=== PATIENT | female | born 1950 | race Caucasian/White ===

== ENCOUNTER 2023-10-26 12:30 | Observation (INO) | payer MEDICARE, OTHER, SELFPAY ==
[2023-10-26 12:41] VITALS: BP 187/77; PULSE 85; RESP 19; TEMP 36.9; O2SAT 100; BMI 29.2
--- NOTE | 2023-10-26 12:42 | XRR_ITS ---
PROCEDURE INFORMATION: Exam: XR Abdomen Exam date and time: 10/26/2023 1:42 PM Age: 73 years old Clinical indication: Prior surgery; Surgery date: 6+ months; Patient HX: Abdominal pain/distention; Chronic constipation; Worsening x 1 week; HX of pancreatic transplant, lumbar fusion, bladder stimulator, diabetic monitor TECHNIQUE: Imaging protocol: Radiologic exam of the abdomen. Views: Frontal supine view of the abdomen. 1 View. COMPARISON: No relevant prior studies available. FINDINGS: Gaseous distention of the colon in a nonobstructive pattern. Moderate colonic stool burden/constipation. XR/XR abdomen 1V* [id number] IMPRESSION: As above.
[2023-10-26 13:33] LABS: Basophils % 0.6 %; Eosinophils # 0.1 10^3/uL (0.0-0.8); Eosinophils % 1.1 %; Lymphocytes # 1.5 10^3/uL (0.8-4.8); Lymphocytes % 21.3 %; Mean Corpuscular HGB Conc 33.2 g/dL (30-55); Mean Corpuscular Hemoglobin 31.9 pg (27-33); Mean Platelet Volume 9.6 fL (7.4-10.4); Monocytes # 0.5 10^3/uL (0.2-0.9); Monocytes % 7.2 %; Neutrophils # 4.85 10^3/uL (1.8-7.7); Neutrophils % 69.5 %; Nucleated Red Blood Cells % 0 %; Platelet Count 170 10^3/cmm (157-399); Red Blood Count 3.23 10^6/uL (3.85-5.65); Red Cell Distribution Width 12.2 % (12.1-15.1); White Blood Count 6.98 10^3/uL (3.29-11.43)
[2023-10-26 13:45] LABS: Alanine Aminotransferase 16 U/L (0-33); Alkaline Phosphatase 128 U/L (35-105); Anion Gap 15.3 (5-19); Aspartate Amino Transferase 19 U/L (0-32); Blood Urea Nitrogen 17 mg/dL (8-23); Calcium 8.5 mg/dL (8.5-10.5); Carbon Dioxide 26 mmol/L (22-29); Chloride 93 mmol/L (98-107); Globulin 2.7 g/dL (1.3-4.6); Glucose 159 mg/dL (65-115); Lipase 16 U/L (13-60); Magnesium 2.1 mg/dL (1.7-2.3); Osmolality Calculated 275 mOsm/kg (285-295); Potassium 4.3 mmol/L (3.5-5.1); Sodium 130 mmol/L (136-145); Total Bilirubin 0.2 mg/dL (0.15-1.2); Total Protein 6.7 g/dL (6.6-8.7)
--- NOTE | 2023-10-26 14:49 | CTR_ITS ---
PROCEDURE INFORMATION: Exam: CT Abdomen And Pelvis With Contrast Exam date and time: 10/26/2023 4:32 PM Age: 73 years old Clinical indication: Constipation; Prior surgery; Surgery date: 6+ months; Surgery type: Back , bladder; Additional info: Abdominal pain with n/v TECHNIQUE: Imaging protocol: Computed tomography of the abdomen and pelvis with contrast. Radiation optimization: All CT scans at this facility use at least one of these dose optimization techniques: automated exposure control; mA and/or kV adjustment per patient size (includes targeted exams where dose is matched to clinical indication); or iterative reconstruction. Contrast material: OMNI 350; Contrast volume: 80 ml; Contrast route: INTRAVENOUS (IV); COMPARISON: CR (ABDOMEN, ) 10/26/2023 1:42 PM RADIATION DOSE METRICS: Total DLP (mGy-cm): 927.18 FINDINGS: Liver: No acute findings Gallbladder and bile ducts: No stones. Intra and extrahepatic biliary dilatation with common duct measuring approximately 10 mm. Pancreas: No ductal dilation. Spleen: No splenomegaly. Adrenal glands: No mass. Kidneys and ureters: No stones or hydronephrosis. Stomach and bowel: No obstruction. Moderate colonic stool burden/constipation. Appendix: No evidence of appendicitis. Intraperitoneal space: No free air. No significant fluid collection. Vasculature: No abdominal aortic aneurysm. Lymph nodes: No enlarged lymph nodes. Urinary bladder: Incompletely distended. Reproductive: Trace pelvic free fluid likely physiologic. Bones/joints: Degenerative and postsurgical changes without acute findings. Soft tissues: Bilateral breast implants. CT/CT abdomen pelvis w con* [id number] IMPRESSION: Intra and extrahepatic biliary ductal dilatation of unclear etiology. MRCP recommended for further characterization. Diffuse colonic stool/constipation.
[2023-10-26] MEDS: methylnaltrexone 12 /0.6 mL INJ 12 MG SUBCUT (15:15)
[2023-10-26 15:43] LABS: Add Urine Microscopic? NO; Charge for UA Resulting for Rev
[2023-10-26 15:44] LABS: Bilirubin Urine Neg (Negative); Blood Urine Neg (Negative); Glucose Urine UA Norm (Normal); Ketones Urine Negative (Negative); Leukocyte Esterase Urine Negative (Negative); Nitrate Urine Negative (Negative); Protein Urine Neg (Negative); Specific Gravity, Urine 1.005 (1.005-1.030); Urine Appearance Clear (CLEAR); Urine Color Yellow (Yellow); Urobilinogen Urine Norm (Negative); pH Urine 7 (5-7)
[2023-10-26 16:00] VITALS: BP 175/77; PULSE 74; O2SAT 94
[2023-10-26] MEDS: iohexol 350 mg/mL 500 mL Btl (per mL) IV (16:45)
[2023-10-26] MEDS: sodium chloride 0.9% 1,000 ML 999 ML IV (16:57)
--- NOTE | 2023-10-26 17:36 | PC.PHAR ---
PT USES [facility] [employer]ED ENTIRE EXTERNAL LIST FROM THEM AND SAT WITH PATIENT TO VERIFY EVERY MEDICATION. SHE DID NOT REMEMBER HER ALLERGIES SO I CALLED BACK AND GOT THE LIST, PHARMACIST SAYS UNKNOWN ON THE REACTIONS ON ALL. 10/26/23
[2023-10-26] MEDS: Fleet Enema 133 mL Enema PR (18:10)
--- NOTE | 2023-10-26 18:14 | PM.HP ---
Providers/Chief Complaint Primary Care Provider: Brandi Thakur DO Chief Complaint: abd pain, n/v, constipated History of Present Illness Meryl Ling is a 73 year old female with history of chronic opioid use secondary to her back pain and shoulder surgery, takes multiple bowel regimen, presented with 3-day history of nausea and vomiting. Patient stating that every time she has breakfast she has 3 episode of nausea and vomiting. This has been going on for last 3 days, she has not noticed any fever. She has tried multiple laxatives and stool softeners but nothing is working her favor. She was seen at [facility] as well where she was given methylnaltrexone with mild improvement. In the ER she has been diagnosed with significant stool burden causing obstipation she has been given enema and mag citrate. Patient does not want NG tube I will start her on GoLytely in the morning, patient is agreeable Review of Systems Eyes: Denies: change in vision ENMT: Denies: throat pain Card: Denies: chest pain Resp: Denies: dyspnea GI: Reports: abdominal pain and early satiety : Denies: flank pain Musc: Reports: back pain Skin/Breast: Denies: rash Medications/Allergies Home Medications Medication Instructions Recorded Confirmed Last Taken Type amlodipine 5 mg tablet 5 mg PO DAILY 10/26/23 10/26/23 10/26/23 History armodafinil 250 mg tablet 250 mg PO DAILY 10/26/23 10/26/23 10/26/23 History azelastine 137 mcg (0.1 %) nasal 2 spray intranasal BID PRN 10/26/23 10/26/23 Unknown History spray aerosol ALLERGIES baclofen 10 mg tablet 20 mg PO BID 10/26/23 10/26/23 10/26/23 History bisacodyl 10 mg rectal suppository 10 mg NH DAILY PRN Constipation 10/26/23 10/26/23 Unknown History brimonidine 0.2 % eye drops 1 drp ophthalmic (eye) BID 10/26/23 10/26/23 10/26/23 History dorzolamide 2 % eye drops 1 drp ophthalmic (eye) BID 10/26/23 10/26/23 10/26/23 History duloxetine 30 mg capsule,delayed 30 mg PO BID 10/26/23 10/26/23 10/26/23 History release estradiol 2 mg tablet 2 mg PO DAILY 10/26/23 10/26/23 10/26/23 History fentanyl 12 mcg/hr transdermal 1 patch topical Q72H 10/26/23 10/26/23 Unknown History patch fluticasone propionate 50 1 spray intranasal BID PRN 10/26/23 10/26/23 Unknown History mcg/actuation nasal allergies spray,suspension furosemide 40 mg tablet 20 mg PO DAILY 10/26/23 10/26/23 10/26/23 History insulin aspart U-100 100 unit/mL See Rx Instructions .Route .COMPLEX 10/26/23 10/26/23 Unknown History subcutaneous solution (Novolog U-100 Insulin aspart) ipratropium bromide 42 mcg (0.06 2 spray intranasal TID PRN 10/26/23 10/26/23 Unknown History %) nasal spray allergies lactulose 10 gram/15 mL oral 30 ml PO TID 10/26/23 10/26/23 10/26/23 History solution (Constulose) latanoprost 0.005 % eye drops 1 drp ophthalmic (eye) DAILY 10/26/23 10/26/23 10/26/23 History levothyroxine 200 mcg tablet 200 mcg PO DAILY 10/26/23 10/26/23 10/26/23 History levothyroxine 25 mcg tablet 25 mcg PO DAILY 10/26/23 10/26/23 10/26/23 History linaclotide 290 mcg capsule 290 mcg PO DAILY 10/26/23 10/26/23 10/26/23 History (Linzess) liothyronine 5 mcg tablet 5 mcg PO DAILY 10/26/23 10/26/23 10/26/23 History lubiprostone 24 mcg capsule 24 mcg PO BID 10/26/23 10/26/23 10/26/23 History morphine 15 mg tablet,extended 15 mg PO Q8H 10/26/23 10/26/23 10/26/23 History release okzlktcl-poowqmuhz-htxwkasw 3.5 1 drp ophthalmic (eye) QID 10/26/23 10/26/23 10/26/23 History mg/mL-10,000 unit/mL-0.1% eye drops netarsudil 0.02 % eye drops 1 drp ophthalmic (eye) BEDTIME 10/26/23 10/26/23 10/25/23 History (Rhopressa) nystatin 100,000 unit/gram topical 1 applic topical BID 10/26/23 10/26/23 10/26/23 History powder (Nystop) ofloxacin 0.3 % eye drops 1 drp ophthalmic (eye) QID 10/26/23 10/26/23 10/26/23 History ondansetron 8 mg disintegrating 8 mg PO Q8H PRN Nausea 10/26/23 10/26/23 Unknown History tablet pramipexole 0.25 mg tablet 0.25 mg PO QPM 10/26/23 10/26/23 10/25/23 History pregabalin 25 mg capsule 25 mg PO TID 10/26/23 10/26/23 10/26/23 History progesterone micronized 100 mg 100 mg PO BEDTIME 10/26/23 10/26/23 10/25/23 History capsule trazodone 150 mg tablet 150 mg PO BEDTIME 10/26/23 10/26/23 10/25/23 History Allergies Allergy/AdvReac Type Severity Reaction Status Date / Time angiotensin II acetate, human Allergy Unknown Verified 10/26/23 17:36 aspirin Allergy Unknown Verified 10/26/23 17:36 codeine Allergy Unknown Verified 10/26/23 17:36 NSAIDS (Non-Steroidal Allergy Unknown Verified 10/26/23 17:36 Anti-Inflamma tetracycline Allergy Unknown Verified 10/26/23 17:36 PFSH Acute PFSH: Medical History (Updated 10/26/23 @ 18:43 by Mohit Downing MD) Hypothyroidism Constipation Surgical History (Updated 10/26/23 @ 18:42 by Mohit Downing MD) H/O shoulder surgery Previous back surgery Vitals/I&O/Wt Last Vital Signs Temp 98.5 F 10/26/23 12:41 Pulse 85 10/26/23 12:41 Resp 19 H 10/26/23 12:41 BP 187/77 10/26/23 12:41 Pulse Ox 100 10/26/23 12:41 O2 Del Method Nasal Cannula 10/26/23 12:41 O2 Flow Rate 3 10/26/23 12:41 Weight last 48 hrs Weight 77.111 kg Physical Exam Narrative: Patient is slightly dehydrated Awake and alert Use of it Abdomen soft and nondistended Bowel sounds sluggish Nonfocal neuroexam No active nausea vomiting Currently on room air Pleasant and cooperative Nonfocal neuroexam Data 10/26/23 13:24 10/26/23 13:24 A&P Assessment and plan (1) Constipation: (2) Obstipation: (3) Hyponatremia: Plan Severe constipation Will keep her on IV fluids for hyponatremia Will try GoLytely today Will keep her on clear liquid diet Full code No history of congestive heart failure Continue levothyroxine Avoid opioids during the visit Will try methylnaltrexone another dose in the morning Enema and mag citrate given no History of GI cancer previous colonoscopies were unremarkable Attestations Medical Necessity Statement*: Possible discharge in next 48 hours Diagnoses Constipation K59.00 Obstipation K59.00 Hyponatremia E87.1
[2023-10-26] MEDS: magnesium citrate Btl 296 mL PO (18:15)
[2023-10-26 18:30] VITALS: BP 190/86; PULSE 81; O2SAT 98
--- NOTE | 2023-10-26 18:38 | W.ED.ABDPA2 ---
HPI - Abdominal Pain General: Chief Complaint: Abdominal Pain Stated Complaint: abd pain, n/v, constipated Time Seen by Provider: 10/26/23 13:12 History of Present Illness: 73-year-old female presents to the emergency department with complaints of generalized abdominal pain. She states that she is not had a bowel movement in the previous 7 days. She states she is on chronic pain medication for chronic back pain and has recently had a shoulder surgery. She states that her abdominal pain is a 6 out of 10 and is constant and cramping. She states that she has had a history of constipation and has required relistor subcutaneous injection with resolution of her previous constipation. She states that she feels like this is different as she has attempted to try magnesium citrate as well as several fleets enemas and multiple by mouth intestinal stimulants without resolution. She has had several episodes of nausea and vomiting throughout yesterday and today and is concerned as she states this feels much different than her previous episodes of constipation. She states she has had her gallbladder removed and has been a diabetic for many years and is very up-to-date on her medications and medical treatments. Associated Symptoms: Reports constipation, nausea and vomiting Review of Systems General: Reports: 10 or more systems reviewed and unremarkable except in HPI and below GI: Reports: abdominal pain, nausea, vomiting and constipation Musc: Reports: back pain PFSH ED PFSH: Medical History (Updated 10/26/23 @ 18:46 by Kamron Lemos MD) Hypothyroidism Constipation Surgical History (Updated 10/26/23 @ 18:42 by Mohit Downing MD) H/O shoulder surgery Previous back surgery Physical Exam Narrative: EXAM NARRATIVE: Constitutional: the patient appears well nourished and of normal development. Vital signs as documented. No acute distress at present. Alert and oriented-to person, place, time and situation. Head, eyes, ears, nose, mouth, throat: Normocephalic, atraumatic. Pupils-equal, round, reactive to light. No scleral icterus. Normal-appearing external ears. Normal appearing nasal turbinates, no drainage. No obvious oral lesions, posterior oropharynx without erythema or exudates. Neck: Supple, trachea is midline, no lymphadenopathy, no jugular venous distension, thyromegaly, or carotid bruits. Carotid upstrokes are brisk bilaterally. Lungs: clear to auscultation to all lung marcos. Symmetrical rise and fall of chest, no obvious signs of increased work of breathing at present. Cardiac: Regular rate and rhythm, positive S1, S2. No murmurs, rubs or gallops that I can appreciate Abdomen: Soft, generalized tender to palpation, hypoactivebowel sounds to all quadrants. No palpable masses, no organomegaly and abdominal bruits. Extremities: 2+ pulses in the upper extremities that are equal bilaterally, 2+ pulses in the lower extremities that are equal bilaterally. Non-edematous. Moves all extremities well, sensation to all extremities are noted. Skin: Warm, dry, intact. Course Vital Signs: Vital signs: Vital Signs Temperature 98.5 F 10/26/23 12:41 Pulse Rate 85 10/26/23 12:41 Respiratory Rate 19 H 10/26/23 12:41 Blood Pressure 187/77 10/26/23 12:41 Pulse Oximetry 100 10/26/23 12:41 Oxygen Delivery Me thod Nasal Cannula 10/26/23 12:41 Oxygen Flow Rate 3 10/26/23 12:41 MDM - Abdominal Pain Medical Decision Making Physical exam completed and documented I will obtain laboratory evaluation and plain film abdominal x-ray. I will also provide the patient methylnaltrexone subcutaneously to attempt resolution of her abdominal pain and constipation. Reevaluation the patient did not demonstrate improvement after methylnaltrexone was administered. Patient still complains abdominal pain I will contact the hospitalist physician to request admission given concern for obstipation and possible bowel obstruction. Patient is at increased risk for adverse outcome given her longstanding history of diabetes, delayed gastric emptying, neurogenic bladder and chronic pain medication use for her chronic back pain. I did contact the hospitalist and he requested that I consult the general surgeon I did speak with Dr. Ruiz and advised him of the patient's case and he accepted the patient for consultation. I have also provided the patient by mouth magnesium citrate as well as a fleets enema and will request an NG tube to low intermittent wall suction if the patient has additional episodes of nausea vomiting after administration of the magnesium citrate. Lab Data I reviewed the patient's lab results. 10/26/23 13:24 10/26/23 13:24 Labs/Radiology: Radiology Impressions Abdomen X-Ray 10/26/23 12:42 IMPRESSION: As above. Abdomen/Pelvis CT 10/26/23 14:49 IMPRESSION: Intra and extrahepatic biliary ductal dilatation of unclear etiology. MRCP recommended for further characterization. Diffuse colonic stool/constipation. Laboratory Results WBC 6.98 10^3/uL (3.29-11.43) 10/26/23 13:24 RBC 3.23 10^6/uL (3.85-5.65) L 10/26/23 13:24 Hgb 10.30 g/dL (11.27-16.99) L 10/26/23 13:24 Hct 31.0 % (36-47) L 10/26/23 13:24 MCV 96.0 fl (85-98) 10/26/23 13:24 MCH 31.9 pg (27-33) 10/26/23 13:24 MCHC 33.2 g/dL (30-55) 10/26/23 13:24 RDW 12.2 % (12.1-15.1) 10/26/23 13:24 Plt Count 170 10^3/cmm (157-399) 10/26/23 13:24 MPV 9.6 fL (7.4-10.4) 10/26/23 13:24 Neut % (Auto) 69.5 % 10/26/23 13:24 Lymph % (Auto) 21.3 % 10/26/23 13:24 [place] % (Auto) 7.2 % 10/26/23 13:24 Eos % (Auto) 1.1 % 10/26/23 13:24 Baso % (Auto) 0.6 % 10/26/23 13:24 Neut # (Auto) 4.85 10^3/uL (1.8-7.7) 10/26/23 13:24 Lymph # (Auto) 1.5 10^3/uL (0.8-4.8) 10/26/23 13:24 [place] # (Auto) 0.5 10^3/uL (0.2-0.9) 10/26/23 13:24 Eos # (Auto) 0.1 10^3/uL (0.0-0.8) 10/26/23 13:24 Baso # (Auto) 0.0 10^3/uL (0.0-0.1) 10/26/23 13:24 Nucleated RBC % (auto) 0 % 10/26/23 13:24 Nucleated RBCs # 0.0 /100WBC 10/26/23 13:24 Sodium 130 mmol/L (136-145) L 10/26/23 13:24 Potassium 4.3 mmol/L (3.5-5.1) 10/26/23 13:24 Chloride 93 mmol/L (98-107) L 10/26/23 13:24 Carbon Dioxide 26 mmol/L (22-29) 10/26/23 13:24 Anion Gap 15.3 (5-19) 10/26/23 13:24 BUN 17 mg/dL (8-23) 10/26/23 13:24 Creatinine 0.9 mg/dL (0.5-0.9) 10/26/23 13:24 GFR Calculation Not Reportable 10/26/23 13:24 Glucose 159 mg/dL (65-115) H 10/26/23 13:24 Calculated Osmolality 275 mOsm/kg (285-295) L 10/26/23 13:24 Calcium 8.5 mg/dL (8.5-10.5) 10/26/23 13:24 Magnesium 2.1 mg/dL (1.7-2.3) 10/26/23 13:24 Total Bilirubin 0.2 mg/dL (0.15-1.2) 10/26/23 13:24 AST 19 U/L (0-32) 10/26/23 13:24 ALT 16 U/L (0-33) 10/26/23 13:24 Alkaline Phosphatase 128 U/L (35-105) H 10/26/23 13:24 Total Protein 6.7 g/dL (6.6-8.7) 10/26/23 13:24 Albumin 4.0 g/dL (3.5-5.2) 10/26/23 13:24 Globulin 2.7 g/dL (1.3-4.6) 10/26/23 13:24 Lipase 16 U/L (13-60) 10/26/23 13:24 Urine Color Yellow (Yellow) 10/26/23 15:00 Urine Appearance Clear (CLEAR) 10/26/23 15:00 Urine pH 7 (5-7) 10/26/23 15:00 Ur Specific [place] 1.005 (1.005-1.030) 10/26/23 15:00 Urine Protein Neg (Negative) 10/26/23 15:00 Urine Glucose (UA) Norm (Normal) 10/26/23 15:00 Urine Ketones Negative (Negative) 10/26/23 15:00 Urine Blood Neg (Negative) 10/26/23 15:00 Urine Nitrate Negative (Negative) 10/26/23 15:00 Urine Bilirubin Neg (Negative) 10/26/23 15:00 Urine Urobilinogen Norm mg/dL (Negative) 10/26/23 15:00 Ur Leukocyte Esterase Negative (Negative) 10/26/23 15:00 All radiology interpretation(s) finalized by discharge Discharge Plan Discharge Patient Disposition: Admitted As Inpatient Admit Provider: Mohit Downing Clinical Impression: Bowel obstruction, Abdominal pain, Obstipation, Moderate nausea and vomiting Condition: Stable Coding Level of Care Code ED Insulation Nozzleman for Joseph Alvarez
[2023-10-26] MEDS: metoclopramide 5 mg/mL SDV 2 mL IVP (19:41)
[2023-10-26 20:02] VITALS: BP 151/55; PULSE 73; RESP 19; TEMP 37.1; O2SAT 98
--- NOTE | 2023-10-26 20:15 | PC.NURSE ---
Dr. Hand notified that the majority of the patient's home medications have not been continued. Patient is asking for her Lyrica, Trazodone, Morphine, and Baclofen that she takes at home. Dr. Hand notified that patient is here for constipation and Dr. Dowinng's note says to avoid opioids during the visit . Ordered to continue Baclofen, Trazodone, and Lyrica, but hold Morphine.
--- NOTE | 2023-10-26 20:24 | PC.NURSE ---
Addendum entered by Antonina Youssef RN 10/26/23 20:33: Miralax x1 ordered. Original Note: Patient received a fleet enema, mag citrate, and Relistor in the ER and per report had a small BM in ED. She has Golytely ordered to give on the floor now, however we do not have pharmacy in house right now and housekeeping coordinator said she is not able to get this for us. Dr. Hand notified.
[2023-10-26 20:28] LABS: Glucose Point of Care 131 mg/dL (70-110)
[2023-10-26] MEDS: baclofen 10 mg Tablet 20 MG PO (20:47)
[2023-10-26] MEDS: pregabalin 25 mg Capsule PO (20:48)
[2023-10-26] MEDS: polyethylene glycol 3350 Pkt 17 gm PO (20:48)
[2023-10-26] MEDS: trazodone 150 mg Tablet PO (20:48)
[2023-10-26] MEDS: enoxaparin 40 mg/0.4 mL Syringe SUBCUT (20:48)
[2023-10-26] MEDS: sodium chloride 0.9% 1,000 ML 75 ML IV (20:48)
[2023-10-26] MEDS: metoprolol tartrate 25 mg Tablet PO (20:48)
--- NOTE | 2023-10-26 21:19 | PC.NURSE ---
Patient educated that Morphine is on hold. Patient began crying and stated they don't understand how bad I'm hurting. Dr. Hand notified and Morphine 15 mg q8h PRN ordered. Fentanyl patch to left upper back from home. Dr. Hand gave order okay to leave this on.
[2023-10-26] MEDS: morphine IR 15 mg Tablet PO (21:37)
--- NOTE | 2023-10-26 21:37 | PC.NURSE ---
Patient is pacing around the room saying I need something for my legs, I'm going crazy. I can't take this. She says at home she uses a massager and biofreeze and voltaren. Patient states the last time this happened in the hospital that they gave her something in her IV to relax her. Dr. Hand notified.
--- NOTE | 2023-10-26 22:14 | PC.NURSE ---
Patient educated to give PO medications time to work. Patient still pacing around room c/o cramps to her legs. Patient states you don't understand, I have got to have relief. If I don't get relief, I'm going to leave. Dr. Hand notified. Ordered to give PO home medications time to work.
--- NOTE | 2023-10-26 22:49 | PC.NURSE ---
Addendum entered by Antonina Youssef RN 10/26/23 23:04: Home Mirapex ordered. Original Note: Patient is pacing the hallways and won't let me co supervisor grounds and landscape her IV fluids or antibiotics because she can't stay still. She said how long are you people going make me wait before you do something. Dr. Hand notified.
[2023-10-26] MEDS: pramipexole 0.25 mg Tablet PO (23:37)
[2023-10-26] MEDS: piperacillin-tazobactam 3.375 GM in sodium chloride 0.9% (plus) 50 ML IV (23:38)
[2023-10-27] VITALS: BP 129/85; PULSE 77; RESP 18; TEMP 37.1; O2SAT 97
[2023-10-27 04:36] LABS: Basophils # 0.1 10^3/uL (0.0-0.1); Basophils % 0.8 %; Eosinophils # 0.1 10^3/uL (0.0-0.8); Eosinophils % 1.3 %; Hematocrit 31.9 % (36-47); Lymphocytes # 2.7 10^3/uL (0.8-4.8); Lymphocytes % 30.6 %; Mean Corpuscular HGB Conc 32.3 g/dL (30-55); Mean Corpuscular Hemoglobin 31.1 pg (27-33); Mean Corpuscular Volume 96.4 fl (85-98); Mean Platelet Volume 10.5 fL (7.4-10.4); Monocytes # 0.9 10^3/uL (0.2-0.9); Monocytes % 9.6 %; Neutrophils # 5.11 10^3/uL (1.8-7.7); Neutrophils % 57.4 %; Nucleated Red Blood Cells % 0 %; Platelet Count 203 10^3/cmm (157-399); Red Blood Count 3.31 10^6/uL (3.85-5.65); Red Cell Distribution Width 12.3 % (12.1-15.1); White Blood Count 8.92 10^3/uL (3.29-11.43)
[2023-10-27 04:58] VITALS: BP 116/85; PULSE 58; RESP 17; TEMP 37.1; O2SAT 98
[2023-10-27 05:04] LABS: C Reactive Protein 3.8 mg/L (0.0-4.9); Magnesium 2.3 mg/dL (1.7-2.3)
[2023-10-27] MEDS: baclofen 10 mg Tablet 20 MG PO (05:35)
[2023-10-27] MEDS: pregabalin 25 mg Capsule PO (05:35)
[2023-10-27 05:36] VITALS: RESP 18
[2023-10-27] MEDS: morphine IR 15 mg Tablet PO (05:36)
[2023-10-27 06:28] LABS: Glucose Point of Care 101 mg/dL (70-110)
[2023-10-27] MEDS: lanolin oint 7 gm 1 APPLIC TOPICAL ×2 (07:01→08:29)
[2023-10-27] MEDS: piperacillin-tazobactam 3.375 GM in sodium chloride 0.9% (plus) 50 ML IV (07:02)
[2023-10-27 07:33] VITALS: BP 121/53; PULSE 57; RESP 16; TEMP 36.7; O2SAT 98
[2023-10-27] MEDS: pantoprazole 40 mg SDV IVP (08:29)
[2023-10-27] MEDS: levothyroxine 200 mcg Tablet PO (08:30)
[2023-10-27] MEDS: methylnaltrexone 12 /0.6 mL INJ 12 MG SUBCUT (09:09)
[2023-10-27] MEDS: peg /e-lyte soln 4,000 mL Btl 1500 ML PO ×2 (09:45→10:38)
--- NOTE | 2023-10-27 10:37 | P.PN_ITS ---
Subjective 2 Subjective: Patient will get GoLytely today Patient stating that she had a lot of mucus small bowel movement yesterday after getting enema No active nausea vomiting after her breakfast She is passing flatus Fever, no leukocytosis we will discontinue Zosyn Patient is stating that if she gets a bowel movement she would like to go home and she has an appointment before her ophthalmology tomorrow at [place] which she does not want to miss Vitals/I&O/Wt Last Vital Signs Temp 98.1 F 10/27/23 07:33 Pulse 57 L 10/27/23 07:33 Resp 16 10/27/23 07:33 BP 121/53 10/27/23 07:33 Pulse Ox 98 10/27/23 07:33 O2 Del Method Nasal Cannula 10/27/23 07:33 O2 Flow Rate 3 10/26/23 12:41 10/26/23 10/27/23 10/27/23 22:59 06:59 14:59 Intake Total 1152.5 / 1152.5 50 / 1202.5 600 / 600 Balance 1152.5 / 1152.5 50 / 1202.5 600 / 600 Weight last 48 hrs Weight 80.059 kg Weight 77.791 kg Weight 77.111 kg Physical Exam 2 Narrative: Abdomen soft Hyperactive bowel sound Well-hydrated GCS 15 Pleasant calm Currently on room air Anxious appearing No abdominal pain or discomfort no active nausea or vomiting S1, S2 Data 10/27/23 03:47 10/26/23 13:24 A&P Assessment and plan (1) Moderate nausea and vomiting: (2) Hyponatremia: (3) Obstipation: (4) Constipation: Plan Patient is willing to try GoLytely, no signs of colitis, discontinue Zosyn Small BM yesterday after enema We can also try 1 dose of Relistor and mag citrate Note abdominal pain Positive bowel sound Passing flatus Possible discharge later today versus tomorrow Continue her home dose of levothyroxine Discontinued amlodipine which can cause more constipation Using metoprolol for hypertension Full code Clear consistent carb diet Insulin sliding scale No abnormal transaminases, bilirubin normal, patient may get MRCP referral at the time of discharge Attestations 2 Medical Necessity Statement*: Continue medical management Diagnoses Moderate nausea and vomiting R11.2 Hyponatremia E87.1 Obstipation K59.00 Constipation K59.00
[2023-10-27 12:00] VITALS: BP 111/55; PULSE 56; RESP 18; TEMP 36.5; O2SAT 100
--- NOTE | 2023-10-27 13:06 | PC.NURSE ---
Pt has insulin pump and dexcom used to self-dose based on carbs. MD boyd'd not administering ISS.
--- NOTE | 2023-10-27 13:12 | P.DS_ITS ---
Discharge Providers Date of Admission: 10/26/23 19:14 Date of Discharge: October 27, 2023 Attending Provider at Admission: Mohit Downing MD Attending Provider at Discharge: Mohit Downing MD Primary Care Provider: Brandi Thakur DO Diagnoses at Discharge Discharge Diagnosis (1) Moderate nausea and vomiting: Status: Acute (2) Hyponatremia: Status: Acute (3) Obstipation: Status: Acute (4) Constipation: Status: Acute Reason for Visit Reason for Visit: abd pain, n/v, constipated Hospital Course Hospital Course 70-year-old female who is opiate dependent for her back pain, presented with chief complaint of current nausea vomiting for last 3 days, she was given mag citrate and enema with little response, she responded excellent with GoLytely she has had large 4 bowel movements after getting GoLytely. Patient is stating that she is feeling much better she has an appointment to attend at [facility] tomorrow. She will be discharged home with Relistor, amlodipine was discontinued which can cause constipation, added metoprolol for hypertension. Physical Exam Narrative: Awake and alert GC 59 present Nonfocal neuroexam Doing well on room air Discharge Data Studies Completed and Pending Completed Studies During Hospitalization Category Date Time Status CT abdomen pelvis w con* [id number] Stat Cat Scan 10/26/23 14:49 Completed XR abdomen 1V* [id number] Stat Exams 10/26/23 12:42 Completed Pending at discharge Category Date Time Status Basic Metabolic Panel AM LABS Lab 10/28/23 04:00 Ordered Radiology Impressions Abdomen X-Ray 10/26/23 12:42 IMPRESSION: As above. Abdomen/Pelvis CT 10/26/23 14:49 IMPRESSION: Intra and extrahepatic biliary ductal dilatation of unclear etiology. MRCP recommended for further characterization. Diffuse colonic stool/constipation. Laboratory Results WBC 8.92 10^3/uL (3.29-11.43) 10/27/23 03:47 RBC 3.31 10^6/uL (3.85-5.65) L 10/27/23 03:47 Hgb 10.30 g/dL (11.27-16.99) L 10/27/23 03:47 Hct 31.9 % (36-47) L 10/27/23 03:47 MCV 96.4 fl (85-98) 10/27/23 03:47 MCH 31.1 pg (27-33) 10/27/23 03:47 MCHC 32.3 g/dL (30-55) 10/27/23 03:47 RDW 12.3 % (12.1-15.1) 10/27/23 03:47 Plt Count 203 10^3/cmm (157-399) 10/27/23 03:47 MPV 10.5 fL (7.4-10.4) H 10/27/23 03:47 Neut % (Auto) 57.4 % 10/27/23 03:47 Lymph % (Auto) 30.6 % 10/27/23 03:47 [place] % (Auto) 9.6 % 10/27/23 03:47 Eos % (Auto) 1.3 % 10/27/23 03:47 Baso % (Auto) 0.8 % 10/27/23 03:47 Neut # (Auto) 5.11 10^3/uL (1.8-7.7) 10/27/23 03:47 Lymph # (Auto) 2.7 10^3/uL (0.8-4.8) 10/27/23 03:47 [place] # (Auto) 0.9 10^3/uL (0.2-0.9) 10/27/23 03:47 Eos # (Auto) 0.1 10^3/uL (0.0-0.8) 10/27/23 03:47 Baso # (Auto) 0.1 10^3/uL (0.0-0.1) 10/27/23 03:47 Nucleated RBC % (auto) 0 % 10/27/23 03:47 Nucleated RBCs # 0.0 /100WBC 10/27/23 03:47 Sodium 130 mmol/L (136-145) L 10/26/23 13:24 Potassium 4.3 mmol/L (3.5-5.1) 10/26/23 13:24 Chloride 93 mmol/L (98-107) L 10/26/23 13:24 Carbon Dioxide 26 mmol/L (22-29) 10/26/23 13:24 Anion Gap 15.3 (5-19) 10/26/23 13:24 BUN 17 mg/dL (8-23) 10/26/23 13:24 Creatinine 0.9 mg/dL (0.5-0.9) 10/26/23 13:24 GFR Calculation Not Reportable 10/26/23 13:24 Glucose 159 mg/dL (65-115) H 10/26/23 13:24 POC Glucose 101 mg/dL (70-110) 10/27/23 06:24 Calculated Osmolality 275 mOsm/kg (285-295) L 10/26/23 13:24 Calcium 8.5 mg/dL (8.5-10.5) 10/26/23 13:24 Magnesium 2.3 mg/dL (1.7-2.3) 10/27/23 03:47 Total Bilirubin 0.2 mg/dL (0.15-1.2) 10/26/23 13:24 AST 19 U/L (0-32) 10/26/23 13:24 ALT 16 U/L (0-33) 10/26/23 13:24 Alkaline Phosphatase 128 U/L (35-105) H 10/26/23 13:24 C-Reactive Protein 3.8 mg/L (0.0-4.9) 10/27/23 03:47 Total Protein 6.7 g/dL (6.6-8.7) 10/26/23 13:24 Albumin 4.0 g/dL (3.5-5.2) 10/26/23 13:24 Globulin 2.7 g/dL (1.3-4.6) 10/26/23 13:24 Lipase 16 U/L (13-60) 10/26/23 13:24 Urine Color Yellow (Yellow) 10/26/23 15:00 Urine Appearance Clear (CLEAR) 10/26/23 15:00 Urine pH 7 (5-7) 10/26/23 15:00 Ur Specific [place] 1.005 (1.005-1.030) 10/26/23 15:00 Urine Protein Neg (Negative) 10/26/23 15:00 Urine Glucose (UA) Norm (Normal) 10/26/23 15:00 Urine Ketones Negative (Negative) 10/26/23 15:00 Urine Blood Neg (Negative) 10/26/23 15:00 Urine Nitrate Negative (Negative) 10/26/23 15:00 Urine Bilirubin Neg (Negative) 10/26/23 15:00 Urine Urobilinogen Norm mg/dL (Negative) 10/26/23 15:00 Ur Leukocyte Esterase Negative (Negative) 10/26/23 15:00 Vitals Last Vital Signs Temp 97.7 F 10/27/23 12:00 Pulse 56 L 10/27/23 12:00 Resp 18 10/27/23 12:00 BP 111/55 10/27/23 12:00 Pulse Ox 100 10/27/23 12:00 O2 Del Method Nasal Cannula 10/27/23 12:00 O2 Flow Rate 3 10/26/23 12:41 Discharge Plan Discharge Patient Disposition: Home Condition: Stable Prescriptions: New metoprolol tartrate 25 mg tablet 25 mg PO BID Qty: 60 0RF Relistor 8 mg/0.4 mL syringe 0.4 ml SUBCUT EVERY OTHER DAY PRN (Reason: constipation) Qty: 2.8 0RF Continued latanoprost 0.005 % drops 1 drp ophthalmic (eye) DAILY ofloxacin 0.3 % drops 1 drp ophthalmic (eye) QID liothyronine 5 mcg tablet 5 mcg PO DAILY ondansetron 8 mg tablet,disintegrating 8 mg PO Q8H PRN (Reason: Nausea) levothyroxine 25 mcg tablet 25 mcg PO DAILY baclofen 10 mg tablet 20 mg PO BID Novolog U-100 Insulin aspart 100 unit/mL solution See Rx Instructions .ROUTE .COMPLEX Rx Instructions: 1 sliding scale dose subcutaneously insulin pump bisacodyl 10 mg suppository 10 mg [place] DAILY PRN (Reason: Constipation) trazodone 150 mg tablet 150 mg PO BEDTIME neomycin-polymyxin B-dexameth 3.5mg/mL-10,000 unit/mL-0.1 % drops,suspension 1 drp ophthalmic (eye) QID brimonidine 0.2 % drops 1 drp ophthalmic (eye) BID pramipexole 0.25 mg tablet 0.25 mg PO QPM estradiol 2 mg tablet 2 mg PO DAILY morphine 15 mg tablet extended release 15 mg PO Q8H levothyroxine 200 mcg tablet 200 mcg PO DAILY Nystop 100,000 unit/gram powder 1 applic TOPICAL BID azelastine 137 mcg (0.1 %) aerosol,spray 2 spray INTRANASAL BID PRN (Reason: ALLERGIES) ipratropium bromide 42 mcg (0.06 %) spray,non-aerosol 2 spray INTRANASAL TID PRN (Reason: allergies) fluticasone propionate 50 mcg/actuation spray,suspension 1 spray INTRANASAL BID PRN (Reason: allergies) progesterone micronized 100 mg capsule 100 mg PO BEDTIME dorzolamide 2 % drops 1 drp ophthalmic (eye) BID duloxetine 30 mg capsule,delayed release(DR/EC) 30 mg PO BID Constulose 10 gram/15 mL solution 30 ml PO TID fentanyl 12 mcg/hr patch 72 hour 1 patch topical Q72H pregabalin 25 mg capsule 25 mg PO TID lubiprostone 24 mcg capsule 24 mcg PO BID armodafinil 250 mg tablet 250 mg PO DAILY Linzess 290 mcg capsule 290 mcg PO DAILY Rhopressa 0.02 % drops 1 drp ophthalmic (eye) BEDTIME furosemide 40 mg tablet 20 mg PO DAILY Discontinued amlodipine 5 mg tablet 5 mg PO DAILY Discharge Orders: Discharge Order (Routine); Ordered 10/27/23 Ordered By: Mohit Downing Referrals: Brandi Thakur DO [Primary Care Provider] - 4-7 days (We have notified your physician's clinic of the need for a follow-up appointment to be scheduled. If you have not heard from them within the next 2 business days, please call them directly. ) Patient Instructions: Abdominal Pain - Adult, Metoprolol (By mouth), Methylnaltrexone (By injection), Acute Nausea and Vomiting (DC), Obstipation (DC), Opioid Safety Discharge Attestations Time Spent in Discharge Care*: greater than 30 min Quality Metrics Clinical Quality Measures [ No reported AMI, CVA or VTE this stay] Coding Level of Care Code Acute Code for Chg Fwd Diagnoses Moderate nausea and vomiting R11.2 Hyponatremia E87.1 Obstipation K59.00 Constipation K59.00
[2023-10-27 14:29] VITALS: BP 111/55; PULSE 56; RESP 18; TEMP 36.5; O2SAT 100
== END 2023-10-27 14:31 | disposition home or self-care (01) ==
LOC: ER 17:43 → MEDSURG 18:46
PROVIDERS: Emergency Medicine; Admitting Provider Internal Medicine; Emergency Provider Internal Medicine; PCP Family Medicine; Visit Provider Internal Medicine
DX: K59.00 Constipation, unspecified (principal); R11.2 Nausea with vomiting, unspecified; E87.1 Hypo-osmolality and hyponatremia; E03.9 Hypothyroidism, unspecified; E86.0 Dehydration
CPT/HCPCS: 36415; 36416; 74018; 74177; 80053; 81003; 82962; 83690; 83735; 85025; 86140; 96365; 96366; 96372; 99285; C9113; G0378; J1650; J2212; J2543; J2765; J7030; Q9967

== ENCOUNTER 2023-11-11 15:20 | Inpatient (IN) | payer MEDICARE, OTHER, SELFPAY ==
[2023-11-11 15:24] VITALS: BP 189/80; PULSE 69; RESP 12; TEMP 36.8; O2SAT 100; BMI 31.6
[2023-11-11 15:30] VITALS: PULSE 62; RESP 17; O2SAT 97
--- NOTE | 2023-11-11 15:33 | ECG_ITS ---
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 [id number]
--- NOTE | 2023-11-11 15:34 | XRR_ITS ---
PROCEDURE INFORMATION: Exam: XR Chest Exam date and time: 11/11/2023 3:37 PM Age: 73 years old Clinical indication: Other: Fluid retention; Prior surgery; Surgery date: 1-6 months; Surgery type: Lt shoulder; Additional info: SOB TECHNIQUE: Imaging protocol: Radiologic exam of the chest. Views: 1 view. COMPARISON: CT abdomen pelvis w con* [id number] 10/26/2023 4:32 PM FINDINGS: Lungs: New bilateral pulmonary edema and/or pneumonitis. Otherwise, unremarkable Pleural spaces: Small-moderate left pleural effusion. No right pleural effusion or pneumothorax. Heart/Mediastinum: Unremarkable. No cardiomegaly. Bones/joints: Unchanged moderate scoliosis with spondylosis. Unchanged surgical hardware attached to the cervical spine. Left shoulder arthroplasty. XR/XR chest 1V portable [id number] IMPRESSION: 1. New diffuse bilateral pulmonary edema and/or pneumonitis.. 2. Additional details as above.
--- NOTE | 2023-11-11 15:37 | USR_ITS ---
PROCEDURE INFORMATION: Exam: US Duplex Lower Extremity Veins, Bilateral Exam date and time: 11/11/2023 4:00 PM Age: 73 years old Clinical indication: Swelling (edema) of limb; Lower extremity, bilateral TECHNIQUE: Imaging protocol: Real-time duplex ultrasound of the bilateral extremities with 2-D nassar scale, color Doppler flow and spectral waveform analysis including responses to compression and other maneuvers (when performed) with image documentation. Complete exam focused on the lower extremity veins. COMPARISON: CT abdomen pelvis w con* [id number] 10/26/2023 4:32 PM FINDINGS: Right deep veins: Unremarkable. The common femoral, femoral, proximal profunda femoral, popliteal, posterior tibial and peroneal veins are patent without thrombus. Normal Doppler waveforms. Normal compressibility and/or augmentation response. Left deep veins: Unremarkable. The common femoral, femoral, proximal profunda femoral, popliteal, posterior tibial and peroneal veins are patent without thrombus. Normal Doppler waveforms. Normal compressibility and/or augmentation response. Superficial veins: Bilateral saphenofemoral junctions are patent without thrombus. Soft tissues: Unremarkable. US/CV venous duplex [facility] [id number] IMPRESSION: No sonographic evidence of deep vein thrombosis.
--- NOTE | 2023-11-11 15:39 | ED_ITS ---
HPI - General Adult 2 General: Chief complaint: General Medical Stated complaint: sob, retaining fluid, weakness Time Seen by Provider: 11/11/23 15:34 Source: patient Mode of arrival: ambulatory Limitations: no limitations History of Present Illness: 73-year-old female who has a history of type 1 diabetes along with chronic kidney disease she states that she has had a 8 pound weight gain over the last 6 days with swelling in her legs and increasing shortness of breath states she wears 2 L of oxygen at baseline she had to turn up to 4-5 at home. She denies any chest pain denies any cough denies any fever. Associated symptoms: Reports dyspnea; Deny chest pain, headache(s), nausea, rash or vomiting Review of Systems 2 Const: Denies: fever(s) or chills ENMT: Denies: throat pain or dental pain Card: Denies: chest pain Resp: Reports: dyspnea GI: Denies: abdominal pain, nausea, vomiting or diarrhea Musc: Reports: extremity swelling; Denies: neck pain or back pain Skin/Breast: Denies: rash Neuro: Denies: headache(s) PFSH ED 2 PFSH: Medical History Moderate nausea and vomiting Obstipation Abdominal pain Bowel obstruction Hyponatremia Constipation Obstipation Hypothyroidism Constipation Surgical History H/O shoulder surgery Previous back surgery Physical Exam 2 Const: COMMON NORMALS: patient oriented x3 HENMT: COMMON NORMALS: normocephalic and atraumatic HEAD & SCALP: n ormocephalic and atraumatic Neck/C-Spine: COMMON NORMALS: full ROM and supple Chest: COMMONS NORMALS: normal inspection of the chest Resp: COMMON NORMALS: No retractions, No use of accessory muscles and clear to auscultation bilaterally AUSCULTATION: clear to auscultation bilaterally Cardio: COMMON NORMALS: regular rate, regular rhythm and No murmurs present (Cardio) RATE: regular rate RHYTHM: regular rhythm GI: COMMON NORMALS: Normal to inspection, nondistended, normoactive bowel sounds present, Soft to palpation, non-tender and no masses PALPATION: Yes Soft to palpation Extremity: COMMON NORMALS: full ROM NARRATIVE EXTREMITY EXAM: 2+ edema Neuro: COMMON NORMALS: patient oriented x3, moves all extremities and no focal motor deficits Psych: COMMON NORMALS: mental status grossly normal, Normal thought process present and cooperative THOUGHT PROCESS: Normal thought process present Skin: COMMON NORMALS: no rashes or lesions noted and no wounds GENERAL SKIN EXAM: no rashes or lesions noted Course 2 Vital Signs: Vital signs: Vital Signs Temperature 98.2 F 11/11/23 15:24 Pulse Rate 62 11/11/23 15:30 Respiratory Rate 17 11/11/23 15:30 Blood Pressure 189/80 11/11/23 15:24 Pulse Oximetry 97 11/11/23 15:30 Oxygen Delivery Me thod Room Air 11/11/23 15:30 MDM - General Adult Medical Decision Making Patient presents here with lower extremity edema she also has pulmonary edema seen on the x-ray consistent with likely CHF exacerbation did give IV Lasix here spoke to the hospitalist will admit. Medical Records I reviewed the patient's medical records. Lab Data I reviewed the patient's lab results. 11/11/23 15:50 11/11/23 15:50 Radiology Impressions Chest X-Ray 11/11/23 15:34 IMPRESSION: 1. New diffuse bilateral pulmonary edema and/or pneumonitis.. 2. Additional details as above. Laboratory Results WBC 6.95 10^3/uL (3.29-11.43) 11/11/23 15:50 RBC 3.07 10^6/uL (3.85-5.65) L 11/11/23 15:50 Hgb 9.70 g/dL (11.27-16.99) L 11/11/23 15:50 Hct 30.0 % (36-47) L 11/11/23 15:50 MCV 97.7 fl (85-98) 11/11/23 15:50 MCH 31.6 pg (27-33) 11/11/23 15:50 MCHC 32.3 g/dL (30-55) 11/11/23 15:50 RDW 12.5 % (12.1-15.1) 11/11/23 15:50 Plt Count 213 10^3/cmm (157-399) 11/11/23 15:50 MPV 9.2 fL (7.4-10.4) 11/11/23 15:50 Neut % (Auto) 69.0 % 11/11/23 15:50 Lymph % (Auto) 19.1 % 11/11/23 15:50 [place] % (Auto) 8.9 % 11/11/23 15:50 Eos % (Auto) 1.7 % 11/11/23 15:50 Baso % (Auto) 0.7 % 11/11/23 15:50 Neut # (Auto) 4.79 10^3/uL (1.8-7.7) 11/11/23 15:50 Lymph # (Auto) 1.3 10^3/uL (0.8-4.8) 11/11/23 15:50 [place] # (Auto) 0.6 10^3/uL (0.2-0.9) 11/11/23 15:50 Eos # (Auto) 0.1 10^3/uL (0.0-0.8) 11/11/23 15:50 Baso # (Auto) 0.1 10^3/uL (0.0-0.1) 11/11/23 15:50 Nucleated RBC % (auto) 0 % 11/11/23 15:50 Nucleated RBCs # 0.0 /100WBC 11/11/23 15:50 PT 13.90 SECONDS (12.1-14.9) 11/11/23 15:50 INR 1.04 (0.8-1.2) 11/11/23 15:50 Sodium 127 mmol/L (136-145) L 11/11/23 15:50 Potassium 4.7 mmol/L (3.5-5.1) 11/11/23 15:50 Chloride 90 mmol/L (98-107) L 11/11/23 15:50 Carbon Dioxide 28 mmol/L (22-29) 11/11/23 15:50 Anion Gap 13.7 (5-19) 11/11/23 15:50 BUN 25 mg/dL (8-23) H 11/11/23 15:50 Creatinine 1.1 mg/dL (0.5-0.9) H 11/11/23 15:50 GFR Calculation Not Reportable 11/11/23 15:50 Glucose 127 mg/dL (65-115) H 11/11/23 15:50 Calculated Osmolality 270 mOsm/kg (285-295) L 11/11/23 15:50 Calcium 8.0 mg/dL (8.5-10.5) L 11/11/23 15:50 Total Bilirubin 0.3 mg/dL (0.15-1.2) 11/11/23 15:50 AST 54 U/L (0-32) H 11/11/23 15:50 ALT 56 U/L (0-33) H 11/11/23 15:50 Alkaline Phosphatase 218 U/L (35-105) H 11/11/23 15:50 NT-Pro-B Natriuret Pep 2680 pg/mL (0-125) H 11/11/23 15:50 Total Protein 6.9 g/dL (6.6-8.7) 11/11/23 15:50 Albumin 3.9 g/dL (3.5-5.2) 11/11/23 15:50 Globulin 3.0 g/dL (1.3-4.6) 11/11/23 15:50 All radiology interpretation(s) finalized by discharge Discharge Plan Discharge Patient Disposition: Admitted As Inpatient Admit Provider: Danita Pineda Clinical Impression: Pulmonary edema Condition: Stable Coding Level of Care Code ED Auxiliary Engineer for Joseph Alvarez
[2023-11-11 15:55] LABS: Basophils # 0.1 10^3/uL (0.0-0.1); Basophils % 0.7 %; Eosinophils # 0.1 10^3/uL (0.0-0.8); Eosinophils % 1.7 %; Lymphocytes # 1.3 10^3/uL (0.8-4.8); Lymphocytes % 19.1 %; Mean Corpuscular HGB Conc 32.3 g/dL (30-55); Mean Corpuscular Hemoglobin 31.6 pg (27-33); Mean Corpuscular Volume 97.7 fl (85-98); Mean Platelet Volume 9.2 fL (7.4-10.4); Monocytes # 0.6 10^3/uL (0.2-0.9); Monocytes % 8.9 %; Neutrophils # 4.79 10^3/uL (1.8-7.7); Nucleated Red Blood Cells % 0 %; Platelet Count 213 10^3/cmm (157-399); Red Blood Count 3.07 10^6/uL (3.85-5.65); Red Cell Distribution Width 12.5 % (12.1-15.1); White Blood Count 6.95 10^3/uL (3.29-11.43)
[2023-11-11 16:07] LABS: INR 1.04 (0.8-1.2)
[2023-11-11 16:22] LABS: Alanine Aminotransferase 56 U/L (0-33); Albumin Level 3.9 g/dL (3.5-5.2); Alkaline Phosphatase 218 U/L (35-105); Anion Gap 13.7 (5-19); Aspartate Amino Transferase 54 U/L (0-32); Blood Urea Nitrogen 25 mg/dL (8-23); Carbon Dioxide 28 mmol/L (22-29); Chloride 90 mmol/L (98-107); Glucose 127 mg/dL (65-115); NT Pro B Type Natriuretic Pept 2680 pg/mL (0-125); Osmolality Calculated 270 mOsm/kg (285-295); Potassium 4.7 mmol/L (3.5-5.1); Sodium 127 mmol/L (136-145); Total Bilirubin 0.3 mg/dL (0.15-1.2); Total Protein 6.9 g/dL (6.6-8.7)
[2023-11-11] MEDS: FUROsemide 10 mg/mL SDV 10mL 60 MG IVP (16:25)
--- NOTE | 2023-11-11 16:40 | P.HP_ITS ---
Providers/Chief Complaint 2 Admitting Physician: Danita Pineda MD Chief Complaint: sob, retaining fluid, weakness History of Present Illness Meryl Ling is a 73 year old female with history of opiate induced constipation, was recently discharged from the hospital after getting GoLytely, patient presenting back with chief complaint orthopnea PND weight gain of 7 pounds in last 1 week, she does not carry any history of coronary disease or CHF. She has history of sleep apnea uses 2 L at baseline, lately has been requiring 5 L. No active chest pain Patient is stating that she is on aggressive bowel regimen with a lot of fluid intake Review of Systems 2 Const: Denies: fever(s) Eyes: Denies: change in vision ENMT: Denies: throat pain Card: Denies: chest pain Resp: Reports: dyspnea GI: Denies: abdominal pain : Denies: flank pain Musc: Denies: neck pain Skin/Breast: Denies: rash Neuro: Denies: headache(s) Medications/Allergies Home Medications Medication Instructions Recorded Confirmed Last Taken Type armodafinil 250 mg tablet 250 mg PO DAILY 10/26/23 11/11/23 11/11/23 History azelastine 137 mcg (0.1 %) nasal 2 spray intranasal BID PRN 10/26/23 11/11/23 Unknown History spray aerosol ALLERGIES baclofen 10 mg tablet 20 mg PO BID 10/26/23 11/11/23 11/11/23 History bisacodyl 10 mg rectal suppository 10 mg [place] DAILY PRN Constipation 10/26/23 11/11/23 Unknown History brimonidine 0.2 % eye drops 1 drp ophthalmic (eye) BID 10/26/23 11/11/23 11/11/23 History dorzolamide 2 % eye drops 1 drp ophthalmic (eye) BID 10/26/23 11/11/23 11/11/23 History duloxetine 30 mg capsule,delayed 30 mg PO BID 10/26/23 11/11/23 11/11/23 History release estradiol 2 mg tablet 2 mg PO DAILY 10/26/23 11/11/23 11/11/23 History fentanyl 12 mcg/hr transdermal 1 patch topical Q72H 10/26/23 11/11/23 Unknown History patch fluticasone propionate 50 1 spray intranasal BID PRN 10/26/23 11/11/23 Unknown History mcg/actuation nasal allergies spray,suspension furosemide 40 mg tablet 20 mg PO DAILY 10/26/23 11/11/23 11/11/23 History insulin aspart U-100 100 unit/mL See Rx Instructions .Route .COMPLEX 10/26/23 11/11/23 11/11/23 History subcutaneous solution (Novolog U-100 Insulin aspart) ipratropium bromide 42 mcg (0.06 2 spray intranasal TID PRN 10/26/23 11/11/23 Unknown History %) nasal spray allergies lactulose 10 gram/15 mL oral 30 ml PO TID 10/26/23 11/11/23 11/11/23 History solution (Constulose) latanoprost 0.005 % eye drops 1 drp ophthalmic (eye) DAILY 10/26/23 11/11/23 11/11/23 History levothyroxine 200 mcg tablet 200 mcg PO DAILY 10/26/23 11/11/23 11/11/23 History levothyroxine 25 mcg tablet 25 mcg PO DAILY 10/26/23 11/11/23 11/11/23 History linaclotide 290 mcg capsule 290 mcg PO DAILY 10/26/23 11/11/23 11/11/23 History (Linzess) liothyronine 5 mcg tablet 5 mcg PO DAILY 10/26/23 11/11/23 11/11/23 History morphine 15 mg tablet,extended 15 mg PO Q8H 10/26/23 11/11/23 11/11/23 History release netarsudil 0.02 % eye drops 1 drp ophthalmic (eye) BEDTIME 10/26/23 11/11/23 11/10/23 History (Rhopressa) nystatin 100,000 unit/gram topical 1 applic topical BID 10/26/23 11/11/23 11/11/23 History powder (Nystop) ofloxacin 0.3 % eye drops 1 drp ophthalmic (eye) QID 10/26/23 11/11/23 11/11/23 History pramipexole 0.25 mg tablet 0.25 mg PO QPM 10/26/23 11/11/23 11/10/23 History pregabalin 25 mg capsule 25 mg PO BID 10/26/23 11/11/23 11/11/23 History progesterone micronized 100 mg 300 mg PO BEDTIME 10/26/23 11/11/23 11/10/23 History capsule trazodone 150 mg tablet 150 mg PO BEDTIME 10/26/23 11/11/23 11/10/23 History methylnaltrexone 8 mg/0.4 mL 0.4 ml SUBCUT EVERY OTHER DAY PRN 10/27/23 11/11/23 Unknown Rx subcutaneous syringe (Relistor) constipation #2.8 mL methylnaltrexone 150 mg tablet 450 mg (3 x 150 mg) PO QAM #21 tabs 10/30/23 11/11/23 Unknown Rx (Relistor) albuterol sulfate 90 mcg/actuation 2 puff inhalation QID PRN 11/11/23 11/11/23 Unknown History aerosol inhaler Shortness Of Breath metoclopramide HCl 5 mg tablet 5 mg PO QID 11/11/23 11/11/23 11/11/23 History metoprolol succinate 50 mg 50 mg PO DAILY 11/11/23 11/11/23 11/11/23 History tablet,extended release 24 hr naloxegol 12.5 mg tablet (Movantik) 12.5 mg PO DAILY 11/11/23 11/11/23 11/11/23 History ondansetron HCl 4 mg tablet 4 mg PO BID PRN Nausea And Vomiting 11/11/23 11/11/23 Unknown History Allergies Allergy/AdvReac Type Severity Reaction Status Date / Time angiotensin II acetate, human Allergy Unknown Verified 11/11/23 15:22 NSAIDS (Non-Steroidal Allergy Unknown Verified 11/11/23 15:22 Anti-Inflamma tetracycline Allergy Unknown Verified 11/11/23 15:22 PFSH Acute 2 PFSH: Medical History Moderate nausea and vomiting Obstipation Abdominal pain Bowel obstruction Hyponatremia Constipation Obstipation Hypothyroidism Constipation Surgical History H/O shoulder surgery Previous back surgery Vitals/I&O/Wt Last Vital Signs Temp 98.2 F 11/11/23 15:24 Pulse 62 11/11/23 15:30 Resp 17 11/11/23 15:30 BP 189/80 11/11/23 15:24 Pulse Ox 97 11/11/23 15:30 O2 Del Method Room Air 11/11/23 15:30 Weight last 48 hrs Weight 83.779 kg Physical Exam 2 Narrative: Pleasant cooperative GCS 15 Awake and alert Signs of fluid overload Crackles positive Currently on 3 L Lower extremity 2+ edema GCS 15 nonfocal neuroexam Data 11/11/23 15:50 11/11/23 15:50 A&P Assessment and plan (1) Therapeutic opioid-induced constipation (OIC): (2) Pulmonary edema: (3) New onset of congestive heart failure: (4) Sleep apnea: Plan New onset CHF Start Lasix Check echo Check troponin Rule out non-STEMI Most likely this is induced related to hypertension increase fluid intake and sleep apnea Continue aggressive bowel regimen Full code Cardiac diet Check D-dimer No previous history of coronary disease Acute on chronic hypoxia currently on 5 L, wean down oxygen down to her baseline requirement of 2 to 3 L Hypertension: Adjust antihypertensive regimen Patient is bradycardic hold metoprolol Attestations 2 Medical Necessity Statement*: Anticipating discharge within 48 hours for management of new onset CHF Diagnoses Therapeutic opioid-induced constipation (OIC) K59.03; T40.2X5A Pulmonary edema J81.1 New onset of congestive heart failure I50.9 Sleep apnea G47.30
--- NOTE | 2023-11-11 16:43 | USCV_ITS ---
Meryl Ling Age: 73 Gender: F : 1950 Exam Date: 11/11/2023 21:00 Ordering Phys: Mohit Downing MD Technologist: Exam Location: [facility] [place] Indication: order says new CHF IDDM x 62 years, chronic renal dz not on dialysis. BP: 142 / 68 HR: 62 Rhythm: Sinus Technical Quality: Adequate MEASUREMENTS (Male / Female) Normal Values 2D ECHO LV Diastolic Diameter PLAX 3.4 cm 4.2 - 5.9 / 3.9 - 5.3 cm LV Systolic Diameter PLAX 2.3 cm IVS Diastolic Thickness 1.0 cm 0.6 - 1.0 / 0.6 - 0.9 cm IVS Systolic Thickness 1.2 cm LVPW Diastolic Thickness 0.9 cm 0.6 - 1.0 / 0.6 - 0.9 cm LVPW Systolic Thickness 1.4 cm LVOT Diameter 1.8 cm LV Ejection Fraction 2D Teich 61.2 % LV Ejection Fraction MOD 2C 64.6 % LV Ejection Fraction 2C AL 64.4 % LA Diameter 3.6 cm LA Width 5.8 cm LA Height 5.6 cm RA Width 4.2 cm RA Height 4.9 cm Aorta at Sinotubular Diameter 2.7 cm IVC Diameter 2.1 cm M-MODE Aortic Annulus Diameter 2.6 cm LA Ao Ratio MM 1.5 MV E Point Septal Separation 0.4 cm DOPPLER AV Peak Velocity 115.0 cm/s LVOT Peak Velocity 104.0 cm/s AV Area Cont Eq vti 1.7 cm squared AV Area Cont Eq pk 2.3 cm squared MV Peak Velocity 208.0 cm/s MV Area PHT 2.8 cm squared Mitral E to A Ratio 1.4 MV E' Velocity 90.0 cm/s Mitral E to MV E' Ratio 16.4 Mitral E to LV E' Lateral Ratio 14.3 Mitral E to LV E' Septal Ratio 19.3 TR Peak Velocity 230.0 cm/s TR Peak Gradient 21.2 mmHg TV Peak E Velocity 46.0 cm/s Right Atrial Pressure 5.0 mmHg Pulmonary Artery Systolic Pressu 26.2 mmHg PV Peak Velocity 88.0 cm/s RV Acceleration Time 0.1 s RV Ejection Time 0.4 s RV AcT/ET 0.3 FINDINGS Left Ventricle Left ventricle is normal in size. LV systolic function is normal with EF of 60 to 65%. No regional wall motion abnormalities are seen. Right Ventricle Normal in size and function Right Atrium Normal in size Left Atrium Dilated Mitral Valve Mild to moderate mitral annular calcification. Mild mitral regurgitation. Aortic Valve Structurally normal aortic valve. No significant stenosis seen. Tricuspid Valve Trace tricuspid regurgitation. Insufficient TR jet to evaluate RVSP. Pulmonic Valve Not well visualized. Mild pulmonic regurgitation. Pericardium Pleural effusion seen. Aorta Normal in size IVC Dilated CONCLUSIONS LV systolic function is normal with EF of 60 to 65%. Left atrial dilation Mild mitral regurgitation Trace tricuspid regurgitation Mild pulmonic regurgitation Pleural effusion seen. IVC is dilated No comparison studies are available Hugo Pinto MD (Electronically Signed) Final Date: 12 November 2023 11:23 S
[2023-11-11 16:58] VITALS: BP 142/68; PULSE 68; RESP 19; O2SAT 96
[2023-11-11 17:20] LABS: Troponin(5th) Baseline 13 ng/L (0-10)
--- NOTE | 2023-11-11 17:40 | PC.NURSE ---
Patient arrived to CSU via bed at 0520.
--- NOTE | 2023-11-11 18:43 | ECG_ITS ---
[facility] Test Date: 2023-11-11 Pat Name: Meryl Ling Department: Room: 104 Gender: Female Platform Man: : 1950 Requested By: Mohit Downing Order Number: [id number] Abhijeet MD: Hugo Pinto M.D. Measurements Intervals [place] Rate: 62 P: 52 TN: 159 QRS: 64 QRSD: 86 T: 54 QT: 398 QTc: 404 Interpretive Statements SINUS RHYTHM POSSIBLE LEFT ATRIAL ENLARGEMENT [-0.1mV P-WAVE IN V1/V2] MODERATE T-WAVE ABNORMALITY, CONSIDER ANTERIOR ISCHEMIA [-0.1+ mV T-WAVE IN V3/V4] Compared to ECG 11/11/2023 16:36:39 T-wave abnormality now present Possible ischemia now present Electronically Signed On 11-12-2023 16:33:08 POWER LINEMAN by Hugo Pinto M.D. [id number]
[2023-11-11 19:22] LABS: Vitamin B12 1182 pg/mL (232-1245)
[2023-11-11] MEDS: enoxaparin 40 mg/0.4 mL Syringe SUBCUT (19:33)
--- NOTE | 2023-11-11 19:55 | PC.NURSE ---
Spoke with regarding patients home medication. Patient asking for night time medications that have not been resumed including pregabalin, baclofen, and morphine PRN. Patient also asking for tonights dose of pramipexole and duloxitine which are not scheduled to start till tomorrow. resumed home medications and gave one time doses for tonight of pramipexole and duloxtime.
[2023-11-11 20:17] VITALS: BP 122/55; PULSE 63; RESP 18; TEMP 37; O2SAT 99
[2023-11-11] MEDS: pramipexole 0.25 mg Tablet PO (20:45)
[2023-11-11] MEDS: duloxetine 30 mg Capsule PO (20:45)
[2023-11-11] MEDS: trazodone 150 mg Tablet PO (20:45)
[2023-11-11] MEDS: baclofen 10 mg Tablet 20 MG PO (21:36)
[2023-11-11] MEDS: morphine ER (12 HR) 15 mg Tablet PO (21:37)
[2023-11-11] MEDS: pregabalin 25 mg Capsule PO (21:37)
[2023-11-11 22:00] VITALS: PULSE 73
--- NOTE | 2023-11-11 22:32 | PC.NURSE ---
Messaged and made aware that lab was unable to get the patients 6hr troponin. The patient has been a difficult stick today and does not want to be poked anymore tonight. The nurse was unable to obtain enough of a blood return on the IV to send for labs either. The patient did agree to allow them to reattempt for morning labs so lab will send troponin with am labs.
[2023-11-12] VITALS (10 sets, daily range): BP systolic 126–155; BP diastolic 52–74; PULSE 57–75; RESP 12–23; TEMP 36.5–37.5; O2SAT 96–100
[2023-11-12] MEDS: FUROsemide 10 mg/mL SDV 10mL 60 MG IVP (05:00)
[2023-11-12 05:21] LABS: Basophils % 0.7 %; Eosinophils # 0.2 10^3/uL (0.0-0.8); Eosinophils % 2.5 %; Hematocrit 28.6 % (36-47); Lymphocytes # 1.7 10^3/uL (0.8-4.8); Lymphocytes % 28.7 %; Mean Corpuscular HGB Conc 32.2 g/dL (30-55); Mean Corpuscular Volume 96.3 fl (85-98); Monocytes # 0.7 10^3/uL (0.2-0.9); Monocytes % 12.5 %; Neutrophils # 3.26 10^3/uL (1.8-7.7); Neutrophils % 55.1 %; Nucleated Red Blood Cells % 0 %; Platelet Count 217 10^3/cmm (157-399); Red Blood Count 2.97 10^6/uL (3.85-5.65); Red Cell Distribution Width 12.4 % (12.1-15.1); White Blood Count 5.92 10^3/uL (3.29-11.43)
[2023-11-12 05:40] LABS: Troponin 5 6HR 14.78 ng/L (0-10)
[2023-11-12 05:46] LABS: Troponin 5 6HR Delta 1.78 ng/L (0-12)
[2023-11-12 05:54] LABS: Anion Gap 13.3 (5-19); Blood Urea Nitrogen 27 mg/dL (8-23); Calcium 8.2 mg/dL (8.5-10.5); Carbon Dioxide 31 mmol/L (22-29); Chloride 94 mmol/L (98-107); Glucose 104 mg/dL (65-115); Magnesium 2.2 mg/dL (1.7-2.3); Osmolality Calculated 283 mOsm/kg (285-295); Potassium 4.3 mmol/L (3.5-5.1); Sodium 134 mmol/L (136-145)
[2023-11-12] MEDS: liothyronine 5 mcg Tablet PO (06:05)
[2023-11-12] MEDS: levothyroxine 200 mcg Tablet PO (06:06)
[2023-11-12] MEDS: levothyroxine 25 mcg Tablet PO (06:06)
[2023-11-12] MEDS: duloxetine 30 mg Capsule PO ×2 (09:06→19:28)
[2023-11-12] MEDS: hyDRALAzine 25 mg Tablet PO ×2 (09:06→17:48)
[2023-11-12] MEDS: brimonidine 0.2% Op Soln 5 mL Btl 1 DROP EYE-BOTH ×2 (09:06→19:32)
[2023-11-12] MEDS: baclofen 10 mg Tablet 20 MG PO ×2 (09:06→19:28)
[2023-11-12] MEDS: pregabalin 25 mg Capsule PO ×2 (09:06→19:29)
--- NOTE | 2023-11-12 09:43 | P.PN_ITS ---
Subjective 2 Subjective: Adequate urine output Patient showing signs of contraction alkalosis bicarb 31 Creatinine 1.2 Hold Lasix for today Echo report is pending no sign of DVT Vitals/I&O/Wt Last Vital Signs Temp 98.2 F 11/12/23 07:30 Pulse 58 L 11/12/23 07:30 Resp 13 11/12/23 07:30 BP 155/58 11/12/23 07:30 Pulse Ox 98 11/12/23 07:30 O2 Del Method Nasal Cannula 11/12/23 07:30 O2 Flow Rate 3 11/12/23 07:30 11/11/23 11/12/23 11/12/23 22:59 06:59 14:59 Intake Total 120 / 120 300 / 420 Output Total 1900 / 1900 400 / 2300 200 / 200 Balance -1780 / -1780 -100 / -1880 -200 / -200 Weight last 48 hrs Weight 88.587 kg Weight 88.451 kg Weight 83.779 kg Physical Exam 2 Narrative: Clinical signs of fluid load present but improving Currently on 2 L GCS 15 Pleasant cooperative Heart rate around 60s Blood pressure stable Sitting in a recliner Reading a book No active chest pain Data 11/12/23 04:23 11/12/23 04:23 A&P Assessment and plan (1) New onset of congestive heart failure: (2) Therapeutic opioid-induced constipation (OIC): (3) Pulmonary edema: (4) Sleep apnea: (5) RUFINA (acute kidney injury): (6) Pulmonary edema: Plan Pulmonary edema edema causing acute on chronic hypoxia New onset CHF: EF is unknown Contraction alkalosis noted with adequate urine output RUFINA related to cardiorenal she has received IV Lasix 60 mg I will hold second dose Monitor her electrolytes Echo report is still pending No signs of non-STEMI Patient has sleep apnea uses CPAP at night Currently requiring 3 L Likely will be able to go home by tomorrow if EF is preserved Attestations 2 Medical Necessity Statement*: Continue medical management Diagnoses New onset of congestive heart failure I50.9 Therapeutic opioid-induced constipation (OIC) K59.03; T40.2X5A Pulmonary edema J81.1 Sleep apnea G47.30 RUFINA (acute kidney injury) N17.9
[2023-11-12] MEDS: enoxaparin 40 mg/0.4 mL Syringe SUBCUT (17:48)
--- NOTE | 2023-11-12 18:13 | PC.NURSE ---
Patient requested that her 1800 medications be given at bedtime. Advised oncoming nurse.
[2023-11-12] MEDS: trazodone 150 mg Tablet PO (19:29)
[2023-11-12] MEDS: pramipexole 0.25 mg Tablet PO (19:29)
[2023-11-12] MEDS: morphine ER (12 HR) 15 mg Tablet PO (19:29)
[2023-11-13] VITALS: BP 175/61; PULSE 69; RESP 19; TEMP 37; O2SAT 95
[2023-11-13 04:00] VITALS: BP 173/68; PULSE 69; RESP 23; TEMP 37.2; O2SAT 94
[2023-11-13 04:52] LABS: Basophils # 0.1 10^3/uL (0.0-0.1); Basophils % 0.9 %; Eosinophils # 0.1 10^3/uL (0.0-0.8); Eosinophils % 1.5 %; Hematocrit 28.8 % (36-47); Lymphocytes # 1.4 10^3/uL (0.8-4.8); Lymphocytes % 20.3 %; Mean Corpuscular HGB Conc 32.3 g/dL (30-55); Mean Corpuscular Hemoglobin 30.9 pg (27-33); Mean Corpuscular Volume 95.7 fl (85-98); Mean Platelet Volume 9.9 fL (7.4-10.4); Monocytes # 0.7 10^3/uL (0.2-0.9); Monocytes % 10.7 %; Neutrophils # 4.41 10^3/uL (1.8-7.7); Neutrophils % 66.1 %; Nucleated Red Blood Cells % 0 %; Platelet Count 212 10^3/cmm (157-399); Red Blood Count 3.01 10^6/uL (3.85-5.65); Red Cell Distribution Width 12.3 % (12.1-15.1); White Blood Count 6.66 10^3/uL (3.29-11.43)
[2023-11-13 05:15] LABS: Anion Gap 14.6 (5-19); Blood Urea Nitrogen 25 mg/dL (8-23); Calcium 8.2 mg/dL (8.5-10.5); Carbon Dioxide 30 mmol/L (22-29); Chloride 98 mmol/L (98-107); Glucose 106 mg/dL (65-115); Osmolality Calculated 291 mOsm/kg (285-295); Potassium 4.6 mmol/L (3.5-5.1); Sodium 138 mmol/L (136-145)
[2023-11-13] MEDS: liothyronine 5 mcg Tablet PO (06:40)
[2023-11-13] MEDS: hyDRALAzine 25 mg Tablet PO (06:40)
[2023-11-13] MEDS: baclofen 10 mg Tablet 20 MG PO (06:40)
[2023-11-13] MEDS: levothyroxine 200 mcg Tablet PO (06:41)
[2023-11-13] MEDS: pregabalin 25 mg Capsule PO (06:41)
[2023-11-13] MEDS: duloxetine 30 mg Capsule PO (06:41)
[2023-11-13] MEDS: levothyroxine 25 mcg Tablet PO (06:41)
[2023-11-13] MEDS: brimonidine 0.2% Op Soln 5 mL Btl 1 DROP EYE-BOTH (06:42)
--- NOTE | 2023-11-13 06:47 | PC.NURSE ---
Patient requesting to have am meds early this morning. Patient stated, I usually take my morning medications at 0500. .
[2023-11-13 07:16] VITALS: BP 187/66; PULSE 84; RESP 18; TEMP 37.1; O2SAT 95
[2023-11-13 08:48] VITALS: PULSE 84; RESP 18; O2SAT 95
[2023-11-13] MEDS: morphine ER (12 HR) 15 mg Tablet PO (08:56)
--- NOTE | 2023-11-13 10:42 | P.DS_ITS ---
Discharge Providers Date of Admission: 11/11/23 16:27 Date of Discharge: November 13, 2023 Attending Provider at Admission: Danita Pineda MD Attending Provider at Discharge: Mohit Downing MD Diagnoses at Discharge Discharge Diagnosis (1) New onset of congestive heart failure: Status: Acute (2) Therapeutic opioid-induced constipation (OIC): Status: Acute (3) Pulmonary edema: Status: Acute (4) Sleep apnea: Status: Acute (5) RUFINA (acute kidney injury): Status: Acute Reason for Visit Reason for Visit: sob, retaining fluid, weakness Hospital Course Hospital Course 70-year female who was admitted for management evaluation of orthopnea PND pulm edema, she was diagnosed with new onset heart failure, she carries history of h ypertension and sleep apnea uses 2 L at baseline, echo showed preserved ejection fraction, she diuresed well with IV Lasix, her symptoms improved significantly, her orthopnea PND has improved leg swelling improved venous Doppler did not show any DVT, no signs of non-STEMI troponin trending down. No active chest pain. I do believe her symptoms are related to sleep apnea and hypertension. Please note she has taken a lot of fluids recently because of her significant constipation she used GoLytely, laxative, multiple [id number] regimens. Physical Exam Narrative: Awake and alert signs of fluid load improving Currently on 2 L GCS 15 Pleasant cooperative Lower extremity swelling improving Discharge Data Studies Completed and Pending Completed Studies During Hospitalization Category Date Time Status XR chest 1V portable [id number] Stat Exams 11/11/23 15:34 Completed CV. echo complete* [id number] Stat Ultrasound 11/11/23 16:43 Completed US venous duplex lower extremity bilat [CV venous Ultrasound 11/11/23 15:37 [place] [id number]] Stat Radiology Impressions Chest X-Ray 11/11/23 15:34 IMPRESSION: 1. New diffuse bilateral pulmonary edema and/or pneumonitis.. 2. Additional details as above. Venous Duplex 11/11/23 15:37 IMPRESSION: No sonographic evidence of deep vein thrombosis. Laboratory Results WBC 6.66 10^3/uL (3.29-11.43) 11/13/23 04:16 RBC 3.01 10^6/uL (3.85-5.65) L 11/13/23 04:16 Hgb 9.30 g/dL (11.27-16.99) L 11/13/23 04:16 Hct 28.8 % (36-47) L 11/13/23 04:16 MCV 95.7 fl (85-98) 11/13/23 04:16 MCH 30.9 pg (27-33) 11/13/23 04:16 MCHC 32.3 g/dL (30-55) 11/13/23 04:16 RDW 12.3 % (12.1-15.1) 11/13/23 04:16 Plt Count 212 10^3/cmm (157-399) 11/13/23 04:16 MPV 9.9 fL (7.4-10.4) 11/13/23 04:16 Neut % (Auto) 66.1 % 11/13/23 04:16 Lymph % (Auto) 20.3 % 11/13/23 04:16 [place] % (Auto) 10.7 % 11/13/23 04:16 Eos % (Auto) 1.5 % 11/13/23 04:16 Baso % (Auto) 0.9 % 11/13/23 04:16 Neut # (Auto) 4.41 10^3/uL (1.8-7.7) 11/13/23 04:16 Lymph # (Auto) 1.4 10^3/uL (0.8-4.8) 11/13/23 04:16 [place] # (Auto) 0.7 10^3/uL (0.2-0.9) 11/13/23 04:16 Eos # (Auto) 0.1 10^3/uL (0.0-0.8) 11/13/23 04:16 Baso # (Auto) 0.1 10^3/uL (0.0-0.1) 11/13/23 04:16 Nucleated RBC % (auto) 0 % 11/13/23 04:16 Nucleated RBCs # 0.0 /100WBC 11/13/23 04:16 PT 13.90 SECONDS (12.1-14.9) 11/11/23 15:50 INR 1.04 (0.8-1.2) 11/11/23 15:50 D-Dimer 0.60 ug/mLFEU (0-0.59) H 11/11/23 15:50 Sodium 138 mmol/L (136-145) 11/13/23 04:16 Potassium 4.6 mmol/L (3.5-5.1) 11/13/23 04:16 Chloride 98 mmol/L (98-107) 11/13/23 04:16 Carbon Dioxide 30 mmol/L (22-29) H 11/13/23 04:16 Anion Gap 14.6 (5-19) 11/13/23 04:16 BUN 25 mg/dL (8-23) H 11/13/23 04:16 Creatinine 0.9 mg/dL (0.5-0.9) 11/13/23 04:16 GFR Calculation Not Reportable 11/13/23 04:16 Glucose 106 mg/dL (65-115) 11/13/23 04:16 Calculated Osmolality 291 mOsm/kg (285-295) 11/13/23 04:16 Calcium 8.2 mg/dL (8.5-10.5) L 11/13/23 04:16 Magnesium 2.2 mg/dL (1.7-2.3) 11/12/23 04:23 Total Bilirubin 0.3 mg/dL (0.15-1.2) 11/11/23 15:50 AST 54 U/L (0-32) H 11/11/23 15:50 ALT 56 U/L (0-33) H 11/11/23 15:50 Alkaline Phosphatase 218 U/L (35-105) H 11/11/23 15:50 Troponin T Baseline 13 ng/L (0-10) H 11/11/23 15:50 Troponin T 120 Minute 14.50 ng/L (0-10) H 11/11/23 17:58 Delta Troponin T 1.50 ABS# (0-10) 11/11/23 17:58 Troponin T Hi Sens 6Hr 14.78 ng/L (0-10) H 11/12/23 04:23 Troponin T Hi Sens 6Hr Delta 1.78 ng/L (0-12) 11/12/23 04:23 NT-Pro-B Natriuret Pep 2680 pg/mL (0-125) H 11/11/23 15:50 Total Protein 6.9 g/dL (6.6-8.7) 11/11/23 15:50 Albumin 3.9 g/dL (3.5-5.2) 11/11/23 15:50 Globulin 3.0 g/dL (1.3-4.6) 11/11/23 15:50 Vitamin B12 1182 pg/mL (232-1245) 11/11/23 17:58 Vitals Last Vital Signs Temp 98.7 F 11/13/23 07:16 Pulse 84 11/13/23 08:48 Resp 18 11/13/23 08:48 BP 187/66 11/13/23 07:16 Pulse Ox 95 11/13/23 08:48 O2 Del Method Nasal Cannula 11/13/23 08:48 O2 Flow Rate 2 11/13/23 08:48 Discharge Plan Discharge Patient Disposition: Home Condition: Stable Prescriptions: New sennosides-docusate sodium [Stool Softener-Laxative] 8.6-50 mg Tablet 2 tab PO BID Qty: 20 0RF hydralazine 25 mg Tablet 25 mg PO BID Qty: 120 2RF potassium chloride 10 mEq tablet extended release 10 meq PO DAILY PRN (Reason: Only take when you take Lasix) Qty: 30 0RF Rx Instructions: Only when you take Lasix Continued latanoprost 0.005 % drops 1 drp ophthalmic (eye) DAILY ofloxacin 0.3 % drops 1 drp ophthalmic (eye) QID liothyronine 5 mcg tablet 5 mcg PO DAILY levothyroxine 25 mcg tablet 25 mcg PO DAILY baclofen 10 mg tablet 20 mg PO BID insulin aspart U-100 [Novolog U-100 Insulin aspart] 100 unit/mL solution See Rx Instructions .ROUTE .COMPLEX Rx Instructions: 1 sliding scale dose subcutaneously insulin pump bisacodyl 10 mg suppository 10 mg [place] DAILY PRN (Reason: Constipation) trazodone 150 mg tablet 150 mg PO BEDTIME brimonidine 0.2 % drops 1 drp ophthalmic (eye) BID pramipexole 0.25 mg tablet 0.25 mg PO QPM morphine 15 mg tablet extended release 15 mg PO Q8H levothyroxine 200 mcg tablet 200 mcg PO DAILY nystatin [Nystop] 100,000 unit/gram powder 1 applic TOPICAL BID azelastine 137 mcg (0.1 %) aerosol,spray 2 spray INTRANASAL BID PRN (Reason: ALLERGIES) ipratropium bromide 42 mcg (0.06 %) spray,non-aerosol 2 spray INTRANASAL TID PRN (Reason: allergies) fluticasone propionate 50 mcg/actuation spray,suspension 1 spray INTRANASAL BID PRN (Reason: allergies) progesterone micronized 100 mg capsule 300 mg PO BEDTIME dorzolamide 2 % drops 1 drp ophthalmic (eye) BID duloxetine 30 mg capsule,delayed release(DR/EC) 30 mg PO BID lactulose [Constulose] 10 gram/15 mL solution 30 ml PO TID fentanyl 12 mcg/hr patch 72 hour 1 patch topical Q72H pregabalin 25 mg capsule 25 mg PO BID armodafinil 250 mg tablet 250 mg PO DAILY Linzess 290 mcg capsule 290 mcg PO DAILY Rhopressa 0.02 % drops 1 drp ophthalmic (eye) BEDTIME Relistor 8 mg/0.4 mL syringe 0.4 ml SUBCUT EVERY OTHER DAY PRN (Reason: constipation) Qty: 2.8 0RF Relistor 150 mg tablet 450 mg PO QAM Qty: 21 0RF metoprolol succinate 50 mg tablet extended release 24 hr 50 mg PO DAILY ondansetron HCl 4 mg tablet 4 mg PO BID PRN (Reason: Nausea And Vomiting) metoclopramide HCl 5 mg tablet 5 mg PO QID albuterol sulfate 90 mcg/actuation HFA aerosol inhaler 2 puff INHALATION QID PRN (Reason: Shortness Of Breath) Movantik 12.5 mg tablet 12.5 mg PO DAILY Changed furosemide 40 mg tablet 20 mg PO DAILY PRN (Reason: Weight gain more than 3 pounds) Qty: 90 0RF Rx Instructions: Take potassium only with Lasix Held estradiol 2 mg tablet 2 mg PO DAILY Hold Instructions: Resume on 12/04/23. Discharge Orders: Discharge Order (Routine); Ordered 11/13/23 Ordered By: Mohit Downing Discharge Diet: Cardiac Discharge Activity: Increase activity as tolerated Patient Instructions: Pulmonary Edema (DC), Sleep Apnea (GEN), Acute Kidney Injury (DC), CHF Stoplight, Opioid Safety Discharge Attestations Time Spent in Discharge Care*: greater than 30 min Quality Metrics Clinical Quality Measures [ No reported AMI, CVA or VTE this stay] Coding Level of Care Code Acute Code for Chg Fwd Diagnoses New onset of congestive heart failure I50.9 Therapeutic opioid-induced constipation (OIC) K59.03; T40.2X5A Pulmonary edema J81.1 Sleep apnea G47.30 RUFINA (acute kidney injury) N17.9
--- NOTE | 2023-11-13 10:54 | P.DS_ITS ---
Discharge Providers Date of Admission: 11/11/23 16:27 Date of Discharge: November 13, 2023 Attending Provider at Admission: Danita Pineda MD Attending Provider at Discharge: Mohit Downing MD Diagnoses at Discharge Discharge Diagnosis (1) New onset of congestive heart failure: Status: Acute (2) Therapeutic opioid-induced constipation (OIC): Status: Acute (3) Pulmonary edema: Status: Acute (4) Sleep apnea: Status: Acute (5) RUFINA (acute kidney injury): Status: Acute Reason for Visit Reason for Visit: sob, retaining fluid, weakness Hospital Course Hospital Course 70-year female who was admitted for management evaluation of orthopnea PND pulm edema, she was diagnosed with new onset heart failure, she carries history of h ypertension and sleep apnea uses 2 L at baseline, echo showed preserved ejection fraction, she diuresed well with IV Lasix, her symptoms improved significantly, her orthopnea PND has improved leg swelling improved venous Doppler did not show any DVT, no signs of non-STEMI troponin trending down. No active chest pain. I do believe her symptoms are related to sleep apnea and hypertension. Please note she has taken a lot of fluids recently because of her significant constipation she used GoLytely, laxative, multiple [id number] regimens. I have asked her to stop using estradiol for about 3 weeks he also uses testosterone topical to help her with her libido. Physical Exam Narrative: Pleasant cooperative GCS 15 Signs of fluid load improving Currently on 2 L Discharge Data Studies Completed and Pending Completed Studies During Hospitalization Category Date Time Status XR chest 1V portable [id number] Stat Exams 11/11/23 15:34 Completed CV. echo complete* [id number] Stat Ultrasound 11/11/23 16:43 Completed US venous duplex lower extremity bilat [CV venous Ultrasound 11/11/23 15:37 [place] [id number]] Stat Radiology Impressions Chest X-Ray 11/11/23 15:34 IMPRESSION: 1. New diffuse bilateral pulmonary edema and/or pneumonitis.. 2. Additional details as above. Venous Duplex 11/11/23 15:37 IMPRESSION: No sonographic evidence of deep vein thrombosis. Laboratory Results WBC 6.66 10^3/uL (3.29-11.43) 11/13/23 04:16 RBC 3.01 10^6/uL (3.85-5.65) L 11/13/23 04:16 Hgb 9.30 g/dL (11.27-16.99) L 11/13/23 04:16 Hct 28.8 % (36-47) L 11/13/23 04:16 MCV 95.7 fl (85-98) 11/13/23 04:16 MCH 30.9 pg (27-33) 11/13/23 04:16 MCHC 32.3 g/dL (30-55) 11/13/23 04:16 RDW 12.3 % (12.1-15.1) 11/13/23 04:16 Plt Count 212 10^3/cmm (157-399) 11/13/23 04:16 MPV 9.9 fL (7.4-10.4) 11/13/23 04:16 Neut % (Auto) 66.1 % 11/13/23 04:16 Lymph % (Auto) 20.3 % 11/13/23 04:16 [place] % (Auto) 10.7 % 11/13/23 04:16 Eos % (Auto) 1.5 % 11/13/23 04:16 Baso % (Auto) 0.9 % 11/13/23 04:16 Neut # (Auto) 4.41 10^3/uL (1.8-7.7) 11/13/23 04:16 Lymph # (Auto) 1.4 10^3/uL (0.8-4.8) 11/13/23 04:16 [place] # (Auto) 0.7 10^3/uL (0.2-0.9) 11/13/23 04:16 Eos # (Auto) 0.1 10^3/uL (0.0-0.8) 11/13/23 04:16 Baso # (Auto) 0.1 10^3/uL (0.0-0.1) 11/13/23 04:16 Nucleated RBC % (auto) 0 % 11/13/23 04:16 Nucleated RBCs # 0.0 /100WBC 11/13/23 04:16 PT 13.90 SECONDS (12.1-14.9) 11/11/23 15:50 INR 1.04 (0.8-1.2) 11/11/23 15:50 D-Dimer 0.60 ug/mLFEU (0-0.59) H 11/11/23 15:50 Sodium 138 mmol/L (136-145) 11/13/23 04:16 Potassium 4.6 mmol/L (3.5-5.1) 11/13/23 04:16 Chloride 98 mmol/L (98-107) 11/13/23 04:16 Carbon Dioxide 30 mmol/L (22-29) H 11/13/23 04:16 Anion Gap 14.6 (5-19) 11/13/23 04:16 BUN 25 mg/dL (8-23) H 11/13/23 04:16 Creatinine 0.9 mg/dL (0.5-0.9) 11/13/23 04:16 GFR Calculation Not Reportable 11/13/23 04:16 Glucose 106 mg/dL (65-115) 11/13/23 04:16 Calculated Osmolality 291 mOsm/kg (285-295) 11/13/23 04:16 Calcium 8.2 mg/dL (8.5-10.5) L 11/13/23 04:16 Magnesium 2.2 mg/dL (1.7-2.3) 11/12/23 04:23 Total Bilirubin 0.3 mg/dL (0.15-1.2) 11/11/23 15:50 AST 54 U/L (0-32) H 11/11/23 15:50 ALT 56 U/L (0-33) H 11/11/23 15:50 Alkaline Phosphatase 218 U/L (35-105) H 11/11/23 15:50 Troponin T Baseline 13 ng/L (0-10) H 11/11/23 15:50 Troponin T 120 Minute 14.50 ng/L (0-10) H 11/11/23 17:58 Delta Troponin T 1.50 ABS# (0-10) 11/11/23 17:58 Troponin T Hi Sens 6Hr 14.78 ng/L (0-10) H 11/12/23 04:23 Troponin T Hi Sens 6Hr Delta 1.78 ng/L (0-12) 11/12/23 04:23 NT-Pro-B Natriuret Pep 2680 pg/mL (0-125) H 11/11/23 15:50 Total Protein 6.9 g/dL (6.6-8.7) 11/11/23 15:50 Albumin 3.9 g/dL (3.5-5.2) 11/11/23 15:50 Globulin 3.0 g/dL (1.3-4.6) 11/11/23 15:50 Vitamin B12 1182 pg/mL (232-1245) 11/11/23 17:58 Vitals Last Vital Signs Temp 98.7 F 11/13/23 07:16 Pulse 84 11/13/23 08:48 Resp 18 11/13/23 08:48 BP 187/66 11/13/23 07:16 Pulse Ox 95 11/13/23 08:48 O2 Del Method Nasal Cannula 11/13/23 08:48 O2 Flow Rate 2 11/13/23 08:48 Discharge Plan Discharge Patient Disposition: Home Condition: Stable Prescriptions: New sennosides-docusate sodium [Stool Softener-Laxative] 8.6-50 mg Tablet 2 tab PO BID Qty: 20 0RF hydralazine 25 mg Tablet 25 mg PO BID Qty: 120 2RF potassium chloride 10 mEq tablet extended release 10 meq PO DAILY PRN (Reason: Only take when you take Lasix) Qty: 30 0RF Rx Instructions: Only when you take Lasix lisinopril 10 mg tablet 10 mg PO DAILY Qty: 30 2RF Continued latanoprost 0.005 % drops 1 drp ophthalmic (eye) DAILY ofloxacin 0.3 % drops 1 drp ophthalmic (eye) QID liothyronine 5 mcg tablet 5 mcg PO DAILY levothyroxine 25 mcg tablet 25 mcg PO DAILY baclofen 10 mg tablet 20 mg PO BID insulin aspart U-100 [Novolog U-100 Insulin aspart] 100 unit/mL solution See Rx Instructions .ROUTE .COMPLEX Rx Instructions: 1 sliding scale dose subcutaneously insulin pump bisacodyl 10 mg suppository 10 mg [place] DAILY PRN (Reason: Constipation) trazodone 150 mg tablet 150 mg PO BEDTIME brimonidine 0.2 % drops 1 drp ophthalmic (eye) BID pramipexole 0.25 mg tablet 0.25 mg PO QPM morphine 15 mg tablet extended release 15 mg PO Q8H levothyroxine 200 mcg tablet 200 mcg PO DAILY nystatin [Nystop] 100,000 unit/gram powder 1 applic TOPICAL BID azelastine 137 mcg (0.1 %) aerosol,spray 2 spray INTRANASAL BID PRN (Reason: ALLERGIES) ipratropium bromide 42 mcg (0.06 %) spray,non-aerosol 2 spray INTRANASAL TID PRN (Reason: allergies) fluticasone propionate 50 mcg/actuation spray,suspension 1 spray INTRANASAL BID PRN (Reason: allergies) progesterone micronized 100 mg capsule 300 mg PO BEDTIME dorzolamide 2 % drops 1 drp ophthalmic (eye) BID duloxetine 30 mg capsule,delayed release(DR/EC) 30 mg PO BID lactulose [Constulose] 10 gram/15 mL solution 30 ml PO TID fentanyl 12 mcg/hr patch 72 hour 1 patch topical Q72H pregabalin 25 mg capsule 25 mg PO BID armodafinil 250 mg tablet 250 mg PO DAILY Linzess 290 mcg capsule 290 mcg PO DAILY Rhopressa 0.02 % drops 1 drp ophthalmic (eye) BEDTIME Relistor 8 mg/0.4 mL syringe 0.4 ml SUBCUT EVERY OTHER DAY PRN (Reason: constipation) Qty: 2.8 0RF Relistor 150 mg tablet 450 mg PO QAM Qty: 21 0RF ondansetron HCl 4 mg tablet 4 mg PO BID PRN (Reason: Nausea And Vomiting) metoclopramide HCl 5 mg tablet 5 mg PO QID albuterol sulfate 90 mcg/actuation HFA aerosol inhaler 2 puff INHALATION QID PRN (Reason: Shortness Of Breath) Movantik 12.5 mg tablet 12.5 mg PO DAILY Changed furosemide 40 mg tablet 20 mg PO DAILY PRN (Reason: Weight gain more than 3 pounds) Qty: 90 0RF Rx Instructions: Take potassium only with Lasix Held estradiol 2 mg tablet 2 mg PO DAILY Hold Instructions: Resume on 12/04/23. Discontinued metoprolol succinate 50 mg tablet extended release 24 hr 50 mg PO DAILY Discharge Orders: Discharge Order (Routine); Ordered 11/13/23 Ordered By: Mohit Downing Discharge Diet: Cardiac Discharge Activity: Increase activity as tolerated Patient Instructions: Potassium Chloride (By mouth), Laxative, Stool Softeners (By mouth) (Doculax, Colace, Colace Clear, DSS), Hydralazine (By mouth), Pulmonary Edema (DC), Sleep Apnea (GEN), Acute Kidney Injury (DC), CHF Stoplight, Opioid Safety Activity Restrictions/Additional Instructions: We have added lisinopril 10 mg along hydralazine 25 mg twice a day Target blood pressure should be below 130/80 mmHg If your pressure stays above 140 mmHg you can increase your lisinopril dose up to 20 or 30 mg daily with hydralazine 25 mg twice a day I discontinued amlodipine because of constipation and lower extremity swelling I have discontinued your metoprolol because of bradycardia You still have room to go up on lisinopril dose maximum dose that you can take in a days 40 mg daily It can change creatinine up to 10% which is acceptable range even if you have chronic kidney disease Avoid taking hormonal therapy for about 3 weeks and see if your heart failure symptoms would improve For shortness of breath and weight gain you can increase your Lasix dose from 20 mg up to 4060 or 80 mg depending on your weight and symptoms whenever you take Lasix please also take potassium with it Discharge Attestations Time Spent in Discharge Care*: greater than 30 min Quality Metrics Clinical Quality Measures [ No reported AMI, CVA or VTE this stay] Coding Level of Care Code Acute Code for Chg Fwd Diagnoses New onset of congestive heart failure I50.9 Therapeutic opioid-induced constipation (OIC) K59.03; T40.2X5A Pulmonary edema J81.1 Sleep apnea G47.30 RUFINA (acute kidney injury) N17.9
--- NOTE | 2023-11-13 11:04 | PC.SOCIAL ---
Pg 2 IMM Explained to pt Pg 2 IMM. No questions voiced. Provided pt a copy. Initialed, dated, & timed a copy & placed in chart.
[2023-11-13 12:00] VITALS: BP 166/66; PULSE 92; RESP 20; TEMP 36.9; O2SAT 98
[2023-11-13] MEDS: lisinopril 10 mg Tablet PO (12:20)
[2023-11-13 13:19] VITALS: BP 166/66; PULSE 92; RESP 20; TEMP 36.9; O2SAT 98
== END 2023-11-13 13:00 | disposition home or self-care (01) | DRG 291 ==
LOC: ER 15:43 → CSU 16:32
PROVIDERS: Admitting Provider Internal Medicine; Emergency Provider Emergency Medicine; Visit Provider Internal Medicine
DX: I13.0 Hypertensive heart and chronic kidney disease with heart failure and stage 1 through stage 4 chronic kidney disease, or unspecified chronic kidney disease (principal); I50.33 Acute on chronic diastolic (congestive) heart failure; N17.9 Acute kidney failure, unspecified; E10.22 Type 1 diabetes mellitus with diabetic chronic kidney disease; N18.9 Chronic kidney disease, unspecified; E03.9 Hypothyroidism, unspecified; G47.30 Sleep apnea, unspecified; Z99.81 Dependence on supplemental oxygen; R00.1 Bradycardia, unspecified; R09.02 Hypoxemia; K59.03 Drug induced constipation; T40.2X5A Adverse effect of other opioids, initial encounter; Z79.4 Long term (current) use of insulin
CPT/HCPCS: 36415; 71045; 80048; 80053; 82607; 83735; 83880; 84484; 85025; 85378; 85610; 93005; 93306; 93970; 96372; 96376; 99285; J1650; J1940

== ENCOUNTER 2024-04-04 15:58 | Inpatient (IN) | payer MEDICARE, SELFPAY ==
[2024-04-04] VITALS (7 sets, daily range): BP systolic 134–178; BP diastolic 73–93; PULSE 70–90; RESP 16–17; TEMP 37.1; O2SAT 94–100; BMI 31.2
--- NOTE | 2024-04-04 16:01 | XRR_ITS ---
PROCEDURE INFORMATION: Exam: XR Abdomen Exam date and time: 04/04/2024 4:39 PM Age: 74 years old Clinical indication: Prior surgery; Surgery date: 3-7 days post-operative; Patient HX: Constipation; Pain pump stimulator implant x 1 week ago TECHNIQUE: Imaging protocol: Radiologic exam of the abdomen. Views: Frontal supine view of the abdomen. 1 View. Other technique: SUPINE AP ABDOMEN COMPARISON: 1. CT abdomen pelvis w con* [id number] 10/26/2023 4:32 PM 2. CR XR abdomen 1V* [id number] 10/26/2023 1:42 PM FINDINGS: Heart/Mediastinum: Visualized heart is at upper limit of normal to mildly enlarged. Gastrointestinal tract: No definite pneumatosis. Gas and moderate stool is scattered within non and mild-moderately dilated colon. Intraperitoneal space: No definite pneumoperitoneum. Vasculature: Abdominal aorta is mild-moderately calcified. Bones/joints: There is mild right mid thoracic and left mid lumbar scoliosis. Degenerative disc disease of mid-lower thoracic and several levels of lumbar spine is present. There is moderate osteoarthritis of bilateral hips. Mild-moderate traction osteophyte at left femoral greater trochanter and mild traction osteophyte at right femoral greater trochanter are evident. Soft tissues: A few, < 1.1 cm, lucent-centered and dystrophic calcifications lateral to bilateral femoral greater trochanters are evident. Other findings: A few, < 1.6 cm, coarse calcifications at right pelvis correspond to calcifications within right ovary on CT. Bilateral breast implants are partially visualized. Neural stimulator pulse generator projecting over right mid abdomen, with associated leads projecting over mid-lower thoracic spine and cables, has been placed. Neural stimulator pulse generator projecting over right gluteal region with associated leads at right inferior pelvis and cable, prosthetic discs at L4/5 and L5/S1, and bilateral lumbosacral spinal fixation rods with pedicle screws spanning L4-S1 are unchanged. XR/XR KUB [id number] IMPRESSION: 1. Gas and moderate stool within non and mild-moderately dilated colon. 2. Atherosclerosis.
--- NOTE | 2024-04-04 16:24 | ED_ITS ---
HPI - Abdominal Pain 2 General: Chief Complaint: Abdominal Pain Stated Complaint: constapation Time Seen by Provider: 04/04/24 16:02 Source: patient Mode of arrival: ambulatory Limitations: no limitations History of Present Illness: 74-year-old female who states she had hi story of constipation in the past. States he had recently had a nerve stimulator placed a week ago she had taken hydrocodone with the last dose being on Saturday she states she has been having constipation and has not had a bowel movement in a week. She states that she has tried lactulose and GoLytely and MiraLAX with no relief. She has some slight abdominal pain denies any vomiting Associated Symptoms: Reports constipation; Denies chills, diarrhea, dysuria, fever(s), nausea and vomiting Review of Systems 2 Const: Denies: fever(s), chills, body aches or change in appetite ENMT: Denies: throat pain or dental pain Card: Denies: chest pain Resp: Denies: dyspnea GI: Reports: abdominal pain and constipation; Denies: nausea, vomiting or diarrhea : Denies: dysuria Musc: Denies: neck pain or back pain Skin/Breast: Denies: rash Neuro: Denies: headache(s) PFSH ED 2 PFSH: Medical History Chronic low back pain RLS (restless legs syndrome) Pulmonary edema RUFINA (acute kidney injury) Sleep apnea New onset of congestive heart failure Pulmonary edema Therapeutic opioid-induced constipation (OIC) Moderate nausea and vomiting Obstipation Abdominal pain Bowel obstruction Hyponatremia Constipation Obstipation Hypothyroidism Constipation Surgical History H/O shoulder surgery Previous back surgery Social History Smoking and tobacco/nicotine status: never used tobacco/nicotine Alcohol intake: never Household members: spouse Marital status: Highest education level completed: Bachelor's Degree Current occupational status: retired Physical Exam 2 Const: COMMON NORMALS: no acute distress, patient oriented x3 and healthy appearing HENMT: COMMON NORMALS: normocephalic and atraumatic HEAD & SCALP: n ormocephalic and atraumatic Neck/C-Spine: COMMON NORMALS: full ROM and supple Chest: COMMONS NORMALS: normal inspection of the chest Resp: COMMON NORMALS: normal respiratory effort Cardio: COMMON NORMALS: regular rate, regular rhythm and No murmurs present (Cardio) RATE: regular rate RHYTHM: regular rhythm GI: COMMON NORMALS: Normal to inspection, nondistended, normoactive bowel sounds present, Soft to palpation, non-tender and no masses PALPATION: Yes Soft to palpation Extremity: COMMON NORMALS: normal to inspection and full ROM Neuro: COMMON NORMALS: patient oriented x3, moves all extremities and no focal motor deficits Psych: COMMON NORMALS: mental status grossly normal, Normal thought process present and cooperative THOUGHT PROCESS: Normal thought process present Skin: COMMON NORMALS: no rashes or lesions noted and no wounds GENERAL SKIN EXAM: no rashes or lesions noted Course 2 Vital Signs: Vital signs: Vital Signs Temperature 98.7 F 04/04/24 16:17 Pulse Rate 70 04/04/24 20:08 Respiratory Rate 16 04/04/24 20:08 Blood Pressure 134/93 04/04/24 20:08 Pulse Oximetry 94 04/04/24 20:08 Oxygen Delivery Me thod Nasal Cannula 04/04/24 17:53 Oxygen Flow Rate 3 04/04/24 17:53 MDM - Abdominal Pain Medical Decision Making Patient presents with constipation she also found to be hyponatremic at 125 I did speak to the hospitalist will admit for hyponatremia we will hydrate her we will place her in for April. CT scan showed no signs of obstruction. Medical Records I reviewed the patient's medical records. Lab Data I reviewed the patient's lab results. 04/04/24 17:57 04/04/24 17:57 Labs/Radiology: Radiology Impressions KUB X-Ray 04/04/24 16:01 IMPRESSION: 1. Gas and moderate stool within non and mild-moderately dilated colon. 2. Atherosclerosis. Abdomen/Pelvis CT 04/04/24 18:41 IMPRESSION: 1. S/P cholecystectomy. 2. Atrophic bilateral kidneys. 3. S/P partial hysterectomy and left oophorectomy. Unchanged, < 1.3 cm, coarse calcifications within presumed right ovary. 4. Constipation. 5. Atherosclerosis. 6. Mild, low density, pelvic free fluid. Laboratory Results WBC 11.73 10^3/uL (3.29-11.43) H 04/04/24 17:57 RBC 3.06 10^6/uL (3.85-5.65) L 04/04/24 17:57 Hgb 9.80 g/dL (11.27-16.99) L 04/04/24 17:57 Hct 29.1 % (36-47) L 04/04/24 17:57 MCV 95.1 fl (85-98) 04/04/24 17:57 MCH 32.0 pg (27-33) 04/04/24 17:57 MCHC 33.7 g/dL (30-55) 04/04/24 17:57 RDW 11.7 % (12.1-15.1) L 04/04/24 17:57 Plt Count 194 10^3/cmm (157-399) 04/04/24 17:57 MPV 9.1 fL (7.4-10.4) 04/04/24 17:57 Neut % (Auto) 75.1 % 04/04/24 17:57 Lymph % (Auto) 15.1 % 04/04/24 17:57 [place] % (Auto) 7.9 % 04/04/24 17:57 Eos % (Auto) 1.1 % 04/04/24 17:57 Baso % (Auto) 0.5 % 04/04/24 17:57 Neut # (Auto) 8.81 10^3/uL (1.8-7.7) H 04/04/24 17:57 Lymph # (Auto) 1.8 10^3/uL (0.8-4.8) 04/04/24 17:57 [place] # (Auto) 0.9 10^3/uL (0.2-0.9) 04/04/24 17:57 Eos # (Auto) 0.1 10^3/uL (0.0-0.8) 04/04/24 17:57 Baso # (Auto) 0.1 10^3/uL (0.0-0.1) 04/04/24 17:57 Nucleated RBC % (auto) 0 % 04/04/24 17:57 Nucleated RBCs # 0.0 /100WBC 04/04/24 17:57 Sodium 125 mmol/L (136-145) L 04/04/24 17:57 Potassium 4.6 mmol/L (3.5-5.1) 04/04/24 17:57 Chloride 90 mmol/L (98-107) L 04/04/24 17:57 Carbon Dioxide 27 mmol/L (22-29) 04/04/24 17:57 Anion Gap 12.6 (5-19) 04/04/24 17:57 BUN 13 mg/dL (8-23) 04/04/24 17:57 Creatinine 0.8 mg/dL (0.5-0.9) 04/04/24 17:57 GFR Calculation Not Reportable 04/04/24 17:57 Glucose 91 mg/dL (65-115) 04/04/24 17:57 POC Glucose 95 mg/dL (70-110) 04/04/24 18:44 Calculated Osmolality 260 mOsm/kg (285-295) L 04/04/24 17:57 Calcium 8.5 mg/dL (8.5-10.5) 04/04/24 17:57 Total Bilirubin 0.3 mg/dL (0.15-1.2) 04/04/24 17:57 AST 15 U/L (0-32) 04/04/24 17:57 ALT 11 U/L (0-33) 04/04/24 17:57 Alkaline Phosphatase 111 U/L (35-105) H 04/04/24 17:57 Total Protein 6.8 g/dL (6.6-8.7) 04/04/24 17:57 Albumin 4.1 g/dL (3.5-5.2) 04/04/24 17:57 Globulin 2.7 g/dL (1.3-4.6) 04/04/24 17:57 Lipase 28 U/L (13-60) 04/04/24 17:57 All radiology interpretation(s) finalized by discharge Discharge Plan Discharge Patient Disposition: Placed in Observation Clinical Impression: Constipation, Hyponatremia Condition: Stable Prescriptions: No Action methylprednisolone [Medrol ([place])] 4 mg tablets,dose pack 4 mg PO DAILY Qty: 21 0RF liothyronine 5 mcg tablet 5 mcg PO DAILY Qty: 90 0RF trazodone 300 mg tablet 300 mg PO BEDTIME Qty: 90 0RF nystatin 100,000 unit/gram cream 1 applic topical BID Qty: 30 1RF Stool Softener-Laxative 8.6-50 mg tablet 2 tab PO .qhs Qty: 180 0RF latanoprost 0.005 % drops 1 drp ophthalmic (eye) DAILY ofloxacin 0.3 % drops 1 drp ophthalmic (eye) QID baclofen 10 mg tablet 20 mg PO BID insulin aspart U-100 [Novolog U-100 Insulin aspart] 100 unit/mL solution See Rx Instructions .ROUTE .COMPLEX Rx Instructions: 1 sliding scale dose subcutaneously insulin pump bisacodyl 10 mg suppository 10 mg MS DAILY PRN (Reason: Constipation) brimonidine 0.2 % drops 1 drp ophthalmic (eye) BID pramipexole 0.25 mg tablet 0.25 mg PO QPM estradiol 2 mg tablet 2 mg PO DAILY Hold Instructions: Resume on 12/04/23. morphine 15 mg tablet extended release 15 mg PO Q8H levothyroxine 200 mcg tablet 200 mcg PO DAILY Patient Comments: 225mcg sat,Sat,Saturday then 200mcg all other days azelastine 137 mcg (0.1 %) aerosol,spray 2 spray INTRANASAL BID PRN (Reason: ALLERGIES) ipratropium bromide 42 mcg (0.06 %) spray,non-aerosol 2 spray INTRANASAL TID PRN (Reason: allergies) fluticasone propionate 50 mcg/actuation spray,suspension 1 spray INTRANASAL BID PRN (Reason: allergies) progesterone micronized 100 mg capsule 300 mg PO BEDTIME dorzolamide 2 % drops 1 drp ophthalmic (eye) BID duloxetine 30 mg capsule,delayed release(DR/EC) 30 mg PO BID lactulose [Constulose] 10 gram/15 mL solution 30 ml PO TID pregabalin 25 mg capsule 25 mg PO BID armodafinil 250 mg tablet 250 mg PO DAILY Linzess 290 mcg capsule 290 mcg PO DAILY Rhopressa 0.02 % drops 1 drp ophthalmic (eye) BEDTIME ondansetron HCl 4 mg tablet 4 mg PO BID PRN (Reason: Nausea And Vomiting) metoclopramide HCl 5 mg tablet 5 mg PO QID albuterol sulfate 90 mcg/actuation HFA aerosol inhaler 2 puff INHALATION QID PRN (Reason: Shortness Of Breath) Movantik 12.5 mg tablet 12.5 mg PO DAILY hydralazine 25 mg Tablet 25 mg PO BID Qty: 120 2RF furosemide 40 mg tablet 20 mg PO DAILY PRN (Reason: Weight gain more than 3 pounds) Qty: 90 0RF Rx Instructions: Take potassium only with Lasix lisinopril 10 mg tablet 10 mg PO DAILY Qty: 30 2RF Coding Level of Care Code ED [employer]ote[employer] for Joseph Alvarez
--- NOTE | 2024-04-04 16:39 | PC.NURSE ---
pt states glucose on monitor shows 80, pt is normally 150s. glucose via fingerstick 66. Dr. Cruz notified. pt given x2 orange juice. states she shut insulin pump off for 1 hour.
[2024-04-04 16:40] LABS: Glucose Point of Care 66 mg/dL (70-110)
--- NOTE | 2024-04-04 16:43 | PC.NURSE ---
pt states she wears 3L NC baseline
--- NOTE | 2024-04-04 17:00 | PC.NURSE ---
Glucose via Fingerstick 85 @1700
[2024-04-04 17:02] LABS: Glucose Point of Care 85 mg/dL (70-110)
[2024-04-04] MEDS: methylnaltrexone 12 /0.6 mL INJ 12 MG SUBCUT (17:13)
[2024-04-04] MEDS: acetaminophen 500 mg Tablet 1000 MG PO (17:18)
[2024-04-04 18:11] LABS: Basophils # 0.1 10^3/uL (0.0-0.1); Basophils % 0.5 %; Eosinophils # 0.1 10^3/uL (0.0-0.8); Eosinophils % 1.1 %; Hematocrit 29.1 % (36-47); Lymphocytes # 1.8 10^3/uL (0.8-4.8); Lymphocytes % 15.1 %; Mean Corpuscular HGB Conc 33.7 g/dL (30-55); Mean Corpuscular Volume 95.1 fl (85-98); Mean Platelet Volume 9.1 fL (7.4-10.4); Monocytes # 0.9 10^3/uL (0.2-0.9); Monocytes % 7.9 %; Neutrophils # 8.81 10^3/uL (1.8-7.7); Neutrophils % 75.1 %; Nucleated Red Blood Cells % 0 %; Platelet Count 194 10^3/cmm (157-399); Red Blood Count 3.06 10^6/uL (3.85-5.65); Red Cell Distribution Width 11.7 % (12.1-15.1); White Blood Count 11.73 10^3/uL (3.29-11.43)
[2024-04-04 18:25] LABS: Alanine Aminotransferase 11 U/L (0-33); Albumin Level 4.1 g/dL (3.5-5.2); Alkaline Phosphatase 111 U/L (35-105); Anion Gap 12.6 (5-19); Aspartate Amino Transferase 15 U/L (0-32); Blood Urea Nitrogen 13 mg/dL (8-23); Calcium 8.5 mg/dL (8.5-10.5); Carbon Dioxide 27 mmol/L (22-29); Chloride 90 mmol/L (98-107); Globulin 2.7 g/dL (1.3-4.6); Glucose 91 mg/dL (65-115); Lipase 28 U/L (13-60); Osmolality Calculated 260 mOsm/kg (285-295); Potassium 4.6 mmol/L (3.5-5.1); Sodium 125 mmol/L (136-145); Total Bilirubin 0.3 mg/dL (0.15-1.2); Total Protein 6.8 g/dL (6.6-8.7)
--- NOTE | 2024-04-04 18:41 | CTR_ITS ---
PROCEDURE INFORMATION: Exam: CT Abdomen And Pelvis Without Contrast Exam date and time: 04/04/2024 7:06 PM Age: 74 years old Clinical indication: Prior surgery; Surgery date: 3-7 days post-operative; Surgery type: Spinal stimulator last week. Lumbar fusion. Bladder stimulator. Patient HX: C/O constipation x 1 week post spinal stimulator placement. TECHNIQUE: Imaging protocol: Computed tomography of the abdomen and pelvis without contrast. Total images: 224 submitted. Radiation optimization: All CT scans at this facility use at least one of these dose optimization techniques: automated exposure control; mA and/or kV adjustment per patient size (includes targeted exams where dose is matched to clinical indication); or iterative reconstruction. COMPARISON: 1. CT abdomen pelvis w con* [id number] 10/26/2023 4:32 PM 2. CR (ABDOMEN, ) 04/04/2024 4:39 PM 3. CR XR abdomen 1V* [id number] 10/26/2023 1:42 PM RADIATION DOSE METRICS: Total DLP (mGy-cm): 771.65 FINDINGS: Lungs: Posterobasal or mediobasal right lower lobe contains an unchanged, < 4 mm, calcified granuloma. Mild linear opacities at periphery and dependent portions of bilateral lower lobes probably represent subsegmental atelectasis. Pleural spaces: No pleural effusions. Heart: Visualized heart is at upper limit of normal in size. Mitral valvuloplasty is partially visualized. Liver: Grossly normal. Gallbladder and biliary ducts: Gallbladder is surgically absent. No intra or extrahepatic duct dilatation. Pancreas: Grossly normal. No pancreatic duct dilation. Spleen: Grossly normal. No splenomegaly. Adrenal glands: Grossly normal. No mass. Kidneys and ureters: Bilateral kidneys are mildly atrophic. Stomach and bowel: Small bowel is grossly unremarkable. Moderate stool is scattered within non, mildly, and moderately dilated colon and nondilated rectum, suggesting constipation. Appendix: No evidence of appendicitis. Intraperitoneal space: No pneumoperitoneum. Mild, low density (Hounsfield units 13), free fluid layers dependently at right posterior pelvis. No loculated fluid collection. Retroperitoneal space: No free fluid. Vasculature: Abdominal aorta, celiac, splenic, superior mesenteric, bilateral peripheral renal, and bilateral iliac and femoral arteries are moderately calcified. Origins and proximal aspects of bilateral main renal arteries are severely calcified. Proximal inferior mesenteric and bilateral inferior epigastric arteries are mild-moderately calcified. Common hepatic artery is mildly calcified. IVC is normal. Lymph nodes: No radiographically enlarged lymph nodes. Urinary bladder: Grossly normal. Reproductive: Uterus is at least partially surgically absent. Several, < 1.3 cm, coarse calcifications within presumed right ovary are unchanged. Left ovary appears to be surgically absent. Bones/joints: Mild left lower lumbar scoliosis is unchanged. As before, there has been left laminotomy and resection of spinous process of L5. Gas within T10/11, T11/12, T12/L1, L2/3, L3/4, and L4/5 discs suggests vacuum discs. Nucleus pulposus of L3/4 disc is calcified. Degenerative disc disease of lower thoracic spine and degenerative disc and facet disease of several levels of lumbar spine are present. < 1 cm, lobulated, well-defined lucency with sclerotic margins at left anterior femoral neck likely reflects incidental herniation pit. Mild, ill-defined sclerosis at right posterior femoral head suggests avascular necrosis. A few, < 5 mm, oval, well-defined, sclerotic lesions at tectum and posterior wall of right acetabulum statistically probably represent benign bone islands. There are moderate osteoarthritis of bilateral hips and mild degenerative changes at pubic symphysis. Moderate traction osteophyte at left femoral greater trochanter and mild-moderate traction osteophytes at bilateral ischial tuberosities and right femoral greater trochanter are evident. Soft tissues: Bilateral breast implants are partially visualized. Serpiginous, high attenuation areas within bilateral breast implants are partially visualized, possibly reflecting radial folds. Mild-moderate skin thickening and mild subcutaneous fat stranding at left anterior lower abdominal and pelvic wall suggest soft tissue inflammation. < 7 mm, nodular opacity within subcutaneous fat at left anterior lower abdominal wall suggests subcutaneous injection. Mild, reticulated opacities within fat at bilateral lateral hips are unchanged, suggesting scarring. A few, < 6 mm, lucent-centered calcifications at bilateral gluteal regions suggest injection granulomas. Several, < 1.1 cm, linear, lucent-centered, and dystrophic calcifications are scattered within fat lateral to bilateral hips. Neural stimulator pulse generator within subcutaneous fat at right flank, with associated cables extending into T11/12 dorsal epidural space and leads within mid-lower thoracic dorsal epidural space, has been placed. Neural stimulator pulse generator within subcutaneous fat at right gluteal region, with associated cable and leads extending through right S4 neural foramina to right posterior pelvis, prosthetic discs at L4/5 and L5/S1, bilateral lumbosacral spinal fixation rods with pedicle screws spanning L4-S1, and radiopaque sutures deep to right lateral transversus abdominis muscle and superficial to right lateral internal and external oblique muscles are unchanged. CT/CT abdomen pelvis wo con [id number] IMPRESSION: 1. S/P cholecystectomy. 2. Atrophic bilateral kidneys. 3. S/P partial hysterectomy and left oophorectomy. Unchanged, < 1.3 cm, coarse calcifications within presumed right ovary. 4. Constipation. 5. Atherosclerosis. 6. Mild, low density, pelvic free fluid.
[2024-04-04 18:55] LABS: Glucose Point of Care 95 mg/dL (70-110)
[2024-04-04] MEDS: sodium chloride 0.9% 1,000 ML 999 ML IV (20:03)
--- NOTE | 2024-04-04 20:17 | P.HP_ITS ---
Providers/Chief Complaint 2 Chief Complaint: constapation History of Present Illness Meryl Ling is a 74 year old female With past medical history of opioid- induced constipation, bowel obstruction, hyponatremia, obstipation, hypothyroidism, nausea vomiting, congestive heart failure, RUFINA, restless leg syndrome in the past presented to the hospital today with complaint of constipation. He states she has not had a bowel movement in the last 1 week. She has tried lactulose GoLytely and MiraLAX with no relief. She says she recently had a nerve stimulator placed a week ago. She took hydrocodone with the last dose being on Saturday. On arrival blood pressure 134/93, saturating 84% on 3 L nasal cannula, respirate 16, pulse 70. Sodium noted to be 125, WBC 11.3. KUB showed gas and moderate stool with moderately dilated colon. Abdominal pelvis CT showed status post cholecystectomy, atrial fibrillation kidneys, status post partial hysterectomy and left oophorectomy, constipation, atherosclerosis, mild low-density pelvic free fluid. Patient was given 12 mg of methylnaltrexone bromide, 1 g of Tylenol and a sodium phosphate enema. She was unable to have a bowel movement. Medications/Allergies Home Medications Medication Instructions Recorded Confirmed Last Taken Type armodafinil 250 mg tablet 250 mg PO DAILY 10/26/23 04/04/24 04/04/24 History baclofen 10 mg tablet 20 mg PO BID 10/26/23 04/04/24 04/04/24 History brimonidine 0.2 % eye drops 1 drp ophthalmic (eye) BID 10/26/23 04/04/24 04/04/24 History duloxetine 30 mg capsule,delayed 30 mg PO BID 10/26/23 04/04/24 04/04/24 History release estradiol 2 mg tablet 2 mg PO DAILY 10/26/23 04/04/24 04/04/24 History fluticasone propionate 50 1 spray intranasal BID PRN 10/26/23 04/04/24 03/31/24 History mcg/actuation nasal allergies spray,suspension insulin aspart U-100 100 unit/mL See Rx Instructions .Route .COMPLEX 10/26/23 04/04/24 04/04/24 History subcutaneous solution (Novolog U-100 Insulin aspart) ipratropium bromide 42 mcg (0.06 2 spray intranasal TID PRN 10/26/23 04/04/2424 History %) nasal spray allergies latanoprost 0.005 % eye drops 1 drp ophthalmic (eye) DAILY 10/26/23 04/04/24 04/04/24 History levothyroxine 200 mcg tablet 200 mcg PO DAILY 10/26/23 04/04/24 04/04/24 History linaclotide 290 mcg capsule 290 mcg PO DAILY 10/26/23 04/04/24 04/04/24 History (Linzess) netarsudil 0.02 % eye drops 1 drp ophthalmic (eye) BEDTIME 10/26/23 04/04/24 04/04/24 History (Rhopressa) pramipexole 0.25 mg tablet 0.25 mg PO QPM 10/26/23 04/04/24 04/03/24 History pregabalin 25 mg capsule 50 mg PO BID 10/26/23 04/04/24 04/04/24 History progesterone micronized 100 mg 300 mg PO BEDTIME 10/26/23 04/04/24 04/03/24 History capsule albuterol sulfate 90 mcg/actuation 2 puff inhalation QID PRN 11/11/23 04/04/24 04/03/24 History aerosol inhaler Shortness Of Breath furosemide 40 mg tablet 20 mg (1/2 x 40 mg) PO DAILY PRN 11/13/23 04/04/24 04/04/24 Rx Weight gain more than 3 pounds #90 tabs hydralazine 25 mg tablet 25 mg PO BID #120 tabs 11/13/23 04/04/24 04/04/24 Rx liothyronine 5 mcg tablet 5 mcg PO DAILY #90 tabs 01/23/24 04/04/24 04/04/24 Rx sennosides 8.6 mg-docusate sodium 2 tab PO .qhs #180 tabs 01/23/24 04/04/24 Unknown Rx 50 mg tablet (Stool Softener-Laxative) trazodone 300 mg tablet 300 mg PO BEDTIME #90 tabs 01/23/24 04/04/24 04/03/24 Rx alprazolam 0.5 mg tablet 0.5 mg PO DAILY 04/04/24 04/04/24 04/02/24 History cyclosporine 0.05 % eye drops in a 1 drp ophthalmic (eye) BID 04/04/24 04/04/24 Unknown History dropperette hydrocodone 10 mg-acetaminophen 1 tab PO TID PRN Pain 04/04/24 04/04/24 Unknown History 325 mg tablet naloxone 4 mg/actuation nasal spray 1 spray intranasal UNK 04/04/24 04/04/24 Unknown History ondansetron HCl 4 mg tablet 4 mg PO PRN 04/04/24 04/04/24 04/03/24 History sacubitril 24 mg-valsartan 26 mg 1 tab PO BID 04/04/24 04/04/24 Unknown History tablet (Entresto) Allergies Allergy/AdvReac Type Severity Reaction Status Date / Time acetazolamide Allergy ALGY-Rash Verified 04/04/24 16:23 [From Diamox Sequels] angiotensin II acetate, human Allergy Unknown Verified 04/04/24 16:22 diphenhydramine Allergy ALGY-Rash Verified 04/04/24 16:22 [From Benadryl] ketorolac Allergy Unknown Verified 04/04/24 16:26 losartan Allergy ADR-Cough Verified 04/04/24 16:26 methocarbamol Allergy Unknown Verified 04/04/24 16:26 metoclopramide Allergy ADR-Shakine Verified 04/04/24 16:26 ss nitrofurantoin Allergy ADR-Diarrhe Verified 04/04/24 16:26 a NSAIDS (Non-Steroidal Allergy Unknown Verified 04/04/24 16:22 Anti-Inflamma tetracycline Allergy Unknown Verified 04/04/24 16:22 PFSH Acute 2 PFSH: Medical History Chronic low back pain RLS (restless legs syndrome) Pulmonary edema RUFINA (acute kidney injury) Sleep apnea New onset of congestive heart failure Pulmonary edema Therapeutic opioid-induced constipation (OIC) Moderate nausea and vomiting Obstipation Abdominal pain Bowel obstruction Hyponatremia Constipation Obstipation Hypothyroidism Constipation Surgical History H/O shoulder surgery Previous back surgery Social History Smoking and tobacco/nicotine status: never used tobacco/nicotine Alcohol intake: never Household members: spouse Marital status: Highest education level completed: Bachelor's Degree Current occupational status: retired Vitals/I&O/Wt Last Vital Signs Temp 98.7 F 04/04/24 16:17 Pulse 70 04/04/24 20:08 Resp 16 04/04/24 20:08 BP 134/93 04/04/24 20:08 Pulse Ox 94 04/04/24 20:08 O2 Del Method Nasal Cannula 04/04/24 17:53 O2 Flow Rate 3 04/04/24 17:53 Weight last 48 hrs Weight 79.379 kg Physical Exam 2 Narrative: General: Alert oriented x3, patient seen laying in bed, no acute distress. HEENT: Normocephalic, atraumatic, EOMI, breathing 3 L nasal cannula. Cardio: Regular rate rhythm, normal S1-S2 Respiratory: Good bilateral air entry, no wheezes no rhonchi appreciated GI: Abdomen soft, nontender, mild distention, bowel sounds positive. Extremities: Trace edema bilateral lower extremities. Data 04/04/24 17:57 04/04/24 17:57 A&P Assessment and plan (1) Heart failure with preserved ejection fraction: Qualifiers: Heart failure chronicity: acute on chronic Qualified Code(s): I50.33 - Acute on chronic diastolic (congestive) heart failure (2) Type 1 diabetes mellitus with hypoglycemia: Qualifiers: Diabetes mellitus complication detail: without coma Qualified Code(s): E10.649 - Type 1 diabetes mellitus with hypoglycemia without coma (3) Hypothyroidism: Qualifiers: Hypothyroidism type: postablative Qualified Code(s): E89.0 - Postprocedural hypothyroidism (4) Hyponatremia: (5) Chronic constipation: (6) Constipation: (7) Chronic low back pain: Qualifiers: Back pain laterality: midline Sciatica laterality: bilateral sciatica Sciatica presence: with sciatica Qualified Code(s): M54.41 - Lumbago with sciatica, right side; M54.42 - Lumbago with sciatica, left side; G89.29 - Other chronic pain (8) Fibromyalgia: (9) Diabetic neuropathy: (10) Insomnia: (11) RLS (restless legs syndrome): Plan #Acute on chronic hyponatremia, sodium 125 today. #Acute on chronic constipation #History of obstipation #Failed GoLytely, MiraLAX, enema at home #Congestive heart failure with preserved EF, compensated at this time #Diabetes mellitus, insulin-dependent #History of opioid use #Hypothyroidism #CKD stage III ? Patient's status post 1 L bolus in ER. I will repeat BMP at this time to assess sodium level. Further management according to repeat levels. She has a known history of hyponatremia. Will check urine sodium today. ? Patient received methylnaltrexone 12 mg in ER x 1. Also received an enema however has not been able to have a bowel movement. ? I will place on GoLytely and monitor. ? Continue lactulose 20 3 times daily ? Confirm home medications. ? Continue Lasix, armodafinil, baclofen, brimonidine, dorzolamide eyedrops, duloxetine, hydralazine, ? CT abdomen pelvis reviewed. No evidence of obstruction. ? Patient requiring 3 L nasal cannula at this time. This is consistent with her baseline. ? Placed on clear liquid diet. ? Placed on sliding scale low dose intensity. Patient has an insulin pump, she may continue to use - I have been informed we do not have golytely available till AM. Will hold off on it for now. Administer go lytely in AM. Full code DVT prophylaxis: Heparin SQ twice daily Attestations 2 Medical Necessity Statement*: Greater than 2 midnight stay for management of hyponatremia, acute on chronic constipation. Diagnoses Acute on chronic heart failure with preserved ejection fraction I50.33 Heart failure chronicity: acute on chronic Type 1 diabetes mellitus with hypoglycemia and without coma E10.649 Diabetes mellitus complication detail: without coma Postablative hypothyroidism E89.0 Hypothyroidism type: postablative Hyponatremia E87.1 Chronic constipation K59.09 Constipation K59.00 Chronic midline low back pain with bilateral sciatica M54.41; M54.42; G89.29 Back pain laterality: midline Sciatica laterality: bilateral sciatica Sciatica presence: with sciatica Fibromyalgia M79.7 Diabetic neuropathy E11.40 Insomnia G47.00 RLS (restless legs syndrome) G25.81
[2024-04-04 22:42] LABS: Estmated Average Glucose 114; Hemoglobin A1C 5.6 % (4.0-6.0)
[2024-04-04 22:44] LABS: Ferritin 153 ng/mL (15-150); Iron 37 ug/dL (37-145); Percent Saturation 19.6 % (20-50); Total Iron Binding Capacity 188 mcg/dl; Unsaturated Iron Binding 151 ug/dL (112-347)
[2024-04-04] MEDS: heparin 5,000 unit/mL INJ 1 mL 5000 UNIT SUBCUT (22:45)
[2024-04-04] MEDS: lactulose oral liq 20 gm/30 mL UDC PO (22:45)
[2024-04-04 23:00] LABS: Thyroid Stimulating Hormone 1.36 uIU/mL (0.27-4.20)
[2024-04-05] MEDS: polyethylene glycol 3350 Pkt 17 gm PO (00:04)
[2024-04-05] MEDS: acetaminophen 325 mg Tablet 650 MG PO (00:04)
[2024-04-05 00:07] VITALS: BP 173/67; PULSE 77; RESP 16; TEMP 37; O2SAT 98
[2024-04-05] MEDS: ALPRAZolam 0.5 mg Tablet PO (00:44)
[2024-04-05] MEDS: trazodone 150 mg Tablet 300 MG PO (00:44)
[2024-04-05] MEDS: pregabalin 50 mg Capsule PO ×2 (01:55→09:14)
[2024-04-05 03:05] LABS: Basophils # 0.1 10^3/uL (0.0-0.1); Basophils % 0.8 %; Eosinophils # 0.2 10^3/uL (0.0-0.8); Eosinophils % 2.5 %; Hematocrit 26.7 % (36-47); Lymphocytes # 1.5 10^3/uL (0.8-4.8); Lymphocytes % 19.8 %; Mean Corpuscular HGB Conc 34.5 g/dL (30-55); Mean Corpuscular Hemoglobin 32.7 pg (27-33); Mean Platelet Volume 9.8 fL (7.4-10.4); Monocytes # 0.9 10^3/uL (0.2-0.9); Monocytes % 12.2 %; Neutrophils # 4.95 10^3/uL (1.8-7.7); Neutrophils % 64.3 %; Nucleated Red Blood Cells % 0 %; Platelet Count 140 10^3/cmm (157-399); Red Blood Count 2.81 10^6/uL (3.85-5.65); Red Cell Distribution Width 11.6 % (12.1-15.1); White Blood Count 7.69 10^3/uL (3.29-11.43)
[2024-04-05 03:15] LABS: Alanine Aminotransferase 8 U/L (0-33); Albumin Level 3.5 g/dL (3.5-5.2); Alkaline Phosphatase 97 U/L (35-105); Blood Urea Nitrogen 12 mg/dL (8-23); Calcium 7.2 mg/dL (8.5-10.5); Carbon Dioxide 23 mmol/L (22-29); Chloride 96 mmol/L (98-107); Creatinine Clr Calc Pharmacy 65.2646; Globulin 1.9 g/dL (1.3-4.6); Glucose 95 mg/dL (65-115); Magnesium 1.8 mg/dL (1.7-2.3); Osmolality Calculated 266 mOsm/kg (285-295); Phosphorus 3.1 mg/dL (2.5-4.5); Sodium 128 mmol/L (136-145); Total Bilirubin 0.5 mg/dL (0.15-1.2); Total Protein 5.4 g/dL (6.6-8.7)
[2024-04-05 03:19] LABS: Anion Gap 13.7 (5-19); Aspartate Amino Transferase 16 U/L (0-32); Potassium 4.7 mmol/L (3.5-5.1)
[2024-04-05 04:26] VITALS: BP 164/69; PULSE 78; RESP 17; TEMP 36.6; O2SAT 91
[2024-04-05] MEDS: lactulose oral liq 20 gm/30 mL UDC PO (05:26)
[2024-04-05] MEDS: ondansetron 4 MG Tablet PO (07:00)
[2024-04-05 07:51] VITALS: BP 125/56; PULSE 73; RESP 16; TEMP 36.7; O2SAT 95
[2024-04-05] MEDS: pantoprazole DR 40 mg Tablet PO (09:14)
[2024-04-05] MEDS: hyDRALAzine 25 mg Tablet PO (09:14)
[2024-04-05] MEDS: sacubitril/valsartan 24-26 mg Tablet 1 EACH PO (09:14)
[2024-04-05] MEDS: baclofen 10 mg Tablet 20 MG PO (09:14)
[2024-04-05] MEDS: levothyroxine 200 mcg Tablet PO (09:14)
[2024-04-05] MEDS: duloxetine 30 mg Capsule PO (09:14)
--- NOTE | 2024-04-05 13:03 | P.DS_ITS ---
Discharge Providers Date of Admission: 04/04/24 20:47 Date of Discharge: April 05, 2024 Attending Provider at Admission: Danita Pineda MD Attending Provider at Discharge: Donn Harris Diagnoses at Discharge Discharge Diagnosis (1) Heart failure with preserved ejection fraction: Status: Acute Qualifiers: Heart failure chronicity: acute on chronic Qualified Code(s): I50.33 - Acute on chronic diastolic (congestive) heart failure (2) Type 1 diabetes mellitus with hypoglycemia: Status: Acute Qualifiers: Diabetes mellitus complication detail: without coma Qualified Code(s): E10.649 - Type 1 diabetes mellitus with hypoglycemia without coma (3) Hypothyroidism: Status: Acute Qualifiers: Hypothyroidism type: postablative Qualified Code(s): E89.0 - Postprocedural hypothyroidism (4) Hyponatremia: Status: Acute (5) Chronic constipation: Status: Chronic (6) Constipation: Status: Acute (7) Chronic low back pain: Status: Acute Qualifiers: Back pain laterality: midline Sciatica presence: with sciatica Sciatica laterality: bilateral sciatica Qualified Code(s): M54.41 - Lumbago with sciatica, right side; M54.42 - Lumbago with sciatica, left side; G89.29 - Other chronic pain (8) Fibromyalgia: Status: Acute (9) Diabetic neuropathy: Status: Acute (10) Insomnia: Status: Acute (11) RLS (restless legs syndrome): Status: Acute Reason for Visit Reason for Visit: constapation Brief History: Meryl Ling is a 74 year old female With past medical history of opioid- induced constipation, bowel obstruction, hyponatremia, obstipation, hypothyroidism, nausea vomiting, congestive heart failure, RUFINA, restless leg syndrome in the past presented to the hospital today with complaint of constipation. He states she has not had a bowel movement in the last 1 week. She has tried lactulose GoLytely and MiraLAX with no relief. She says she recently had a nerve stimulator placed a week ago. She took hydrocodone with the last dose being on Saturday. On arrival blood pressure 134/93, saturating 84% on 3 L nasal cannula, respirate 16, pulse 70. Sodium noted to be 125, WBC 11.3. KUB showed gas and moderate stool with moderately dilated colon. Abdominal pelvis CT showed status post cholecystectomy, atrial fibrillation kidneys, status post partial hysterectomy and left oophorectomy, constipation, atherosclerosis, mild low-density pelvic free fluid. Patient was given 12 mg of methylnaltrexone bromide, 1 g of Tylenol and a sodium phosphate enema. She was unable to have a bowel movement. Hospital Course Hospital Course She had several bowel movements after escalation of bowel regimen, feels much better and request to be discharged home this morning. Sodium discussed with her and her , noted with some improvement although still hyponatremic at 128. Discussed loosening the dietary restriction of sodium given she becomes recurrently hyponatremic. She will take one half of a sodium chloride tablet at home then continue with more relaxed oral intake. She understands that she is in a challenging position. Having risk of fluid overload, hypertension, as opposed to lower sodium but currently her volume status is good, she is not hypotensive, but does have hyponatremia. She knows to seek frequent reassessment with PCP, nephrology, for reassessment of electrolytes but also volume status, blood pressures and other comorbidities. Physical Exam Narrative: Sitting up in chair, neatly dressed in home clothes, pleasant, conversant. Accompanied by her . Awaiting discharge. Const: COMMON NORMALS: patient oriented x3 and alert GENERAL APPEARANCE: cooperative ORIENTATION/CONSCIOUSNESS: Yes awake HENMT: COMMON NORMALS: oropharynx normal Neck/C-Spine: COMMON NORMALS: no JVD Resp: COMMON NORMALS: normal respiratory effort and clear to auscultation bilaterally AUSCULTATION: clear to auscultation bilaterally Cardio: COMMON NORMALS: no JVD, regular rhythm, S1 normal heart sound present, S2 normal heart sound present and No murmurs present (Cardio) RHYTHM: regular rhythm HEART SOUNDS: S1 normal heart sound present and S2 normal heart sound present GI: COMMON NORMALS: Normal to inspection, nondistended, normoactive bowel sounds present, Soft to palpation and non-tender PALPATION: Yes Soft to palpation Extremity: COMMON NORMALS: no joint enlargement and no pedal edema Neuro: COMMON NORMALS: patient oriented x3 and moves all extremities SENSORIUM/ORIENTATION: Yes alert Skin: COMMON NORMALS: no rashes or lesions noted GENERAL SKIN EXAM: no rashes or lesions noted Discharge Data Studies Completed and Pending Completed Studies During Hospitalization Category Date Time Status CT abdomen pelvis wo con [id number] Stat Cat Scan 04/04/24 18:41 Completed XR KUB [id number] Stat Exams 04/04/24 16:01 Completed Radiology Impressions KUB X-Ray 04/04/24 16:01 IMPRESSION: 1. Gas and moderate stool within non and mild-moderately dilated colon. 2. Atherosclerosis. Abdomen/Pelvis CT 04/04/24 18:41 IMPRESSION: 1. S/P cholecystectomy. 2. Atrophic bilateral kidneys. 3. S/P partial hysterectomy and left oophorectomy. Unchanged, < 1.3 cm, coarse calcifications within presumed right ovary. 4. Constipation. 5. Atherosclerosis. 6. Mild, low density, pelvic free fluid. Laboratory Results WBC 7.69 10^3/uL (3.29-11.43) 04/05/24 02:40 RBC 2.81 10^6/uL (3.85-5.65) L 04/05/24 02:40 Hgb 9.20 g/dL (11.27-16.99) L 04/05/24 02:40 Hct 26.7 % (36-47) L 04/05/24 02:40 MCV 95.0 fl (85-98) 04/05/24 02:40 MCH 32.7 pg (27-33) 04/05/24 02:40 MCHC 34.5 g/dL (30-55) 04/05/24 02:40 RDW 11.6 % (12.1-15.1) L 04/05/24 02:40 Plt Count 140 10^3/cmm (157-399) L 04/05/24 02:40 MPV 9.8 fL (7.4-10.4) 04/05/24 02:40 Neut % (Auto) 64.3 % 04/05/24 02:40 Lymph % (Auto) 19.8 % 04/05/24 02:40 Rabun % (Auto) 12.2 % 04/05/24 02:40 Eos % (Auto) 2.5 % 04/05/24 02:40 Baso % (Auto) 0.8 % 04/05/24 02:40 Neut # (Auto) 4.95 10^3/uL (1.8-7.7) 04/05/24 02:40 Lymph # (Auto) 1.5 10^3/uL (0.8-4.8) 04/05/24 02:40 Rabun # (Auto) 0.9 10^3/uL (0.2-0.9) 04/05/24 02:40 Eos # (Auto) 0.2 10^3/uL (0.0-0.8) 04/05/24 02:40 Baso # (Auto) 0.1 10^3/uL (0.0-0.1) 04/05/24 02:40 Nucleated RBC % (auto) 0 % 04/05/24 02:40 Nucleated RBCs # 0.0 /100WBC 04/05/24 02:40 Sodium 128 mmol/L (136-145) L 04/05/24 02:40 Potassium 4.7 mmol/L (3.5-5.1) 04/05/24 02:40 Chloride 96 mmol/L (98-107) L 04/05/24 02:40 Carbon Dioxide 23 mmol/L (22-29) 04/05/24 02:40 Anion Gap 13.7 (5-19) 04/05/24 02:40 BUN 12 mg/dL (8-23) 04/05/24 02:40 Creatinine 0.8 mg/dL (0.5-0.9) 04/05/24 02:40 GFR Calculation Not Reportable 04/05/24 02:40 Glucose 95 mg/dL (65-115) 04/05/24 02:40 POC Glucose 95 mg/dL (70-110) 04/04/24 18:44 Estimat Average Glucose 114 04/04/24 22:19 Hemoglobin A1c 5.6 % (4.0-6.0) 04/04/24 22:19 Calculated Osmolality 266 mOsm/kg (285-295) L 04/05/24 02:40 Calcium 7.2 mg/dL (8.5-10.5) L 04/05/24 02:40 Phosphorus 3.1 mg/dL (2.5-4.5) 04/05/24 02:40 Magnesium 1.8 mg/dL (1.7-2.3) 04/05/24 02:40 Iron 37 ug/dL (37-145) 04/04/24 22:19 TIBC 188 mcg/dl 04/04/24 22:19 % Saturation 19.6 % (20-50) L 04/04/24 22:19 Unsat Iron Binding 151 ug/dL (112-347) 04/04/24 22:19 Ferritin 153 ng/mL (15-150) H 04/04/24 22:19 Total Bilirubin 0.5 mg/dL (0.15-1.2) 04/05/24 02:40 AST 16 U/L (0-32) 04/05/24 02:40 ALT 8 U/L (0-33) 04/05/24 02:40 Alkaline Phosphatase 97 U/L (35-105) 04/05/24 02:40 Total Protein 5.4 g/dL (6.6-8.7) L D 04/05/24 02:40 Albumin 3.5 g/dL (3.5-5.2) 04/05/24 02:40 Globulin 1.9 g/dL (1.3-4.6) 04/05/24 02:40 Lipase 28 U/L (13-60) 04/04/24 17:57 TSH 1.36 uIU/mL (0.27-4.20) 04/04/24 22:19 Vitals Last Vital Signs Temp 98.0 F 04/05/24 07:51 Pulse 73 04/05/24 07:51 Resp 16 04/05/24 07:51 BP 125/56 04/05/24 07:51 Pulse Ox 95 04/05/24 07:51 O2 Del Method Room Air 04/05/24 07:51 O2 Flow Rate 2 04/05/24 04:26 Discharge Plan Discharge Patient Disposition: Home Condition: Stable Prescriptions: Continued liothyronine 5 mcg tablet 5 mcg PO DAILY Qty: 90 0RF trazodone 300 mg tablet 300 mg PO BEDTIME Qty: 90 0RF Stool Softener-Laxative 8.6-50 mg tablet 2 tab PO .qhs Qty: 180 0RF alprazolam 0.5 mg tablet 0.5 mg PO DAILY hydrocodone-acetaminophen 10-325 mg tablet 1 tab PO TID PRN (Reason: Pain) cyclosporine 0.05 % dropperette 1 drp ophthalmic (eye) BID Entresto 24-26 mg tablet 1 tab PO BID naloxone 4 mg/actuation spray,non-aerosol 1 spray INTRANASAL UNK ondansetron HCl 4 mg tablet 4 mg PO PRN latanoprost 0.005 % drops 1 drp ophthalmic (eye) DAILY baclofen 10 mg tablet 20 mg PO BID insulin aspart U-100 [Novolog U-100 Insulin aspart] 100 unit/mL solution See Rx Instructions .ROUTE .COMPLEX Rx Instructions: 1 sliding scale dose subcutaneously insulin pump brimonidine 0.2 % drops 1 drp ophthalmic (eye) BID pramipexole 0.25 mg tablet 0.25 mg PO QPM estradiol 2 mg tablet 2 mg PO DAILY Hold Instructions: Resume on 12/04/23. levothyroxine 200 mcg tablet 200 mcg PO DAILY Patient Comments: 225mcg mon,Wed,Saturday then 200mcg all other days ipratropium bromide 42 mcg (0.06 %) spray,non-aerosol 2 spray INTRANASAL TID PRN (Reason: allergies) fluticasone propionate 50 mcg/actuation spray,suspension 1 spray INTRANASAL BID PRN (Reason: allergies) progesterone micronized 100 mg capsule 300 mg PO BEDTIME duloxetine 30 mg capsule,delayed release(DR/EC) 30 mg PO BID pregabalin 25 mg capsule 50 mg PO BID armodafinil 250 mg tablet 250 mg PO DAILY Linzess 290 mcg capsule 290 mcg PO DAILY Rhopressa 0.02 % drops 1 drp ophthalmic (eye) BEDTIME albuterol sulfate 90 mcg/actuation HFA aerosol inhaler 2 puff INHALATION QID PRN (Reason: Shortness Of Breath) hydralazine 25 mg Tablet 25 mg PO BID Qty: 120 2RF furosemide 40 mg tablet 20 mg PO DAILY PRN (Reason: Weight gain more than 3 pounds) Qty: 90 0RF Rx Instructions: Take potassium only with Lasix Discharge Orders: Discharge Order (Routine); Ordered 04/05/24 Ordered By: Donn Harris Referrals: Denise Acosta [Other] - 4-7 days (Please call for an follow-up appointment within 4 to 7 days. Arie bishop ) Discharge Diet: As Directed Patient Instructions: Constipation - Adult, Hyponatremia (DC), CHF Stoplight, Opioid Safety Activity Restrictions/Additional Instructions: Follow-up with your primary provider for reassessment of low sodium. Do not restrict sodium intake in your diet. However, do restrict intake of water, limit to less than 1-1/2 quarts per day. Follow-up with your primary provider for reassessment of congestive heart failure. And revisit with your primary provider regarding constipation. Discharge Attestations Time Spent in Discharge Care*: greater than 30 min Quality Metrics Clinical Quality Measures [ No reported AMI, CVA or VTE this stay] Coding Level of Care Code 84344 Total time (in minutes) for Discharge: 50 Diagnoses Acute on chronic heart failure with preserved ejection fraction I50.33 Heart failure chronicity: acute on chronic Type 1 diabetes mellitus with hypoglycemia and without coma E10.649 Diabetes mellitus complication detail: without coma Postablative hypothyroidism E89.0 Hypothyroidism type: postablative Hyponatremia E87.1 Chronic constipation K59.09 Constipation K59.00 Chronic midline low back pain with bilateral sciatica M54.41; M54.42; G89.29 Back pain laterality: midline Sciatica presence: with sciatica Sciatica laterality: bilateral sciatica Fibromyalgia M79.7 Diabetic neuropathy E11.40 Insomnia G47.00 RLS (restless legs syndrome) G25.81
[2024-04-05 13:05] VITALS: BP 125/56; PULSE 73; RESP 16; TEMP 36.7; O2SAT 95
== END 2024-04-05 11:30 | disposition home or self-care (01) | DRG 641 ==
LOC: ER 20:19 → MEDSURG 21:31
PROVIDERS: Admitting Provider Internal Medicine; Emergency Provider Emergency Medicine; Visit Provider Internal Medicine
DX: E87.1 Hypo-osmolality and hyponatremia (principal); I50.32 Chronic diastolic (congestive) heart failure; K59.09 Other constipation; G25.81 Restless legs syndrome; E89.0 Postprocedural hypothyroidism; E10.649 Type 1 diabetes mellitus with hypoglycemia without coma; Z79.4 Long term (current) use of insulin; M54.42 Lumbago with sciatica, left side; M54.41 Lumbago with sciatica, right side; G89.29 Other chronic pain; M79.7 Fibromyalgia; G47.00 Insomnia, unspecified; E10.40 Type 1 diabetes mellitus with diabetic neuropathy, unspecified; E10.22 Type 1 diabetes mellitus with diabetic chronic kidney disease; Z96.82 Presence of neurostimulator
CPT/HCPCS: 36415; 36416; 74018; 74176; 80053; 82728; 82962; 83036; 83540; 83550; 83690; 83735; 84100; 84443; 85025; 94664; 96360; 96372; 99285; J1644; J2212; J2405; J7030; Q0162

== ENCOUNTER 2024-04-20 14:14 | Emergency (ER) | payer MEDICARE, OTHER, SELFPAY ==
[2024-04-20 14:28] VITALS: BP 138/59; PULSE 86; TEMP 37.2; O2SAT 100; BMI 29.7
--- NOTE | 2024-04-20 14:45 | ED_ITS ---
HPI - Recheck/Abnormal Lab/Rx 2 General: Chief Complaint: Recheck/Abnormal Lab/Rx Stated Complaint: Dr. Davis sent of Sodium level lows Time Seen by Provider: 04/20/24 14:32 Source: patient Mode of arrival: ambulatory Limitations: no limitations History of Present Illness: 74-year-old female who has a history of chronic kidney disease states that she has been having increasing fatigue and malaise over the last couple weeks she was admitted here 2 weeks ago with hyponatremia she states that her kidney specialist and told her sodium still low and she needed to come to the ER she denies any vomiting states she has had nonproductive cough. Denies any fevers Review of Systems 2 Const: Reports: fatigue and malaise; Denies: fever(s), chills, body aches or change in appetite ENMT: Denies: throat pain or dental pain Card: Denies: chest pain Resp: Denies: dyspnea GI: Denies: abdominal pain, nausea, vomiting or diarrhea Musc: Denies: neck pain or back pain Skin/Breast: Denies: rash Neuro: Denies: headache(s) PFSH ED 2 PFSH: Medical History Chronic low back pain RLS (restless legs syndrome) Pulmonary edema RUFINA (acute kidney injury) Sleep apnea New onset of congestive heart failure Pulmonary edema Therapeutic opioid-induced constipation (OIC) Moderate nausea and vomiting Obstipation Abdominal pain Bowel obstruction Hyponatremia Constipation Obstipation Hypothyroidism Constipation Surgical History H/O shoulder surgery Previous back surgery Social History Smoking and tobacco/nicotine status: never used tobacco/nicotine Alcohol intake: never Household members: spouse Marital status: Highest education level completed: Bachelor's Degree Current occupational status: retired Physical Exam 2 Const: COMMON NORMALS: no acute distress, patient oriented x3 and healthy appearing HENMT: COMMON NORMALS: normocephalic and atraumatic HEAD & SCALP: n ormocephalic and atraumatic Neck/C-Spine: COMMON NORMALS: full ROM and supple Chest: COMMONS NORMALS: normal inspection of the chest Resp: COMMON NORMALS: normal respiratory effort, No retractions, No use of accessory muscles and clear to auscultation bilaterally AUSCULTATION: clear to auscultation bilaterally Cardio: COMMON NORMALS: regular rate, regular rhythm and No murmurs present (Cardio) RATE: regular rate RHYTHM: regular rhythm Extremity: COMMON NORMALS: normal to inspection and full ROM Neuro: COMMON NORMALS: patient oriented x3, moves all extremities and no focal motor deficits Psych: COMMON NORMALS: mental status grossly normal, Normal thought process present and cooperative THOUGHT PROCESS: Normal thought process present Skin: COMMON NORMALS: no rashes or lesions noted and no wounds GENERAL SKIN EXAM: no rashes or lesions noted Course 2 Vital Signs: Vital signs: Vital Signs Temperature 99.0 F 04/20/24 14:28 Pulse Rate 81 04/20/24 17:05 Blood Pressure 135/63 04/20/24 17:05 Pulse Oximetry 100 04/20/24 17:05 Oxygen Delivery Me thod Nasal Cannula 04/20/24 14:28 Oxygen Flow Rate 2 04/20/24 14:28 MDM - Recheck/Abnormal Lab/Rx Medical Decision Making Patient presents here with concern of hyponatremia she had some weakness and chills she was found have a UTI could be causing her symptoms her sodium here is in proved we will give her antibiotics for UTI give her some fluids we will prescribe her Keflex for home she is follow-up with PCP return if worsening she understands agrees to plan Medical Records I reviewed the patient's medical records. Lab Data I reviewed the patient's lab results. 04/20/24 14:47 04/20/24 14:47 Radiology Impressions Chest X-Ray 04/20/24 14:56 IMPRESSION: Increasing consolidation posterior to the LEFT heart consistent with LEFT lower lobe versus lingular pneumonia. Chest CT 04/20/24 15:45 IMPRESSION: 1. No acute thoracic pathology. 2. Scattered (> 5) sub 6 mm centrilobular nodules present throughout both lungs, of questionable clinical significance. For patients at low risk (minimal or absent history of smoking and of other known risk factors), no routine follow-up is indicated. For patients at high risk (history of smoking or of other known risk factors), consider optional CT Chest at 12 months. (Reference: Capri) 3. Incidental findings as above. REFERENCES: Capri Love, et al. Guidelines for Management of Incidental Pulmonary Nodules Detected on CT Images: From the Fleischner Society 2017. Radiology. 2017;284(1):228-243. Laboratory Results WBC 12.62 10^3/uL (3.29-11.43) H 04/20/24 14:47 RBC 3.39 10^6/uL (3.85-5.65) L 04/20/24 14:47 Hgb 10.90 g/dL (11.27-16.99) L 04/20/24 14:47 Hct 32.8 % (36-47) L 04/20/24 14:47 MCV 96.8 fl (85-98) 04/20/24 14:47 MCH 32.2 pg (27-33) 04/20/24 14:47 MCHC 33.2 g/dL (30-55) 04/20/24 14:47 RDW 11.9 % (12.1-15.1) L 04/20/24 14:47 Plt Count 272 10^3/cmm (157-399) 04/20/24 14:47 MPV 8.9 fL (7.4-10.4) 04/20/24 14:47 Neut % (Auto) 75.7 % 04/20/24 14:47 Lymph % (Auto) 15.1 % 04/20/24 14:47 [place] % (Auto) 7.4 % 04/20/24 14:47 Eos % (Auto) 0.7 % 04/20/24 14:47 Baso % (Auto) 0.6 % 04/20/24 14:47 Neut # (Auto) 9.55 10^3/uL (1.8-7.7) H 04/20/24 14:47 Lymph # (Auto) 1.9 10^3/uL (0.8-4.8) 04/20/24 14:47 [place] # (Auto) 0.9 10^3/uL (0.2-0.9) 04/20/24 14:47 Eos # (Auto) 0.1 10^3/uL (0.0-0.8) 04/20/24 14:47 Baso # (Auto) 0.1 10^3/uL (0.0-0.1) 04/20/24 14:47 Nucleated RBC % (auto) 0 % 04/20/24 14:47 Nucleated RBCs # 0.0 /100WBC 04/20/24 14:47 Sodium 129 mmol/L (136-145) L 04/20/24 14:47 Potassium 4.8 mmol/L (3.5-5.1) 04/20/24 14:47 Chloride 96 mmol/L (98-107) L 04/20/24 14:47 Carbon Dioxide 22 mmol/L (22-29) 04/20/24 14:47 Anion Gap 15.8 (5-19) 04/20/24 14:47 BUN 18 mg/dL (8-23) 04/20/24 14:47 Creatinine 0.8 mg/dL (0.5-0.9) 04/20/24 14:47 GFR Calculation Not Reportable 04/20/24 14:47 Glucose 106 mg/dL (65-115) 04/20/24 14:47 Calculated Osmolality 270 mOsm/kg (285-295) L 04/20/24 14:47 Calcium 8.6 mg/dL (8.5-10.5) 04/20/24 14:47 Magnesium 1.9 mg/dL (1.7-2.3) 04/20/24 14:47 Total Bilirubin 0.2 mg/dL (0.15-1.2) 04/20/24 14:47 AST 16 U/L (0-32) 04/20/24 14:47 ALT 12 U/L (0-33) 04/20/24 14:47 Alkaline Phosphatase 107 U/L (35-105) H 04/20/24 14:47 NT-Pro-B Natriuret Pep 905 pg/mL (0-125) H 04/20/24 14:47 Total Protein 6.7 g/dL (6.6-8.7) 04/20/24 14:47 Albumin 4.0 g/dL (3.5-5.2) 04/20/24 14:47 Globulin 2.7 g/dL (1.3-4.6) 04/20/24 14:47 Urine Color Yellow (Yellow) 04/20/24 18:04 Urine Appearance Slightly cloudy (CLEAR) 04/20/24 18:04 Urine pH 5 (5-7) 04/20/24 18:04 Ur Specific [place] 1.010 (1.005-1.030) 04/20/24 18:04 Urine Protein Neg (Negative) 04/20/24 18:04 Urine Glucose (UA) Norm (Normal) 04/20/24 18:04 Urine Ketones Negative (Negative) 04/20/24 18:04 Urine Blood Neg (Negative) 04/20/24 18:04 Urine Nitrate Positive (Negative) A 04/20/24 18:04 Urine Bilirubin Neg (Negative) 04/20/24 18:04 Urine Urobilinogen Norm mg/dL (Negative) 04/20/24 18:04 Ur Leukocyte Esterase 1+ (Negative) H 04/20/24 18:04 Urine RBC None /hpf (0-2) 04/20/24 18:04 Urine WBC 5-10 /hpf (0-5) H 04/20/24 18:04 Ur Squamous Epith Cells 0-4 /hpf (0-5) H 04/20/24 18:04 Amorphous Sediment Not Reportable 04/20/24 18:04 Urine Bacteria 3+ /hpf (NONE) H 04/20/24 18:04 SARS-CoV-2 Ag (Rapid) negative (Negative) 04/20/24 18:04 All radiology interpretation(s) finalized by discharge Discharge Plan Discharge Patient Disposition: Home Clinical Impression: Acute cystitis, Hyponatremia Condition: Stable Prescriptions: New cephalexin 500 mg capsule 500 mg PO TID 7 Days Qty: 21 0RF No Action liothyronine 5 mcg tablet 5 mcg PO DAILY Qty: 90 0RF trazodone 300 mg tablet 300 mg PO BEDTIME Qty: 90 0RF Stool Softener-Laxative 8.6-50 mg tablet 2 tab PO .qhs Qty: 180 0RF alprazolam 0.5 mg tablet 0.5 mg PO DAILY hydrocodone-acetaminophen 10-325 mg tablet 1 tab PO TID PRN (Reason: Pain) cyclosporine 0.05 % dropperette 1 drp ophthalmic (eye) BID Entresto 24-26 mg tablet 1 tab PO BID naloxone 4 mg/actuation spray,non-aerosol 1 spray INTRANASAL UNK ondansetron HCl 4 mg tablet 4 mg PO PRN latanoprost 0.005 % drops 1 drp ophthalmic (eye) DAILY baclofen 10 mg tablet 20 mg PO BID insulin aspart U-100 [Novolog U-100 Insulin aspart] 100 unit/mL solution See Rx Instructions .ROUTE .COMPLEX Rx Instructions: 1 sliding scale dose subcutaneously insulin pump brimonidine 0.2 % drops 1 drp ophthalmic (eye) BID pramipexole 0.25 mg tablet 0.25 mg PO QPM estradiol 2 mg tablet 2 mg PO DAILY Hold Instructions: Resume on 12/04/23. levothyroxine 200 mcg tablet 200 mcg PO DAILY Patient Comments: 225mcg sat,Sat,Saturday then 200mcg all other days ipratropium bromide 42 mcg (0.06 %) spray,non-aerosol 2 spray INTRANASAL TID PRN (Reason: allergies) fluticasone propionate 50 mcg/actuation spray,suspension 1 spray INTRANASAL BID PRN (Reason: allergies) progesterone micronized 100 mg capsule 300 mg PO BEDTIME duloxetine 30 mg capsule,delayed release(DR/EC) 30 mg PO BID pregabalin 25 mg capsule 50 mg PO BID armodafinil 250 mg tablet 250 mg PO DAILY Linzess 290 mcg capsule 290 mcg PO DAILY Rhopressa 0.02 % drops 1 drp ophthalmic (eye) BEDTIME albuterol sulfate 90 mcg/actuation HFA aerosol inhaler 2 puff INHALATION QID PRN (Reason: Shortness Of Breath) hydralazine 25 mg Tablet 25 mg PO BID Qty: 120 2RF furosemide 40 mg tablet 20 mg PO DAILY PRN (Reason: Weight gain more than 3 pounds) Qty: 90 0RF Rx Instructions: Take potassium only with Lasix Discharge Orders: Discharge ED (Routine); Ordered 04/20/24 Ordered By: Larry Cruz Discharge Diet: Advance as tolerated Discharge Activity: Resume usual activity Patient Instructions: Urinary Tract Infection in Men (ED) Coding Level of Care Code ED Md Pediatric Allergist for Joseph Alvarez
[2024-04-20 14:56] LABS: Basophils # 0.1 10^3/uL (0.0-0.1); Basophils % 0.6 %; Eosinophils # 0.1 10^3/uL (0.0-0.8); Eosinophils % 0.7 %; Hematocrit 32.8 % (36-47); Lymphocytes # 1.9 10^3/uL (0.8-4.8); Lymphocytes % 15.1 %; Mean Corpuscular HGB Conc 33.2 g/dL (30-55); Mean Corpuscular Hemoglobin 32.2 pg (27-33); Mean Corpuscular Volume 96.8 fl (85-98); Mean Platelet Volume 8.9 fL (7.4-10.4); Monocytes # 0.9 10^3/uL (0.2-0.9); Monocytes % 7.4 %; Neutrophils # 9.55 10^3/uL (1.8-7.7); Neutrophils % 75.7 %; Nucleated Red Blood Cells % 0 %; Platelet Count 272 10^3/cmm (157-399); Red Blood Count 3.39 10^6/uL (3.85-5.65); Red Cell Distribution Width 11.9 % (12.1-15.1); White Blood Count 12.62 10^3/uL (3.29-11.43)
--- NOTE | 2024-04-20 14:56 | XR_ITS ---
WS: [id number] PORTABLE CHEST HISTORY: cough COMPARISON: 11/11/2023 Increased dense consolidation in the LEFT lower lung posterior to the LEFT heart. RIGHT lung is clear . No pleural effusion or pneumothorax. Cardiac size: Mildly enlarged cardiac silhouette. Mediastinum/Aorta: Mild atherosclerosis aorta. Osteopenia. Prior LEFT femoral head replacement. Dorsal column stimulator electrodes over the midthor acic spine. XR/XR chest 1V portable [id number] IMPRESSION: Increasing consolidation posterior to the LEFT heart consistent with LEFT lower lobe versus lingular pneumonia.
[2024-04-20 15:28] LABS: Alanine Aminotransferase 12 U/L (0-33); Alkaline Phosphatase 107 U/L (35-105); Aspartate Amino Transferase 16 U/L (0-32); Blood Urea Nitrogen 18 mg/dL (8-23); Calcium 8.6 mg/dL (8.5-10.5); Carbon Dioxide 22 mmol/L (22-29); Chloride 96 mmol/L (98-107); Creatinine Clr Calc Pharmacy 62.5363; Globulin 2.7 g/dL (1.3-4.6); Glucose 106 mg/dL (65-115); Magnesium 1.9 mg/dL (1.7-2.3); Osmolality Calculated 270 mOsm/kg (285-295); Sodium 129 mmol/L (136-145); Total Bilirubin 0.2 mg/dL (0.15-1.2); Total Protein 6.7 g/dL (6.6-8.7)
[2024-04-20 15:33] LABS: Anion Gap 15.8 (5-19); Potassium 4.8 mmol/L (3.5-5.1)
[2024-04-20 15:35] VITALS: BP 137/59; PULSE 86; O2SAT 100
--- NOTE | 2024-04-20 15:45 | CTR_ITS ---
PROCEDURE INFORMATION: Exam: CT Chest Without Contrast; Diagnostic Exam date and time: 04/20/2024 3:50 PM Age: 74 years old Clinical indication: Dyspnea and other: AMS, weakness; Additional info: SOB TECHNIQUE: Imaging protocol: Diagnostic computed tomography of the chest without contrast. Radiation optimization: All CT scans at this facility use at least one of these dose optimization techniques: automated exposure control; mA and/or kV adjustment per patient size (includes targeted exams where dose is matched to clinical indication); or iterative reconstruction. COMPARISON: CR XR chest 1V portable [id number] 04/20/2024 3:28 PM RADIATION DOSE METRICS: Total DLP (mGy-cm): 590 FINDINGS: Limitations: Streak artifact from a left shoulder arthroplasty cervical spine fixation partially obscure detail in the lower neck and upper thorax. Tubes, catheters and devices: Partially seen dorsal neural stimulator with wires in the thoracic central canal. Thyroid: Thyroid is not seen due to streak artifact. Trachea: The airways are patent. Lungs: Chronic scarring/atelectasis at the lingula. There are multiple punctate pulmonary parenchymal calcifications, consistent with remote granulomatous organism exposure. Bilateral basal scarring and linear atelectasis. Scattered (> 5) sub 6 mm centrilobular nodules present throughout both lungs, of questionable clinical significance. No consolidations. Pleural spaces: No pleural effusions or pneumothorax. Heart: There is calcification of the aortic valve annulus. There is calcification of the mitral valve annulus. The heart demonstrates mild diffuse enlargement. No pericardial thickening or effusion. Coronary arteries: There is severe atherosclerotic calcification of the coronary arteries. Mediastinal space: The mediastinal contour is normal. Lymph nodes: There is no evidence of lymphadenopathy. Vasculature: The aorta demonstrates moderate atherosclerotic calcification. No aortic aneurysms. Increased density to the aortic wall when compared with the blood pool, as can be seen with anemia. There is a bovine aortic arch, with a common origin of the left common carotid and brachiocephalic arteries. The pulmonary arteries are normal in course and caliber. Stomach: The visualized intra-abdominal structures demonstrate no acute findings. Bones/joints: Partially visualized lower cervical spine fixation hardware without discrete complications. Reverse left shoulder arthroplasty without discrete complications. Moderate multilevel degenerative changes of the spine, as manifested by multilevel anterior osteophytes and multilevel decrease in intervertebral disc space. There is no evidence of acutely displaced skeletal fractures. There is no evidence of joint dislocation. No aggressive osseous lesions. Soft tissues: Partially seen bilateral breast implants. No acute body wall soft tissue findings. Other findings: Right hilar calcified granulomas, benign. CT/CT chest wo con [id number] IMPRESSION: 1. No acute thoracic pathology. 2. Scattered (> 5) sub 6 mm centrilobular nodules present throughout both lungs, of questionable clinical significance. For patients at low risk (minimal or absent history of smoking and of other known risk factors), no routine follow-up is indicated. For patients at high risk (history of smoking or of other known risk factors), consider optional CT Chest at 12 months. (Reference: Capri) 3. Incidental findings as above. REFERENCES: Capri H, et al. Guidelines for Management of Incidental Pulmonary Nodules Detected on CT Images: From the Fleischner Society 2017. Radiology. 2017;284(1):228-243.
[2024-04-20 16:05] VITALS: BP 152/64; PULSE 85; O2SAT 100
[2024-04-20] MEDS: sodium chloride 0.9% 500 ML 999 ML IV (16:50)
[2024-04-20 17:05] VITALS: BP 135/63; PULSE 81; O2SAT 100
[2024-04-20] MEDS: sodium chloride 0.9% 1,000 ML 999 ML IV (18:13)
[2024-04-20 18:18] LABS: Add Urine Microscopic? YES; Bilirubin Urine Neg (Negative); Blood Urine Neg (Negative); Glucose Urine UA Norm (Normal); Ketones Urine Negative (Negative); Leukocyte Esterase Urine 1+ (Negative); Nitrate Urine Positive (Negative); Protein Urine Neg (Negative); Urine Appearance Slightly Cloudy (CLEAR); Urine Color Yellow (Yellow); Urobilinogen Urine Norm (Negative); pH Urine 5 (5-7)
[2024-04-20 18:19] LABS: Add Urine Culture? Yes; Bacteria Urine 3+ /hpf; Squamous Epithelial Cell Urine 0-4 /hpf (0-5)
[2024-04-20 18:27] LABS: SARS Covid-2 Antigen negative (Negative)
[2024-04-20 18:36] LABS: NT Pro B Type Natriuretic Pept 905 pg/mL (0-125)
[2024-04-20] MEDS: cefTRIAXone 1,000 mg SDV 1000 MG IVP (19:35)
[2024-04-20 20:12] VITALS: BP 138/61; PULSE 80; RESP 18; O2SAT 100
== END 2024-04-20 20:13 | disposition home or self-care (01) ==
PROVIDERS: Emergency Provider Emergency Medicine
DX: E87.1 Hypo-osmolality and hyponatremia (principal); N30.00 Acute cystitis without hematuria; Z79.4 Long term (current) use of insulin; Z11.52 Encounter for screening for COVID-19; I50.9 Heart failure, unspecified
CPT/HCPCS: 36415; 71045; 71250; 80053; 81001; 83735; 83880; 85025; 87077; 87086; 87186; 87426; 96361; 96374; 99285; J0696; J7030; J7040

== ENCOUNTER 2024-08-14 11:56 | Inpatient (IN) | payer MEDICARE, OTHER, SELFPAY ==
[2024-08-14] VITALS (12 sets, daily range): BP systolic 127–176; BP diastolic 52–84; PULSE 84–108; RESP 17–18; TEMP 37.1–37.2; O2SAT 91–98; BMI 22.6
[2024-08-14 13:25] LABS: Basophils # 0.1 10^3/uL (0.0-0.1); Basophils % 0.3 %; Eosinophils % 0.1 %; Hematocrit 45.3 % (36-47); Lymphocytes # 0.8 10^3/uL (0.8-4.8); Lymphocytes % 3.9 %; Mean Corpuscular HGB Conc 32.5 g/dL (30-55); Mean Corpuscular Hemoglobin 30.6 pg (27-33); Mean Corpuscular Volume 94.4 fl (85-98); Mean Platelet Volume 9.8 fL (7.4-10.4); Monocytes # 1.3 10^3/uL (0.2-0.9); Monocytes % 6.2 %; Neutrophils # 18.95 10^3/uL (1.8-7.7); Neutrophils % 89.1 %; Nucleated Red Blood Cells % 0 %; Platelet Count 302 10^3/cmm (157-399); White Blood Count 21.29 10^3/uL (3.29-11.43)
[2024-08-14 13:43] LABS: Alanine Aminotransferase 53 U/L (0-33); Albumin Level 4.7 g/dL (3.5-5.2); Alkaline Phosphatase 195 U/L (35-105); Aspartate Amino Transferase 44 U/L (0-32); Blood Urea Nitrogen 31 mg/dL (8-23); Calcium 9.6 mg/dL (8.5-10.5); Carbon Dioxide 25 mmol/L (22-29); Chloride 99 mmol/L (98-107); Creatinine Clr Calc Pharmacy 41.9267; Glucose 204 mg/dL (65-115); Lipase 12 U/L (13-60); Osmolality Calculated 300 mOsm/kg (285-295); Sodium 139 mmol/L (136-145); Total Bilirubin 0.7 mg/dL (0.15-1.2); Total Protein 8.7 g/dL (6.6-8.7)
[2024-08-14 13:46] LABS: Anion Gap 19.2 (5-19); Potassium 4.2 mmol/L (3.5-5.1)
[2024-08-14 13:48] LABS: Lactic Sepsis W/Reflex 1.5 mmol/L (0.5-2.2)
--- NOTE | 2024-08-14 13:52 | XR_ITS ---
WS: [id number] KUB, AP view, 08/14/2024 Clinical Data: pain, diarrhea hx of sbo Comparison: KUB, 04/04/2024 Findings: No abnormal intraabdominal masses or calcifications are seen. The small bowel is moderately dilated b ut there is colon gas. There is a dorsal column stimulator with wires leading into the lower thoracic space and the generator overlying the right mid abdomen. There is also a stimulator for the right sa fredy with the generator overlying the right iliac wing. There is a posterior lumbosacral fusion L4-S1 . There is a levoscoliosis with osteoarthritis. XR/XR abdomen 1V* [id number] Impression: Severe ileus versus early or partial small bowel obstruction.
--- NOTE | 2024-08-14 14:21 | CTR_ITS ---
PROCEDURE INFORMATION: Exam: CT Abdomen And Pelvis Without Contrast Exam date and time: 08/14/2024 2:56 PM Age: 74 years old Clinical indication: Vomiting; Additional info: Abd pain, n/v, abnormal XR ileus vs sbo TECHNIQUE: Imaging protocol: Computed tomography of the abdomen and pelvis without contrast. Radiation optimization: All CT scans at this facility use at least one of these dose optimization techniques: automated exposure control; mA and/or kV adjustment per patient size (includes targeted exams where dose is matched to clinical indication); or iterative reconstruction. COMPARISON: CT abdomen pelvis wo con [id number] 04/04/2024 7:06 PM RADIATION DOSE METRICS: Total DLP (mGy-cm): 717.71 FINDINGS: Tubes, catheters and devices: Epidural neural stimulator in the lower thoracic spine noted. Lungs: There is consolidation in the anterior and lateral basal segments of the left lower lobe and in the posterior central aspect of the right middle lobe. Liver: The liver is normal. Gallbladder and biliary ducts: The gallbladder is absent. There is ectasia of the common bile duct and central intrahepatic ducts. Pancreas: There is marked atrophy of the pancreas. Spleen: The spleen is unremarkable. Adrenal glands: The adrenal glands are unremarkable. Kidneys and ureters: Bilateral renal vascular calcification. There is mild atrophy of both kidneys. No stones in the collecting systems. No hydronephrosis. Stomach and bowel: Stomach is fluid distended. The duodenum and proximal to mid small bowel is diffusely dilated and fluid-filled. There is abrupt transition to nondistended to decompressed distal ileum in the left lower quadrant visible on axial series 5 image 48 through 56. See also coronal series 10, image 37 and sagittal series 11, image 22. The terminal ileum is decompressed. Appendix: The appendix is not visible. Intraperitoneal space: There is perienteric mesenteric edema throughout the central and lower abdomen. There is a small volume of simple intraperitoneal free fluid. No intraperitoneal free air. Vasculature: There is mild aortic atherosclerotic disease. Lymph nodes: There is no lymphadenopathy in the retroperitoneum, mesentery, pelvis or inguinal regions. Urinary bladder: The urinary bladder is unremarkable. Reproductive: The uterus is absent. There is no adnexal mass or large cyst. Bones/joints: Intact posterolateral and interbody fusion from L4 through S1. There is moderate degenerative disease in the lumbar spine. Soft tissues: The abdominal wall is intact. CT/CT abdomen pelvis wo con [id number] IMPRESSION: 1. High-grade mid to distal small bowel obstruction with transition point in the left lower abdomen. 2. Mesenteric edema. This is likely due to small bowel obstruction. Superimposed bowel inflammation is not excluded. 3. Bilateral lower lung consolidation is suspicious for pneumonia. 4. Incidental findings above.
--- NOTE | 2024-08-14 14:37 | ED_ITS ---
HPI - Abdominal Pain 2 General: Chief Complaint: Abdominal Pain Stated Complaint: Vomitting, abd pain Time Seen by Provider: 08/14/24 13:42 History of Present Illness: Patient presents to the ER with complaints of nausea vomiting diarrhea. She has had nausea vomiting since yesterday not been able to keep anything down at all. She has had diarrhea for about the last month off and on. She has a history of small bowel obstructions. She think she has another 1. She denies any fevers chills sick contacts. Related Data Home Medications Medication Instructions Recorded Confirmed armodafinil 250 mg tablet 250 mg PO DAILY 10/26/23 08/14/24 baclofen 10 mg tablet 20 mg PO BID 10/26/23 08/14/24 brimonidine 0.2 % eye drops 1 drp ophthalmic (eye) BID 10/26/23 08/14/24 fluticasone propionate 50 1 spray intranasal BID PRN 10/26/23 08/14/24 mcg/actuation nasal allergies spray,suspension insulin aspart U-100 100 unit/mL See Rx Instructions .Route .COMPLEX 10/26/23 08/14/24 subcutaneous solution (Novolog U-100 Insulin aspart) ipratropium bromide 42 mcg (0.06 2 spray intranasal TID PRN 10/26/23 08/14/24 %) nasal spray allergies latanoprost 0.005 % eye drops 1 drp ophthalmic (eye) DAILY 10/26/23 08/14/24 levothyroxine 200 mcg tablet 200 mcg PO DAILY 10/26/23 08/14/24 linaclotide 290 mcg capsule 290 mcg PO DAILY 10/26/23 08/14/24 (Linzess) netarsudil 0.02 % eye drops 1 drp ophthalmic (eye) BEDTIME 10/26/23 08/14/24 (Rhopressa) progesterone micronized 100 mg 300 mg PO BEDTIME 10/26/23 08/14/24 capsule alprazolam 0.5 mg tablet 0.5 mg PO DAILY 04/04/24 08/14/24 naloxone 4 mg/actuation nasal spray 1 spray intranasal PRN PRN opiate 04/04/24 08/14/24 overdose sacubitril 24 mg-valsartan 26 mg 1 tab PO BID 04/04/24 08/14/24 tablet (Entresto) budesonide-formoterol HFA 160 2 puff inhalation BID 07/06/24 08/14/24 mcg-4.5 mcg/actuation aerosol inhaler (Breyna) estradiol cypionate 5 mg/mL See Rx Instructions .Route .COMPLEX 07/06/24 08/14/24 intramuscular oil levothyroxine 25 mcg tablet 25 mcg PO DAILY 07/06/24 08/14/24 morphine 15 mg tablet,extended 15 mg PO Q8H 07/06/24 08/14/24 release testosterone cypionate 100 mg/mL 100 mg SUBCUT .twice a week 07/06/24 08/14/24 intramuscular oil (Depo-Testosterone) azelastine 137 mcg (0.1 %) nasal 2 spray intranasal BID 08/14/24 08/14/24 spray cyclosporine 0.05 % eye drops in a 1 drp ophthalmic (eye) BID 08/14/24 08/14/24 dropperette (Restasis) glucagon 3 mg/actuation nasal 3 mg intranasal PRN PRN low blood 08/14/24 08/14/24 spray (Baqsimi) sugar lactulose 10 gram/15 mL (15 mL) 20 g PO TID PRN 08/14/24 08/14/24 oral solution constipation/diabetic gastroparesis naloxegol 12.5 mg tablet (Movantik) 12.5 mg PO DAILY 08/14/24 08/14/24 aszrdrpo-[id number]-[id number] 3.5 1 drp ophthalmic (eye) QID 08/14/24 08/14/24 mg/mL-10,000 unit/mL-0.1% eye drops ofloxacin 0.3 % eye drops 1 drp ophthalmic (eye) QID 08/14/24 08/14/24 omeprazole 40 mg capsule,delayed 40 mg PO DAILY 08/14/24 08/14/24 release ondansetron 8 mg disintegrating 8 mg PO TID PRN Nausea 08/14/24 08/14/24 tablet pramipexole 0.5 mg tablet 0.5 mg PO DAILY 08/14/24 08/14/24 pregabalin 50 mg capsule 50 mg PO TID 08/14/24 08/14/24 sennosides 8.6 mg-docusate sodium 2 tab PO BEDTIME 08/14/24 08/14/24 50 mg tablet (Stool Softener-Laxative) tretinoin 0.05 % topical cream 1 applic topical BEDTIME 08/14/24 08/14/24 Previous Rx's Medication Instructions Recorded furosemide 40 mg tablet 20 mg (1/2 x 40 mg) PO DAILY PRN 11/13/23 Weight gain more than 3 pounds #90 tabs hydralazine 25 mg tablet 25 mg PO BID #120 tabs 11/13/23 liothyronine 5 mcg tablet 5 mcg PO DAILY #90 tabs 01/23/24 trazodone 300 mg tablet 300 mg PO BEDTIME #90 tabs 06/25/24 duloxetine 30 mg capsule,delayed 30 mg PO BID #60 caps 07/06/24 release montelukast 10 mg tablet 10 mg PO DAILY #90 tabs 07/06/24 fentanyl 12 mcg/hr transdermal 1 patch transdermal Q72H 30 days 07/24/24 patch #10 ea Allergies Allergy/AdvReac Type Severity Reaction Status Date / Time acetazolamide Allergy ALGY-Rash Verified 08/14/24 12:06 [From Diamox Sequels] angiotensin II acetate, human Allergy Unknown Verified 08/14/24 12:06 diphenhydramine Allergy ALGY-Rash Verified 08/14/24 12:06 [From Benadryl] ketorolac Allergy Unknown Verified 08/14/24 12:06 losartan Allergy ADR-Cough Verified 08/14/24 12:06 methocarbamol Allergy Unknown Verified 08/14/24 12:06 metoclopramide Allergy ADR-Shakine Verified 08/14/24 12:06 ss nitrofurantoin Allergy ADR-Diarrhe Verified 08/14/24 12:06 a NSAIDS (Non-Steroidal Allergy Unknown Verified 08/14/24 12:06 Anti-Inflamma tetracycline Allergy Unknown Verified 08/14/24 12:06 Review of Systems 2 General: Reports: 10 or more systems reviewed and unremarkable except in HPI and below PFSH ED 2 PFSH: Medical History Encounter for chronic pain management Macular degeneration (senile) of retina, unspecified 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 Conner chief librarian branch or department at [facility] Seasonal allergies Diabetic neuropathy Hyponatremia Type 1 diabetes mellitus with hypoglycemia Dr. Butt at [facility]; has omnipod Chronic constipation Diabetic gastroparesis? CKD stage 3 due to type [address] Elizalde at [facility] Hyperlipidemia associated with type 2 diabetes mellitus Anemia, chronic disease On hormone replacement therapy on estrogen/progesteron/testosterone through Dr. Tee yuen at [facility] TAVIA on CPAP Chronic low back pain RLS (restless legs syndrome) Therapeutic opioid-induced constipation (OIC) Moderate nausea and vomiting Hyponatremia Hypothyroidism Surgical History History of back surgery Pain stimulator placed at [facility] 2023 Hx of colonoscopy [facility] normal 8.22.12 History of radiofrequency ablation (RFA) of nerve of lumbar spine 12.5.18 L4/5 [facility] History of bladder surgery Interstim 2020; R upper buttock History of reverse total replacement of left shoulder joint 12.14.23 History of lumbar fusion lumbar fusion and 3 other lumbar surgeries History of rectal surgery rectal abscess 2012 History of lumpectomy of left breast benign; 2009 Hx of fusion of cervical spine diskectomy and fusion 2009; fusion 7.20.17 and repeat again 11.19 in [facility] Hx of hand surgery bilateral trigger finger release Hx of vitrectomy 1995 Hx of bladder repair surgery sling; 2002 History of carpal tunnel release of both wrists 1994 Hx of cholecystectomy 1993 Hx of pancreas transplant 1993 Hx of total hysterectomy with removal of both tubes and ovaries done for bleeding; 1991 Hx of section 1976 Hx of appendectomy 1965 Hx of tonsillectomy 1954 H/O shoulder surgery bilateral shoulder arthroscopies 2003 and again 2004 Family History Father Dementia Sister Intracranial bleed Rheumatoid arthritis Social History Smoking and tobacco/nicotine status: never used tobacco/nicotine Alcohol intake: never Substance/Drug Use: never Household members: spouse Marital status: Number of children: 2 Highest education level completed: Bachelor's Degree Current occupational status: retired 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; 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 Exam 2 Const: COMMON NORMALS: no acute distress, average body habitus, patient oriented x3, no limitations, healthy appearing, alert and well nourished HENMT: COMMON NORMALS: normocephalic, atraumatic, hearing grossly normal bilaterally, external ears normal, Normal external nose present and moist oral mucous membranes HEAD & SCALP: normocephalic and atraumatic NOSE: Normal external nose present EXTERNAL EAR: Yes external ears normal Neck/C-Spine: COMMON NORMALS: no JVD Chest: COMMONS NORMALS: normal inspection of the chest and normal palpation of entire chest wall Resp: COMMON NORMALS: normal respiratory effort, No retractions, No use of accessory muscles and clear to auscultation bilaterally AUSCULTATION: clear to auscultation bilaterally Cardio: COMMON NORMALS: no JVD, regular rate, regular rhythm, S1 normal heart sound present, S2 normal heart sound present, No gallops present (Cardio), No clicks present (Cardio), No murmurs present (Cardio) and No rub (Cardio) R ATE: regular rate RHYTHM: regular rhythm HEART SOUNDS: S1 normal heart sound present and S2 normal heart sound present GI: COMMON NORMALS: Soft to palpation, No hepatosplenomegaly present and no masses; negative for non-tender (Mildly diffusely tender to palpate, hypoactive bowel sounds all quadrants) PALPATION: Yes Soft to palpation and Yes No hepatosplenomegaly present Neuro: COMMON NORMALS: patient oriented x3 SENSORIUM/ORIENTATION: Yes alert Course 2 Vital Signs: Vital signs: Vital Signs Temperature 99.0 F 08/14/24 20:00 Pulse Rate 106 H 08/14/24 20:15 Respiratory Rate 18 08/14/24 20:15 Blood Pressure 127/62 08/14/24 20:00 Pulse Oximetry 94 08/14/24 20:15 Oxygen Delivery Me thod Nasal Cannula 08/14/24 20:40 Oxygen Flow Rate 2 08/14/24 20:15 MDM - Abdominal Pain Medical Decision Making ient x-ray showed severe ileus versus partial small bowel obstruction, CT scan without contrast showed high-grade mid to distal small bowel obstruction with transition point in the left lower abdomen. Also bilateral lung consolidation suspicious for pneumonia. These results was discussed with Dr. Ruiz he said place NG tube start normal saline at 150 mL an hour and admit to medicine. Dr. Mueller notified and agrees with plan Medical Records I reviewed the patient's medical records. Pat Lab Data I reviewed the patient's lab results. 08/14/24 13:10 08/14/24 13:10 Labs/Radiology: Radiology Impressions Abdomen X-Ray 08/14/24 13:52 Impression: Severe ileus versus early or partial small bowel obstruction. Abdomen/Pelvis CT 08/14/24 14:21 IMPRESSION: 1. High-grade mid to distal small bowel obstruction with transition point in the left lower abdomen. 2. Mesenteric edema. This is likely due to small bowel obstruction. Superimposed bowel inflammation is not excluded. 3. Bilateral lower lung consolidation is suspicious for pneumonia. 4. Incidental findings above. ADDENDUM: 08/14/24 1534 THIS REPORT CONTAINS FINDINGS THAT MAY BE CRITICAL TO PATIENT CARE. The findings and recommendations were personally verbally communicated via telephone conference with Jerome Garcia at 3:33 PM PHYSICAL THERAPY ASSISTANT on 08/14/2024. The findings were acknowledged and understood. Laboratory Results WBC 21.29 10^3/uL (3.29-11.43) H 08/14/24 13:10 RBC 4.80 10^6/uL (3.85-5.65) 08/14/24 13:10 Hgb 14.70 g/dL (11.27-16.99) 08/14/24 13:10 Hct 45.3 % (36-47) 08/14/24 13:10 MCV 94.4 fl (85-98) 08/14/24 13:10 MCH 30.6 pg (27-33) 08/14/24 13:10 MCHC 32.5 g/dL (30-55) 08/14/24 13:10 RDW 12.0 % (12.1-15.1) L 08/14/24 13:10 Plt Count 302 10^3/cmm (157-399) 08/14/24 13:10 MPV 9.8 fL (7.4-10.4) 08/14/24 13:10 Neut % (Auto) 89.1 % 08/14/24 13:10 Lymph % (Auto) 3.9 % 08/14/24 13:10 [place] % (Auto) 6.2 % 08/14/24 13:10 Eos % (Auto) 0.1 % 08/14/24 13:10 Baso % (Auto) 0.3 % 08/14/24 13:10 Neut # (Auto) 18.95 10^3/uL (1.8-7.7) H 08/14/24 13:10 Lymph # (Auto) 0.8 10^3/uL (0.8-4.8) 08/14/24 13:10 [place] # (Auto) 1.3 10^3/uL (0.2-0.9) H 08/14/24 13:10 Eos # (Auto) 0.0 10^3/uL (0.0-0.8) 08/14/24 13:10 Baso # (Auto) 0.1 10^3/uL (0.0-0.1) 08/14/24 13:10 Nucleated RBC % (auto) 0 % 08/14/24 13:10 Nucleated RBCs # 0.0 /100WBC 08/14/24 13:10 Sodium 139 mmol/L (136-145) 08/14/24 13:10 Potassium 4.2 mmol/L (3.5-5.1) 08/14/24 13:10 Chloride 99 mmol/L (98-107) 08/14/24 13:10 Carbon Dioxide 25 mmol/L (22-29) 08/14/24 13:10 Anion Gap 19.2 (5-19) H 08/14/24 13:10 BUN 31 mg/dL (8-23) H 08/14/24 13:10 Creatinine 1.2 mg/dL (0.5-0.9) H 08/14/24 13:10 GFR Calculation Not Reportable 08/14/24 13:10 Glucose 204 mg/dL (65-115) H 08/14/24 13:10 Calculated Osmolality 300 mOsm/kg (285-295) H 08/14/24 13:10 Lactic Acid 1.5 mmol/L (0.5-2.2) 08/14/24 13:10 Calcium 9.6 mg/dL (8.5-10.5) 08/14/24 13:10 Total Bilirubin 0.7 mg/dL (0.15-1.2) 08/14/24 13:10 AST 44 U/L (0-32) H 08/14/24 13:10 ALT 53 U/L (0-33) H 08/14/24 13:10 Alkaline Phosphatase 195 U/L (35-105) H 08/14/24 13:10 NT-Pro-B Natriuret Pep 543 pg/mL (0-125) H 08/14/24 13:10 Total Protein 8.7 g/dL (6.6-8.7) 08/14/24 13:10 Albumin 4.7 g/dL (3.5-5.2) 08/14/24 13:10 Globulin 4.0 g/dL (1.3-4.6) 08/14/24 13:10 Lipase 12 U/L (13-60) L 08/14/24 13:10 Serum Ketones Negative (Negative) 08/14/24 13:10 All radiology interpretation(s) finalized by discharge Discharge Plan Discharge Patient Disposition: Admitted As Inpatient Admit Provider: Leonila Mueller Clinical Impression: SBO (small bowel obstruction) Pneumonia Qualifiers: Pneumonia type: due to unspecified organism Laterality: bilateral Lung location: lower lobe of lung Qualified Code(s): J18.9 - Pneumonia, unspecified organism Condition: Stable Coding Level of Care Code ED Hi Low Truck Driver for Joseph Alvarez
[2024-08-14] MEDS: sodium chloride 0.9% 1,000 ML 999 ML IV (14:52)
[2024-08-14] MEDS: ondansetron 2 mg/ML SDV 2 mL 4 MG IVP (14:52)
--- NOTE | 2024-08-14 17:04 | PC.NURSE ---
Addendum entered by Rolan Cuevas RN 08/14/24 17:06: patient educated on the need for NG tube, patient verbalized understanding. still refused. Original Note: after attempting NG tube 2x, patient refused anymore attempts.
[2024-08-14] MEDS: metoclopramide 5 mg/mL SDV 2 mL IVP ×2 (17:30→23:37)
[2024-08-14] MEDS: piperacillin-tazobactam 3.375 GM in sodium chloride 0.9% (plus) 50 ML IV (17:31)
--- NOTE | 2024-08-14 17:40 | PM.HP ---
Providers/Chief Complaint Admitting Physician: Leonila Mueller MD Chief Complaint: Vomitting, abd pain History of Present Illness Meryl Ling is a 74 year old female with multiple comorbidities including chronic back pain/radiculopathy, restless leg syndrome, type 1 diabetes on insulin pump, pain stimulator placed few months ago, recently had been on fentanyl patch 12 mics and also on morphine. Has a past history of diastolic heart failure though with normal EF of 65% for which she is currently on Entresto. Patient is presenting to the hospital today with chief complaints of diarrhea ongoing for the past 2 weeks. Over the past 48 hours she has additionally developed abdominal pain and persistent nausea and multiple episodes of vomiting. She has been unable to keep any medications or fluids down. Typically patient states she has to take laxatives to be able to go. CT of the abdomen and pelvis showed high-grade mid to distal small bowel obstruction with transition point in the left lower abdomen. Also mesenteric edema likely thought to be from small bowel obstruction. Bilateral lower lung consolidation likely from pneumonia. Possibly patient may have aspirated during her vomiting episodes. Review of Systems General: Reports: 10 or more systems reviewed and unremarkable except in HPI and below Const: Denies: fever(s), chills or body aches Eyes: Denies: change in vision, blurry vision or photophobia ENMT: Reports: hoarseness; Denies: throat pain, enlarged tonsils, odynophagia or nasal congestion Card: Denies: chest pain, palpitations, irregular heart rhythm, edema, swelling of feet/ankles, lightheadedness, pre-syncope, dyspnea on exertion or orthopnea Resp: Denies: dyspnea, productive cough, non-productive cough, wheezing, stridor, pain on inspiration, change in phlegm color, hemoptysis or chest congestion GI: Denies: abdominal pain, nausea, vomiting, hematemesis, coffee ground emesis, dysphagia, heartburn, diarrhea, constipation, GI cramping, change in stool character, hematochezia or melena : Denies: flank pain, difficulty voiding, dysuria, urinary frequency, urinary urgency, urinary hesitancy or hematuria Musc: Denies: neck pain, back pain, extremity pain, joint swelling, joint warmth or deformity Neuro: Denies: headache(s), numbness in extremities, weakness in extremities, sensory changes, difficulty walking, frequent falls, dizziness, vertigo, behavioral changes, Slurred speech present or seizure-like activity Psych: Denies: anxiety, depression, suicidal ideation or homicidal ideation Endo: Denies: polyuria, polydipsia, tired all the time, cold intolerance or hot flashes Lionel/Lymph: Denies: easy bruising or easy bleeding Medications/Allergies Home Medications Medication Instructions Recorded Confirmed Last Taken Type armodafinil 250 mg tablet 250 mg PO DAILY 10/26/23 08/14/24 08/13/24 History baclofen 10 mg tablet 20 mg PO BID 10/26/23 08/14/24 08/13/24 History brimonidine 0.2 % eye drops 1 drp ophthalmic (eye) BID 10/26/23 08/14/24 08/13/24 History fluticasone propionate 50 1 spray intranasal BID PRN 10/26/23 08/14/24 03/31/24 History mcg/actuation nasal allergies spray,suspension insulin aspart U-100 100 unit/mL See Rx Instructions .Route .COMPLEX 10/26/23 08/14/24 08/14/24 History subcutaneous solution (Novolog U-100 Insulin aspart) ipratropium bromide 42 mcg (0.06 2 spray intranasal TID PRN 10/26/23 08/14/24 03/30/24 History %) nasal spray allergies latanoprost 0.005 % eye drops 1 drp ophthalmic (eye) DAILY 10/26/23 08/14/24 08/13/24 History levothyroxine 200 mcg tablet 200 mcg PO DAILY 10/26/23 08/14/24 08/13/24 History linaclotide 290 mcg capsule 290 mcg PO DAILY 10/26/23 08/14/24 08/13/24 History (Linzess) netarsudil 0.02 % eye drops 1 drp ophthalmic (eye) BEDTIME 10/26/23 08/14/24 08/12/24 History (Rhopressa) progesterone micronized 100 mg 300 mg PO BEDTIME 10/26/23 08/14/24 08/12/24 History capsule furosemide 40 mg tablet 20 mg (1/2 x 40 mg) PO DAILY PRN 11/13/23 08/14/24 04/04/24 Rx Weight gain more than 3 pounds #90 tabs hydralazine 25 mg tablet 25 mg PO BID #120 tabs 11/13/23 08/14/24 08/13/24 Rx liothyronine 5 mcg tablet 5 mcg PO DAILY #90 tabs 01/23/24 08/14/24 08/13/24 Rx alprazolam 0.5 mg tablet 0.5 mg PO DAILY 04/04/24 08/14/24 08/12/24 History naloxone 4 mg/actuation nasal spray 1 spray intranasal PRN PRN opiate 04/04/24 08/14/24 Unknown History overdose sacubitril 24 mg-valsartan 26 mg 1 tab PO BID 04/04/24 08/14/24 08/13/24 History tablet (Entresto) trazodone 300 mg tablet 300 mg PO BEDTIME #90 tabs 06/25/24 08/14/24 08/12/24 Rx budesonide-formoterol HFA 160 2 puff inhalation BID 07/06/24 08/14/24 08/13/24 History mcg-4.5 mcg/actuation aerosol inhaler (Breyna) duloxetine 30 mg capsule,delayed 30 mg PO BID #60 caps 07/06/24 08/14/24 08/13/24 Rx release estradiol cypionate 5 mg/mL See Rx Instructions .Route .COMPLEX 07/06/24 08/14/24 Unknown History intramuscular oil levothyroxine 25 mcg tablet 25 mcg PO DAILY 07/06/24 08/14/24 08/12/24 History montelukast 10 mg tablet 10 mg PO DAILY #90 tabs 07/06/24 08/14/24 08/12/24 Rx morphine 15 mg tablet,extended 15 mg PO Q8H 07/06/24 08/14/24 08/13/24 History release testosterone cypionate 100 mg/mL 100 mg SUBCUT .twice a week 07/06/24 08/14/24 Unknown History intramuscular oil (Depo-Testosterone) fentanyl 12 mcg/hr transdermal 1 patch transdermal Q72H 30 days 07/24/24 08/14/24 Unknown Rx patch #10 ea azelastine 137 mcg (0.1 %) nasal 2 spray intranasal BID 08/14/24 08/14/24 08/12/24 History spray cyclosporine 0.05 % eye drops in a 1 drp ophthalmic (eye) BID 08/14/24 08/14/24 08/12/24 History dropperette (Restasis) glucagon 3 mg/actuation nasal 3 mg intranasal PRN PRN low blood 08/14/24 08/14/24 Unknown History spray (Baqsimi) sugar lactulose 10 gram/15 mL (15 mL) 20 g PO TID PRN 08/14/24 08/14/24 Unknown History oral solution constipation/diabetic gastroparesis naloxegol 12.5 mg tablet (Movantik) 12.5 mg PO DAILY 08/14/24 08/14/24 08/12/24 History eovonukb-feyaiazon-lhktvtou 3.5 1 drp ophthalmic (eye) QID 08/14/24 08/14/24 08/12/24 History mg/mL-10,000 unit/mL-0.1% eye drops ofloxacin 0.3 % eye drops 1 drp ophthalmic (eye) QID 08/14/24 08/14/24 08/12/24 History omeprazole 40 mg capsule,delayed 40 mg PO DAILY 08/14/24 08/14/24 08/13/24 History release ondansetron 8 mg disintegrating 8 mg PO TID PRN Nausea 08/14/24 08/14/24 Unknown History tablet pramipexole 0.5 mg tablet 0.5 mg PO DAILY 08/14/24 08/14/24 08/13/24 History pregabalin 50 mg capsule 50 mg PO TID 08/14/24 08/14/24 08/13/24 History sennosides 8.6 mg-docusate sodium 2 tab PO BEDTIME 08/14/24 08/14/24 08/12/24 History 50 mg tablet (Stool Softener-Laxative) tretinoin 0.05 % topical cream 1 applic topical BEDTIME 08/14/24 08/14/24 Unknown History Allergies Allergy/AdvReac Type Severity Reaction Status Date / Time acetazolamide Allergy ALGY-Rash Verified 08/14/24 12:06 [From Diamox Sequels] angiotensin II acetate, human Allergy Unknown Verified 08/14/24 12:06 diphenhydramine Allergy ALGY-Rash Verified 08/14/24 12:06 [From Benadryl] ketorolac Allergy Unknown Verified 08/14/24 12:06 losartan Allergy ADR-Cough Verified 08/14/24 12:06 methocarbamol Allergy Unknown Verified 08/14/24 12:06 metoclopramide Allergy ADR-Shakine Verified 08/14/24 12:06 ss nitrofurantoin Allergy ADR-Diarrhe Verified 08/14/24 12:06 a NSAIDS (Non-Steroidal Allergy Unknown Verified 08/14/24 12:06 Anti-Inflamma tetracycline Allergy Unknown Verified 08/14/24 12:06 PFSH Acute PFSH: Medical History Encounter for chronic pain management Macular degeneration (senile) of retina, unspecified 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 Butt at [facility]; has omnipod Chronic constipation Diabetic gastroparesis? CKD stage 3 due to type [address] Elizalde at [facility] Hyperlipidemia associated with type 2 diabetes mellitus Anemia, chronic disease On hormone replacement therapy on estrogen/progesteron/testosterone through Dr. Tee yuen at [facility] TAVIA on CPAP Chronic low back pain RLS (restless legs syndrome) Therapeutic opioid-induced constipation (OIC) Moderate nausea and vomiting Hyponatremia Hypothyroidism Surgical History History of back surgery Pain stimulator placed at [facility] 2023 Hx of colonoscopy [facility] normal 8.22.12 History of radiofrequency ablation (RFA) of nerve of lumbar spine 12.5.18 L4/5 [facility] History of bladder surgery Interstim 2020; R upper buttock History of reverse total replacement of left shoulder joint 12.14.23 History of lumbar fusion lumbar fusion and 3 other lumbar surgeries History of rectal surgery rectal abscess 2012 History of lumpectomy of left breast benign; 2010 Hx of fusion of cervical spine diskectomy and fusion 2009; fusion 7.20.17 and repeat again 11.19 in [facility] Hx of hand surgery bilateral trigger finger release Hx of vitrectomy 1995 Hx of bladder repair surgery sling; 2002 History of carpal tunnel release of both wrists 1994 Hx of cholecystectomy 1993 Hx of pancreas transplant 1993 Hx of total hysterectomy with removal of both tubes and ovaries done for bleeding; 1991 Hx of section 1976 Hx of appendectomy 1965 Hx of tonsillectomy 1954 H/O shoulder surgery bilateral shoulder arthroscopies 2003 and again 2004 Family History Father Dementia Sister Intracranial bleed Rheumatoid arthritis Social History Smoking and tobacco/nicotine status: never used tobacco/nicotine Alcohol intake: never Substance/Drug Use: never Household members: spouse Marital status: Number of children: 2 Highest education level completed: Bachelor's Degree Current occupational status: retired 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; 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 Vitals/I&O/Wt Last Vital Signs Temp 98.8 F 08/14/24 12:04 Pulse 97 08/14/24 12:04 Resp 17 08/14/24 12:04 BP 148/69 08/14/24 12:04 Pulse Ox 98 08/14/24 12:04 O2 Del Method Room Air 08/14/24 12:04 08/14/24 08/14/24 08/14/24 06:59 14:59 22:59 Intake Total 1000 / 1000 Balance 1000 / 1000 Weight last 48 hrs Weight 79.379 kg Physical Exam Narrative: General: apepars uncomfortable, in pain, restless legs with persistent jerking movement HEENT: PERRLA, pupils bilaterally equal and reactive, pallors not present Chest: Normal vesicular breath sounds, no added sounds, equal good air entry bilaterally CVS: S1-S2 regular, no murmurs, no tachycardia, no gallops, no rubs Abdomen: Soft, distended Neuro: No focal deficits, no facial deformity, AO x3, power 5/5 in all limbs Data 08/15/24 05:16 08/15/24 05:16 Micro: Microbiology 08/14/24 17:28 Blood Culture - Preliminary Blood SPECIMEN COLLECTED 08/14/24 14:18 Blood Culture - Preliminary Blood SPECIMEN COLLECTED Other data: CT/CT abdomen pelvis wo con [id number] IMPRESSION: 1. High-grade mid to distal small bowel obstruction with transition point in the left lower abdomen. 2. Mesenteric edema. This is likely due to small bowel obstruction. Superimposed bowel inflammation is not excluded. 3. Bilateral lower lung consolidation is suspicious for pneumonia. 4. Incidental findings above. A&P Assessment and plan (1) SBO (small bowel obstruction): 74-year-old lady with multiple comorbidities as above presenting with high-grade mid to small bowel obstruction, transition point noted in the left lower abdomen. NGT was unable to be placed in the emergency room in spite of multiple attempts by ER and general surgery. This is likely related to complicated upper airway anatomy. For now we will admit to the hospital and begin conservative management. N.p.o. diet. IV fluids normal saline at 75 cc an hour. Has a history of CHF for which patient is on Entresto however last echocardiogram from October 2023 notes an ejection fraction of 60%. Clinically patient is appearing to be dehydrated therefore will continue IV fluids with close monitoring of fluid status. Possibility of opioid-induced SBO? Patient states she has been using fentanyl 12 mcg patch and intermittent morphine during the week. Will hold off on fentanyl patch for now. Alternate pain management with IV Tylenol and oral Toradol if tolerates oral pills. She has received a dose of methylnaltrexone 12 mg in the emergency room. Patient states her previous episode of SBO responded to this medication. As needed Zofran and scheduled Reglan for nausea and vomiting management. General surgery consult (2) Aspiration pneumonia: Likely related to excessive vomiting. Empirically on treatment with piperacillin/tazobactam for the same. (3) Type 1 diabetes mellitus: Patient wishes to manage her own insulin via OmniPod while admitted. We will check before meals and at bedtime fingersticks and intervene if hypoglycemia or any signs of DKA develop. Plan Continue albuterol and budesonide inhalation while admitted. Will resume home medications including duloxetine, levothyroxine, Linzess once able to reliably tolerate p.o. intake. Attestations Medical Necessity Statement*: Greater than 2 midnight admission is anticipated for IV fluids, management of SBO conservatively. Coding Level of Care Code Acute Code for Chg Fwd Moderate MDM includes number and complexity of problems actively addressed during encounter, amount and/or complexity of data reviewed/ordered and described risk of complication, morbidity or mortality of management as documented Diagnoses SBO (small bowel obstruction) K56.609 Aspiration pneumonia J69.0 Type 1 diabetes mellitus E10.9
--- NOTE | 2024-08-14 18:10 | P.CONIM_ITS ---
Providers/Reason For Consult 2 Consulting Physician/Specialty*: Dr. Darin Ruiz, DO/General Surgery Reason for Consult*: Small bowel obstruction Attending Physician: Leonila Mueller MD History of Present Illness History of Present Illness Meryl Ling is a 74 year old female who is a brittle diabetic status post pancreas transplant 30 years ago. The transplant failed but she keeps very close eye on her glucose. She has a surgical history of , appendectomy, MELISA/BSO, pancreas transplant and cholecystectomy in 1993. She presented to the hospital with 1 day history of abdominal pain nausea vomiting and productive cough. A CT of the abdomen pelvis shows a high-grade small bowel obstruction with a transition point in the left lower quadrant, along with pneumonia. She reports that she has been having some constipation recently and has increased her narcotic pain medications in the past 30 days. She reports that she has had good success with [employer] in the past. She has not had a bowel movement or passed flatus since yesterday. Emesis has been bilious and nonbloody. She also has a history of sinus surgery as well as hardware in her neck that keeps her from any significant extension. Nursing was unable to place an NG tube. I tried multiple times as well and could not get the tube past her sinuses Review of Systems 2 General: Reports: 10 or more systems reviewed and unremarkable except in HPI and below Medications/Allergies Home Medications Medication Instructions Recorded Confirmed Last Taken Type armodafinil 250 mg tablet 250 mg PO DAILY 10/26/23 08/14/24 08/13/24 History baclofen 10 mg tablet 20 mg PO BID 10/26/23 08/14/24 08/13/24 History brimonidine 0.2 % eye drops 1 drp ophthalmic (eye) BID 10/26/23 08/14/24 08/13/24 History fluticasone propionate 50 1 spray intranasal BID PRN 10/26/23 08/14/24 03/31/24 History mcg/actuation nasal allergies spray,suspension insulin aspart U-100 100 unit/mL See Rx Instructions .Route .COMPLEX 10/26/23 08/14/24 08/14/24 History subcutaneous solution (Novolog U-100 Insulin aspart) ipratropium bromide 42 mcg (0.06 2 spray intranasal TID PRN 10/26/23 08/14/24 03/30/24 History %) nasal spray allergies latanoprost 0.005 % eye drops 1 drp ophthalmic (eye) DAILY 10/26/23 08/14/24 08/13/24 History levothyroxine 200 mcg tablet 200 mcg PO DAILY 10/26/23 08/14/24 08/13/24 History linaclotide 290 mcg capsule 290 mcg PO DAILY 10/26/23 08/14/24 08/13/24 History (Linzess) netarsudil 0.02 % eye drops 1 drp ophthalmic (eye) BEDTIME 10/26/23 08/14/24 08/12/24 History (Rhopressa) progesterone micronized 100 mg 300 mg PO BEDTIME 10/26/23 08/14/24 08/12/24 History capsule furosemide 40 mg tablet 20 mg (1/2 x 40 mg) PO DAILY PRN 11/13/23 08/14/24 04/04/24 Rx Weight gain more than 3 pounds #90 tabs hydralazine 25 mg tablet 25 mg PO BID #120 tabs 11/13/23 08/14/24 08/13/24 Rx liothyronine 5 mcg tablet 5 mcg PO DAILY #90 tabs 01/23/24 08/14/24 08/13/24 Rx alprazolam 0.5 mg tablet 0.5 mg PO DAILY 04/04/24 08/14/24 08/12/24 History naloxone 4 mg/actuation nasal spray 1 spray intranasal PRN PRN opiate 04/04/24 08/14/24 Unknown History overdose sacubitril 24 mg-valsartan 26 mg 1 tab PO BID 04/04/24 08/14/24 08/13/24 History tablet (Entresto) trazodone 300 mg tablet 300 mg PO BEDTIME #90 tabs 06/25/24 08/14/24 08/12/24 Rx budesonide-formoterol HFA 160 2 puff inhalation BID 07/06/24 08/14/24 08/13/24 History mcg-4.5 mcg/actuation aerosol inhaler (Breyna) duloxetine 30 mg capsule,delayed 30 mg PO BID #60 caps 07/06/24 08/14/24 08/13/24 Rx release estradiol cypionate 5 mg/mL See Rx Instructions .Route .COMPLEX 07/06/24 08/14/24 Unknown History intramuscular oil levothyroxine 25 mcg tablet 25 mcg PO DAILY 07/06/24 08/14/24 08/12/24 History montelukast 10 mg tablet 10 mg PO DAILY #90 tabs 07/06/24 08/14/24 08/12/24 Rx morphine 15 mg tablet,extended 15 mg PO Q8H 07/06/24 08/14/24 08/13/24 History release testosterone cypionate 100 mg/mL 100 mg SUBCUT .twice a week 07/06/24 08/14/24 Unknown History intramuscular oil (Depo-Testosterone) fentanyl 12 mcg/hr transdermal 1 patch transdermal Q72H 30 days 07/24/24 08/14/24 Unknown Rx patch #10 ea azelastine 137 mcg (0.1 %) nasal 2 spray intranasal BID 08/14/24 08/14/24 08/12/24 History spray cyclosporine 0.05 % eye drops in a 1 drp ophthalmic (eye) BID 08/14/24 08/14/24 08/12/24 History dropperette (Restasis) glucagon 3 mg/actuation nasal 3 mg intranasal PRN PRN low blood 08/14/24 08/14/24 Unknown History spray (Baqsimi) sugar lactulose 10 gram/15 mL (15 mL) 20 g PO TID PRN 08/14/24 08/14/24 Unknown History oral solution constipation/diabetic gastroparesis naloxegol 12.5 mg tablet (Movantik) 12.5 mg PO DAILY 08/14/24 08/14/24 08/12/24 History cvlvnuqs-zhnqrsvlv-zfzvmqgy 3.5 1 drp ophthalmic (eye) QID 08/14/24 08/14/24 08/12/24 History mg/mL-10,000 unit/mL-0.1% eye drops ofloxacin 0.3 % eye drops 1 drp ophthalmic (eye) QID 08/14/24 08/14/24 08/12/24 History omeprazole 40 mg capsule,delayed 40 mg PO DAILY 08/14/24 08/14/24 08/13/24 History release ondansetron 8 mg disintegrating 8 mg PO TID PRN Nausea 08/14/24 08/14/24 Unknown History tablet pramipexole 0.5 mg tablet 0.5 mg PO DAILY 08/14/24 08/14/24 08/13/24 History pregabalin 50 mg capsule 50 mg PO TID 08/14/24 08/14/24 08/13/24 History sennosides 8.6 mg-docusate sodium 2 tab PO BEDTIME 08/14/24 08/14/24 08/12/24 History 50 mg tablet (Stool Softener-Laxative) tretinoin 0.05 % topical cream 1 applic topical BEDTIME 08/14/24 08/14/24 Unknown History Allergies Allergy/AdvReac Type Severity Reaction Status Date / Time acetazolamide Allergy ALGY-Rash Verified 08/14/24 12:06 [From Diamox Sequels] angiotensin II acetate, human Allergy Unknown Verified 08/14/24 12:06 diphenhydramine Allergy ALGY-Rash Verified 08/14/24 12:06 [From Benadryl] ketorolac Allergy Unknown Verified 08/14/24 12:06 losartan Allergy ADR-Cough Verified 08/14/24 12:06 methocarbamol Allergy Unknown Verified 08/14/24 12:06 metoclopramide Allergy ADR-Shakine Verified 08/14/24 12:06 ss nitrofurantoin Allergy ADR-Diarrhe Verified 08/14/24 12:06 a NSAIDS (Non-Steroidal Allergy Unknown Verified 08/14/24 12:06 Anti-Inflamma tetracycline Allergy Unknown Verified 08/14/24 12:06 Current Medications Generic Name Dose Route Start Last Admin Trade Name Freq PRN Reason Stop Dose Admin Albuterol Sulfate 2.5 mg 08/14/24 20:00 08/15/24 11:47 Albuterol 2.5 Mg/3 Ml Neb INHALATION 2.5 mg QID.RESPIRATORY VLADIMIR Administration Baclofen 20 mg 08/14/24 21:02 08/15/24 09:03 Baclofen 10 Mg Tablet PO 20 mg BID VLADIMIR Administration Budesonide 0.5 mg 08/14/24 20:00 08/15/24 08:14 Budesonide 0.5 Mg/2 Ml Neb INHALATION 0.5 mg BID.RESPIRATORY VLADIMIR Administration Heparin Sodium (Porcine) 5,000 unit 08/14/24 17:45 08/15/24 05:27 Heparin 5,000 Unit/Ml Inj 1 Ml SUBCUT 5,000 unit Q12H VLADIMIR Administration Sodium Chloride 1,000 mls @ 75 mls/hr 08/14/24 16:00 08/15/24 09:01 Sodium Chloride 0.9% IV 75 mls/hr .[id number] VLADIMIR Administration Piperacillin Sod/Tazobactam 50 mls @ 12.5 mls/hr 08/15/24 10:00 08/15/24 11:28 Sod 3.375 gm/ Sodium Chloride IV 12.5 mls/hr Q8H VLADIMIR Administration Protocol Levothyroxine Sodium 25 mcg 08/15/24 09:00 08/15/24 09:08 Levothyroxine 25 Mcg Tablet PO 25 mcg DAILY VLADIMIR Administration Levothyroxine Sodium 200 mcg 08/15/24 08:00 08/15/24 09:02 Levothyroxine 200 Mcg Tablet PO 200 mcg BREAKFAST VLADIMIR Administration Liothyronine Sodium 5 mcg 08/15/24 09:00 08/15/24 09:02 Liothyronine 5 Mcg Tablet PO 5 mcg DAILY VLADIMIR Administration Metoclopramide HCl 5 mg 08/14/24 17:30 08/15/24 11:31 Metoclopramide 5 Mg/Ml Sdv 2 Ml IVP Not Given Q6H VLADIMIR Morphine Sulfate 1 mg 08/15/24 11:52 08/15/24 12:18 Morphine 4 Mg/Ml Sdv 1 Ml IVP 1 mg Q6H PRN Administration SEVERE PAIN Ofloxacin 1 drop 08/14/24 21:00 08/15/24 12:21 Ofloxacin 0.3% Op Soln 5 Ml Btl EYE-BOTH Not Given QID VLADIMIR Pantoprazole Sodium 40 mg 08/15/24 09:00 08/15/24 09:01 Pantoprazole 40 Mg Sdv IVP 40 mg DAILY VLADIMIR Administration Pramipexole Dihydrochloride 0.5 mg 08/15/24 03:09 08/15/24 14:03 Pramipexole 0.25 Mg Tablet PO 0.5 mg TID VLADIMIR Administration Pregabalin 50 mg 08/14/24 21:00 08/15/24 14:03 Pregabalin 50 Mg Capsule PO 50 mg TID VLADIMIR Administration Trazodone HCl 300 mg 08/14/24 21:15 08/14/24 21:39 Trazodone 150 Mg Tablet PO 300 mg BEDTIME VLADIMIR Administration PFSH Acute 2 PFSH: Medical History Encounter for chronic pain management Macular degeneration (senile) of retina, unspecified 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 Butt at [facility]; has omnipod Chronic constipation Diabetic gastroparesis? CKD stage 3 due to type [address] Elizalde at [facility] Hyperlipidemia associated with type 2 diabetes mellitus Anemia, chronic disease On hormone replacement therapy on estrogen/progesteron/testosterone through Dr. Tee yuen at [facility] TAVIA on CPAP Chronic low back pain RLS (restless legs syndrome) Therapeutic opioid-induced constipation (OIC) Moderate nausea and vomiting Hyponatremia Hypothyroidism Surgical History History of back surgery Pain stimulator placed at [facility] 2023 Hx of colonoscopy [facility] normal 8.22.12 History of radiofrequency ablation (RFA) of nerve of lumbar spine 12.5.18 L4/5 [facility] History of bladder surgery Interstim 2020; R upper buttock History of reverse total replacement of left shoulder joint 12.14.23 History of lumbar fusion lumbar fusion and 3 other lumbar surgeries History of rectal surgery rectal abscess 2012 History of lumpectomy of left breast benign; 2010 Hx of fusion of cervical spine diskectomy and fusion 2009; fusion 7.20.17 and repeat again 11.19 in [facility] Hx of hand surgery bilateral trigger finger release Hx of vitrectomy 1995 Hx of bladder repair surgery sling; 2002 History of carpal tunnel release of both wrists 1994 Hx of cholecystectomy 1993 Hx of pancreas transplant 1993 Hx of total hysterectomy with removal of both tubes and ovaries done for bleeding; 1991 Hx of section 1976 Hx of appendectomy 1965 Hx of tonsillectomy 1954 H/O shoulder surgery bilateral shoulder arthroscopies 2003 and again 2004 Family History Father Dementia Sister Intracranial bleed Rheumatoid arthritis Social History Smoking and tobacco/nicotine status: never used tobacco/nicotine Alcohol intake: never Substance/Drug Use: never Household members: spouse Marital status: Number of children: 2 Highest education level completed: Bachelor's Degree Current occupational status: retired 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 Ears : Pinnae and external canal are normal. Hearing is normal. Eyes : PERRLA, Sclera and injection are normal. No conjunctival discharge. Nose : Mucous membranes are without erythema. Throat : buccal mucosa is normal, gums are without significant recession or hypertrophy. Lungs : Equal chest rise bilaterally, no use of accessory muscles, trachea is midline. Cor : Rate and rhythm are normal. Abdomen : Soft, ND, mild diffuse tenderness, no g/r/m Extremities : No edema, no cyanosis or clubbing, dorsalis pedis pulses are present bilaterally, non-tender to palpation of calves. Upper extremities are normal bilaterally. Back : non-tender to palpation, no CVA tenderness. Neuro : CN II - XII intact, Upper and lower extremities have equal and full strength Data 08/15/24 05:16 08/15/24 05:16 Micro: Microbiology 08/14/24 17:28 Blood Culture - Preliminary Blood SPECIMEN COLLECTED 08/14/24 14:18 Blood Culture - Preliminary Blood SPECIMEN COLLECTED A&P Assessment and plan (1) SBO (small bowel obstruction): (2) Opioid-induced constipation: (3) Pneumonia: Qualifiers: Laterality: bilateral Lung location: lower lobe of lung Pneumonia type: due to unspecified organism Qualified Code(s): J18.9 - Pneumonia, unspecified organism Plan Unfortunately, I am unable to place an NG tube due to her history of sinus surgery and hardware in her neck preventing extension. IV fluids at 150 Reglan 5 mg every 6 Relistor If her obstruction does not improve with the above treatment, I will need to take her to the GI lab for intubation and attempt at placing an NG tube. If that does not work I will ask for help from ENT. If that does not work she will need to be maintained on a ventilator with an orogastric tube whether she needs surgery for her obstruction or not Medical management per hospitalist Coding Level of Care Code 22167 Diagnoses SBO (small bowel obstruction) K56.609 Opioid-induced constipation K59.03; T40.2X5A Pneumonia J18.9 Laterality: bilateral Lung location: lower lobe of lung Pneumonia type: due to unspecified organism
[2024-08-14] MEDS: sodium chloride 0.9% 1,000 ML 75 ML IV (18:15)
[2024-08-14] MEDS: methylnaltrexone 12 /0.6 mL INJ 12 MG SUBCUT (18:18)
[2024-08-14] MEDS: heparin 5,000 unit/mL INJ 1 mL 5000 UNIT SUBCUT (18:19)
[2024-08-14 18:28] LABS: Bilirubin Urine Negative (Negative); Blood Urine Negative (Negative); Glucose Urine UA Negative (Normal); Ketones Urine Trace (Negative); Leukocyte Esterase Urine Trace (Negative); Nitrate Urine Negative (Negative); Protein Urine 1+ (Negative); Specific Gravity, Urine 1.018 (1.005-1.030); Urine Appearance Clear (CLEAR); Urine Color Yellow (Yellow)
[2024-08-14 18:30] LABS: NT Pro B Type Natriuretic Pept 543 pg/mL (0-125)
[2024-08-14 18:30] LABS: Add Urine Microscopic? YES; Bacteria Urine None Seen /hpf; Hyaline Casts Urine 15.28 /lpf; RBC Urine 0-2 /hpf (0-2); Universal Test for UA Present (0); WBC Urine 0-5 /hpf (0-5)
[2024-08-14 20:05] LABS: Ketone (Acetest) Serum Negative (Negative)
[2024-08-14] MEDS: budesonide 0.5 mg/2 mL Neb INHALATION (20:13)
[2024-08-14] MEDS: albuterol 2.5 mg/3 mL Neb INHALATION (20:13)
[2024-08-14] MEDS: pregabalin 50 mg Capsule PO (20:21)
[2024-08-14] MEDS: acetaminophen 1,000 MG/100 ML PIGGYBACK 400 MG IV (20:24)
[2024-08-14 21:03] LABS: Glucose Point of Care 144 mg/dL (70-110)
[2024-08-14] MEDS: baclofen 10 mg Tablet 20 MG PO (21:39)
[2024-08-14] MEDS: trazodone 150 mg Tablet 300 MG PO (21:39)
[2024-08-15] VITALS (11 sets, daily range): BP systolic 101–163; BP diastolic 47–73; PULSE 78–109; RESP 14–21; TEMP 36.4–37.3; O2SAT 90–96
[2024-08-15] MEDS: pramipexole 0.25 mg Tablet 0.5 MG PO ×4 (03:17→20:05)
[2024-08-15] MEDS: acetaminophen 1,000 MG/100 ML PIGGYBACK 400 MG IV ×2 (03:21→11:29)
[2024-08-15] MEDS: heparin 5,000 unit/mL INJ 1 mL 5000 UNIT SUBCUT ×2 (05:27→16:53)
[2024-08-15] MEDS: metoclopramide 5 mg/mL SDV 2 mL IVP ×3 (05:27→23:01)
[2024-08-15 05:42] LABS: Basophils # 0.1 10^3/uL (0.0-0.1); Basophils % 0.5 %; Eosinophils # 0.3 10^3/uL (0.0-0.8); Eosinophils % 1.6 %; Lymphocytes # 1.2 10^3/uL (0.8-4.8); Lymphocytes % 7.1 %; Mean Corpuscular HGB Conc 33.5 g/dL (30-55); Mean Corpuscular Hemoglobin 31.7 pg (27-33); Mean Corpuscular Volume 94.4 fl (85-98); Mean Platelet Volume 10.2 fL (7.4-10.4); Monocytes # 1.1 10^3/uL (0.2-0.9); Monocytes % 6.5 %; Neutrophils # 13.74 10^3/uL (1.8-7.7); Neutrophils % 83.8 %; Nucleated Red Blood Cells % 0 %; Platelet Count 190 10^3/cmm (157-399); Red Cell Distribution Width 11.9 % (12.1-15.1)
[2024-08-15 06:06] LABS: Alanine Aminotransferase 29 U/L (0-33); Albumin Level 3.8 g/dL (3.5-5.2); Alkaline Phosphatase 135 U/L (35-105); Anion Gap 18.5 (5-19); Aspartate Amino Transferase 24 U/L (0-32); Blood Urea Nitrogen 42 mg/dL (8-23); Calcium 8.8 mg/dL (8.5-10.5); Carbon Dioxide 24 mmol/L (22-29); Chloride 98 mmol/L (98-107); Creatinine Clr Calc Pharmacy 23.3028; Globulin 2.8 g/dL (1.3-4.6); Glucose 213 mg/dL (65-115); Osmolality Calculated 301 mOsm/kg (285-295); Potassium 3.5 mmol/L (3.5-5.1); Sodium 137 mmol/L (136-145); Total Bilirubin 0.8 mg/dL (0.15-1.2); Total Protein 6.6 g/dL (6.6-8.7)
[2024-08-15 06:27] LABS: Glucose Point of Care 183 mg/dL (70-110)
[2024-08-15] MEDS: albuterol 2.5 mg/3 mL Neb INHALATION ×2 (08:14→11:47)
[2024-08-15] MEDS: budesonide 0.5 mg/2 mL Neb INHALATION (08:14)
[2024-08-15] MEDS: sodium chloride 0.9% 1,000 ML 75 ML IV ×2 (09:01→21:38)
[2024-08-15] MEDS: pantoprazole 40 mg SDV IVP (09:01)
[2024-08-15] MEDS: ofloxacin 0.3% Op Soln 5 mL Btl 1 DROP EYE-BOTH ×2 (09:01→20:12)
[2024-08-15] MEDS: levothyroxine 200 mcg Tablet PO (09:02)
[2024-08-15] MEDS: liothyronine 5 mcg Tablet PO (09:02)
[2024-08-15] MEDS: pregabalin 50 mg Capsule PO ×3 (09:02→20:05)
[2024-08-15] MEDS: baclofen 10 mg Tablet 20 MG PO ×2 (09:03→16:54)
[2024-08-15] MEDS: levothyroxine 25 mcg Tablet PO (09:08)
--- NOTE | 2024-08-15 11:00 | P.PN_ITS ---
Subjective 2 Subjective: States that she has pain in her back today. No more vomiting. passed some flatus. Thinks that methyl naltrexone helped her yesterday. Medications: Reviewed: Yes Vitals/I&O/Wt Last Vital Signs Temp 98.0 F 08/15/24 11:43 Pulse 79 08/15/24 11:43 Resp 15 08/15/24 11:43 BP 143/73 08/15/24 11:43 Pulse Ox 95 08/15/24 11:43 O2 Del Method Nasal Cannula 08/15/24 11:43 O2 Flow Rate 1.5 08/15/24 11:30 08/15/24 08/15/24 08/15/24 06:59 14:59 22:59 Intake Total 100 / 1250 1100 / 1100 Balance 100 / 1250 1100 / 1100 Weight last 48 hrs Weight 60.01 kg Weight 79.379 kg Physical Exam 2 Narrative: General: apepars uncomfortable, in pain, restless legs with persistent jerking movement HEENT: PERRLA, pupils bilaterally equal and reactive, pallors not present Chest: Normal vesicular breath sounds, no added sounds, equal good air entry bilaterally CVS: S1-S2 regular, no murmurs, no tachycardia, no gallops, no rubs Abdomen: Soft, distended Neuro: No focal deficits, no facial deformity, AO x3, power 5/5 in all limbs Data 08/15/24 05:16 08/15/24 05:16 Micro: Microbiology 08/14/24 17:28 Blood Culture - Preliminary Blood SPECIMEN COLLECTED 08/14/24 14:18 Blood Culture - Preliminary Blood SPECIMEN COLLECTED A&P Assessment and plan (1) SBO (small bowel obstruction): 74-year-old lady with multiple comorbidities as above presenting with high-grade mid to small bowel obstruction, transition point noted in the left lower abdomen. NGT was unable to be placed in the emergency room in spite of multiple attempts by ER and general surgery. This is likely related to complicated upper airway anatomy. For now we will admit to the hospital and begin conservative management. N.p.o. diet. IV fluids normal saline at 75 cc an hour. Has a history of CHF for which patient is on Entresto however last echocardiogram from October 2023 notes an ejection fraction of 60%. Clinically patient is appearing to be dehydrated therefore will continue IV fluids with close monitoring of fluid status. Possibility of opioid-induced SBO? Patient states she has been using fentanyl 12 mcg patch and intermittent morphine during the week. Will hold off on fentanyl patch for now. Alternate pain management with IV Tylenol and oral Toradol if tolerates oral pills. She has received a dose of methylnaltrexone 12 mg in the emergency room. Patient states her previous episode of SBO responded to this medication. As needed Zofran and scheduled Reglan for nausea and vomiting management. General surgery consult (2) Aspiration pneumonia: Likely related to excessive vomiting. Empirically on treatment with piperacillin/tazobactam for the same. (3) Type 1 diabetes mellitus: Patient wishes to manage her own insulin via OmniPod while admitted. We will check before meals and at bedtime fingersticks and intervene if hypoglycemia or any signs of DKA develop. Plan Continue albuterol and budesonide inhalation while admitted. Will resume home medications including duloxetine, levothyroxine, Linzess once able to reliably tolerate p.o. intake. 08/15/2024. Pain is inadequately controlled with IV Tylenol. Will resume lower dose of morphine 1 mg IV every 6 hours as needed. Additional dose of methylnaltrexone today. Continue piperacillin/tazobactam for aspiration pneumonia. Afebrile. Hemodynamically stable. Continue normal saline 75 cc an hour. Clinically euvolemic currently. Continue to hold diuresis. Add as needed hydralazine for blood pressure control. Conservative management for SBO Attestations 2 Medical Necessity Statement*: continued admission for management of SBO, aspiration pneumonia Coding Level of Care Code Acute Code for Chg Fwd Moderate MDM includes number and complexity of problems actively addressed during encounter, amount and/or complexity of data reviewed/ordered and described risk of complication, morbidity or mortality of management as documented Diagnoses SBO (small bowel obstruction) K56.609 Aspiration pneumonia J69.0 Type 1 diabetes mellitus E10.9
[2024-08-15] MEDS: piperacillin-tazobactam 3.375 GM in sodium chloride 0.9% (plus) 50 ML IV ×2 (11:28→16:56)
[2024-08-15] MEDS: morphine 4 mg/mL SDV 1 mL 1 MG IVP ×2 (12:18→18:38)
[2024-08-15] MEDS: methylnaltrexone 12 /0.6 mL INJ 12 MG SUBCUT (12:18)
--- NOTE | 2024-08-15 14:17 | P.PN_ITS ---
Subjective 2 Subjective: Patient seen and examined. She did have a large bowel movement after receiving Relistor last night. She reports she is passing flatus. Denies any further nausea or emesis. Denies any abdominal pain Vitals/I&O/Wt Last Vital Signs Temp 98.0 F 08/15/24 11:43 Pulse 79 08/15/24 11:43 Resp 15 08/15/24 11:43 BP 143/73 08/15/24 11:43 Pulse Ox 95 08/15/24 11:43 O2 Del Method Nasal Cannula 08/15/24 11:43 O2 Flow Rate 1.5 08/15/24 11:30 08/14/24 08/15/24 08/15/24 22:59 06:59 14:59 Intake Total 1150 / 1150 100 / 1250 1100 / 1100 Balance 1150 / 1150 100 / 1250 1100 / 1100 Weight last 48 hrs Weight 132 lb 4.8 oz Weight 175 lb Physical Exam 2 Narrative: General: No acute distress, awake alert and oriented x 3 Abdomen: Soft, mildly distended, nontender, no guarding rebound or masses Data 08/15/24 05:16 08/15/24 05:16 Micro: Microbiology 08/14/24 17:28 Blood Culture - Preliminary Blood SPECIMEN COLLECTED 08/14/24 14:18 Blood Culture - Preliminary Blood SPECIMEN COLLECTED A&P Assessment and plan (1) SBO (small bowel obstruction): (2) Opioid-induced constipation: (3) Pneumonia: Qualifiers: Laterality: bilateral Lung location: lower lobe of lung Pneumonia type: due to unspecified organism Qualified Code(s): J18.9 - Pneumonia, unspecified organism Plan Unfortunately, I am unable to place an NG tube due to her history of sinus surgery and hardware in her neck preventing extension. IV fluids at 150 Clear liquid diet Reglan 5 mg every 6 Relistor If her obstruction does not improve with the above treatment, I will need to take her to the GI lab for intubation and attempt at placing an NG tube. If that does not work I will ask for help from ENT. If that does not work she will need to be maintained on a ventilator with an orogastric tube whether she needs surgery for her obstruction or not Medical management per hospitalist Attestations 2 Medical Necessity Statement*: Per primary Coding Level of Care Code 22174 Diagnoses SBO (small bowel obstruction) K56.609 Opioid-induced constipation K59.03; T40.2X5A Pneumonia J18.9 Laterality: bilateral Lung location: lower lobe of lung Pneumonia type: due to unspecified organism
--- NOTE | 2024-08-15 17:51 | PC.NURSE ---
Pt upgraded to a clear liquid diet by Dr. Ruiz. With this diet, pt has an increase in pain and bouts of nausea/dry heaving. Pt downgraded to NPO again. Dr. Ruiz notified.
[2024-08-15] MEDS: trazodone 150 mg Tablet 300 MG PO (20:05)
[2024-08-16] VITALS (8 sets, daily range): BP systolic 119–157; BP diastolic 50–74; PULSE 76–118; RESP 15–18; TEMP 36.4–36.9; O2SAT 90–95
[2024-08-16] MEDS: piperacillin-tazobactam 3.375 GM in sodium chloride 0.9% (plus) 50 ML IV ×3 (01:57→17:44)
[2024-08-16] MEDS: metoclopramide 5 mg/mL SDV 2 mL IVP (05:13)
[2024-08-16] MEDS: heparin 5,000 unit/mL INJ 1 mL 5000 UNIT SUBCUT ×2 (05:13→17:35)
[2024-08-16 05:28] LABS: Basophils % 0.4 %; Eosinophils % 0.4 %; Hematocrit 28.3 % (36-47); Lymphocytes # 0.7 10^3/uL (0.8-4.8); Lymphocytes % 7.1 %; Mean Corpuscular HGB Conc 32.9 g/dL (30-55); Mean Corpuscular Hemoglobin 32.2 pg (27-33); Mean Corpuscular Volume 97.9 fl (85-98); Mean Platelet Volume 10.4 fL (7.4-10.4); Monocytes # 0.9 10^3/uL (0.2-0.9); Monocytes % 8.8 %; Neutrophils # 8.25 10^3/uL (1.8-7.7); Nucleated Red Blood Cells % 0 %; Platelet Count 159 10^3/cmm (157-399); Red Blood Count 2.89 10^6/uL (3.85-5.65); Red Cell Distribution Width 12.2 % (12.1-15.1); White Blood Count 9.94 10^3/uL (3.29-11.43)
[2024-08-16 05:35] LABS: Glucose Point of Care 147 mg/dL (70-110)
[2024-08-16 05:46] LABS: Magnesium 1.9 mg/dL (1.7-2.3)
[2024-08-16 05:47] LABS: Alanine Aminotransferase 22 U/L (0-33); Albumin Level 3.4 g/dL (3.5-5.2); Alkaline Phosphatase 112 U/L (35-105); Anion Gap 21.4 (5-19); Aspartate Amino Transferase 18 U/L (0-32); Blood Urea Nitrogen 40 mg/dL (8-23); Calcium 8.7 mg/dL (8.5-10.5); Carbon Dioxide 18 mmol/L (22-29); Chloride 103 mmol/L (98-107); Creatinine Clr Calc Pharmacy 31.7263; Globulin 2.6 g/dL (1.3-4.6); Glucose 165 mg/dL (65-115); Osmolality Calculated 301 mOsm/kg (285-295); Potassium 3.4 mmol/L (3.5-5.1); Sodium 139 mmol/L (136-145); Total Bilirubin 0.7 mg/dL (0.15-1.2)
[2024-08-16] MEDS: budesonide 0.5 mg/2 mL Neb INHALATION ×2 (07:47→20:24)
[2024-08-16] MEDS: albuterol 2.5 mg/3 mL Neb INHALATION ×2 (07:47→20:24)
[2024-08-16 07:54] LABS: Glucose Point of Care 145 mg/dL (70-110)
[2024-08-16] MEDS: levothyroxine 25 mcg Tablet PO (08:30)
[2024-08-16] MEDS: pantoprazole 40 mg SDV IVP (08:30)
[2024-08-16] MEDS: liothyronine 5 mcg Tablet PO (08:31)
[2024-08-16] MEDS: levothyroxine 200 mcg Tablet PO (08:31)
[2024-08-16] MEDS: baclofen 10 mg Tablet 20 MG PO (08:31)
[2024-08-16] MEDS: pregabalin 50 mg Capsule PO (08:31)
[2024-08-16] MEDS: pramipexole 0.25 mg Tablet 0.5 MG PO (08:31)
[2024-08-16] MEDS: sodium chloride 0.9% 1,000 ML 75 ML IV ×2 (08:48→22:36)
[2024-08-16 11:34] LABS: Glucose Point of Care 170 mg/dL (70-110)
--- NOTE | 2024-08-16 11:43 | P.PN_ITS ---
Subjective 2 Subjective: Patient was extremely somnolent and difficult to wake up this morning. She had 1 episode of nausea and emesis yesterday but has had no nausea or emesis since. Passing flatus but still no bowel movement. Denies any abdominal pain. reports that she can sometimes be very hard to wake up. We discussed the possibility of her going through opioid withdrawal Vitals/I&O/Wt Last Vital Signs Temp 97.5 F L 08/16/24 08:05 Pulse 91 08/16/24 08:05 Resp 18 08/16/24 08:05 BP 157/66 08/16/24 08:05 Pulse Ox 95 08/16/24 08:05 O2 Del Method Nasal Cannula 08/16/24 08:05 O2 Flow Rate 2 08/16/24 07:43 08/15/24 08/16/24 08/16/24 22:59 06:59 14:59 Intake Total 1046.25 / 2146.25 386.250 / 2532.500 476.25 / 476.25 Balance 1046.25 / 2146.25 386.250 / 2532.500 476.25 / 476.25 Weight last 48 hrs Weight 133 lb 4.8 oz Weight 132 lb 4.8 oz Weight 175 lb Physical Exam 2 Narrative: General : Patient is well developed , no acute distress, oriented x3, somnolent but arousable with effort Head : Normal cephalic, a-traumatic. Ears : Pinnae and external canal are normal. Hearing is normal. Eyes : PERRLA, Sclera and injection are normal. No conjunctival discharge. Nose : Mucous membranes are without erythema. Throat : buccal mucosa is normal, gums are without significant recession or hypertrophy. Lungs : Equal chest rise bilaterally, no use of accessory muscles, trachea is midline. Cor : Rate and rhythm are normal. Abdomen : Soft, ND, NT, no g/r/m Extremities : No edema, no cyanosis or clubbing, dorsalis pedis pulses are present bilaterally, non-tender to palpation of calves. Upper extremities are normal bilaterally. Back : non-tender to palpation, no CVA tenderness. Neuro : CN II - XII intact, Upper and lower extremities have equal and full strength Data 08/16/24 05:02 08/16/24 05:02 Micro: Microbiology 08/14/24 17:28 Blood Culture - Preliminary Blood NEGATIVE TO DATE 08/14/24 14:18 Blood Culture - Preliminary Blood NEGATIVE TO DATE A&P Assessment and plan (1) SBO (small bowel obstruction): (2) Opioid-induced constipation: (3) Pneumonia: Qualifiers: Laterality: bilateral Lung location: lower lobe of lung Pneumonia type: due to unspecified organism Qualified Code(s): J18.9 - Pneumonia, unspecified organism Plan Unfortunately, I am unable to place an NG tube due to her history of sinus surgery and hardware in her neck preventing extension. IV fluids at 125 N.p.o. Reglan 10 mg every 6 Relistor If her obstruction does not improve with the above treatment, I will need to take her to the GI lab for intubation and attempt at placing an NG tube. If that does not work I will ask for help from ENT. If that does not work she will need to be maintained on a ventilator with an orogastric tube whether she needs surgery for her obstruction or not Medical management per hospitalist Attestations 2 Medical Necessity Statement*: Per primary Coding Level of Care Code Acute Code for [facility] Fwd Diagnoses SBO (small bowel obstruction) K56.609 Opioid-induced constipation K59.03; T40.2X5A Pneumonia J18.9 Laterality: bilateral Lung location: lower lobe of lung Pneumonia type: due to unspecified organism
[2024-08-16] MEDS: lidocaine 1% 5 ML in potassium chloride premix 100 ML 52.5 ML IV (11:46)
--- NOTE | 2024-08-16 11:47 | PC.NURSE ---
Lidocaine in potassium per order - barcode would not scan.
--- NOTE | 2024-08-16 16:00 | PM.PN ---
Subjective Subjective: Patient has been more sleepy all day today. she wakes up easily to calling her name. Was able to ambulate in the hallway with assistance, however is overall more lethargic today. She keeps her eyes closed stating that she just wants to sleep. Wakes up to tell me her correct name, age, date of . She is disoriented as to her whereabouts. States that she is at [facility] instead of [facility]. And realizes in a few minutes that she is in a hospital. She is able to recognize her at bedside. Medications: Reviewed: Yes Vitals/I&O/Wt Last Vital Signs Temp 98.2 F 08/16/24 15:16 Pulse 81 08/16/24 15:16 Resp 16 08/16/24 15:16 BP 143/74 08/16/24 15:16 Pulse Ox 92 08/16/24 15:16 O2 Del Method CPAP 08/16/24 15:16 O2 Flow Rate 2 08/16/24 07:43 08/16/24 08/16/24 08/16/24 06:59 14:59 22:59 Intake Total 386.250 / 2532.500 631.25 / 631.25 Balance 386.250 / 2532.500 631.25 / 631.25 Weight last 48 hrs Weight 60.464 kg Weight 60.01 kg Physical Exam Narrative: General: apepars uncomfortable, in pain, restless legs with persistent jerking movement HEENT: PERRLA, pupils bilaterally equal and reactive, pallors not present Chest: Normal vesicular breath sounds, no added sounds, equal good air entry bilaterally CVS: S1-S2 regular, no murmurs, no tachycardia, no gallops, no rubs Abdomen: Soft, distended Neuro: No focal deficits, no facial deformity, AO x3, power 5/5 in all limbs Data 08/16/24 05:02 08/16/24 05:02 Micro: Microbiology 08/14/24 17:28 Blood Culture - Preliminary Blood NEGATIVE TO DATE 08/14/24 14:18 Blood Culture - Preliminary Blood NEGATIVE TO DATE A&P Assessment and plan (1) SBO (small bowel obstruction): 74-year-old lady with multiple comorbidities as above presenting with high-grade mid to small bowel obstruction, transition point noted in the left lower abdomen. NGT was unable to be placed in the emergency room in spite of multiple attempts by ER and general surgery. This is likely related to complicated upper airway anatomy. For now we will admit to the hospital and begin conservative management. N.p.o. diet. IV fluids normal saline at 75 cc an hour. Has a history of CHF for which patient is on Entresto however last echocardiogram from October 2023 notes an ejection fraction of 60%. Clinically patient is appearing to be dehydrated therefore will continue IV fluids with close monitoring of fluid status. Possibility of opioid-induced SBO? Patient states she has been using fentanyl 12 mcg patch and intermittent morphine during the week. Will hold off on fentanyl patch for now. Alternate pain management with IV Tylenol and oral Toradol if tolerates oral pills. She has received a dose of methylnaltrexone 12 mg in the emergency room. Patient states her previous episode of SBO responded to this medication. As needed Zofran and scheduled Reglan for nausea and vomiting management. General surgery consult (2) Aspiration pneumonia: Likely related to excessive vomiting. Empirically on treatment with piperacillin/tazobactam for the same. (3) Type 1 diabetes mellitus: Patient wishes to manage her own insulin via OmniPod while admitted. We will check before meals and at bedtime fingersticks and intervene if hypoglycemia or any signs of DKA develop. Plan Continue albuterol and budesonide inhalation while admitted. Will resume home medications including duloxetine, levothyroxine, Linzess once able to reliably tolerate p.o. intake. 08/15/2024. Pain is inadequately controlled with IV Tylenol. Will resume lower dose of morphine 1 mg IV every 6 hours as needed. Additional dose of methylnaltrexone today. Continue piperacillin/tazobactam for aspiration pneumonia. Afebrile. Hemodynamically stable. Continue normal saline 75 cc an hour. Clinically euvolemic currently. Continue to hold diuresis. Add as needed hydralazine for blood pressure control. Conservative management for SBO 08/16/2024 Increased lethargy as noted above. Review of medication shows that she received 2 mg of morphine on the evening of 08/15/2024. She does not appear to have had any further doses since this morning. She was ordered for Dilaudid this afternoon however is yet to receive a dose. Her pramipexole was resumed overnight on 08/15/2024 at a dose of 0.5 mg 3 times daily instead of once a day that she takes at home. This has been changed back to 0.5 mg p.o. daily. Trazodone 300 mg at nighttime has been placed on hold. Discussed with the patient that I would additionally like to hold Lyrica while we are evaluating her for her increased lethargy, however does not wish to do that because she suffers from severe neuropathic pain. Will instead reduce the Lyrica dosing to 50 mg twice daily at this time. Continuing baclofen 20 mg twice daily. additionally clarifies her dose of morphine today. He has a list of her medications available on her medication portal. Patient takes MS Contin 15 mg p.o. either once a day or twice a day depending on the degree of pain she is in. She has recently also been on a fentanyl patch of 12 mics every 72 hours. This patch was taken off on the day of admission. To avoid opiate withdrawal, Dilaudid 0.5 mg IV every 6 hours has been ordered as a standing dose. Her pupils are currently reactive to light, not pinpoint. Holding off on Narcan for now. She is saturating well on room air. opiate overdose considered less likely given morphine doses as above. Additionally patient has a history of narcolepsy and takes armodafinil at home which she has not received since admission and has not received this for at least 2 days prior as she was vomiting excessively. Requested to bring in this medication from home as we do not have it on formulary. Potentially this may be contributing to her lethargy today. will check CT head to evaluate for stroke, though this is less likely given no focal deficits on exam, patient wakes up easily. Check ABG to assess for hypercapnea. Leukocytosis is otherwise improving today. She is afebrile. Do not believe worsening infection would be a cause of her lethargy. Continue piperacillin/tazobactam. Sodium improved to 139.. Her abdominal exam is improving today, she has not had any episodes of vomiting though she does states she is not passing flatus. Her fingersticks have been under good control ranging between 1 45-1 70. No episodes of hypoglycemia. She wishes to continue to manage her insulin herself and by family members. Appreciate surgery assessment Attestations Medical Necessity Statement*: Needs continued admission for management of SBO, increasing lethargy needing further evaluation. Coding Level of Care Code Acute Code for Chg Fwd High MDM includes number and complexity of problems actively addressed during encounter, amount and/or complexity of data reviewed/ordered and described risk of complication, morbidity or mortality of management as documented Diagnoses SBO (small bowel obstruction) K56.609 Aspiration pneumonia J69.0 Type 1 diabetes mellitus E10.9
[2024-08-16 16:38] LABS: Glucose Point of Care 145 mg/dL (70-110)
[2024-08-16 17:27] LABS: ABG PCO2 34.5 mmHg (35-45); ABG PH Result 7.35 (7.35-7.45); Base Excess ABG -5.9 mmol/L (-2.0-2.0); Blood Gas Allen Test Pos; Blood Gas Operator Identificat GD; Blood Gas Sample Site Radial, right; Blood Gas Sample Type Arterial; HCO3 ABG 19.1 mmol/L (22-26); PO2 ABG 72.2 mmHg (80.0-100.0); PO2 FiO2 Ratio Arterial Blood 343
[2024-08-16] MEDS: HYDROmorphone 1 mg/mL INJ 1 mL 0.5 MG IVP ×2 (17:35→23:46)
[2024-08-16] MEDS: metoclopramide 5 mg/mL SDV 2 mL 10 MG IVP ×2 (17:36→23:43)
--- NOTE | 2024-08-16 18:01 | CTR_ITS ---
PROCEDURE INFORMATION: Exam: CT Head Without Contrast Exam date and time: 08/16/2024 7:49 PM Age: 74 years old Clinical indication: Altered mental status/memory loss; Confusion or disorientation; Patient HX: Lethargy with mild confusion TECHNIQUE: Imaging protocol: Computed tomography of the head without contrast. Radiation optimization: All CT scans at this facility use at least one of these dose optimization techniques: automated exposure control; mA and/or kV adjustment per patient size (includes targeted exams where dose is matched to clinical indication); or iterative reconstruction. COMPARISON: No relevant prior studies available. RADIATION DOSE METRICS: Total DLP (mGy-cm): 1169.81 FINDINGS: Brain: [id number] generalized cortical volume loss. No hemorrhage. Periventricular and subcortical white matter hypodensities likely represent chronic small vessel ischemic changes. No mass effect. Cerebral ventricles: No ventriculomegaly. Paranasal sinuses: Mild mucosal thickening in the maxillary sinuses. Mastoid air cells: Visualized mastoid air cells are well aerated. Orbital cavities: Bilateral lens replacements. Bones: Unremarkable. No acute fracture. Soft tissues: Unremarkable. Vasculature: Vascular calcifications along the carotid siphons. CT/CT head wo con* [id number] IMPRESSION: No acute intracranial findings.
--- NOTE | 2024-08-16 18:19 | PC.NURSE ---
Oncoming to shift, pt is noted to be diaphoretic and agitated due to lack of sleep. Morning assessment and medications passed. Shortly after, pt puts on CPAP and falls asleep. Pt is able to arouse to verbal stimuli, but quickly falls back asleep. Pt denies pain and refuses respiratory treatments. Because of this, RN does not give pain medication. At approx. 1400, this RN highly encourages pt to go for a walk around the unit. Pt is able to walk, but does not follow verbal commands well. Commands must be repeated numerous times. Pt is able to state her name and but unable to state location and time. Dr. Mueller notified and quickly assesses pt. at bedside. Dr. Mueller places orders based on her assessment. Pt back in bed with CPAP on. Pt does not awake to take oral evening pills, but is agreeable to IV medications and heparin injection.
[2024-08-16 20:17] LABS: Glucose Point of Care 137 mg/dL (70-110)
[2024-08-17] VITALS (8 sets, daily range): BP systolic 111–167; BP diastolic 46–74; PULSE 81–106; RESP 16–20; TEMP 36.8–37.7; O2SAT 91–99
[2024-08-17] MEDS: piperacillin-tazobactam 3.375 GM in sodium chloride 0.9% (plus) 50 ML IV ×3 (02:10→18:11)
[2024-08-17] MEDS: HYDROmorphone 1 mg/mL INJ 1 mL 0.5 MG IVP ×4 (04:31→22:06)
[2024-08-17] MEDS: metoclopramide 5 mg/mL SDV 2 mL 10 MG IVP ×3 (05:50→18:12)
[2024-08-17] MEDS: heparin 5,000 unit/mL INJ 1 mL 5000 UNIT SUBCUT ×2 (05:50→18:12)
[2024-08-17 06:32] LABS: Glucose Point of Care 107 mg/dL (70-110)
[2024-08-17] MEDS: pantoprazole 40 mg SDV IVP (07:42)
[2024-08-17] MEDS: levothyroxine 25 mcg Tablet PO (07:43)
[2024-08-17] MEDS: pramipexole 0.25 mg Tablet 0.5 MG PO (07:43)
[2024-08-17] MEDS: levothyroxine 200 mcg Tablet PO (07:43)
[2024-08-17] MEDS: liothyronine 5 mcg Tablet PO (07:43)
[2024-08-17] MEDS: baclofen 10 mg Tablet 20 MG PO ×2 (07:44→18:11)
[2024-08-17] MEDS: pregabalin 50 mg Capsule PO ×2 (07:44→18:11)
[2024-08-17] MEDS: sodium chloride 0.9% 1,000 ML 75 ML IV (07:47)
[2024-08-17] MEDS: budesonide 0.5 mg/2 mL Neb INHALATION (08:48)
[2024-08-17] MEDS: albuterol 2.5 mg/3 mL Neb INHALATION (08:48)
--- NOTE | 2024-08-17 09:12 | PC.CHAP ---
Pastoral Care Encounter/Spiritual Assessment Type of Contact [] Declined building stonecutter visit [] Patient/Family/Request visit [] Outpatient visit [] Follow-up visit [] Physician referral [] Code/Alert [x] Routine visit [] Staff referral [] Actively dying [] Patient sleeping [] Family support [] [] Out of room [] Palliative care [] [x] Receiving care in room [] Pre-surgical visit [] Trauma [] Long length of stay [] ICU visit [] Other: Relational/Emotional Strength [] Patient feels connected with others/family/visitors/staff [] Distress [] Loneliness/isolation [] Abandonment Spirituality of Patient [] Person of Ayala [] Attends Catholic of their Ayala [] Believes in Prayer [] Reads Bible or Gnosticism materials [] There are Spiritual issues to be addressed 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 Optic Assembly Worker Interventions [x] Prayer [] Active listening [] Non-anxious presence [] Spiritual/emotional support [] Crisis/trauma care [] Spiritual counseling [] Bereavement support [] Provided bereavement packet [] Provided Bible/devotional materials [] Provided toy/stuffed animal, coloring book to patient or family member [] Provided Communion [] Anointing/[place] [] Salvation [] Completed spiritual assessment [] Other: Impact on Illness or Injury [] Angry [] Fearful [] Anxious [] Often cries [] Exhaustion [] Unable to work [] Unable to attend latter-day [] Unable to walk/stand [] Unable to read [] Unable to drive [] Unable to eat/drink [] Unable to sleep [] Unable to be with family [] Patient intubated [] Other: Summary Time spent with patient
--- NOTE | 2024-08-17 09:36 | FLR_ITS ---
PROCEDURE INFORMATION: Exam: FL Small Intestine Exam date and time: 08/17/2024 1:04 PM Age: 74 years old Clinical indication: Symptoms: Abd pain poss sbo; Prior surgery; Surgery date: 6+ months; Surgery type: Back bladder and pain stimulator TECHNIQUE: Imaging protocol: Radiologic examination, small intestine, includes multiple serial images. Fluoroscopy is included if performed. COMPARISON: CT abdomen pelvis con [id number] 08/14/2024 2:56 PM RADIATION DOSE METRICS: Fluoroscopy time (seconds): Not provided. Number of fluoro spot images: 6 Reference air kerma (KWAME): Not provided. 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 Lower lumbar spinal stimulator leads. Pelvic bladder stimulator/leads. Intestine: Contrast does travels through the small bowel. Contrast reaches the colon by 1 hour. It is present throughout the about by 3 hours. At that time the stomach has largely cleared out of contrast. There is generalized mild small bowel dilation up to about 3.7 cm. FL/[place] [id number] IMPRESSION: 1. Mild ileus likely. No high-grade small bowel obstruction. 2. If pain persists suggest short-term follow-up.
[2024-08-17 09:42] LABS: Basophils % 0.2 %; Eosinophils # 0.1 10^3/uL (0.0-0.8); Eosinophils % 1.5 %; Hematocrit 29.6 % (36-47); Lymphocytes # 0.9 10^3/uL (0.8-4.8); Lymphocytes % 10.8 %; Mean Corpuscular HGB Conc 31.8 g/dL (30-55); Mean Corpuscular Hemoglobin 31.6 pg (27-33); Mean Corpuscular Volume 99.7 fl (85-98); Mean Platelet Volume 10.2 fL (7.4-10.4); Monocytes # 0.8 10^3/uL (0.2-0.9); Monocytes % 9.9 %; Neutrophils # 6.48 10^3/uL (1.8-7.7); Neutrophils % 77.1 %; Nucleated Red Blood Cells % 0 %; Platelet Count 172 10^3/cmm (157-399); Red Blood Count 2.97 10^6/uL (3.85-5.65); Red Cell Distribution Width 12.2 % (12.1-15.1); White Blood Count 8.41 10^3/uL (3.29-11.43)
[2024-08-17 09:59] LABS: Alanine Aminotransferase 19 U/L (0-33); Albumin Level 3.3 g/dL (3.5-5.2); Alkaline Phosphatase 98 U/L (35-105); Anion Gap 18.8 (5-19); Aspartate Amino Transferase 18 U/L (0-32); Blood Urea Nitrogen 26 mg/dL (8-23); Calcium 8.6 mg/dL (8.5-10.5); Carbon Dioxide 16 mmol/L (22-29); Chloride 109 mmol/L (98-107); Creatinine Clr Calc Pharmacy 38.3451; Globulin 2.8 g/dL (1.3-4.6); Glucose 113 mg/dL (65-115); Magnesium 1.8 mg/dL (1.7-2.3); Osmolality Calculated 296 mOsm/kg (285-295); Potassium 3.8 mmol/L (3.5-5.1); Sodium 140 mmol/L (136-145); Total Bilirubin 0.5 mg/dL (0.15-1.2); Total Protein 6.1 g/dL (6.6-8.7)
--- NOTE | 2024-08-17 10:17 | P.PN_ITS ---
Subjective 2 Subjective: I attempted to see the patient today while rounding but she was down in radiology getting a small bowel follow-through that I ordered. According to nursing, she had 2 large bowel movements this morning Vitals/I&O/Wt Last Vital Signs Temp 97.8 F 08/18/24 04:00 Pulse 79 08/18/24 04:00 Resp 16 08/18/24 04:49 BP 167/55 08/18/24 04:00 Pulse Ox 96 08/18/24 04:00 O2 Del Method Nasal Cannula 08/18/24 04:00 O2 Flow Rate 1 08/17/24 21:08 08/17/24 08/18/24 08/18/24 22:59 06:59 14:59 Intake Total 781.25 / 1520.00 850 / 2370.00 Balance 781.25 / 1520.00 850 / 2370.00 Weight last 48 hrs Weight 122 lb 3.2 oz Weight 144 lb 9.6 oz Data 08/18/24 05:02 08/18/24 05:02 A&P Assessment and plan (1) SBO (small bowel obstruction): (2) Opioid-induced constipation: (3) Pneumonia: Qualifiers: Laterality: bilateral Lung location: lower lobe of lung Pneumonia type: due to unspecified organism Qualified Code(s): J18.9 - Pneumonia, unspecified organism Plan Unfortunately, I am unable to place an NG tube due to her history of sinus surgery and hardware in her neck preventing extension. IV fluids at 125 Small bowel follow-through today N.p.o. Reglan 10 mg every 6 Relistor If her obstruction does not improve with the above treatment, I will need to take her to the GI lab for intubation and attempt at placing an NG tube. If that does not work I will ask for help from ENT. If that does not work she will need to be maintained on a ventilator with an orogastric tube whether she needs surgery for her obstruction or not Medical management per hospitalist Attestations 2 Medical Necessity Statement*: Per primary Coding Level of Care Code Acute Code for Chg Fwd Diagnoses SBO (small bowel obstruction) K56.609 Opioid-induced constipation K59.03; T40.2X5A Pneumonia J18.9 Laterality: bilateral Lung location: lower lobe of lung Pneumonia type: due to unspecified organism
[2024-08-17 11:36] LABS: Glucose Point of Care 97 mg/dL (70-110)
--- NOTE | 2024-08-17 12:21 | P.PN_ITS ---
Subjective 2 Subjective: Seen this morning. Patient did have a large bowel movement. Small bowel series has been ordered by general surgery. Vitals/I&O/Wt Last Vital Signs Temp 98.5 F 08/17/24 12:00 Pulse 87 08/17/24 12:00 Resp 19 H 08/17/24 12:00 BP 111/46 08/17/24 12:00 Pulse Ox 91 08/17/24 12:00 O2 Del Method Room Air 08/17/24 12:00 O2 Flow Rate 2 08/17/24 03:44 08/16/24 08/17/24 08/17/24 22:59 06:59 14:59 Intake Total 1050 / 1681.25 50 / 1731.25 738.75 / 738.75 Output Total 500 / 500 Balance 1050 / 1681.25 -450 / 1231.25 738.75 / 738.75 Weight last 48 hrs Weight 65.589 kg Weight 60.464 kg Physical Exam 2 Narrative: General: Sitting up in recliner with family member at bedside. Says she feels better. HEENT: PERRLA, pupils bilaterally equal and reactive, pallors not present Chest: Normal vesicular breath sounds, no added sounds, equal good air entry bilaterally CVS: S1-S2 regular, no murmurs, no tachycardia, no gallops, no rubs Abdomen: Soft, distended Neuro: No focal deficits, no facial deformity, AO x3, power 5/5 in all limbs Data 08/17/24 09:33 08/17/24 09:33 A&P Assessment and plan (1) SBO (small bowel obstruction): 74-year-old lady with multiple comorbidities as above presenting with high-grade mid to small bowel obstruction, transition point noted in the left lower abdomen. NGT was unable to be placed in the emergency room in spite of multiple attempts by ER and general surgery. This is likely related to complicated upper airway anatomy. For now we will admit to the hospital and begin conservative management. N.p.o. diet. IV fluids normal saline at 75 cc an hour. Has a history of CHF for which patient is on Entresto however last echocardiogram from October 2023 notes an ejection fraction of 60%. Clinically patient is appearing to be dehydrated therefore will continue IV fluids with close monitoring of fluid status. Possibility of opioid-induced SBO? Patient states she has been using fentanyl 12 mcg patch and intermittent morphine during the week. Will hold off on fentanyl patch for now. Alternate pain management with IV Tylenol and oral Toradol if tolerates oral pills. She has received a dose of methylnaltrexone 12 mg in the emergency room. Patient states her previous episode of SBO responded to this medication. As needed Zofran and scheduled Reglan for nausea and vomiting management. General surgery consult (2) Aspiration pneumonia: Likely related to excessive vomiting. Empirically on treatment with piperacillin/tazobactam for the same. (3) Type 1 diabetes mellitus: Patient wishes to manage her own insulin via OmniPod while admitted. We will check before meals and at bedtime fingersticks and intervene if hypoglycemia or any signs of DKA develop. Plan Continue albuterol and budesonide inhalation while admitted. Will resume home medications including duloxetine, levothyroxine, Linzess once able to reliably tolerate p.o. intake. 08/15/2024. Pain is inadequately controlled with IV Tylenol. Will resume lower dose of morphine 1 mg IV every 6 hours as needed. Additional dose of methylnaltrexone today. Continue piperacillin/tazobactam for aspiration pneumonia. Afebrile. Hemodynamically stable. Continue normal saline 75 cc an hour. Clinically euvolemic currently. Continue to hold diuresis. Add as needed hydralazine for blood pressure control. Conservative management for SBO 08/16/2024 Increased lethargy as noted above. Review of medication shows that she received 2 mg of morphine on the evening of 08/15/2024. She does not appear to have had any further doses since this morning. She was ordered for Dilaudid this afternoon however is yet to receive a dose. Her pramipexole was resumed overnight on 08/15/2024 at a dose of 0.5 mg 3 times daily instead of once a day that she takes at home. This has been changed back to 0.5 mg p.o. daily. Trazodone 300 mg at nighttime has been placed on hold. Discussed with the patient that I would additionally like to hold Lyrica while we are evaluating her for her increased lethargy, however does not wish to do that because she suffers from severe neuropathic pain. Will instead reduce the Lyrica dosing to 50 mg twice daily at this time. Continuing baclofen 20 mg twice daily. additionally clarifies her dose of morphine today. He has a list of her medications available on her medication portal. Patient takes MS Contin 15 mg p.o. either once a day or twice a day depending on the degree of pain she is in. She has recently also been on a fentanyl patch of 12 mics every 72 hours. This patch was taken off on the day of admission. To avoid opiate withdrawal, Dilaudid 0.5 mg IV every 6 hours has been ordered as a standing dose. Her pupils are currently reactive to light, not pinpoint. Holding off on Narcan for now. She is saturating well on room air. opiate overdose considered less likely given morphine doses as above. Additionally patient has a history of narcolepsy and takes armodafinil at home which she has not received since admission and has not received this for at least 2 days prior as she was vomiting excessively. Requested to bring in this medication from home as we do not have it on formulary. Potentially this may be contributing to her lethargy today. will check CT head to evaluate for stroke, though this is less likely given no focal deficits on exam, patient wakes up easily. Check ABG to assess for hypercapnea. Leukocytosis is otherwise improving today. She is afebrile. Do not believe worsening infection would be a cause of her lethargy. Continue piperacillin/tazobactam. Sodium improved to 139.. Her abdominal exam is improving today, she has not had any episodes of vomiting though she does states she is not passing flatus. Her fingersticks have been under good control ranging between 1 45-1 70. No episodes of hypoglycemia. She wishes to continue to manage her insulin herself and by family members. Appreciate surgery assessment 08/17/2024 Seen this morning. Patient had a large bowel movement. Small bowel follow- through series has been ordered. ? I have asked the patient to bring her Linzess in from home as it is nonformulary. ? Patient is not lethargic and is back to her baseline. ? Continue Lyrica 50 twice daily, Mirapex 0.5 daily, 0.5 Dilaudid every 6 hours as needed. ? Continue Reglan 10 mg every 6 hours scheduled. ? Continue baclofen 20 twice daily. ? General Surgery following. ? Further recommendations to be made after abdominal imaging availability. ? If no bowel obstruction may restart diet. If patient able to tolerate diet may discharge home in next 24 to 48 hours. ? Attestations 2 Medical Necessity Statement*: Small bowel obstruction. Diagnoses SBO (small bowel obstruction) K56.609 Aspiration pneumonia J69.0 Type 1 diabetes mellitus E10.9
--- NOTE | 2024-08-17 12:37 | PC.SOCIAL ---
IMM updated IMM dated and initialed, copy placed in chart and copy given to patient
--- NOTE | 2024-08-17 13:18 | PC.NURSE ---
Pt off floor for fluroscopy.
[2024-08-17 16:48] LABS: Glucose Point of Care 77 mg/dL (70-110)
--- NOTE | 2024-08-17 16:48 | PC.NURSE ---
Medication delay d/t need for ultrasound IV
[2024-08-17] MEDS: sodium chloride 0.9% 1,000 ML 125 ML IV (18:12)
[2024-08-17 21:26] LABS: Glucose Point of Care 83 mg/dL (70-110)
[2024-08-18] VITALS: BP 128/68; PULSE 95; RESP 18; O2SAT 98
[2024-08-18] MEDS: metoclopramide 5 mg/mL SDV 2 mL 10 MG IVP ×2 (00:11→04:49)
[2024-08-18] MEDS: sodium chloride 0.9% 1,000 ML 125 ML IV ×2 (00:12→09:10)
[2024-08-18] MEDS: piperacillin-tazobactam 3.375 GM in sodium chloride 0.9% (plus) 50 ML IV (01:16)
[2024-08-18 04:00] VITALS: BP 167/55; PULSE 79; RESP 18; TEMP 36.6; O2SAT 96
[2024-08-18 04:49] VITALS: RESP 16
[2024-08-18] MEDS: heparin 5,000 unit/mL INJ 1 mL 5000 UNIT SUBCUT (04:49)
[2024-08-18] MEDS: HYDROmorphone 1 mg/mL INJ 1 mL 0.5 MG IVP (04:49)
[2024-08-18] MEDS: hyDRALAzine 20 mg/mL INJ 1 mL 5 MG IVP (04:57)
[2024-08-18 05:11] LABS: Basophils # 0.1 10^3/uL (0.0-0.1); Basophils % 0.5 %; Eosinophils # 0.3 10^3/uL (0.0-0.8); Eosinophils % 3.1 %; Hematocrit 30.4 % (36-47); Lymphocytes # 1.5 10^3/uL (0.8-4.8); Lymphocytes % 14.7 %; Mean Corpuscular HGB Conc 31.9 g/dL (30-55); Mean Corpuscular Hemoglobin 31.3 pg (27-33); Mean Corpuscular Volume 98.1 fl (85-98); Monocytes # 1.1 10^3/uL (0.2-0.9); Monocytes % 10.5 %; Neutrophils # 7.04 10^3/uL (1.8-7.7); Neutrophils % 70.2 %; Nucleated Red Blood Cells % 0 %; Platelet Count 181 10^3/cmm (157-399); Red Cell Distribution Width 12.4 % (12.1-15.1); White Blood Count 10.02 10^3/uL (3.29-11.43)
[2024-08-18 05:31] LABS: Anion Gap 16.9 (5-19); Blood Urea Nitrogen 21 mg/dL (8-23); Calcium 7.9 mg/dL (8.5-10.5); Carbon Dioxide 19 mmol/L (22-29); Chloride 109 mmol/L (98-107); Creatinine Clr Calc Pharmacy 32.9597; Glucose 86 mg/dL (65-115); Osmolality Calculated 294 mOsm/kg (285-295); Potassium 3.9 mmol/L (3.5-5.1); Sodium 141 mmol/L (136-145)
[2024-08-18 06:35] LABS: Glucose Point of Care 98 mg/dL (70-110)
[2024-08-18 07:35] VITALS: BP 146/62; PULSE 81; RESP 17; TEMP 36.9; O2SAT 99
[2024-08-18] MEDS: pregabalin 50 mg Capsule PO (09:12)
[2024-08-18] MEDS: pramipexole 0.25 mg Tablet 0.5 MG PO (09:12)
[2024-08-18] MEDS: baclofen 10 mg Tablet 20 MG PO (09:12)
[2024-08-18] MEDS: levothyroxine 25 mcg Tablet PO (09:12)
[2024-08-18] MEDS: liothyronine 5 mcg Tablet PO (09:12)
[2024-08-18] MEDS: pantoprazole 40 mg SDV IVP (09:12)
[2024-08-18] MEDS: levothyroxine 200 mcg Tablet PO (09:12)
--- NOTE | 2024-08-18 09:39 | PC.CHAP ---
Pastoral Care Encounter/Spiritual Assessment Type of Contact [] Declined waistline joiner overlock visit [] Patient/Family/Request visit [] Outpatient visit [] Follow-up visit [] Physician referral [] Code/Alert [] Routine visit [] Staff referral [] Actively dying [x] Patient sleeping [] Family support [] [] Out of room [] Palliative care [] [] Receiving care in room [] Pre-surgical visit [] Trauma [] Long length of stay [] ICU visit [] Other: Relational/Emotional Strength [] Patient feels connected with others/family/visitors/staff [] Distress [] Loneliness/isolation [] Abandonment Spirituality of Patient [] Person of Ayala [] Attends Scientology of their [place] [] Believes in Prayer [] Reads Bible or Sabianist materials [] There are Spiritual issues to be addressed Director Credit Risk Interventions [] Prayer [] Active listening [] Non-anxious presence [] Spiritual/emotional support [] Crisis/trauma care [] Spiritual counseling [] Bereavement support [] Provided bereavement packet [] Provided Bible/devotional materials [] Provided toy/stuffed animal, coloring book to patient or family member [] Provided Communion [] Anointing/[place] [] Salvation [] Completed spiritual assessment [] Other: Impact on Illness or Injury [] Angry [] Fearful [] Anxious [] Often cries [] Exhaustion [] Unable to work [] Unable to attend restorationism [] Unable to walk/stand [] Unable to read [] Unable to drive [] Unable to eat/drink [] Unable to sleep [] Unable to be with family [] Patient intubated [] Other: Summary Time spent with patient
[2024-08-18 11:36] LABS: Glucose Point of Care 50 mg/dL (70-110)
[2024-08-18 12:00] VITALS: BP 145/63; PULSE 92; RESP 19; TEMP 36.8; O2SAT 99
--- NOTE | 2024-08-18 13:47 | P.DS_ITS ---
Discharge Providers Date of Admission: 08/14/24 18:02 Date of Discharge: August 18, 2024 Attending Provider at Admission: Leonila Mueller MD Attending Provider at Discharge: Danita Pineda MD Diagnoses at Discharge Discharge Diagnosis (1) SBO (small bowel obstruction): Status: Resolved (2) Opioid-induced constipation: Status: Acute (3) Pneumonia: Status: Resolved Qualifiers: Laterality: bilateral Lung location: lower lobe of lung Pneumonia type: due to unspecified organism Qualified Code(s): J18.9 - Pneumonia, unspecified organism Reason for Visit Reason for Visit: Vomitting, abd pain Hospital Course Hospital Course Patient admitted with multiple comorbidities with a high grade to mid small bowel obstruction transition point noted in the left lower abdomen. Managed conservatively with NG tube. General surgery following. Also had aspiration pneumonia likely related to excessive vomiting. Does have type 1 diabetes mellitus. Managed her own insulin via hospitalization. Also has a history of narcolepsy and takes armodafinil at home. When seen by pattern chart writer patient had a large bowel movement subsequently small bowel follow-through series were ordered by general surgery. No evidence of obstruction. Placed on clear liquid diet an d transition to GI soft diet. Tolerated diet well. Discharged home in stable condition to follow-up with primary care doctor as an outpatient. All questions answered. Patient feeling better and requesting to go home at this time. Discussed with her regarding restarting her Linzess as it was not available on formulary during hospitalization. Physical Exam Narrative: General: Sitting up in recliner with family member at bedside. Says she feels better. HEENT: PERRLA, pupils bilaterally equal and reactive, pallors not present Chest: Normal vesicular breath sounds, no added sounds, equal good air entry bilaterally CVS: S1-S2 regular, no murmurs, no tachycardia, no gallops, no rubs Abdomen: Soft, distended Neuro: No focal deficits, no facial deformity, AO x3, power 5/5 in all limbs Discharge Data Studies Completed and Pending Completed Studies During Hospitalization Category Date Time Status CT abdomen pelvis wo con [id number] Stat Cat Scan 08/14/24 14:[address] head wo con* [id number] Routine Cat Scan 08/16/24 18:01 Completed [place] small bowel [place] gastro [id number] Routine Exams 08/17/24 09:36 Completed XR abdomen 1V* [id number] Stat Exams 08/14/24 13:52 Completed Pending at discharge Category Date Time Status Blood Culture Stat Lab 08/14/24 17:28 Results C.Diff PCR (Lab) Routine Lab 08/14/24 19:37 Uncollected C.Diff PCR (Lab) Stat Lab 08/14/24 18:42 Uncollected Radiology Impressions Abdomen X-Ray 08/14/24 13:52 Impression: Severe ileus versus early or partial small bowel obstruction. Abdomen/Pelvis CT 08/14/24 14:21 IMPRESSION: 1. High-grade mid to distal small bowel obstruction with transition point in the left lower abdomen. 2. Mesenteric edema. This is likely due to small bowel obstruction. Superimposed bowel inflammation is not excluded. 3. Bilateral lower lung consolidation is suspicious for pneumonia. 4. Incidental findings above. ADDENDUM: 08/14/24 1534 THIS REPORT CONTAINS FINDINGS THAT MAY BE CRITICAL TO PATIENT CARE. The findings and recommendations were personally verbally communicated via telephone conference with Jerome Garcia at 3:33 PM PIGMENT PRESSER on 08/14/2024. The findings were acknowledged and understood. Head CT 08/16/24 18:01 IMPRESSION: No acute intracranial findings. Small Bowel X-Ray 08/17/24 09:36 IMPRESSION: 1. Mild ileus likely. No high-grade small bowel obstruction. 2. If pain persists suggest short-term follow-up. Laboratory Results WBC 10.02 10^3/uL (3.29-11.43) 08/18/24 05:02 RBC 3.10 10^6/uL (3.85-5.65) L 08/18/24 05:02 Hgb 9.70 g/dL (11.27-16.99) L 08/18/24 05:02 Hct 30.4 % (36-47) L 08/18/24 05:02 MCV 98.1 fl (85-98) H 08/18/24 05:02 MCH 31.3 pg (27-33) 08/18/24 05:02 MCHC 31.9 g/dL (30-55) 08/18/24 05:02 RDW 12.4 % (12.1-15.1) 08/18/24 05:02 Plt Count 181 10^3/cmm (157-399) 08/18/24 05:02 MPV 10.0 fL (7.4-10.4) 08/18/24 05:02 Neut % (Auto) 70.2 % 08/18/24 05:02 Lymph % (Auto) 14.7 % 08/18/24 05:02 Isabela % (Auto) 10.5 % 08/18/24 05:02 Eos % (Auto) 3.1 % 08/18/24 05:02 Baso % (Auto) 0.5 % 08/18/24 05:02 Neut # (Auto) 7.04 10^3/uL (1.8-7.7) 08/18/24 05:02 Lymph # (Auto) 1.5 10^3/uL (0.8-4.8) 08/18/24 05:02 Isabela # (Auto) 1.1 10^3/uL (0.2-0.9) H 08/18/24 05:02 Eos # (Auto) 0.3 10^3/uL (0.0-0.8) 08/18/24 05:02 Baso # (Auto) 0.1 10^3/uL (0.0-0.1) 08/18/24 05:02 Nucleated RBC % (auto) 0 % 08/18/24 05:02 Nucleated RBCs # 0.0 /100WBC 08/18/24 05:02 Specimen Type Arterial 08/16/24 17:10 Sample Site Radial, right 08/16/24 17:10 ABG pH 7.35 (7.35-7.45) 08/16/24 17:10 ABG pCO2 34.5 mmHg (35-45) L 08/16/24 17:10 ABG pO2 72.2 mmHg (80.0-100.0) L 08/16/24 17:10 ABG PO2/FiO2 Ratio 343 08/16/24 17:10 ABG HCO3 19.1 mmol/L (22-26) L 08/16/24 17:10 ABG Base Excess -5.9 mmol/L (-2.0-2.0) L 08/16/24 17:10 César Test Pos 08/16/24 17:10 Hematocrit 26.0 % (37-47) L 08/16/24 17:10 O2 Delivery Device None 08/16/24 17:10 FiO2 21.0 % 08/16/24 17:10 CPAP 12.0 cmH20 08/16/24 17:10 Lens Mold Setter ID Gd 08/16/24 17:10 Sodium 141 mmol/L (136-145) 08/18/24 05:02 Potassium 3.9 mmol/L (3.5-5.1) 08/18/24 05:02 Chloride 109 mmol/L (98-107) H 08/18/24 05:02 Carbon Dioxide 19 mmol/L (22-29) L 08/18/24 05:02 Anion Gap 16.9 (5-19) 08/18/24 05:02 BUN 21 mg/dL (8-23) 08/18/24 05:02 Creatinine 1.3 mg/dL (0.5-0.9) H 08/18/24 05:02 GFR Calculation Not Reportable 08/18/24 05:02 Glucose 86 mg/dL (65-115) 08/18/24 05:02 POC Glucose 50 mg/dL (70-110) L 08/18/24 11:27 Calculated Osmolality 294 mOsm/kg (285-295) 08/18/24 05:02 Lactic Acid 1.5 mmol/L (0.5-2.2) 08/14/24 13:10 Calcium 7.9 mg/dL (8.5-10.5) L 08/18/24 05:02 Magnesium 2.0 mg/dL (1.7-2.3) 08/18/24 05:02 Total Bilirubin 0.5 mg/dL (0.15-1.2) 08/17/24 09:33 AST 18 U/L (0-32) 08/17/24 09:33 ALT 19 U/L (0-33) 08/17/24 09:33 Alkaline Phosphatase 98 U/L (35-105) 08/17/24 09:33 NT-Pro-B Natriuret Pep 543 pg/mL (0-125) H 08/14/24 13:10 Total Protein 6.1 g/dL (6.6-8.7) L 08/17/24 09:33 Albumin 3.3 g/dL (3.5-5.2) L 08/17/24 09:33 Globulin 2.8 g/dL (1.3-4.6) 08/17/24 09:33 Lipase 12 U/L (13-60) L 08/14/24 13:10 Urine Color Yellow (Yellow) 08/14/24 18: Urine Appearance Clear (CLEAR) 08/14/24 18: Urine pH 5.0 (5-7) 08/14/24 18:23 Ur Specific [place] 1.018 (1.005-1.030) 08/14/24 18:23 Urine Protein 1+ (Negative) A 08/14/24 18:23 Urine Glucose (UA) Negative (Normal) 08/14/24 18:23 Urine Ketones Trace (Negative) 08/14/24 18: Urine Blood Negative (Negative) 08/14/24 18: Urine Nitrate Negative (Negative) 08/14/24 18: Urine Bilirubin Negative (Negative) 08/14/24 18: Urine Urobilinogen 1.0 mg/dL (Negative) 08/14/24 18:23 Ur Leukocyte Esterase Trace (Negative) A 08/14/24 18:23 Urine RBC 0-2 /hpf (0-2) 08/14/24 18:23 Urine WBC 0-5 /hpf (0-5) 08/14/24 18:23 Ur Squamous Epith Cells 6-10 /hpf (0-5) 08/14/24 18:23 Amorphous Sediment Not Reportable 08/14/24 18:23 Urine Bacteria None seen /hpf (NONE) 08/14/24 18:23 Hyaline Casts 15.28 /lpf 08/14/24 18:23 Serum Ketones Negative (Negative) 08/14/24 13:10 Vitals Last Vital Signs Temp 98.3 F 08/18/24 12:00 Pulse 92 08/18/24 12:00 Resp 19 H 08/18/24 12:00 BP 145/63 08/18/24 12:00 Pulse Ox 99 08/18/24 12:00 O2 Del Method Nasal Cannula 08/18/24 12:00 O2 Flow Rate 1 08/17/24 21:08 Discharge Plan Discharge Patient Disposition: Home Condition: Stable Prescriptions: New amoxicillin-pot clavulanate 875-125 mg tablet 1 tab PO BID Qty: 12 0RF Continued levothyroxine 25 mcg tablet 25 mcg PO DAILY Rx Instructions: Saturday, Saturday, and Saturday along with 200mcg [id number] on these three days per week. budesonide-formoterol [Breyna] 160-4.5 mcg/actuation HFA aerosol inhaler 2 puff inhalation BID morphine 15 mg tablet extended release 15 mg PO Q8H estradiol cypionate 5 mg/mL oil See Rx Instructions .ROUTE .COMPLEX Rx Instructions: Take 0.1 mL itramuscular twice a week testosterone cypionate [Depo-Testosterone] 100 mg/mL oil 100 mg SUBCUT .twice a week duloxetine 30 mg capsule,delayed release(DR/EC) 30 mg PO BID Qty: 60 5RF montelukast 10 mg tablet 10 mg PO DAILY Qty: 90 0RF liothyronine 5 mcg tablet 5 mcg PO DAILY Qty: 90 0RF trazodone 300 mg tablet 300 mg PO BEDTIME Qty: 90 3RF fentanyl 12 mcg/hr patch 72 hour 1 patch transdermal Q72H 30 Days Qty: 10 0RF alprazolam 0.5 mg tablet 0.5 mg PO DAILY Entresto 24-26 mg tablet 1 tab PO BID naloxone 4 mg/actuation spray,non-aerosol 1 spray INTRANASAL PRN PRN (Reason: opiate overdose) ondansetron 8 mg tablet,disintegrating 8 mg PO TID PRN (Reason: Nausea) pramipexole 0.5 mg tablet 0.5 mg PO DAILY pregabalin 50 mg capsule 50 mg PO TID sennosides-docusate sodium [Stool Softener-Laxative] 8.6-50 mg tablet 2 tab PO BEDTIME lactulose 10 gram/15 mL (15 mL) solution 20 g PO TID PRN (Reason: constipation/diabetic gastroparesis) Rx Instructions: BRAND NAME ONLY ofloxacin 0.3 % drops 1 drp ophthalmic (eye) QID tretinoin 0.05 % cream 1 applic TOPICAL BEDTIME omeprazole 40 mg capsule,delayed release(DR/EC) 40 mg PO DAILY neomycin-polymyxin B-dexameth 3.5mg/mL-10,000 unit/mL-0.1 % drops,suspension 1 drp ophthalmic (eye) QID azelastine 137 mcg (0.1 %) spray,non-aerosol 2 spray INTRANASAL BID cyclosporine [Restasis] 0.05 % dropperette 1 drp ophthalmic (eye) BID Movantik 12.5 mg tablet 12.5 mg PO DAILY Baqsimi 3 mg/actuation spray,non-aerosol 3 mg INTRANASAL PRN PRN (Reason: low blood sugar) latanoprost 0.005 % drops 1 drp ophthalmic (eye) DAILY baclofen 10 mg tablet 20 mg PO BID insulin aspart U-100 [Novolog U-100 Insulin aspart] 100 unit/mL solution See Rx Instructions .ROUTE .COMPLEX Rx Instructions: 1 sliding scale dose subcutaneously insulin pump brimonidine 0.2 % drops 1 drp ophthalmic (eye) BID levothyroxine 200 mcg tablet 200 mcg PO DAILY Patient Comments: 225mcg sat,Sat,Saturday then 200mcg all other days ipratropium bromide 42 mcg (0.06 %) spray,non-aerosol 2 spray INTRANASAL TID PRN (Reason: allergies) fluticasone propionate 50 mcg/actuation spray,suspension 1 spray INTRANASAL BID PRN (Reason: allergies) progesterone micronized 100 mg capsule 300 mg PO BEDTIME armodafinil 250 mg tablet 250 mg PO DAILY Linzess 290 mcg capsule 290 mcg PO DAILY Rhopressa 0.02 % drops 1 drp ophthalmic (eye) BEDTIME hydralazine 25 mg Tablet 25 mg PO BID Qty: 120 2RF furosemide 40 mg tablet 20 mg PO DAILY PRN (Reason: Weight gain more than 3 pounds) Qty: 90 0RF Rx Instructions: Take potassium only with Lasix Discharge Orders: Discharge Order (Routine); Ordered 08/18/24 Ordered By: Danita Pineda Referrals: Darin Ruiz DO [Physician] - 2 weeks (We have notified your physician's clinic of the need for a follow-up appointment to be scheduled. If you have not heard from them within the next 2 business days, please call them directly. ) Maine Valdivia MD [Physician] - (We have notified your physician's clinic of the need for a follow-up appointment to be scheduled. If you have not heard from them within the next 2 business days, please call them directly. ) Discharge Diet: Usual diet Discharge Activity: Resume usual activity Patient Instructions: Amoxicillin/Clavulanate Potassium (By mouth), Bowel Obstruction (GEN), Opioid Safety Discharge Attestations Time Spent in Discharge Care*: greater than 30 min Quality Metrics Clinical Quality Measures [ No reported AMI, CVA or VTE this stay] Coding Level of Care Code Acute Code for Chg Fwd Diagnoses SBO (small bowel obstruction) K56.609 Opioid-induced constipation K59.03; T40.2X5A Pneumonia J18.9 Laterality: bilateral Lung location: lower lobe of lung Pneumonia type: due to unspecified organism
[2024-08-18 14:04] VITALS: BP 145/63; PULSE 92; RESP 19; TEMP 36.8; O2SAT 99
--- NOTE | 2024-08-18 14:14 | P.PN_ITS ---
Subjective 2 Subjective: And examined. Small bowel follow-through showed no further obstruction. She has had multiple bowel movements this morning and is tolerating clear liquids. Denies any abdominal pain Vitals/I&O/Wt Last Vital Signs Temp 98.3 F 08/18/24 14:04 Pulse 92 08/18/24 14:04 Resp 19 H 08/18/24 14:04 BP 145/63 08/18/24 14:04 Pulse Ox 99 08/18/24 14:04 O2 Del Method Nasal Cannula 08/18/24 12:00 O2 Flow Rate 1 08/17/24 21:08 08/17/24 08/18/24 08/18/24 22:59 06:59 14:59 Intake Total 781.25 / 1520.00 850 / 2370.00 1480 / 1480 Balance 781.25 / 1520.00 850 / 2370.00 1480 / 1480 Weight last 48 hrs Weight 122 lb 3.2 oz Weight 144 lb 9.6 oz Physical Exam 2 Narrative: General: No acute distress, awake alert and oriented x 3 Abdomen: Soft, nontender, nondistended Data 08/18/24 05:02 08/18/24 05:02 A&P Assessment and plan (1) SBO (small bowel obstruction): (2) Opioid-induced constipation: (3) Pneumonia: Qualifiers: Laterality: bilateral Lung location: lower lobe of lung Pneumonia type: due to unspecified organism Qualified Code(s): J18.9 - Pneumonia, unspecified organism Plan Advance to soft diet Surgically stable for discharge if tolerating soft diet Medical management per hospitalist Attestations 2 Medical Necessity Statement*: Per primary Coding Level of Care Code 77159 Diagnoses SBO (small bowel obstruction) K56.609 Opioid-induced constipation K59.03; T40.2X5A Pneumonia J18.9 Laterality: bilateral Lung location: lower lobe of lung Pneumonia type: due to unspecified organism
== END 2024-08-18 14:05 | disposition home or self-care (01) | DRG 388 ==
LOC: ER 16:51 → MEDSURG 18:02
PROVIDERS: Emergency Medicine; Admitting Provider Student in an Organized Health Care Education/Training Program; Emergency Provider Emergency Medicine; Visit Provider Internal Medicine
DX: K56.609 Unspecified intestinal obstruction, unspecified as to partial versus complete obstruction (principal); J69.0 Pneumonitis due to inhalation of food and vomit; I13.0 Hypertensive heart and chronic kidney disease with heart failure and stage 1 through stage 4 chronic kidney disease, or unspecified chronic kidney disease; I50.30 Unspecified diastolic (congestive) heart failure; Z94.83 Pancreas transplant status; K59.03 Drug induced constipation; T40.2X5A Adverse effect of other opioids, initial encounter; G89.29 Other chronic pain; M54.50 Low back pain, unspecified; G25.81 Restless legs syndrome; E10.22 Type 1 diabetes mellitus with diabetic chronic kidney disease; N18.30 Chronic kidney disease, stage 3 unspecified; G47.33 Obstructive sleep apnea (adult) (pediatric); E86.0 Dehydration; Z96.41 Presence of insulin pump (external) (internal); G47.419 Narcolepsy without cataplexy
CPT/HCPCS: 36415; 36416; 36600; 70450; 74018; 74176; 74250; 80048; 80053; 81001; 82009; 82803; 82962; 83605; 83690; 83735; 83880; 85025; 87040; 94640; 96365; 96372; 96375; 99285; J0131; J0360; J1171; J1644; J2212; J2270; J2405; J2470; J2543; J2765; J3480; J7030; J7613; J7626; Q9963

== ENCOUNTER 2024-09-11 10:49 | Inpatient (IN) | payer MEDICARE, OTHER, SELFPAY ==
[2024-09-11] VITALS (14 sets, daily range): BP systolic 135–172; BP diastolic 57–98; PULSE 92–105; RESP 17–22; TEMP 36.7–37.1; O2SAT 88–100; BMI 29.2
--- NOTE | 2024-09-11 11:10 | XR_ITS ---
WS: [id number] Exam: XR abdomen 1V* [id number] Date/Time of Exam: 09/11/2024 11:10 AM Reason For Exam: abd pain Comparison 08/14/2024. There are multiple dilated small bowel loops in the central abdomen. Early or incomplete small bowel obstruction not excluded. There is a small amount of gas in the rectum. Organ margins are obscured. G roundglass appearance of the abdomen might indicate ascites. Neurostimulator is seen overlying the RI GHT pelvis extending into the lower pelvic region. Lumbosacral operative fusion. Additional leads and battery pack superimposes the abdomen. XR/XR abdomen 1V* [id number] IMPRESSION: 1. Dilated small bowel loops in the central abdomen. Early or incomplete small bowel obstruction considered likely. There may also be ascites.
--- NOTE | 2024-09-11 11:46 | ED_ITS ---
HPI - Abdominal Pain 2 General: Chief Complaint: Abdominal Pain Stated Complaint: extended belly, vomitting, unable to eat Time Seen by Provider: 09/11/24 10:55 Source: patient Mode of arrival: ambulatory Limitations: no limitations History of Present Illness: 74 female states she history gastropares is she had recently had been admitted for gastroparesis at [facility] discharged roughly week ago she was discharged on a clinical diet states she is continue to have pain that is worsened since then states today's pain is diffuse in nature rates a 9 out of 10 she is been having some vomiting she denies any fevers. Associated Symptoms: Reports nausea and vomiting; Denies chills, diarrhea, dysuria and fever(s) Related Data Home Medications Medication Instructions Recorded Confirmed armodafinil 250 mg tablet 250 mg PO DAILY 10/26/23 09/11/24 baclofen 10 mg tablet 20 mg PO BID 10/26/23 09/11/24 brimonidine 0.2 % eye drops 1 drp ophthalmic (eye) BID 10/26/23 09/11/24 fluticasone propionate 50 1 spray intranasal BID PRN 10/26/23 09/11/24 mcg/actuation nasal allergies spray,suspension insulin aspart U-100 100 unit/mL See Rx Instructions .Route .COMPLEX 10/26/23 09/11/24 subcutaneous solution (Novolog U-100 Insulin aspart) ipratropium bromide 42 mcg (0.06 2 spray intranasal TID PRN 10/26/23 09/11/24 %) nasal spray allergies latanoprost 0.005 % eye drops 1 drp ophthalmic (eye) DAILY 10/26/23 09/11/24 levothyroxine 200 mcg tablet 200 mcg PO DAILY 10/26/23 09/11/24 linaclotide 290 mcg capsule 290 mcg PO DAILY 10/26/23 09/11/24 (Linzess) netarsudil 0.02 % eye drops 1 drp ophthalmic (eye) BEDTIME 10/26/23 09/11/24 (Rhopressa) progesterone micronized 100 mg 300 mg PO BEDTIME 10/26/23 09/11/24 capsule alprazolam 0.5 mg tablet 0.5 mg PO DAILY 04/04/24 09/11/24 naloxone 4 mg/actuation nasal spray 1 spray intranasal PRN PRN opiate 04/04/24 09/11/24 overdose sacubitril 24 mg-valsartan 26 mg 1 tab PO BID 04/04/24 09/11/24 tablet (Entresto) budesonide-formoterol HFA 160 2 puff inhalation BID 07/06/24 09/11/24 mcg-4.5 mcg/actuation aerosol inhaler (Breyna) estradiol cypionate 5 mg/mL See Rx Instructions .Route .COMPLEX 07/06/24 09/11/24 intramuscular oil levothyroxine 25 mcg tablet 25 mcg PO DAILY 07/06/24 09/11/24 morphine 15 mg tablet,extended 15 mg PO Q8H 07/06/24 09/11/24 release azelastine 137 mcg (0.1 %) nasal 2 spray intranasal BID 08/14/24 09/11/24 spray cyclosporine 0.05 % eye drops in a 1 drp ophthalmic (eye) BID 08/14/24 09/11/24 dropperette (Restasis) glucagon 3 mg/actuation nasal 3 mg intranasal PRN PRN low blood 08/14/24 09/11/24 spray (Baqsimi) sugar lactulose 10 gram/15 mL (15 mL) 20 g PO TID PRN 08/14/24 09/11/24 oral solution constipation/diabetic gastroparesis naloxegol 12.5 mg tablet (Movantik) 12.5 mg PO DAILY 08/14/24 09/11/24 [id number] 3.5 1 drp ophthalmic (eye) QID 08/14/24 09/11/24 mg/mL-10,000 unit/mL-0.1% eye drops ofloxacin 0.3 % eye drops 1 drp ophthalmic (eye) QID 08/14/24 09/11/24 omeprazole 40 mg capsule,delayed 40 mg PO DAILY 08/14/24 09/11/24 release ondansetron 8 mg disintegrating 8 mg PO TID PRN Nausea 08/14/24 09/11/24 tablet pramipexole 0.5 mg tablet 0.5 mg PO DAILY 08/14/24 09/11/24 pregabalin 50 mg capsule 50 mg PO TID 08/14/24 09/11/24 sennosides 8.6 mg-docusate sodium 2 tab PO BEDTIME 08/14/24 09/11/24 50 mg tablet (Stool Softener-Laxative) tretinoin 0.05 % topical cream 1 applic topical BEDTIME 08/14/24 09/11/24 dorzolamide 2 % eye drops 2 drp ophthalmic (eye) DAILY 09/11/24 09/11/24 Previous Rx's Medication Instructions Recorded furosemide 40 mg tablet 20 mg (1/2 x 40 mg) PO DAILY PRN 11/13/23 Weight gain more than 3 pounds #90 tabs hydralazine 25 mg tablet 25 mg PO BID #120 tabs 11/13/23 liothyronine 5 mcg tablet 5 mcg PO DAILY #90 tabs 01/23/24 trazodone 300 mg tablet 300 mg PO BEDTIME #90 tabs 06/25/24 duloxetine 30 mg capsule,delayed 30 mg PO BID #60 caps 07/06/24 release montelukast 10 mg tablet 10 mg PO DAILY #90 tabs 07/06/24 fentanyl 12 mcg/hr transdermal 1 patch transdermal Q72H 30 days 07/24/24 patch #10 ea Allergies Allergy/AdvReac Type Severity Reaction Status Date / Time acetazolamide Allergy ALGY-Rash Verified 08/14/24 12:06 [From Diamox Sequels] angiotensin II acetate, human Allergy Unknown Verified 08/14/24 12:06 diphenhydramine Allergy ALGY-Rash Verified 08/14/24 12:06 [From Benadryl] ketorolac Allergy Unknown Verified 08/14/24 12:06 losartan Allergy ADR-Cough Verified 08/14/24 12:06 methocarbamol Allergy Unknown Verified 08/14/24 12:06 metoclopramide Allergy ADR-Shakine Verified 08/14/24 12:06 ss nitrofurantoin Allergy ADR-Diarrhe Verified 08/14/24 12:06 a NSAIDS (Non-Steroidal Allergy Unknown Verified 08/14/24 12:06 Anti-Inflamma tetracycline Allergy Unknown Verified 08/14/24 12:06 Review of Systems 2 Const: Denies: fever(s), chills, body aches or change in appetite ENMT: Denies: throat pain or dental pain Card: Denies: chest pain Resp: Denies: dyspnea GI: Reports: abdominal pain, nausea and vomiting; Denies: diarrhea : Denies: dysuria Musc: Denies: neck pain or back pain Skin/Breast: Denies: rash Neuro: Denies: headache(s) PFSH ED 2 PFSH: Medical History Encounter for chronic pain management Macular degeneration (senile) of retina, unspecified 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 Conner table attendant at [facility] Seasonal allergies Diabetic neuropathy Hyponatremia Type 1 diabetes mellitus with hypoglycemia Dr. Butt at [facility]; has omnipod Chronic constipation Diabetic gastroparesis? CKD stage 3 due to type [address] Elizalde at [facility] Hyperlipidemia associated with type 2 diabetes mellitus Anemia, chronic disease On hormone replacement therapy on estrogen/progesteron/testosterone through Dr. Tee yuen at [facility] TAVIA on CPAP Chronic low back pain RLS (restless legs syndrome) Therapeutic opioid-induced constipation (OIC) Moderate nausea and vomiting Hyponatremia Hypothyroidism Surgical History History of back surgery Pain stimulator placed at [facility] 2023 Hx of colonoscopy [facility] normal 8.22.12 History of radiofrequency ablation (RFA) of nerve of lumbar spine 12.5.18 L4/5 [facility] History of bladder surgery Interstim 2020; R upper buttock History of reverse total replacement of left shoulder joint 12.14.23 History of lumbar fusion lumbar fusion and 3 other lumbar surgeries History of rectal surgery rectal abscess 2012 History of lumpectomy of left breast benign; 2010 Hx of fusion of cervical spine diskectomy and fusion 2009; fusion 7.20.17 and repeat again 11.19 in [place] Hx of hand surgery bilateral trigger finger release Hx of vitrectomy 1995 Hx of bladder repair surgery sling; 2002 History of carpal tunnel release of both wrists 1994 Hx of cholecystectomy 1993 Hx of pancreas transplant 1993 Hx of total hysterectomy with removal of both tubes and ovaries done for bleeding; 1991 Hx of section 1976 Hx of appendectomy 1965 Hx of tonsillectomy 1954 H/O shoulder surgery bilateral shoulder arthroscopies 2003 and again 2004 Family History Father Dementia Sister Intracranial bleed Rheumatoid arthritis Social History Smoking and tobacco/nicotine status: never used tobacco/nicotine Alcohol intake: never Substance/Drug Use: never Household members: spouse Marital status: Number of children: 2 Highest education level completed: Bachelor's Degree Current occupational status: retired 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; 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 Exam 2 Const: COMMON NORMALS: patient oriented x3 HENMT: COMMON NORMALS: normocephalic and atraumatic HEAD & SCALP: n ormocephalic and atraumatic Eye: COMMON NORMALS: conjunctivae normal CONJUNCTIVA: Yes conjunctivae normal Neck/C-Spine: COMMON NORMALS: full ROM and supple Chest: COMMONS NORMALS: normal inspection of the chest Resp: COMMON NORMALS: normal respiratory effort, No retractions, No use of accessory muscles and clear to auscultation bilaterally AUSCULTATION: clear to auscultation bilaterally Cardio: COMMON NORMALS: regular rate, regular rhythm and No murmurs present (Cardio) RATE: regular rate RHYTHM: regular rhythm GI: COMMON NORMALS: Normal to inspection, nondistended, normoactive bowel sounds present, Soft to palpation and no masses PALPATION: Yes Soft to palpation OTHER: diffuse tenderness Extremity: COMMON NORMALS: normal to inspection and full ROM Neuro: COMMON NORMALS: patient oriented x3, moves all extremities and no focal motor deficits Psych: COMMON NORMALS: mental status grossly normal, Normal thought process present and cooperative THOUGHT PROCESS: Normal thought process present Skin: COMMON NORMALS: no rashes or lesions noted and no wounds GENERAL SKIN EXAM: no rashes or lesions noted Course 2 Vital Signs: Vital signs: Vital Signs Temperature 98.8 F 09/11/24 11:33 Pulse Rate 101 H 09/11/24 11:33 Respiratory Rate 18 09/11/24 14:02 Blood Pressure 142/81 09/11/24 12:52 Pulse Oximetry 95 09/11/24 14:02 Oxygen Delivery Me thod Room Air 09/11/24 11:33 MDM - Abdominal Pain Medical Decision Making Patient presents here with a small bowel obstruction did place an NG tube spoke to hospice will admit at this time patient understands agrees to plan. Medical Records I reviewed the patient's medical records. Lab Data I reviewed the patient's lab results. 09/11/24 12:06 09/11/24 12:06 Labs/Radiology: Radiology Impressions Abdomen X-Ray 09/11/24 11:10 IMPRESSION: 1. Dilated small bowel loops in the central abdomen. Early or incomplete small bowel obstruction considered likely. There may also be ascites. Abdomen/Pelvis CT 09/11/24 13:35 IMPRESSION: 1. Findings compatible with small bowel obstruction. Transition point is difficult to determine but may be in the right lower abdomen in the region of the terminal ileum. Recommend surgical consultation and follow-up imaging as clinically warranted. 2. Stable prominent intra and extrahepatic biliary ductal dilation with common bile duct measuring up to 1.3 cm in diameter. This may be within normal limits for post cholecystectomy patient. Recommend clinical correlation. 3. Left lower lobe atelectasis/infiltrate. ADDENDUM: 09/11/24 [id number] ADDENDUM: THIS REPORT CONTAINS FINDINGS THAT MAY BE CRITICAL TO PATIENT CARE. The findings were verbally communicated via telephone conference with KIYA GAMEZ at 2:42 PM AUTOMOBILE REPAIR SERVICE ESTIMATOR on 09/11/2024. The findings were acknowledged and understood. Laboratory Results WBC 13.81 10^3/uL (3.29-11.43) H 09/11/24 12:06 RBC 4.09 10^6/uL (3.85-5.65) 09/11/24 12:06 Hgb 12.80 g/dL (11.27-16.99) 09/11/24 12:06 Hct 38.9 % (36-47) 09/11/24 12:06 MCV 95.1 fl (85-98) 09/11/24 12:06 MCH 31.3 pg (27-33) 09/11/24 12:06 MCHC 32.9 g/dL (30-55) 09/11/24 12:06 RDW 13.3 % (12.1-15.1) 09/11/24 12:06 Plt Count 377 10^3/cmm (157-399) 09/11/24 12:06 MPV 9.5 fL (7.4-10.4) 09/11/24 12:06 Neut % (Auto) 75.3 % 09/11/24 12:06 Lymph % (Auto) 11.7 % 09/11/24 12:06 [place] % (Auto) 10.9 % 09/11/24 12:06 Eos % (Auto) 0.7 % 09/11/24 12:06 Baso % (Auto) 0.4 % 09/11/24 12:06 Neut # (Auto) 10.40 10^3/uL (1.8-7.7) H 09/11/24 12:06 Lymph # (Auto) 1.6 10^3/uL (0.8-4.8) 09/11/24 12:06 [place] # (Auto) 1.5 10^3/uL (0.2-0.9) H 09/11/24 12:06 Eos # (Auto) 0.1 10^3/uL (0.0-0.8) 09/11/24 12:06 Baso # (Auto) 0.1 10^3/uL (0.0-0.1) 09/11/24 12:06 Nucleated RBC % (auto) 0 % 09/11/24 12:06 Nucleated RBCs # 0.0 /100WBC 09/11/24 12:06 Sodium 135 mmol/L (136-145) L 09/11/24 12:06 Potassium 3.8 mmol/L (3.5-5.1) 09/11/24 12:06 Chloride 93 mmol/L (98-107) L 09/11/24 12:06 Carbon Dioxide 24 mmol/L (22-29) 09/11/24 12:06 Anion Gap 21.8 (5-19) H 09/11/24 12:06 BUN 11 mg/dL (8-23) 09/11/24 12:06 Creatinine 1.0 mg/dL (0.5-0.9) H 09/11/24 12:06 GFR Calculation Not Reportable 09/11/24 12:06 Glucose 157 mg/dL (65-115) H 09/11/24 12:06 Calculated Osmolality 283 mOsm/kg (285-295) L 09/11/24 12:06 Calcium 9.3 mg/dL (8.5-10.5) 09/11/24 12:06 Total Bilirubin 0.5 mg/dL (0.15-1.2) 09/11/24 12:06 AST 12 U/L (0-32) 09/11/24 12:06 ALT 7 U/L (0-33) 09/11/24 12:06 Alkaline Phosphatase 120 U/L (35-105) H 09/11/24 12:06 Total Protein 6.8 g/dL (6.6-8.7) 09/11/24 12:06 Albumin 3.8 g/dL (3.5-5.2) 09/11/24 12:06 Globulin 3.0 g/dL (1.3-4.6) 09/11/24 12:06 Lipase 10 U/L (13-60) L 09/11/24 12:06 All radiology interpretation(s) finalized by discharge Discharge Plan Discharge Patient Disposition: Admitted As Inpatient Clinical Impression: Small bowel obstruction Condition: Stable Prescriptions: No Action levothyroxine 25 mcg tablet 25 mcg PO DAILY Rx Instructions: Saturday, Saturday, and Saturday along with 200mcg [id number] on these three days per week. budesonide-formoterol [Breyna] 160-4.5 mcg/actuation HFA aerosol inhaler 2 puff inhalation BID morphine 15 mg tablet extended release 15 mg PO Q8H estradiol cypionate 5 mg/mL oil See Rx Instructions .ROUTE .COMPLEX Rx Instructions: Take 0.1 mL itramuscular twice a week duloxetine 30 mg capsule,delayed release(DR/EC) 30 mg PO BID Qty: 60 5RF montelukast 10 mg tablet 10 mg PO DAILY Qty: 90 0RF liothyronine 5 mcg tablet 5 mcg PO DAILY Qty: 90 0RF trazodone 300 mg tablet 300 mg PO BEDTIME Qty: 90 3RF fentanyl 12 mcg/hr patch 72 hour 1 patch transdermal Q72H 30 Days Qty: 10 0RF alprazolam 0.5 mg tablet 0.5 mg PO DAILY sacubitril-valsartan [Entresto] 24-26 mg tablet 1 tab PO BID naloxone 4 mg/actuation spray,non-aerosol 1 spray INTRANASAL PRN PRN (Reason: opiate overdose) ondansetron 8 mg tablet,disintegrating 8 mg PO TID PRN (Reason: Nausea) pramipexole 0.5 mg tablet 0.5 mg PO DAILY pregabalin 50 mg capsule 50 mg PO TID sennosides-docusate sodium [Stool Softener-Laxative] 8.6-50 mg tablet 2 tab PO BEDTIME lactulose 10 gram/15 mL (15 mL) solution 20 g PO TID PRN (Reason: constipation/diabetic gastroparesis) Rx Instructions: BRAND NAME ONLY ofloxacin 0.3 % drops 1 drp ophthalmic (eye) QID tretinoin 0.05 % cream 1 applic TOPICAL BEDTIME omeprazole 40 mg capsule,delayed release(DR/EC) 40 mg PO DAILY neomycin-polymyxin B-dexameth 3.5mg/mL-10,000 unit/mL-0.1 % drops,suspension 1 drp ophthalmic (eye) QID azelastine 137 mcg (0.1 %) spray,non-aerosol 2 spray INTRANASAL BID cyclosporine [Restasis] 0.05 % dropperette 1 drp ophthalmic (eye) BID Movantik 12.5 mg tablet 12.5 mg PO DAILY Baqsimi 3 mg/actuation spray,non-aerosol 3 mg INTRANASAL PRN PRN (Reason: low blood sugar) dorzolamide 2 % drops 2 drp ophthalmic (eye) DAILY latanoprost 0.005 % drops 1 drp ophthalmic (eye) DAILY baclofen 10 mg tablet 20 mg PO BID insulin aspart U-100 [Novolog U-100 Insulin aspart] 100 unit/mL solution See Rx Instructions .ROUTE .COMPLEX Rx Instructions: 1 sliding scale dose subcutaneously insulin pump brimonidine 0.2 % drops 1 drp ophthalmic (eye) BID levothyroxine 200 mcg tablet 200 mcg PO DAILY Patient Comments: 225mcg mon,Wed,Saturday then 200mcg all other days ipratropium bromide 42 mcg (0.06 %) spray,non-aerosol 2 spray INTRANASAL TID PRN (Reason: allergies) fluticasone propionate 50 mcg/actuation spray,suspension 1 spray INTRANASAL BID PRN (Reason: allergies) progesterone micronized 100 mg capsule 300 mg PO BEDTIME armodafinil 250 mg tablet 250 mg PO DAILY Linzess 290 mcg capsule 290 mcg PO DAILY Rhopressa 0.02 % drops 1 drp ophthalmic (eye) BEDTIME hydralazine 25 mg Tablet 25 mg PO BID Qty: 120 2RF furosemide 40 mg tablet 20 mg PO DAILY PRN (Reason: Weight gain more than 3 pounds) Qty: 90 0RF Rx Instructions: Take potassium only with Lasix Coding Level of Care Code ED Drug Abuse Treatment Specialist for Chg Antonio
[2024-09-11 12:12] LABS: Basophils # 0.1 10^3/uL (0.0-0.1); Basophils % 0.4 %; Eosinophils # 0.1 10^3/uL (0.0-0.8); Eosinophils % 0.7 %; Hematocrit 38.9 % (36-47); Lymphocytes # 1.6 10^3/uL (0.8-4.8); Lymphocytes % 11.7 %; Mean Corpuscular HGB Conc 32.9 g/dL (30-55); Mean Corpuscular Hemoglobin 31.3 pg (27-33); Mean Corpuscular Volume 95.1 fl (85-98); Mean Platelet Volume 9.5 fL (7.4-10.4); Monocytes # 1.5 10^3/uL (0.2-0.9); Monocytes % 10.9 %; Neutrophils % 75.3 %; Nucleated Red Blood Cells % 0 %; Platelet Count 377 10^3/cmm (157-399); Red Blood Count 4.09 10^6/uL (3.85-5.65); Red Cell Distribution Width 13.3 % (12.1-15.1); White Blood Count 13.81 10^3/uL (3.29-11.43)
[2024-09-11 12:36] LABS: Alanine Aminotransferase 7 U/L (0-33); Albumin Level 3.8 g/dL (3.5-5.2); Alkaline Phosphatase 120 U/L (35-105); Anion Gap 21.8 (5-19); Aspartate Amino Transferase 12 U/L (0-32); Blood Urea Nitrogen 11 mg/dL (8-23); Calcium 9.3 mg/dL (8.5-10.5); Carbon Dioxide 24 mmol/L (22-29); Chloride 93 mmol/L (98-107); Creatinine Clr Calc Pharmacy 49.6052; Glucose 157 mg/dL (65-115); Lipase 10 U/L (13-60); Osmolality Calculated 283 mOsm/kg (285-295); Potassium 3.8 mmol/L (3.5-5.1); Sodium 135 mmol/L (136-145); Total Bilirubin 0.5 mg/dL (0.15-1.2); Total Protein 6.8 g/dL (6.6-8.7)
[2024-09-11] MEDS: sodium chloride 0.9% 1,000 ML 999 ML IV (12:55)
[2024-09-11] MEDS: morphine 4 mg/mL SDV 1 mL IVP ×2 (12:56→14:02)
[2024-09-11] MEDS: ondansetron 2 mg/ML SDV 2 mL 4 MG IVP ×2 (12:56→20:11)
--- NOTE | 2024-09-11 13:35 | CTR_ITS ---
PROCEDURE INFORMATION: Exam: CT Abdomen And Pelvis Without Contrast Exam date and time: 09/11/2024 2:06 PM Age: 74 years old Clinical indication: Abdominal pain; Generalized; Prior surgery; Surgery date: 6+ months; Surgery type: Back stimulator; Additional info: Abd pain TECHNIQUE: Imaging protocol: Computed tomography of the abdomen and pelvis without contrast. Radiation optimization: All CT scans at this facility use at least one of these dose optimization techniques: automated exposure control; mA and/or kV adjustment per patient size (includes targeted exams where dose is matched to clinical indication); or iterative reconstruction. COMPARISON: CT abdomen pelvis wo con [id number] 08/14/2024 2:56 PM RADIATION DOSE METRICS: Total DLP (mGy-cm): 767.66 FINDINGS: Limitations: This study is limited without the use of IV and oral contrast, particularly for the evaluation of infection and malignancy. Tubes, catheters and devices: Spinal cord stimulator generator within the subcutaneous tissues of the right lower back. Associated spinal cord stimulator leads are seen entering the spinal canal at the T11-T12 level with tips of the leads at T8-T9 level. Lungs: Left lower lobe atelectasis/infiltrate. Liver: The liver is unremarkable in appearance. Gallbladder and biliary ducts: Status post cholecystectomy. Stable prominent intra and extrahepatic biliary ductal dilation with common bile duct measuring up to 1.3 cm in diameter. This may be within normal limits for post cholecystectomy patient. Recommend clinical correlation. Pancreas: Atrophic pancreas. Spleen: A few scattered calcified splenic granulomas. Adrenal glands: Adrenal glands are unremarkable in appearance. Kidneys and ureters: Kidneys and ureters are unremarkable in appearance. No hydronephrosis. No radio-opaque stone. Stomach and bowel: Dilated loops of small bowel measuring up to 4.2 cm in diameter. Fluid-filled distended stomach. Exact point of transition is difficult to determine on this study but may be in the right lower abdomen. Appendix: Appendix is not seen, however, there are no secondary signs of appendicitis. Intraperitoneal space: Small amount of abdominal and pelvic ascites. Vasculature: Calcified plaque is seen involving the abdominal aorta and branch vessels. Lymph nodes: No abdominal or pelvic lymphadenopathy. Urinary bladder: Bladder unremarkable. Reproductive: Uterus not identified Bones/joints: Posterior spinal hardware fixation spanning L4 through S1. Soft tissues: Visualized subcutaneous tissues are unremarkable. CT/CT abdomen pelvis wo con [id number] IMPRESSION: 1. Findings compatible with small bowel obstruction. Transition point is difficult to determine but may be in the right lower abdomen in the region of the terminal ileum. Recommend surgical consultation and follow-up imaging as clinically warranted. 2. Stable prominent intra and extrahepatic biliary ductal dilation with common bile duct measuring up to 1.3 cm in diameter. This may be within normal limits for post cholecystectomy patient. Recommend clinical correlation. 3. Left lower lobe atelectasis/infiltrate.
[2024-09-11] MEDS: LORazepam 2 mg/mL INJ 1 mL 0.5 MG IVP (14:02)
[2024-09-11] MEDS: LORazepam 2 mg/mL INJ 1 mL 1 MG IVP (14:52)
--- NOTE | 2024-09-11 17:12 | P.HP_ITS ---
Providers/Chief Complaint 2 Admitting Physician: Berlin Burks MD Chief Complaint: extended belly, vomitting, unable to eat History of Present Illness Meryl Ling is a 74 year old female with past medical history of chronic back pain on chronic pain medication, type 1 diabetes mellitus on insulin pump, constipation with recurrent episode of bowel obstruction, hypothyroidism, narcolepsy, and anxiety presents to the ER today because of abdominal pain ongoing for last 4 days with nausea and vomiting for last 2 days. She was most recently at [facility] and was discharged on August 18 when she was treated for high-grade small bowel obstruction and aspiration pneumonia. Since then she was last discharged [address] [facility]. She was treated for constipation. Currently she has been on clear liquid diet and has not been able to advance because of nausea since her discharge from [facility]. In the ER she was found to have high-grade small bowel obstruction hence hospital service was requested. Review of Systems 2 General: Reports: 10 or more systems reviewed and unremarkable except in HPI and below Const: Denies: fever(s), chills, body aches, change in appetite, change in weight, malaise, night sweats, diaphoresis, change in sleep pattern, daytime sleepiness or snoring Eyes: Denies: change in vision, blurry vision, photophobia, eye discomfort or eye discharge ENMT: Denies: throat pain, enlarged tonsils, hoarseness, mouth pain, oral sores, dry mouth, tinnitus, nasal congestion or post nasal drip Card: Denies: chest pain, palpitations, irregular heart rhythm, edema, swelling of feet/ankles, lightheadedness, syncope, pre-syncope, dyspnea on exertion, orthopnea, leg pain with exertion or acrocyanosis Resp: Denies: dyspnea, productive cough, non-productive cough, wheezing, stridor, pain on inspiration, change in phlegm color, hemoptysis or chest congestion GI: Denies: abdominal pain, nausea, vomiting, hematemesis, coffee ground emesis, dysphagia, heartburn, diarrhea, constipation, bloating, GI cramping, change in bowel habits, pain on defecation, hematochezia or melena : Denies: flank pain, dysuria, urinary frequency, urinary urgency, urinary hesitancy, nocturia or hematuria Musc: Denies: neck pain, back pain, extremity pain, joint pain, joint swelling, joint redness, joint stiffness or limited range of motion Neuro: Denies: headache(s), numbness in extremities, weakness in extremities, sensory changes, lack of coordination, difficulty walking, frequent falls, dizziness, vertigo, confusion, Slurred speech present, difficulty communicating thoughts or seizure-like activity Psych: Denies: anxiety, depression, mood swings, panic attacks, hopelessness or irritability Endo: Denies: polyuria, polydipsia, tired all the time, cold intolerance, excessive sweating, flushing or heat intolerance Lionel/Lymph: Denies: easy bruising or easy bleeding All/Imm: Denies: tongue swelling, facial swelling or acute wheezing Medications/Allergies Home Medications Medication Instructions Recorded Confirmed Last Taken Type armodafinil 250 mg tablet 250 mg PO DAILY 10/26/23 09/11/24 08/13/24 History baclofen 10 mg tablet 20 mg PO BID 10/26/23 09/11/24 08/13/24 History brimonidine 0.2 % eye drops 1 drp ophthalmic (eye) BID 10/26/23 09/11/24 08/13/24 History fluticasone propionate 50 1 spray intranasal BID PRN 10/26/23 09/11/24 03/31/24 History mcg/actuation nasal allergies spray,suspension insulin aspart U-100 100 unit/mL See Rx Instructions .Route .COMPLEX 10/26/23 09/11/24 08/14/24 History subcutaneous solution (Novolog U-100 Insulin aspart) ipratropium bromide 42 mcg (0.06 2 spray intranasal TID PRN 10/26/23 09/11/24 03/30/24 History %) nasal spray allergies latanoprost 0.005 % eye drops 1 drp ophthalmic (eye) DAILY 10/26/23 09/11/24 08/13/24 History levothyroxine 200 mcg tablet 200 mcg PO DAILY 10/26/23 09/11/24 08/13/24 History linaclotide 290 mcg capsule 290 mcg PO DAILY 10/26/23 09/11/24 08/13/24 History (Linzess) netarsudil 0.02 % eye drops 1 drp ophthalmic (eye) BEDTIME 10/26/23 09/11/24 08/12/24 History (Rhopressa) progesterone micronized 100 mg 300 mg PO BEDTIME 10/26/23 09/11/24 08/12/24 History capsule furosemide 40 mg tablet 20 mg (1/2 x 40 mg) PO DAILY PRN 11/13/23 09/11/24 04/04/24 Rx Weight gain more than 3 pounds #90 tabs hydralazine 25 mg tablet 25 mg PO BID #120 tabs 11/13/23 09/11/24 08/13/24 Rx liothyronine 5 mcg tablet 5 mcg PO DAILY #90 tabs 01/23/24 09/11/24 08/13/24 Rx alprazolam 0.5 mg tablet 0.5 mg PO DAILY 04/04/24 09/11/24 08/12/24 History naloxone 4 mg/actuation nasal spray 1 spray intranasal PRN PRN opiate 04/04/24 09/11/24 Unknown History overdose sacubitril 24 mg-valsartan 26 mg 1 tab PO BID 04/04/24 09/11/24 08/13/24 History tablet (Entresto) trazodone 300 mg tablet 300 mg PO BEDTIME #90 tabs 06/25/24 09/11/24 08/12/24 Rx budesonide-formoterol HFA 160 2 puff inhalation BID 07/06/24 09/11/24 08/13/24 History mcg-4.5 mcg/actuation aerosol inhaler (Breyna) duloxetine 30 mg capsule,delayed 30 mg PO BID #60 caps 07/06/24 09/11/24 08/13/24 Rx release estradiol cypionate 5 mg/mL See Rx Instructions .Route .COMPLEX 07/06/24 09/11/24 Unknown History intramuscular oil levothyroxine 25 mcg tablet 25 mcg PO DAILY 07/06/24 09/11/24 08/12/24 History montelukast 10 mg tablet 10 mg PO DAILY #90 tabs 07/06/24 09/11/24 08/12/24 Rx morphine 15 mg tablet,extended 15 mg PO Q8H 07/06/24 09/11/24 08/13/24 History release fentanyl 12 mcg/hr transdermal 1 patch transdermal Q72H 30 days 07/24/24 09/11/24 Unknown Rx patch #10 ea azelastine 137 mcg (0.1 %) nasal 2 spray intranasal BID 08/14/24 09/11/24 08/12/24 History spray cyclosporine 0.05 % eye drops in a 1 drp ophthalmic (eye) BID 08/14/24 09/11/24 08/12/24 History dropperette (Restasis) glucagon 3 mg/actuation nasal 3 mg intranasal PRN PRN low blood 08/14/24 09/11/24 Unknown History spray (Baqsimi) sugar lactulose 10 gram/15 mL (15 mL) 20 g PO TID PRN 08/14/24 09/11/24 Unknown History oral solution constipation/diabetic gastroparesis naloxegol 12.5 mg tablet (Movantik) 12.5 mg PO DAILY 08/14/24 09/11/24 08/12/24 History munqhqpl-nblmcxusq-camivfhy 3.5 1 drp ophthalmic (eye) QID 08/14/24 09/11/24 08/12/24 History mg/mL-10,000 unit/mL-0.1% eye drops ofloxacin 0.3 % eye drops 1 drp ophthalmic (eye) QID 08/14/24 09/11/24 08/12/24 History omeprazole 40 mg capsule,delayed 40 mg PO DAILY 08/14/24 09/11/24 08/13/24 History release ondansetron 8 mg disintegrating 8 mg PO TID PRN Nausea 08/14/24 09/11/24 Unknown History tablet pramipexole 0.5 mg tablet 0.5 mg PO DAILY 08/14/24 09/11/24 08/13/24 History pregabalin 50 mg capsule 50 mg PO TID 08/14/24 09/11/24 08/13/24 History sennosides 8.6 mg-docusate sodium 2 tab PO BEDTIME 08/14/24 09/11/24 08/12/24 History 50 mg tablet (Stool Softener-Laxative) tretinoin 0.05 % topical cream 1 applic topical BEDTIME 08/14/24 09/11/24 Unknown History dorzolamide 2 % eye drops 2 drp ophthalmic (eye) DAILY 09/11/24 09/11/24 Unknown History Allergies Allergy/AdvReac Type Severity Reaction Status Date / Time acetazolamide Allergy ALGY-Rash Verified 08/14/24 12:06 [From Diamox Sequels] angiotensin II acetate, human Allergy Unknown Verified 08/14/24 12:06 diphenhydramine Allergy ALGY-Rash Verified 08/14/24 12:06 [From Benadryl] ketorolac Allergy Unknown Verified 08/14/24 12:06 losartan Allergy ADR-Cough Verified 08/14/24 12:06 methocarbamol Allergy Unknown Verified 08/14/24 12:06 metoclopramide Allergy ADR-Shakine Verified 08/14/24 12:06 ss nitrofurantoin Allergy ADR-Diarrhe Verified 08/14/24 12:06 a NSAIDS (Non-Steroidal Allergy Unknown Verified 08/14/24 12:06 Anti-Inflamma tetracycline Allergy Unknown Verified 08/14/24 12:06 PFSH Acute 2 PFSH: Medical History Encounter for chronic pain management Macular degeneration (senile) of retina, unspecified 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 Conner charge preparation technician at [facility] Seasonal allergies Diabetic neuropathy Hyponatremia Type 1 diabetes mellitus with hypoglycemia Dr. Butt at [facility]; has omnipod Chronic constipation Diabetic gastroparesis? CKD stage 3 due to type [address] Elizalde at [facility] Hyperlipidemia associated with type 2 diabetes mellitus Anemia, chronic disease On hormone replacement therapy on estrogen/progesteron/testosterone through Dr. Tee yuen at [facility] TAVIA on CPAP Chronic low back pain RLS (restless legs syndrome) Therapeutic opioid-induced constipation (OIC) Moderate nausea and vomiting Hyponatremia Hypothyroidism Surgical History History of back surgery Pain stimulator placed at [facility] 2023 Hx of colonoscopy [facility] normal 8.22.12 History of radiofrequency ablation (RFA) of nerve of lumbar spine 12.5.18 L4/5 [facility] History of bladder surgery Interstim 2020; R upper buttock History of reverse total replacement of left shoulder joint 12.14.23 History of lumbar fusion lumbar fusion and 3 other lumbar surgeries History of rectal surgery rectal abscess 2012 History of lumpectomy of left breast benign; 2010 Hx of fusion of cervical spine diskectomy and fusion 2008; fusion 7.20.17 and repeat again 11.19 in [facility] Hx of hand surgery bilateral trigger finger release Hx of vitrectomy 1995 Hx of bladder repair surgery sling; 2002 History of carpal tunnel release of both wrists 1994 Hx of cholecystectomy 1993 Hx of pancreas transplant 1993 Hx of total hysterectomy with removal of both tubes and ovaries done for bleeding; 1991 Hx of section 1976 Hx of appendectomy 1965 Hx of tonsillectomy 1954 H/O shoulder surgery bilateral shoulder arthroscopies 2003 and again 2004 Family History Father Dementia Sister Intracranial bleed Rheumatoid arthritis Social History Smoking and tobacco/nicotine status: never used tobacco/nicotine Alcohol intake: never Substance/Drug Use: never Household members: spouse Marital status: Number of children: 2 Highest education level completed: Bachelor's Degree Current occupational status: retired 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; 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 Vitals/I&O/Wt Last Vital Signs Temp 98.8 F 09/11/24 11:33 Pulse 101 H 09/11/24 11:33 Resp 18 09/11/24 14:02 BP 142/81 09/11/24 12:52 Pulse Ox 95 09/11/24 14:02 O2 Del Method Room Air 09/11/24 11:33 09/11/24 09/11/24 09/11/24 06:59 14:59 22:59 Intake Total 1000 / 1000 Balance 1000 / 1000 Weight last 48 hrs Weight 77.111 kg Physical Exam 2 Narrative: General: No acute distress, AO x3, NG tube in place HEENT: PERRLA, pupils bilaterally equal and reactive Chest: Normal vesicular breath sounds, no added sounds, equal good air entry bilaterally CVS: S1-S2 regular, no murmurs, no tachycardia, no gallops, no rubs Abdomen: Soft, distended, generalized tenderness, no organomegaly, bowel sounds present but sluggish Neuro: No focal deficits, no facial deformity, AO x3, power 5/5 in all limbs Data 09/11/24 12:06 09/11/24 12:06 A&P Assessment and plan (1) Small bowel obstruction: Most likely in setting of gastroparesis and constipation in setting of chronic opiate use. CT abdomen pelvis appreciated. Will consult surgery for further recommendations. For now plan with conservative treatment with NG tube placement and decompression. NPO. Normal saline at 75 cc/h. 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 Takes pain medication for back pain Will start on Dilaudid 0.5 every 6 hours as needed to avoid withdrawal. Continue with home dose of fentanyl patch. (3) CKD stage 3 due to type 1 diabetes mellitus: Baseline creatinine seems to be around 1.2-1.4. Currently 1. Continue to monitor daily. Medical reconciliation done for nephrotoxic drugs. (4) Type 1 diabetes mellitus with hypoglycemia: Last A1c was 5.6. Patient has insulin pump. Will continue with insulin pump for now. Insulin sliding scale low-dose protocol every 6 hours as needed otherwise. Monitor for hypoglycemia. Qualifiers: Diabetes mellitus complication detail: without coma Qualified Code(s): E10.649 - Type 1 diabetes mellitus with hypoglycemia without coma (5) Hypertension: Goal pressure less than 140/90 mmHg. Takes hydralazine at home. IV hydralazine 10 mg every 6 hours as needed for systolic blood pressure of more than 160 mmHg, metoprolol 5 mg every 4 hours or admitted for heart rate of more than 100 bpm. Hold off metoprolol for systolic blood pressure of less than 100 mmHg. (6) Heart failure with preserved ejection fraction: Chronic history. Currently euvolemic. Continue to monitor. Qualifiers: Heart failure chronicity: acute on chronic Qualified Code(s): I50.33 - Acute on chronic diastolic (congestive) heart failure (7) Hypothyroidism: Check TSH. Takes levothyroxine 225 mcg at home. If not able to take orally for next 48 hours we will switch to IV. Qualifiers: Hypothyroidism type: postablative Qualified Code(s): E89.0 - Postprocedural hypothyroidism Plan Full code N.p.o. Protonix OPD prophylaxis Heparin 5000 Q12 hourly for DVT prophylaxis Hold off on other chronic home medication including modafinil, baclofen, duloxetine, Linzess for now. Attestations 2 Medical Necessity Statement*: Admission for 2 midnights for management of small bowel obstruction in a patient with type 1 diabetes mellitus while conservative treatment is tried Diagnoses Small bowel obstruction K56.609 Opioid-induced constipation K59.03; T40.2X5A CKD stage 3 due to type 1 diabetes mellitus E10.22; N18.30 Type 1 diabetes mellitus with hypoglycemia and without coma E10.649 Diabetes mellitus complication detail: without coma Hypertension I10 Acute on chronic heart failure with preserved ejection fraction I50.33 Heart failure chronicity: acute on chronic Postablative hypothyroidism E89.0 Hypothyroidism type: postablative
--- NOTE | 2024-09-11 17:25 | XRR_ITS ---
PROCEDURE INFORMATION: Exam: XR Chest Exam date and time: 09/11/2024 5:27 PM Age: 74 years old Clinical indication: Device placement; Ng tube; Prior surgery; Surgery date: 6+ months; Surgery type: Spine/bladder/pain pump; Additional info: Ng tube confirmation TECHNIQUE: Imaging protocol: Radiologic exam of the chest. Views: 1 view. COMPARISON: CT chest con [id number] 04/20/2024 3:50 PM FINDINGS: Tubes, catheters and devices: A nasogastric tube is in place with the distal tip overlying the stomach, in radiographically appropriate position. Lungs: Left basilar atelectasis. Pleural spaces: Unremarkable. No pleural effusion. No pneumothorax. Heart/Mediastinum: Unremarkable. No cardiomegaly. Bones/joints: No acute osseous abnormalities are seen. Gastrointestinal tract: Prominent segments of small bowel, better seen on CT earlier in the day. XR/XR chest 1V [id number] IMPRESSION: Nasogastric tube in radiographically appropriate position.
--- NOTE | 2024-09-11 17:40 | P.CONIM_ITS ---
Providers/Reason For Consult 2 Consulting Physician/Specialty*: General Surgery Reason for Consult*: Small bowel obstruction Attending Physician: Berlin Burks MD History of Present Illness History of Present Illness Meryl Ling is a 74 year old female With multiple medical comorbidities and history of chronic pain management using opioids, she also has history of chronic constipation and multiple episodes of SBO, her surgical history is remarkable for pancreatic transplant, cholecystectomy, hysterectomy and C- section. She presents to the hospital with 24 hours of abdominal pain distention nausea and vomit, she has had several episodes of SBO recently, last one clear about 2 weeks ago. She has been passing gas and having some bowel movements.Per patient report previous episodes of SBO has resolved with nonoperative management and she has also received methylnaltrexone with good results in the past. Review of Systems 2 General: Reports: 10 or more systems reviewed and unremarkable except in HPI and below Medications/Allergies Home Medications Medication Instructions Recorded Confirmed Last Taken Type armodafinil 250 mg tablet 250 mg PO DAILY 10/26/23 09/11/24 08/13/24 History baclofen 10 mg tablet 20 mg PO BID 10/26/23 09/11/24 08/13/24 History brimonidine 0.2 % eye drops 1 drp ophthalmic (eye) BID 10/26/23 09/11/24 08/13/24 History fluticasone propionate 50 1 spray intranasal BID PRN 10/26/23 09/11/24 03/31/24 History mcg/actuation nasal allergies spray,suspension insulin aspart U-100 100 unit/mL See Rx Instructions .Route .COMPLEX 10/26/23 09/11/24 08/14/24 History subcutaneous solution (Novolog U-100 Insulin aspart) ipratropium bromide 42 mcg (0.06 2 spray intranasal TID PRN 10/26/23 09/11/24 03/30/24 History %) nasal spray allergies latanoprost 0.005 % eye drops 1 drp ophthalmic (eye) DAILY 10/26/23 09/11/24 08/13/24 History levothyroxine 200 mcg tablet 200 mcg PO DAILY 10/26/23 09/11/24 08/13/24 History linaclotide 290 mcg capsule 290 mcg PO DAILY 10/26/23 09/11/24 08/13/24 History (Linzess) netarsudil 0.02 % eye drops 1 drp ophthalmic (eye) BEDTIME 10/26/23 09/11/24 08/12/24 History (Rhopressa) progesterone micronized 100 mg 300 mg PO BEDTIME 10/26/23 09/11/24 08/12/24 History capsule furosemide 40 mg tablet 20 mg (1/2 x 40 mg) PO DAILY PRN 11/13/23 09/11/24 04/04/24 Rx Weight gain more than 3 pounds #90 tabs hydralazine 25 mg tablet 25 mg PO BID #120 tabs 11/13/23 09/11/24 08/13/24 Rx liothyronine 5 mcg tablet 5 mcg PO DAILY #90 tabs 01/23/24 09/11/24 08/13/24 Rx alprazolam 0.5 mg tablet 0.5 mg PO DAILY 04/04/24 09/11/24 08/12/24 History naloxone 4 mg/actuation nasal spray 1 spray intranasal PRN PRN opiate 04/04/24 09/11/24 Unknown History overdose sacubitril 24 mg-valsartan 26 mg 1 tab PO BID 04/04/24 09/11/24 08/13/24 History tablet (Entresto) trazodone 300 mg tablet 300 mg PO BEDTIME #90 tabs 06/25/24 09/11/24 08/12/24 Rx budesonide-formoterol HFA 160 2 puff inhalation BID 07/06/24 09/11/24 08/13/24 History mcg-4.5 mcg/actuation aerosol inhaler (Breyna) duloxetine 30 mg capsule,delayed 30 mg PO BID #60 caps 07/06/24 09/11/24 08/13/24 Rx release estradiol cypionate 5 mg/mL See Rx Instructions .Route .COMPLEX 07/06/24 09/11/24 Unknown History intramuscular oil levothyroxine 25 mcg tablet 25 mcg PO DAILY 07/06/24 09/11/24 08/12/24 History montelukast 10 mg tablet 10 mg PO DAILY #90 tabs 07/06/24 09/11/24 08/12/24 Rx morphine 15 mg tablet,extended 15 mg PO Q8H 07/06/24 09/11/24 08/13/24 History release fentanyl 12 mcg/hr transdermal 1 patch transdermal Q72H 30 days 07/24/24 09/11/24 Unknown Rx patch #10 ea azelastine 137 mcg (0.1 %) nasal 2 spray intranasal BID 08/14/24 09/11/24 08/12/24 History spray cyclosporine 0.05 % eye drops in a 1 drp ophthalmic (eye) BID 08/14/24 09/11/24 08/12/24 History dropperette (Restasis) glucagon 3 mg/actuation nasal 3 mg intranasal PRN PRN low blood 08/14/24 09/11/24 Unknown History spray (Baqsimi) sugar lactulose 10 gram/15 mL (15 mL) 20 g PO TID PRN 08/14/24 09/11/24 Unknown History oral solution constipation/diabetic gastroparesis naloxegol 12.5 mg tablet (Movantik) 12.5 mg PO DAILY 08/14/24 09/11/24 08/12/24 History vszdmqtn-utjbjchcu-hnsikvec 3.5 1 drp ophthalmic (eye) QID 08/14/24 09/11/24 08/12/24 History mg/mL-10,000 unit/mL-0.1% eye drops ofloxacin 0.3 % eye drops 1 drp ophthalmic (eye) QID 08/14/24 09/11/24 08/12/24 History omeprazole 40 mg capsule,delayed 40 mg PO DAILY 08/14/24 09/11/24 08/13/24 History release ondansetron 8 mg disintegrating 8 mg PO TID PRN Nausea 08/14/24 09/11/24 Unknown History tablet pramipexole 0.5 mg tablet 0.5 mg PO DAILY 08/14/24 09/11/24 08/13/24 History pregabalin 50 mg capsule 50 mg PO TID 08/14/24 09/11/24 08/13/24 History sennosides 8.6 mg-docusate sodium 2 tab PO BEDTIME 08/14/24 09/11/24 08/12/24 History 50 mg tablet (Stool Softener-Laxative) tretinoin 0.05 % topical cream 1 applic topical BEDTIME 08/14/24 09/11/24 Unknown History dorzolamide 2 % eye drops 2 drp ophthalmic (eye) DAILY 09/11/24 09/11/24 Unknown History Allergies Allergy/AdvReac Type Severity Reaction Status Date / Time acetazolamide Allergy ALGY-Rash Verified 08/14/24 12:06 [From Diamox Sequels] angiotensin II acetate, human Allergy Unknown Verified 08/14/24 12:06 diphenhydramine Allergy ALGY-Rash Verified 08/14/24 12:06 [From Benadryl] ketorolac Allergy Unknown Verified 08/14/24 12:06 losartan Allergy ADR-Cough Verified 08/14/24 12:06 methocarbamol Allergy Unknown Verified 08/14/24 12:06 metoclopramide Allergy ADR-Shakine Verified 08/14/24 12:06 ss nitrofurantoin Allergy ADR-Diarrhe Verified 08/14/24 12:06 a NSAIDS (Non-Steroidal Allergy Unknown Verified 08/14/24 12:06 Anti-Inflamma tetracycline Allergy Unknown Verified 08/14/24 12:06 PFSH Acute 2 PFSH: Medical History Encounter for chronic pain management Macular degeneration (senile) of retina, unspecified 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 Butt at [facility]; has omnipod Chronic constipation Diabetic gastroparesis? CKD stage 3 due to type [address] Elizalde at [facility] Hyperlipidemia associated with type 2 diabetes mellitus Anemia, chronic disease On hormone replacement therapy on estrogen/progesteron/testosterone through Dr. Tee yuen at [facility] TAVIA on CPAP Chronic low back pain RLS (restless legs syndrome) Therapeutic opioid-induced constipation (OIC) Moderate nausea and vomiting Hyponatremia Hypothyroidism Surgical History History of back surgery Pain stimulator placed at [facility] 2023 Hx of colonoscopy [facility] normal 8.22.12 History of radiofrequency ablation (RFA) of nerve of lumbar spine 12.5.18 L4/5 [facility] History of bladder surgery Interstim 2020; R upper buttock History of reverse total replacement of left shoulder joint 12.14.23 History of lumbar fusion lumbar fusion and 3 other lumbar surgeries History of rectal surgery rectal abscess 2012 History of lumpectomy of left breast benign; 2010 Hx of fusion of cervical spine diskectomy and fusion 2009; fusion 7.20.17 and repeat again 11.19 in [facility] Hx of hand surgery bilateral trigger finger release Hx of vitrectomy 1995 Hx of bladder repair surgery sling; 2002 History of carpal tunnel release of both wrists 1994 Hx of cholecystectomy 1993 Hx of pancreas transplant 1993 Hx of total hysterectomy with removal of both tubes and ovaries done for bleeding; 1991 Hx of section 1976 Hx of appendectomy 1965 Hx of tonsillectomy 1954 H/O shoulder surgery bilateral shoulder arthroscopies 2003 and again 2004 Family History Father Dementia Sister Intracranial bleed Rheumatoid arthritis Social History Smoking and tobacco/nicotine status: never used tobacco/nicotine Alcohol intake: never Substance/Drug Use: never Household members: spouse Marital status: Number of children: 2 Highest education level completed: Bachelor's Degree Current occupational status: retired 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 Nose : Mucous membranes are without erythema. Lungs : Equal chest rise bilaterally, no use of accessory muscles, trachea is midline. CV : Rate and rhythm are normal. Abdomen : Soft, Distended, there is bowel sounds, there is moderate tenderness no evidence of peritoneal signs. Extremities : No edema. Upper extremities are normal bilaterally. Back : non-tender to palpation, no CVA tenderness. Data 09/11/24 12:06 09/11/24 12:06 A&P Assessment and plan (1) Chronic constipation: (2) Opioid-induced constipation: (3) Small bowel obstruction: (4) Hypertension: (5) Type 1 diabetes mellitus with hypoglycemia: Qualifiers: Diabetes mellitus complication detail: without coma Qualified Code(s): E10.649 - Type 1 diabetes mellitus with hypoglycemia without coma Plan After complete history, physical examination and review of all available clinical data the following is my assessment. This a patient with multiple comorbidities who presents with SBO in the setting of aggressive opioid use and multiple intra-abdominal surgeries. CT scan of the abdomen pelvis show evidence of a small bowel obstruction with possible transition point at the distal ileum as all the small bowel appears to be dilated, there is no current findings suggestive of bowel compromise. Vital signs are stable, only mild tachycardia, white count is 13 today is lower than during her last presentation with SBO.With this findings I think the most appropriate course of action is to proceed with conservative management of a small bowel obstruction. I have discussed with the patient I have informed her that I do not think we should offer any kind of surgical intervention and there is there is evidence of bowel compromise or persistent obstruction after multiple days of decompression, she is a very high risk candidate for any kind of surgical intervention and especially high risk for any abdominal operations due to the history of major abdominal surgery as well as chronic bowel dilation due to Poor bowel motility after opioid use as well as diabetes. An NG tube was inserted at the bedside by myself and 1.7 L of bilious fluid was obtained immediately. Patient shows some relief of her symptoms after decompression. X-ray obtained at the bedside show evidence of NG tube in good position at the level of the body of the stomach.The plan is to continue the pulm pression for at least 48 to 72 hours before attempting a Gastrografin trial due to the degree of distention of the bowel loops. If there is any changes in the clinical status in the next 2 to 3 days patient may require laparotomy as a lifesaving operation. In the interim we will proceed with aggressive hydration and correction of electrolyte abnormalities and medical management per primary team.I will continue with abdominal exams 2-3 times a day. npo ivf pain control ambulate as tolerated Coding Level of Care Code 33564 Diagnoses Chronic constipation K59.09 Opioid-induced constipation K59.03; T40.2X5A Small bowel obstruction K56.609 Hypertension I10 Type 1 diabetes mellitus with hypoglycemia and without coma E10.649 Diabetes mellitus complication detail: without coma
[2024-09-11 18:01] LABS: Procalcitonin 0.23 ng/mL (0-0.5)
--- NOTE | 2024-09-11 18:22 | PC.NURSE ---
Pt transferred to floor at this time. Medications not verified. Will notify assistant shift supervisor nurse.
[2024-09-11 18:49] LABS: Thyroid Stimulating Hormone 7.69 uIU/mL (0.27-4.20)
[2024-09-11 20:08] LABS: Glucose Point of Care 112 mg/dL (70-110)
[2024-09-11] MEDS: HYDROmorphone 1 mg/mL INJ 1 mL 0.5 MG IVP (20:10)
[2024-09-11] MEDS: pantoprazole 40 mg SDV IVP (20:11)
[2024-09-11] MEDS: heparin 5,000 unit/mL INJ 1 mL 5000 UNIT SUBCUT (20:11)
[2024-09-11] MEDS: fentaNYL 12 mcg Patch 1 PATCH TRANSDERMA (20:12)
[2024-09-11] MEDS: sodium chloride 0.9% 1,000 ML 75 ML IV (21:46)
--- NOTE | 2024-09-11 23:03 | PC.NURSE ---
IV MEEK contacted night hospitalist r/t allergy on pt chart for diphenhydramine with rash as reaction. pt has NG tube and is NPO currently. cannot take home night meds for sleep. 12.5 IVP diphenhydramine was order given to this radio news writer, radio news writer clarified allergy with pt who stated it was one reaction in 1993 after pancreas transplant where she was made to bathe in it and it resulted in a rash. informed doctor of these facts and was given consent to proceed with the order for the patient. also received order for phenol spray for c/o throat irritation and pain d/t her NG tube.
[2024-09-11 23:49] LABS: Bilirubin Urine 2+ (Negative); Blood Urine Negative (Negative); Glucose Urine UA Negative (Normal); Ketones Urine 1+ (Negative); Leukocyte Esterase Urine Trace (Negative); Nitrate Urine Negative (Negative); Protein Urine 1+ (Negative); Specific Gravity, Urine 1.023 (1.005-1.030); Urine Appearance Turbid (CLEAR); Urine Color Dark Yellow (Yellow); pH Urine 5.5 (5-7)
[2024-09-11] MEDS: diphenhydrAMINE 50 mg/mL SDV 1mL 12.5 MG IVP (23:49)
[2024-09-11] MEDS: phenol oral Spray 177 mL 3 SPRAY MUCOUS MEM (23:50)
[2024-09-11 23:54] LABS: Add Urine Microscopic? YES; Bacteria Urine 4+ /hpf; Hyaline Casts Urine 53.36 /lpf; Universal Test for UA Present (0)
[2024-09-11 23:54] LABS: Free T4 Free Thyroxine 1.14 ng/dL (0.82-1.77)
[2024-09-12] VITALS (11 sets, daily range): BP systolic 121–168; BP diastolic 63–77; PULSE 87–97; RESP 15–18; TEMP 36.3–36.6; O2SAT 93–98
[2024-09-12 00:17] LABS: Add Urine Culture? No; Squamous Epithelial Cell Urine >100 /hpf (0-5)
[2024-09-12] MEDS: HYDROmorphone 1 mg/mL INJ 1 mL 0.5 MG IVP ×5 (00:18→22:37)
--- NOTE | 2024-09-12 00:45 | PC.NURSE ---
00:15 blood sugar test Checked pts blood sugar at 00:15 using pts dexcom. Pts blood sugar was 123.
[2024-09-12] MEDS: heparin 5,000 unit/mL INJ 1 mL 5000 UNIT SUBCUT ×3 (04:19→17:42)
[2024-09-12 04:52] LABS: Basophils # 0.1 10^3/uL (0.0-0.1); Basophils % 0.6 %; Eosinophils # 0.5 10^3/uL (0.0-0.8); Hematocrit 34.3 % (36-47); Lymphocytes # 2.1 10^3/uL (0.8-4.8); Lymphocytes % 19.1 %; Mean Corpuscular HGB Conc 32.1 g/dL (30-55); Mean Corpuscular Hemoglobin 31.7 pg (27-33); Mean Corpuscular Volume 98.8 fl (85-98); Mean Platelet Volume 9.9 fL (7.4-10.4); Monocytes # 1.4 10^3/uL (0.2-0.9); Monocytes % 12.6 %; Neutrophils % 61.8 %; Nucleated Red Blood Cells % 0 %; Platelet Count 288 10^3/cmm (157-399); Red Blood Count 3.47 10^6/uL (3.85-5.65); Red Cell Distribution Width 13.2 % (12.1-15.1); White Blood Count 10.83 10^3/uL (3.29-11.43)
[2024-09-12 05:21] LABS: Alanine Aminotransferase 6 U/L (0-33); Albumin Level 3.3 g/dL (3.5-5.2); Alkaline Phosphatase 102 U/L (35-105); Anion Gap 16.5 (5-19); Aspartate Amino Transferase 12 U/L (0-32); Blood Urea Nitrogen 13 mg/dL (8-23); Calcium 8.3 mg/dL (8.5-10.5); Carbon Dioxide 26 mmol/L (22-29); Chloride 97 mmol/L (98-107); Creatinine Clr Calc Pharmacy 41.1683; Globulin 2.6 g/dL (1.3-4.6); Glucose 123 mg/dL (65-115); Magnesium 1.6 mg/dL (1.7-2.3); Osmolality Calculated 283 mOsm/kg (285-295); Phosphorus 3.4 mg/dL (2.5-4.5); Potassium 3.5 mmol/L (3.5-5.1); Procalcitonin 0.18 ng/mL (0-0.5); Sodium 136 mmol/L (136-145); Total Bilirubin 0.4 mg/dL (0.15-1.2); Total Protein 5.9 g/dL (6.6-8.7)
--- NOTE | 2024-09-12 06:30 | PC.NURSE ---
ACCU CHECKS patient has a dexcom device with smart watch monitoring and insulin pump. patient is on q6hr finger stick glucose checks with sliding scale. personal lines underwriter had hospital glucometer used at beginning of shift and compared it to the reading on her device. hospital machine read 112mg/dL and patient dexcom read 121mg/dL. this personal lines underwriter contacted night hospitalist dr silvestre per patient request and asked if glucose checks and sliding scale could be administered per readings of her dexcom, for patient comfort and reduction of finger sticks. dr silvestre gave permission for glucose monitoring and insulin administration to be done with the patients dexcom
[2024-09-12] MEDS: magnesium sulfate premix 1 GM/100 ML PIGGYBACK IV (07:44)
--- NOTE | 2024-09-12 09:42 | P.PN_ITS ---
Subjective 2 Subjective: Hospital day 1 after being admitted for small bowel obstruction. NG output continues to be very high about 1.4 L of bilious fluid. She has been having ice chips despite my recommendation of not getting any intake p.o. I have discussed with the patient coming for her that after she finished her cup of ice chips she would not be allowed to have any more ice chips. As this will change the output from her NG tube and we will not be able to tell once his small bowel obstruction has resolved. She tells me when she was hospitalized at [facility] recently they just decompress her for 24 hours and immediately remove the NG tube and left her Diet, I have informed her that we will be much more conservative we will plan on doing a Gastrografin trial once the output of the NG tube is less than 500 cc in 24 hours.Patient states that she has been passing gas, last bowel movement was yesterday Vitals/I&O/Wt Last Vital Signs Temp 97.8 F 09/12/24 07:51 Pulse 97 09/12/24 07:51 Resp 15 09/12/24 07:51 BP 162/69 09/12/24 07:51 Pulse Ox 93 09/12/24 07:51 O2 Del Method Room Air 09/12/24 08:59 09/11/24 09/12/24 09/12/24 22:59 06:59 14:59 Intake Total 350 / 1350 100 / 100 Output Total 1500 / 1500 Balance -1150 / -150 100 / 100 Weight last 48 hrs Weight 168 lb 9 oz Weight 170 lb Weight 170 lb Physical Exam 2 HENMT: OTHER: NG tube in place with bilious output GI: OTHER: Abdomen is distended, minimally tender to palpation, no peritoneal signs. Data 09/12/24 04:34 09/12/24 04:34 A&P Assessment and plan (1) Opioid-induced constipation: (2) Chronic constipation: (3) Small bowel obstruction: Plan Patient will require at least 48 hours to 70 hours of decompression before we proceed with a Gastrografin trial. I suspect that her last episode of SBO did not really resolve before her diet was advanced. As she also tells me that she only was decompressed for 24 hours. Once the output of the NG tube decreases we will plan to do a Gastrografin trial, depending on the results of the Gastrografin trial we will have to consider the possibility of exploration. Clinically she is doing okay abdominal exam is improved from yesterday labs are better and vital signs are stable. She has a urinalysis that appears to be positive and explains that she does have some urinary symptoms. Will discuss with the medical team regarding treatment of UTI. Attestations 2 Medical Necessity Statement*: Patient will require 3 to 5 days of hospital stay For management of recurrent SBO in the setting of multiple intra-abdominal surgeries. Coding Level of Care Code 90312 Diagnoses Opioid-induced constipation K59.03; T40.2X5A Chronic constipation K59.09 Small bowel obstruction K56.609
--- NOTE | 2024-09-12 13:21 | P.PN_ITS ---
Subjective 2 Subjective: No acute events overnight. Seen with at bedside. She states she is feeling little better. Overnight she had 1.4 L of drain out of NG tube. Denies any nausea, vomiting. States abdominal pain is better. Denies any dysuria but complains of occasional twitch while passing urine very rarely for the last few weeks. Vitals/I&O/Wt Last Vital Signs Temp 97.6 F 09/12/24 11:33 Pulse 87 09/12/24 11:33 Resp 15 09/12/24 11:33 BP 138/77 09/12/24 11:33 Pulse Ox 94 09/12/24 11:33 O2 Del Method Room Air 09/12/24 11:33 09/11/24 09/12/24 09/12/24 22:59 06:59 14:59 Intake Total 350 / 1350 100 / 100 Output Total 1500 / 1500 600 / 600 Balance -1150 / -150 -500 / -500 Weight last 48 hrs Weight 76.459 kg Weight 77.111 kg Weight 77.111 kg Physical Exam 2 Narrative: General: No acute distress, AO x3, NG tube in place HEENT: PERRLA, pupils bilaterally equal and reactive Chest: Normal vesicular breath sounds, no added sounds, equal good air entry bilaterally CVS: S1-S2 regular, no murmurs, no tachycardia, no gallops, no rubs Abdomen: Soft, distended, generalized tenderness, no organomegaly, bowel sounds present but sluggish Neuro: No focal deficits, no facial deformity, AO x3, power 5/5 in all limbs Data 09/12/24 04:34 09/12/24 04:34 A&P Assessment and plan (1) Small bowel obstruction: Most likely in setting of gastroparesis and constipation in setting of chronic opiate use. CT abdomen pelvis appreciated. Will consult surgery for further recommendations. For now plan with conservative treatment with NG tube placement and decompression. NPO. Normal saline at 75 cc/h. 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 Takes pain medication for back pain Will start on Dilaudid 0.5 every 6 hours as needed to avoid withdrawal. Continue with home dose of fentanyl patch. (3) CKD stage 3 due to type 1 diabetes mellitus: Baseline creatinine seems to be around 1.2-1.4. Currently 1. Continue to monitor daily. Medical reconciliation done for nephrotoxic drugs. (4) Type 1 diabetes mellitus with hypoglycemia: Last A1c was 5.6. Patient has insulin pump. Will continue with insulin pump for now. Insulin sliding scale low-dose protocol every 6 hours as needed otherwise. Monitor for hypoglycemia. Qualifiers: Diabetes mellitus complication detail: without coma Qualified Code(s): E10.649 - Type 1 diabetes mellitus with hypoglycemia without coma (5) Hypertension: Goal pressure less than 140/90 mmHg. Takes hydralazine at home. IV hydralazine 10 mg every 6 hours as needed for systolic blood pressure of more than 160 mmHg, metoprolol 5 mg every 4 hours or admitted for heart rate of more than 100 bpm. Hold off metoprolol for systolic blood pressure of less than 100 mmHg. (6) Heart failure with preserved ejection fraction: Chronic history. Currently euvolemic. Continue to monitor. Qualifiers: Heart failure chronicity: acute on chronic Qualified Code(s): I50.33 - Acute on chronic diastolic (congestive) heart failure (7) Hypothyroidism: Check TSH. Takes levothyroxine 225 mcg at home. If not able to take orally for next 48 hours we will switch to IV. Qualifiers: Hypothyroidism type: postablative Qualified Code(s): E89.0 - Postprocedural hypothyroidism Plan Full code N.p.o. Protonix OPD prophylaxis Heparin 5000 Q12 hourly for DVT prophylaxis Hold off on other chronic home medication including modafinil, baclofen, duloxetine, Linzess for now. Plan for the day: Continue with conservative treatment. NG tube management as per surgical team. Plan for Gastrografin in AM. Ambulation. Zofran as needed. Maintain goal blood pressure of less than 140/90 mmHg. Hydralazine and metoprolol as needed. Continue with normal saline at 75 cc/h. Renal functions at baseline. Continue to monitor BMP daily. Monitor electrolytes. Maintain potassium around 4, magnesium around 2. Replace magnesium 1 g IV. Appreciate UA. Minimal WBC, trace leukoesterase. Follow-up cultures. Hold off on antibiotics for now as patient does not have any fever or leukocytosis. Attestations 2 Medical Necessity Statement*: Requires further hospitalization for management of small bowel obstruction in setting of chronic opioid use while patient is on conservative treatment, type 1 diabetes mellitus Diagnoses Small bowel obstruction K56.609 Opioid-induced constipation K59.03; T40.2X5A CKD stage 3 due to type 1 diabetes mellitus E10.22; N18.30 Type 1 diabetes mellitus with hypoglycemia and without coma E10.649 Diabetes mellitus complication detail: without coma Hypertension I10 Acute on chronic heart failure with preserved ejection fraction I50.33 Heart failure chronicity: acute on chronic Postablative hypothyroidism E89.0 Hypothyroidism type: postablative
[2024-09-12] MEDS: lanolin oint 7 gm 1 APPLIC TOPICAL (13:56)
[2024-09-12] MEDS: sodium chloride 0.9% 1,000 ML 75 ML IV (13:57)
--- NOTE | 2024-09-12 14:59 | PC.NURSE ---
Patient c/o not being able to have more ice chips. Patient is whining, I am literally dying of thirst. I'm not doing surgery even if they say I need it. This nurse educated patient that surgery is not the plan as of right now and that the purpose of being NPO and having the NG tube is to be able to give her bowel some time to rest and to prevent her bowel obstruction from perforating and getting a tear or whole in her intestinal lining causing immense pain and nausea and bowel leaking into the bloodstream causing an infection that can lead to . Patient stated, I want you to let Dr. Burks know that I want to talk to him because I just can't take this anymore. I don't want to have to call my This nurse informed the patient that I would reach out to him but the order was highly unlikely to change. This nurse messaged Dr. Burks about the patient requesting more ice chips. Dr. Burks stated he educated the patient as above education and stated the order was not going to change. This nurse informed patient that Dr. Burks stated the order will not change due to the risk of perforation when called patient. Patient's stated he had already called the nurses' station and stated someone needed to get a hold of the doctor about getting the patient some more ice chips. Patient informed her that this nurse had just informed her that she could not receive ice chips due to above education.
[2024-09-12] MEDS: ondansetron 2 mg/ML SDV 2 mL 4 MG IVP (16:51)
[2024-09-12] MEDS: pantoprazole 40 mg SDV IVP (17:42)
[2024-09-12] MEDS: hyDRALAzine 20 mg/mL INJ 1 mL 10 MG IVP (20:57)
--- NOTE | 2024-09-12 21:42 | PC.NURSE ---
Pt has been educated about not having ice chips or water. Pt continues to be non-compliant with surgeon instructions, even had her ask another nurse for ice chips. Physician aware of non-compliance.
--- NOTE | 2024-09-12 22:21 | PC.NURSE ---
This nurse was called to the pt room for eval of the pt being upset regarding her restriction of water and ice chips. This nurse and charge nurse explained to the pt the physician orders to decrease the amount of intake because of her high NG outpt because she needs a gastrografin study. Pt became belligerent stating that she could receive better care at [facility], and demanded a transfer to the hospital [facility]. Instructed pt that we would call the Dr. Melgar regarding her request for change of hospital. Notified Dr. Melgar regarding pts wants, and was informed he would come see the pt in the morning and the only way she was leaving [facility] was if she chose to leave AMA. Dr. Melgar also stated that the pt could have a small amt of ice chips, if it would improve how she is feeling. NO also received and noted for Lorazepam 0.5mg IVP x 1 dose now. Pt informed of new orders. Pt remains unhappy with care, and feels like she receives better care from other hospitals. Instructed pt of new orders. Will update physician with any changes.
[2024-09-12] MEDS: LORazepam 2 mg/mL INJ 1 mL 0.5 MG IVP ×2 (22:37→22:48)
--- NOTE | 2024-09-12 22:44 | PC.NURSE ---
Pt was administered 120 of ice and water per her request and Dr. Hsieh allowance approximately 15 minutes ago. Pt states I'm dying of thirst I've got to have more ice and water . Pt administered more ice and water to use with mouth swab. This nurse watch patent sucking mouth swab dry and redipping while administering medications. Pt has already had approximately 500ml of otpt since approximately 2029, due to excessive oral intake. Remains non-compliant. PRN Lorazepam administered per orders and pt repositioned back to the chair per her request w/1 blanket per her request. Call light with in reach in pt's had.
[2024-09-13] VITALS (15 sets, daily range): BP systolic 157–180; BP diastolic 52–82; PULSE 70–113; RESP 15–18; TEMP 36.5–36.9; O2SAT 95–98
--- NOTE | 2024-09-13 00:06 | PC.NURSE ---
JAZMYN Turner's 2000 CBG was 131.
[2024-09-13] MEDS: hyDRALAzine 20 mg/mL INJ 1 mL 10 MG IVP ×3 (00:54→11:35)
--- NOTE | 2024-09-13 00:56 | PC.NURSE ---
Pt remains non-compliant w/intake has had another 500 ml out through ng tube.
--- NOTE | 2024-09-13 00:57 | PC.NURSE ---
Pt CBG 137 at this time.
[2024-09-13] MEDS: sodium chloride 0.9% 1,000 ML 75 ML IV ×2 (02:51→18:31)
[2024-09-13] MEDS: heparin 5,000 unit/mL INJ 1 mL 5000 UNIT SUBCUT ×3 (02:52→18:32)
[2024-09-13] MEDS: HYDROmorphone 1 mg/mL INJ 1 mL 0.5 MG IVP ×3 (03:04→19:46)
[2024-09-13] MEDS: morphine 4 mg/mL SDV 1 mL 2 MG IVP (05:57)
--- NOTE | 2024-09-13 06:27 | PC.NURSE ---
Pt spoke to the nurse this morning regarding the potential of going on hospice, stating that she did not want to have another surgery and was tired of being in the hospital of the time . Discussed w/pt that she would need to speak with her physician for hospice referral and requirements for hospice admission. Pt stated she would speak with her , will refer to day shift physician for review of patient request.
--- NOTE | 2024-09-13 07:17 | PC.NURSE ---
Dr. Melgar notified of pt's continued non-compliance t/o the shift, and now request for hospice consult. Dr. Melgar will consult hospitalist today regarding pt's care.
[2024-09-13] MEDS: LORazepam 0.5 mg Tablet PO (08:54)
--- NOTE | 2024-09-13 09:02 | P.PN_ITS ---
Subjective 2 Subjective: Patient has been noncompliant over the last 24 hours, has ingested about 500 cc of ice chips despite the fact that we have told him multiple times to please not drink any more ice chips. The NG output has remained very high more than 2.5 L in the last 24 hours. She states that she did pass some gas and had a small bowel movement this morning but her abdomen is still distended. She is very anxious and stating that she would like to go on hospice and she does not want any more interventions or surgery. Vitals/I&O/Wt Last Vital Signs Temp 97.7 F 09/13/24 08:08 Pulse 113 H 09/13/24 08:08 Resp 17 09/13/24 08:08 BP 175/68 09/13/24 08:08 Pulse Ox 96 09/13/24 08:08 O2 Del Method Nasal Cannula 09/13/24 08:08 09/12/24 09/13/24 09/13/24 22:59 06:59 14:59 Intake Total 240 / 953.75 1447.5 / 2401.25 Output Total 1100 / 1700 1430 / 3130 300 / 300 Balance -860 / -746.25 17.5 / -728.75 -300 / -300 Weight last 48 hrs Weight 168 lb 14.4 oz Weight 168 lb 9 oz Weight 170 lb Weight 170 lb Physical Exam 2 GI: OTHER: Abdomen is distended, minimal tenderness to palpation decreased bowel sounds. Data 09/12/24 04:34 09/12/24 04:34 A&P Assessment and plan (1) Chronic constipation: (2) Opioid-induced constipation: (3) Small bowel obstruction: Plan I have had extensive discussion with the patient, I have explained to her that if she continues to drink large amount of fluid p.o. everything is going to come out through the NG tube and we will not be able to quantify the true output of her NG. I suspect that in previous episodes of obstruction she has not been fully decompressed and that is why she had had recurrences so early, my plan is to decompress her until the NG output is less than 500 cc and after that do a Gastrografin trial. If this fails patient will require surgery as a last resort intervention to relieve her obstruction but at this point she is completely adamant that she does not want any kind of surgical intervention in the future even if her treatment fails during my evaluation she has asked me multiple times that she will like to just go on hospice and let nature take its course. I have explained to the patient that this is a personal decision that she can made I have also Splane to her that our treatment plan cannot change at this moment as the main goal of her therapy is for the compression and limit opiate medication to allow for bowel motility. Patient is adamant that she may decide to go home or sign out AMA, again I explained all her possibilities and the treatment that were doing and explained to the patient that is her right is a patient to decide to leave the hospital if she wants. From my standpoint the plan continues to be to decompress her today and tomorrow and then do a Gastrografin trial. I discussed the treatment plan with the medical team, they are in agreement. Attestations 2 Medical Necessity Statement*: Patient will require at least 2 to 3 days of hospital stay for management of small bowel obstruction in the setting of multiple previous intra-abdominal surgeries. Coding Level of Care Code Acute Code for Chg Fwd Diagnoses Chronic constipation K59.09 Opioid-induced constipation K59.03; T40.2X5A Small bowel obstruction K56.609
--- NOTE | 2024-09-13 09:03 | PC.NURSE ---
Patient bp was 175/68, gave hydralazine as ordered for systolic greater than 160. Dr. Melgar ordered 0.5 ativan IVP one time.
[2024-09-13] MEDS: LORazepam 2 mg/mL INJ 1 mL 0.5 MG IVP ×3 (09:08→23:32)
--- NOTE | 2024-09-13 10:14 | PC.NURSE ---
Dr. Burks ordered another dose of 10 mg for Blood pressure of 177/52 and pts heart rate is 70.
--- NOTE | 2024-09-13 10:57 | PC.NURSE ---
Patients 0800 blood sugar was 133
--- NOTE | 2024-09-13 10:57 | PC.NURSE ---
Patients blood sugar now was 154
--- NOTE | 2024-09-13 11:29 | PC.NURSE ---
Hydralazine q4 would not allow to scan a dose. Verbal orders from Dr. Burks to give a one time dose of 10 mg hydralazine now for a blood pressure of 173/64 heart rate 106. waiting 30 min. to retake.
--- NOTE | 2024-09-13 12:39 | USR_ITS ---
PROCEDURE INFORMATION: Exam: US Duplex Left Upper Extremity Veins, Limited Exam date and time: 09/13/2024 1:28 PM Age: 74 years old Clinical indication: Pain; Arm, upper; Left; Additional info: Iv infiltration TECHNIQUE: Imaging protocol: Real-time duplex ultrasound of the left extremity with 2-D nassar scale, color Doppler flow and spectral waveform analysis including responses to compression and other maneuvers (when performed) with image documentation. Limited exam focused on the left upper extremity veins. COMPARISON: CT chest wo con [id number] 04/20/2024 3:50 PM FINDINGS: Left deep veins: Unremarkable. Axillary and brachial veins are patent throughout without thrombus. Normal Doppler waveforms. Normal compressibility and/or augmentation response. Visualized internal jugular and subclavian veins are patent. Superficial veins: Unremarkable. Visualized cephalic and basilic veins are patent without thrombus. Soft tissues: Unremarkable. US/[place] [id number] IMPRESSION: No DVT.
--- NOTE | 2024-09-13 12:42 | PC.NURSE ---
Dr. Burks gave verbal orders to do a doppler on left upper extremity due to IV infiltration and do another ultrasound guided IV. Also verbal order to add Ativan 0.5 IVP Q6H. Orders are in.
--- NOTE | 2024-09-13 12:46 | PC.NURSE ---
Dr. Burks gave verbal orders to change Dilauded from Q4H to Q6H. Dr. Burks by this nurse when order was changed.
--- NOTE | 2024-09-13 13:57 | P.PN_ITS ---
Subjective 2 Subjective: No acute events overnight. As per nursing staff patient has been noncompliant with n.p.o. status and has been having ice chips. Documented NG output of around 2.5 L. Patient states she did have a small bowel ordered today morning. Complaining of anxiety and pain. Vitals/I&O/Wt Last Vital Signs Temp 98.4 F 09/13/24 11:26 Pulse 107 H 09/13/24 11:26 Resp 16 09/13/24 11:26 BP 173/68 09/13/24 11:26 Pulse Ox 97 09/13/24 11:26 O2 Del Method Room Air 09/13/24 11:26 09/12/24 09/13/24 09/13/24 22:59 06:59 14:59 Intake Total 240 / 953.75 1447.5 / 2401.25 Output Total 1100 / 1700 1430 / 3130 500 / 500 Balance -860 / -746.25 17.5 / -728.75 -500 / -500 Weight last 48 hrs Weight 76.612 kg Weight 76.459 kg Weight 77.111 kg Physical Exam 2 Narrative: General: No acute distress, AO x3, NG tube in place HEENT: PERRLA, pupils bilaterally equal and reactive Chest: Normal vesicular breath sounds, no added sounds, equal good air entry bilaterally CVS: S1-S2 regular, no murmurs, no tachycardia, no gallops, no rubs Abdomen: Soft, distended, generalized tenderness, no organomegaly, bowel sounds present but sluggish Neuro: No focal deficits, no facial deformity, AO x3, power 5/5 in all limbs Data 09/12/24 04:34 09/12/24 04:34 A&P Assessment and plan (1) Small bowel obstruction: Most likely in setting of gastroparesis and constipation in setting of chronic opiate use. CT abdomen pelvis appreciated. Will consult surgery for further recommendations. For now plan with conservative treatment with NG tube placement and decompression. NPO. Normal saline at 75 cc/h. 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 Takes pain medication for back pain Will start on Dilaudid 0.5 every 6 hours as needed to avoid withdrawal. Continue with home dose of fentanyl patch. (3) CKD stage 3 due to type 1 diabetes mellitus: Baseline creatinine seems to be around 1.2-1.4. Currently 1. Continue to monitor daily. Medical reconciliation done for nephrotoxic drugs. (4) Type 1 diabetes mellitus with hypoglycemia: Last A1c was 5.6. Patient has insulin pump. Will continue with insulin pump for now. Insulin sliding scale low-dose protocol every 6 hours as needed otherwise. Monitor for hypoglycemia. Qualifiers: Diabetes mellitus complication detail: without coma Qualified Code(s): E10.649 - Type 1 diabetes mellitus with hypoglycemia without coma (5) Hypertension: Goal pressure less than 140/90 mmHg. Takes hydralazine at home. IV hydralazine 10 mg every 6 hours as needed for systolic blood pressure of more than 160 mmHg, metoprolol 5 mg every 4 hours or admitted for heart rate of more than 100 bpm. Hold off metoprolol for systolic blood pressure of less than 100 mmHg. (6) Heart failure with preserved ejection fraction: Chronic history. Currently euvolemic. Continue to monitor. Qualifiers: Heart failure chronicity: acute on chronic Qualified Code(s): I50.33 - Acute on chronic diastolic (congestive) heart failure (7) Hypothyroidism: Check TSH. Takes levothyroxine 225 mcg at home. If not able to take orally for next 48 hours we will switch to IV. Qualifiers: Hypothyroidism type: postablative Qualified Code(s): E89.0 - Postprocedural hypothyroidism Plan Full code N.p.o. Protonix OPD prophylaxis Heparin 5000 Q12 hourly for DVT prophylaxis Hold off on other chronic home medication including modafinil, baclofen, duloxetine, Linzess for now. Plan for the day: Continue with conservative treatment. NG tube management as per surgical team. Discussed in detail with the patient and the caregiver at bedside regarding need for strict n.p.o. status. Discussed for decompression of bowel that is important to continue with NG tube with suction. Discussed once the output decreases then the plan will be for Gastrografin study. Patient states she would be more compliant with n.p.o. status now. Continue with Dilaudid 0.5 every 6 as needed. Add Ativan 0.5 every 6 as needed. Will request nursing staff to alternate between the 2 medications. Blood pressure is elevated earlier today morning. Continue with hydralazine and metoprolol as needed for systolic blood pressure more than 160 mmHg and a heart of more than 100 bpm. Patient has swelling of the left arm at the IV site. Will request for an ultrasound-guided IV. Upper limb Doppler to rule out DVT. Blood sugars stable. Start on IV levothyroxine 100 mcg oral daily. Takes to 25 mcg at home. Has been n.p.o. for over 3 days now. Discussed the plan in detail with patient and patient spouse at bedside. We discussed the need for continuous NG tube management for decompression along with n.p.o. status. Both patient and spouse verbalized understanding. Requesting for spouse to see overnight. We discussed patient's request for hospice with surgical team. We discussed if needed we can involve the hospice/palliative team. Also discussed for now does not show that patient carries a hospice diagnosis but we can always refer for palliative/hospice care and let them evaluate the patient. For now patient would like to hold off. Attestations 2 Medical Necessity Statement*: Requires further hospitalization for management of bowel obstruction as patient continues to require conservative treatment with NG tube in setting of chronic opiate induced constipation, hypothyroidism, elevated blood pressures Diagnoses Small bowel obstruction K56.609 Opioid-induced constipation K59.03; T40.2X5A CKD stage 3 due to type 1 diabetes mellitus E10.22; N18.30 Type 1 diabetes mellitus with hypoglycemia and without coma E10.649 Diabetes mellitus complication detail: without coma Hypertension I10 Acute on chronic heart failure with preserved ejection fraction I50.33 Heart failure chronicity: acute on chronic Postablative hypothyroidism E89.0 Hypothyroidism type: postablative
--- NOTE | 2024-09-13 14:36 | PC.NURSE ---
Medications will be delayed due to No IV at this time. Ultrasound guided IV has been ordered and waiting for someone to put it in.
--- NOTE | 2024-09-13 15:21 | PC.NURSE ---
Dr. Burks ordered .01 Clonidine patch for patient due to no IV at the moment
[2024-09-13] MEDS: levothyroxine 100 mcg SDV IVP (16:07)
[2024-09-13] MEDS: cloNIDine 0.1 mg/24 hr Patch 1 PATCH TRANSDERMA (16:35)
[2024-09-13] MEDS: pantoprazole 40 mg SDV IVP (18:32)
[2024-09-13] MEDS: metoprolol tartrate 1 mg/1 mL SDV 5 mL 5 MG IVP (18:35)
[2024-09-13 20:32] LABS: Basophils # 0.1 10^3/uL (0.0-0.1); Basophils % 0.3 %; Eosinophils # 0.2 10^3/uL (0.0-0.8); Eosinophils % 0.8 %; Hematocrit 35.5 % (36-47); Lymphocytes # 1.5 10^3/uL (0.8-4.8); Lymphocytes % 8.4 %; Mean Corpuscular Hemoglobin 31.1 pg (27-33); Mean Corpuscular Volume 100.3 fl (85-98); Mean Platelet Volume 9.5 fL (7.4-10.4); Monocytes # 1.4 10^3/uL (0.2-0.9); Monocytes % 7.8 %; Neutrophils # 15.03 10^3/uL (1.8-7.7); Nucleated Red Blood Cells % 0 %; Platelet Count 351 10^3/cmm (157-399); Red Blood Count 3.54 10^6/uL (3.85-5.65); Red Cell Distribution Width 13.1 % (12.1-15.1); White Blood Count 18.33 10^3/uL (3.29-11.43)
[2024-09-13 20:53] LABS: Alanine Aminotransferase 7 U/L (0-33); Albumin Level 3.6 g/dL (3.5-5.2); Alkaline Phosphatase 100 U/L (35-105); Aspartate Amino Transferase 16 U/L (0-32); Blood Urea Nitrogen 13 mg/dL (8-23); Calcium 8.5 mg/dL (8.5-10.5); Carbon Dioxide 23 mmol/L (22-29); Chloride 96 mmol/L (98-107); Creatinine Clr Calc Pharmacy 44.9542; Globulin 2.9 g/dL (1.3-4.6); Glucose 106 mg/dL (65-115); Osmolality Calculated 289 mOsm/kg (285-295); Sodium 139 mmol/L (136-145); Total Bilirubin 0.3 mg/dL (0.15-1.2); Total Protein 6.5 g/dL (6.6-8.7)
[2024-09-14] VITALS (10 sets, daily range): BP systolic 131–169; BP diastolic 51–94; PULSE 83–107; RESP 15–22; TEMP 36.6–37.2; O2SAT 95–100
[2024-09-14] MEDS: HYDROmorphone 1 mg/mL INJ 1 mL 0.5 MG IVP ×3 (02:55→20:52)
[2024-09-14] MEDS: heparin 5,000 unit/mL INJ 1 mL 5000 UNIT SUBCUT ×3 (03:00→18:08)
[2024-09-14] MEDS: sodium chloride 0.9% 1,000 ML 75 ML IV ×2 (05:39→19:44)
[2024-09-14] MEDS: LORazepam 2 mg/mL INJ 1 mL 0.5 MG IVP ×4 (06:16→20:16)
[2024-09-14 06:32] LABS: Basophils # 0.1 10^3/uL (0.0-0.1); Basophils % 0.3 %; Eosinophils # 0.2 10^3/uL (0.0-0.8); Eosinophils % 0.8 %; Hematocrit 33.5 % (36-47); Lymphocytes # 1.6 10^3/uL (0.8-4.8); Lymphocytes % 8.5 %; Mean Corpuscular HGB Conc 31.9 g/dL (30-55); Mean Corpuscular Hemoglobin 31.6 pg (27-33); Mean Corpuscular Volume 98.8 fl (85-98); Mean Platelet Volume 10.1 fL (7.4-10.4); Monocytes # 1.2 10^3/uL (0.2-0.9); Monocytes % 6.6 %; Neutrophils % 83.2 %; Nucleated Red Blood Cells % 0 %; Platelet Count 316 10^3/cmm (157-399); Red Blood Count 3.39 10^6/uL (3.85-5.65); Red Cell Distribution Width 13.1 % (12.1-15.1); White Blood Count 18.17 10^3/uL (3.29-11.43)
[2024-09-14 06:54] LABS: Alanine Aminotransferase 6 U/L (0-33); Albumin Level 3.3 g/dL (3.5-5.2); Alkaline Phosphatase 104 U/L (35-105); Anion Gap 26.9 (5-19); Aspartate Amino Transferase 14 U/L (0-32); Blood Urea Nitrogen 12 mg/dL (8-23); Calcium 8.1 mg/dL (8.5-10.5); Carbon Dioxide 17 mmol/L (22-29); Chloride 97 mmol/L (98-107); Globulin 2.6 g/dL (1.3-4.6); Glucose 139 mg/dL (65-115); Osmolality Calculated 286 mOsm/kg (285-295); Potassium 3.9 mmol/L (3.5-5.1); Sodium 137 mmol/L (136-145); Total Bilirubin 0.3 mg/dL (0.15-1.2); Total Protein 5.9 g/dL (6.6-8.7)
--- NOTE | 2024-09-14 07:06 | XRR_ITS ---
PROCEDURE INFORMATION: Exam: XR Abdomen Exam date and time: 09/14/2024 7:25 AM Age: 74 years old Clinical indication: Device placement; Gi device; Nasogastric tube; Additional info: Ng tube position TECHNIQUE: Imaging protocol: Radiologic exam of the abdomen. Views: Frontal supine view of the abdomen. 1 View. COMPARISON: CT abdomen pelvis con [id number] 09/11/2024 2:06 PM FINDINGS: Tubes, catheters and devices: Gastric tube terminates in the upper stomach, the side port near the EG junction. Mildly prominent small bowel loops suggest on going small bowel obstruction. Thoracic neurostimulator. Gastrointestinal tract: See Tubes, catheters and devices finding. Bones/joints: Prior lumbosacral posterior fusion. XR/XR KUB portable [id number] IMPRESSION: The gastric tube terminates in the upper stomach, side port near the EG junction.
[2024-09-14] MEDS: piperacillin-tazobactam 3.375 GM in sodium chloride 0.9% (plus) 50 ML IV ×2 (09:53→17:20)
[2024-09-14] MEDS: levothyroxine 100 mcg SDV IVP (09:53)
--- NOTE | 2024-09-14 10:28 | P.PN_ITS ---
Subjective 2 Subjective: Patient doing okay over the last 24 hours, according to her she has been passing gas and had 2 bowel movements. NG tube output overnight was minimal. Not complaining of significant abdominal pain. Vitals/I&O/Wt Last Vital Signs Temp 98.2 F 09/14/24 07:52 Pulse 95 09/14/24 07:52 Resp 16 09/14/24 07:52 BP 149/85 09/14/24 07:52 Pulse Ox 98 09/14/24 07:52 O2 Del Method Nasal Cannula 09/14/24 07:52 O2 Flow Rate 2 09/13/24 20:00 09/13/24 09/14/24 09/14/24 22:59 06:59 14:59 Intake Total 1000 / 1000 935 / 1935 Output Total 630 / 1130 Balance 370 / -130 935 / 805 Weight last 48 hrs Weight 168 lb 14.4 oz Weight 168 lb 9.6 oz Weight 168 lb 14.4 oz Physical Exam 2 GI: OTHER: Abdominal examination at this moment is benign, abdomen is soft, nontender to palpation, some moderately dilated but significantly improved from previous. Data 09/14/24 05:49 09/14/24 05:49 A&P Assessment and plan (1) Chronic constipation: (2) Opioid-induced constipation: (3) Small bowel obstruction: Plan Patient is having good progression over the last 24 hours. Unremarkable changes is an elevation of her white count to 18,000. At the moment she does not have any abdominal exam changes suggestive of perforation or any other changes in physical exam, she is actually feeling better and is passing gas. We will attempt a Gastrografin trial today, depending on the results of the trial we will decide next step. Gastrografin has been administer at 10 AM and the first x-ray will be obtained at 2 PM. Patient had received intensive therapy with Reglan in the past we will give her a one-time dose as she has history of gastroparesis. I will continue to monitor her clinical status over the next 24 hours. Attestations 2 Medical Necessity Statement*: Patient will require 2 to 3 days of hospital stay for management of SBO in the setting of multiple previous intra-abdominal surgeries and prescription opiate dependency. Coding Level of Care Code 46392 Diagnoses Chronic constipation K59.09 Opioid-induced constipation K59.03; T40.2X5A Small bowel obstruction K56.609
[2024-09-14] MEDS: metoclopramide 5 mg/mL SDV 2 mL IVP ×2 (10:33→18:08)
--- NOTE | 2024-09-14 13:37 | P.PN_ITS ---
Subjective 2 Subjective: No acute events overnight. Patient seems more comfortable today. Seen with spouse at bedside. Decrease NG output in last 24 hours. Denies any abdominal pain, nausea vomiting. States she is passing flatus. Having few pellet-like bowel movements. Vitals/I&O/Wt Last Vital Signs Temp 97.9 F 09/14/24 13:22 Pulse 104 H 09/14/24 13:22 Resp 19 H 09/14/24 13:22 BP 165/94 09/14/24 13:22 Pulse Ox 98 09/14/24 13:22 O2 Del Method Nasal Cannula 09/14/24 13:22 O2 Flow Rate 2 09/13/24 20:00 09/13/24 09/14/24 09/14/24 22:59 06:59 14:59 Intake Total 1000 / 1000 935 / 1935 Output Total 630 / 1130 450 / 450 Balance 370 / -130 935 / 805 -450 / -450 Weight last 48 hrs Weight 76.612 kg Weight 76.476 kg Weight 76.612 kg Physical Exam 2 Narrative: General: No acute distress, AO x3, NG tube in place HEENT: PERRLA, pupils bilaterally equal and reactive Chest: Normal vesicular breath sounds, no added sounds, equal good air entry bilaterally CVS: S1-S2 regular, no murmurs, no tachycardia, no gallops, no rubs Abdomen: Soft, distended, generalized tenderness, no organomegaly, bowel sounds present but sluggish Neuro: No focal deficits, no facial deformity, AO x3, power 5/5 in all limbs Data 09/14/24 05:49 09/14/24 05:49 A&P Assessment and plan (1) Small bowel obstruction: Most likely in setting of gastroparesis and constipation in setting of chronic opiate use. CT abdomen pelvis appreciated. Will consult surgery for further recommendations. For now plan with conservative treatment with NG tube placement and decompression. NPO. Normal saline at 75 cc/h. 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 Takes pain medication for back pain Will start on Dilaudid 0.5 every 6 hours as needed to avoid withdrawal. Continue with home dose of fentanyl patch. (3) CKD stage 3 due to type 1 diabetes mellitus: Baseline creatinine seems to be around 1.2-1.4. Currently 1. Continue to monitor daily. Medical reconciliation done for nephrotoxic drugs. (4) Type 1 diabetes mellitus with hypoglycemia: Last A1c was 5.6. Patient has insulin pump. Will continue with insulin pump for now. Insulin sliding scale low-dose protocol every 6 hours as needed otherwise. Monitor for hypoglycemia. Qualifiers: Diabetes mellitus complication detail: without coma Qualified Code(s): E10.649 - Type 1 diabetes mellitus with hypoglycemia without coma (5) Hypertension: Goal pressure less than 140/90 mmHg. Takes hydralazine at home. IV hydralazine 10 mg every 6 hours as needed for systolic blood pressure of more than 160 mmHg, metoprolol 5 mg every 4 hours or admitted for heart rate of more than 100 bpm. Hold off metoprolol for systolic blood pressure of less than 100 mmHg. (6) Heart failure with preserved ejection fraction: Chronic history. Currently euvolemic. Continue to monitor. Qualifiers: Heart failure chronicity: acute on chronic Qualified Code(s): I50.33 - Acute on chronic diastolic (congestive) heart failure (7) Hypothyroidism: Check TSH. Takes levothyroxine 225 mcg at home. If not able to take orally for next 48 hours we will switch to IV. Qualifiers: Hypothyroidism type: postablative Qualified Code(s): E89.0 - Postprocedural hypothyroidism Plan Full code N.p.o. Protonix OPD prophylaxis Heparin 5000 Q12 hourly for DVT prophylaxis Hold off on other chronic home medication including modafinil, baclofen, duloxetine, Linzess for now. Plan for the day: Appreciate surgical recommendations. Decreased NG tube output. Plan for Gastrografin study and further abdominal x-rays accordingly. Continue with current dose of Dilaudid and Ativan every 6 hours as needed. Goal blood pressure less than 140/90 mmHg with mean over 65 with a target heart rate of less than 100. Continue with hydralazine IV and metoprolol IV as needed. Continue with clonidine patch 0.1 for now. Upper limb Doppler negative for DVT. Continue with IV levothyroxine at 100 mcg daily for now. Takes 225 mcg at home. Advance diet as per surgical recommendations. Patient having mild leukocytosis. Has remained afebrile. Will be reactive in setting of inflammation and retching with NG tube. Cannot rule out GI translocation. Empirically start on IV Zosyn for now. Continue with NS at 75 cc/h. No concerns for dehydration for now. Renal functions have remained stable. Developing mild acidosis most likely in setting of normal saline requirement. Attestations 2 Medical Necessity Statement*: Requires further hospitalization for management of small bowel obstruction requiring conservative treatment in setting of chronic opiate use induced constipation, type 1 diabetes mellitus Diagnoses Small bowel obstruction K56.609 Opioid-induced constipation K59.03; T40.2X5A CKD stage 3 due to type 1 diabetes mellitus E10.22; N18.30 Type 1 diabetes mellitus with hypoglycemia and without coma E10.649 Diabetes mellitus complication detail: without coma Hypertension I10 Acute on chronic heart failure with preserved ejection fraction I50.33 Heart failure chronicity: acute on chronic Postablative hypothyroidism E89.0 Hypothyroidism type: postablative
--- NOTE | 2024-09-14 13:53 | XRR_ITS ---
PROCEDURE INFORMATION: Exam: XR Abdomen Exam date and time: 09/14/2024 2:03 PM Age: 74 years old Clinical indication: Abdominal pain; Generalized; Prior surgery; Surgery date: 6+ months; Surgery type: Bladder stim pain pump back; Patient HX: 4 hour small bowel image; Additional info: Follow up gastrografin trial, can be portable if needed TECHNIQUE: Imaging protocol: Radiologic exam of the abdomen. Views: Frontal supine view of the abdomen. 1 View. COMPARISON: CR XR KUB portable [id number] 09/14/2024 7:25 AM FINDINGS: Tubes, catheters and devices: Gastric tube terminates in the stomach. Midthoracic neurostimulator. Right sacral neurostimulator. Gastrointestinal tract: Gas within prominent/slightly dilated loops of upper abdominal small bowel, small bowel obstruction may be present. Gastrografin is highly dilute and barely visible. Bones/joints: Prior lower lumbar fusion. XR/XR abdomen 1V* [id number] IMPRESSION: Possible small bowel obstruction.
--- NOTE | 2024-09-14 14:36 | PC.SOCIAL ---
IMM Update pg 2 of IMM Updated and reviewed w/ patient. Copy provided and copy dated, initialed and placed in chart.
--- NOTE | 2024-09-14 15:46 | PC.NURSE ---
Patient blood sugar was 155 at lunch.
[2024-09-14] MEDS: hyDRALAzine 20 mg/mL INJ 1 mL 10 MG IVP (17:08)
[2024-09-14] MEDS: pantoprazole 40 mg SDV IVP (18:08)
--- NOTE | 2024-09-14 18:23 | XRR_ITS ---
PROCEDURE INFORMATION: Exam: XR Abdomen Exam date and time: 09/14/2024 6:28 PM Age: 74 years old Clinical indication: Abdominal pain; Acute; Prior surgery; Surgery date: 6+ months; Surgery type: Bladder stimulator pain pump; Patient HX: 8 hr gastrografin kub; Additional info: 8 hours after gastrografin trial, can be portable if needed TECHNIQUE: Imaging protocol: Radiologic exam of the abdomen. Views: Frontal supine view of the abdomen. 1 View. COMPARISON: CR XR abdomen 1V* [id number] 09/14/2024 2:03 PM FINDINGS: Gastrointestinal tract: Multiple dilated loops of small bowel containing faint oral contrast. No convincing evidence of transit of contrast into the colon, which may be collapsed. Bones/joints: No evidence of acute osseous abnormality. Stimulator devices noted. XR/XR abdomen 1V* [id number] IMPRESSION: 1. Findings concerning for high-grade small bowel obstruction.
[2024-09-14] MEDS: fentaNYL 12 mcg Patch 1 PATCH TRANSDERMA (19:42)
--- NOTE | 2024-09-14 20:02 | PC.NURSE ---
Dr. Hedrick bedside with patient. Received orders for one additional dose ativan, 0.5mg IVP now.
--- NOTE | 2024-09-14 20:23 | P.MISC_ITS ---
Miscellaneous Note Purpose of Documentation: Update on patient care Note: I came to evaluate the patient because she developed nausea this afternoon, no actual emesis but after connecting the tube back to the wall he produce 1.5 L of bilious liquid. According to the patient she is passing gas and has had 3 bowel movements today, one of them large per report of the patient and family member. Imaging shows dilated loops of bowel with contrast in the small bowel but no evidence of passage of contrast through the colon this is likely indicative of persistent small bowel obstruction. I have explained to the patient that I think this is multifactorial in nature, she has a very chronic history of colon dysmotility as well as small bowel dysmotility due to chronic opioid use but she does have imaging changes that may suggest a possible obstruction due to a dhesions from previous intra-abdominal operations. I have explained to the patient that this moment the only additional option we have is to proceed with surgery, I have offered exploratory laparotomy with possible bowel resection possible ostomy creation. I discussed with the patient and family member the risks of the operation including the risk of perforation of the small intestine, injury to surrounding structures, need for an ostomy, intra-abdominal abscess, enterocutaneous fistula, intraoperative bleeding, bowel enterotomy, need for additional interventions, sepsis, . Patient remains adamant that she does not want surgery, she told me that she will just like to go home and have her affairs in order, she also has me to remove the NG tube. I have discussed with the patient family member have informed them that I would like them at least took given the lipid lumbar pathology and discussed with the family before taking a decision, I have convinced the patient to keep the NG tube for tonight we will continue decompression, she can have ice chips and water for comfort. Will give her an extra dose of Ativan as she has been very anxious. I reconvene with the patient early in the morning tomorrow and if she agrees for surgery will be proceeding to the OR tomorrow afternoon
--- NOTE | 2024-09-14 23:49 | PC.NURSE ---
Patient's blood sugar was 146.
[2024-09-15] MEDS: piperacillin-tazobactam 3.375 GM in sodium chloride 0.9% (plus) 50 ML IV ×2 (01:43→09:12)
[2024-09-15] MEDS: LORazepam 2 mg/mL INJ 1 mL 0.5 MG IVP ×2 (01:54→11:11)
[2024-09-15] MEDS: heparin 5,000 unit/mL INJ 1 mL 5000 UNIT SUBCUT (01:59)
[2024-09-15 03:54] VITALS: BP 125/66; PULSE 102; RESP 16; TEMP 37; O2SAT 99
--- NOTE | 2024-09-15 05:19 | PC.NURSE ---
Estimated 600mL or so of fluid intake due to ice. However, likely there was more with family member getting ice water throughout the night. Patient educated that any fluids drank will come back out of the NG tube. Patient states Dr. Hedrick knows I want to go home today so it's fine .
--- NOTE | 2024-09-15 05:46 | XRR_ITS ---
PROCEDURE INFORMATION: Exam: XR Abdomen Exam date and time: 09/15/2024 7:15 AM Age: 74 years old Clinical indication: Condition or disease; Other: Sbo; Additional info: Sbo f/u gastrografin 20 hours TECHNIQUE: Imaging protocol: Radiologic exam of the abdomen. Views: Frontal supine view of the abdomen. 1 View. COMPARISON: CR (ABDOMEN, ) 09/14/2024 6:28 PM FINDINGS: Tubes, catheters and devices: Stimulator devices are visualized. Gastrointestinal tract: Dilated small bowel loops are not well visualized on this examination however contrast appears to be reaching the proximal large bowel. Scattered small bowel loops appear enlarged measuring up to 2.9 cm. Bones/joints: No acute osseous abnormality. Hardware from spinal fusion visualized in the lower lumbosacral spine. XR/XR abdomen 1V* [id number] IMPRESSION: Redemonstration of findings suggesting small bowel obstruction with possible small amount of contrast in the proximal large bowel. Recommend correlation with cross-sectional imaging as clinically indicated.
[2024-09-15 06:33] VITALS: RESP 20
[2024-09-15] MEDS: HYDROmorphone 1 mg/mL INJ 1 mL 0.5 MG IVP ×2 (06:33→11:10)
--- NOTE | 2024-09-15 06:44 | PC.NURSE ---
Patient's BG was 148 per their monitoring device.
--- NOTE | 2024-09-15 07:27 | P.PN_ITS ---
Subjective 2 Subjective: hospital day 4 for small bowel obstruction in the setting of chronic opiate use as well as multiple intra-abdominal surgeries. Stable overnight, no significant issues. NG tube output has been extremely high as patient has been drinking large amounts of water. About 6 L overnight. No significant abdominal pain most of her pain is in her back. Vitals/I&O/Wt Last Vital Signs Temp 98.6 F 09/15/24 03:54 Pulse 102 H 09/15/24 03:54 Resp 20 H 09/15/24 06:33 BP 125/66 09/15/24 03:54 Pulse Ox 99 09/15/24 03:54 O2 Del Method Nasal Cannula 09/15/24 03:54 O2 Flow Rate 2 09/15/24 03:54 09/14/24 09/15/24 09/15/24 22:59 06:59 14:59 Intake Total 1000 / 1050 650 / 1700 Output Total 3700 / 4150 1999 / 1999 Balance -2700 / -3100 650 / -2450 -1999 / -1999 Weight last 48 hrs Weight 169 lb 11.2 oz Weight 168 lb 14.4 oz Weight 168 lb 9.6 oz Physical Exam 2 GI: OTHER: Abdomen is distended, otherwise is not tender slightly firm in the upper abdomen and then stopping the lower abdomen Data 09/14/24 05:49 09/14/24 05:49 A&P Assessment and plan (1) Small bowel obstruction: Plan I had extensive discussion again with the patient regarding her prognosis. I have explained to her that at this point 18 the only alternative I can offer her is to proceed to the OR for exploration possible lysis of additions possible bowel resection and possible ostomy creation. Patient and family member had make very clear to me that they do not want to do any additional surgery, at this time patient would like to remove NG tube and go home despite of the outcome. I have informed the patient that the we remove the NG tube the most likely outcome is that she will start vomiting again and in the case of her tolerating diet there is a chance of perforation of the intestine due to distention. Patient and family member showed understanding they Explained to me that they have discussed these truly and they do not want any additional surgical care. Patient asked me to remove the NG tube, I have encouraged him to keep the NG tube at least for now until they talk to the medical team to decide on further care. I will remain available in the case that patient changes her mind regarding the need of surgery. Patient family member showed understanding. Attestations 2 Medical Necessity Statement*: Per medical team Coding Level of Care Code Acute Code for Chg Fwd Diagnoses Small bowel obstruction K56.609
[2024-09-15 07:53] VITALS: BP 159/87; PULSE 100; RESP 17; TEMP 36.6; O2SAT 97
[2024-09-15] MEDS: sodium chloride 0.9% 1,000 ML 75 ML IV (09:11)
[2024-09-15] MEDS: levothyroxine 100 mcg SDV IVP (09:11)
[2024-09-15 11:10] VITALS: RESP 17; O2SAT 97
--- NOTE | 2024-09-15 11:37 | PM.DCS ---
Discharge Providers Date of Admission: 09/11/24 17:02 Date of Discharge: September 15, 2024 Attending Provider at Admission: Berlin Burks MD Attending Provider at Discharge: Berlin Burks MD Consults: Surgery Dr. Reyes Choe Diagnoses at Discharge Discharge Diagnosis (1) Small bowel obstruction: Status: Acute (2) Hypertension: Status: Chronic (3) Heart failure with preserved ejection fraction: Status: Chronic Qualifiers: Heart failure chronicity: acute on chronic Qualified Code(s): I50.33 - Acute on chronic diastolic (congestive) heart failure Permanent problem details: diastolic dysfunction; Dr. Gaston at [facility] (4) Type 1 diabetes mellitus with hypoglycemia: Status: Chronic Qualifiers: Diabetes mellitus complication detail: without coma Qualified Code(s): E10.649 - Type 1 diabetes mellitus with hypoglycemia without coma Permanent problem details: Dr. Butt at [facility]; has omnipod (5) Hypothyroidism: Status: Chronic Qualifiers: Hypothyroidism type: postablative Qualified Code(s): E89.0 - Postprocedural hypothyroidism Reason for Visit Reason for Visit: extended belly, vomitting, unable to eat Hospital Course Hospital Course Meryl Ling is a 74 year old female with past medical history of chronic back pain on chronic pain medication, type 1 diabetes mellitus on insulin pump, constipation with recurrent episode of bowel obstruction, hypothyroidism, narcolepsy, and anxiety presents to the ER today because of abdominal pain ongoing for last 4 days with nausea and vomiting for last 2 days. She was most recently at [facility] and was discharged on August 18 when she was treated for high-grade small bowel obstruction and aspiration pneumonia. Since then she was last discharged 7 days ago from [facility]. She was treated for constipation. Currently she has been on clear liquid diet and has not been able to advance because of nausea since her discharge from [facility]. In the ER she was found to have high-grade small bowel obstruction hence hospital service was requested. Given concerns for repeated small bowel obstruction surgery was consulted in the ER. NG tube was placed for conservative treatment for small bowel obstruction with decompression of the bowels. Patient hospitalization was complicated by her having high anxiety, noncompliance to conservative treatment with increase oral intake. During hospitalization anxiety and hypertension were managed by Ativan and hydralazine as needed. Once patient was more compliant with n.p.o. status her NG tube output decreased and Gastrografin study was done on 09/14. Unfortunately patient failed conservative treatment and x-ray with Gastrografin persistently showed small bowel obstruction. Patient had a detailed discussion for further treatment plan with surgical team who had advised patient for exploratory laparotomy with possible bowel resection along with possible ostomy creation. Detailed discussions were done regarding further treatment plans. Both patient and patient's declined surgical options adamantly multiple times. Patient was explained about possible worsening of her symptoms with continuous oral intake in setting of bowel obstruction, persistent nausea and vomiting which could lead to aspiration pneumonitis, possible perforation of her bowels leading to peritonitis and sepsis. Patient verbalized understanding but did not want to go or pursue the surgical option and requested to be discharged. She wanted to further conservative treatment with clear liquid diet and stated that if her treatment fails she would rather go hospice then have surgery. As per her and she would pursue hospice as an outpatient through her PCP if she fails conservative treatment. Eventually NG tube was removed on 09/15 and she was discharged in hemodynamically stable condition with advised to continue clear liquid diet with multiple small meals going forward for next 1 week. Danger signs were discussed in detail with the patient and she verbalized understanding. Physical Exam Narrative: General: No acute distress, AO x3, NG tube in place HEENT: PERRLA, pupils bilaterally equal and reactive Chest: Normal vesicular breath sounds, no added sounds, equal good air entry bilaterally CVS: S1-S2 regular, no murmurs, no tachycardia, no gallops, no rubs Abdomen: Soft, distended, generalized tenderness, no organomegaly, bowel sounds present but sluggish Neuro: No focal deficits, no facial deformity, AO x3, power 5/5 in all limbs Discharge Data Studies Completed and Pending Completed Studies During Hospitalization Category Date Time Status CT abdomen pelvis wo con [id number] Stat Cat Scan 09/11/24 13:35 Completed XR KUB portable [id number] Stat Exams 09/14/24 07:06 Completed XR abdomen 1V* [id number] Stat Exams 09/11/24 11:10 Completed XR abdomen 1V* [id number] Stat Exams 09/14/24 13:53 Completed XR abdomen 1V* [id number] Stat Exams 09/14/24 18:23 Completed XR abdomen 1V* [id number] Stat Exams 09/15/24 05:46 Completed XR chest 1V [id number] Routine Exams 09/11/24 17:25 [place] [id number] Routine Ultrasound 09/13/24 12:39 Completed Radiology Impressions Abdomen/Pelvis CT 09/11/24 13:35 IMPRESSION: 1. Findings compatible with small bowel obstruction. Transition point is difficult to determine but may be in the right lower abdomen in the region of the terminal ileum. Recommend surgical consultation and follow-up imaging as clinically warranted. 2. Stable prominent intra and extrahepatic biliary ductal dilation with common bile duct measuring up to 1.3 cm in diameter. This may be within normal limits for post cholecystectomy patient. Recommend clinical correlation. 3. Left lower lobe atelectasis/infiltrate. ADDENDUM: 09/11/24 [id number] ADDENDUM: THIS REPORT CONTAINS FINDINGS THAT MAY BE CRITICAL TO PATIENT CARE. The findings were verbally communicated via telephone conference with KIYA GAMEZ at 2:42 PM PROCESSING SUPERVISOR on 09/11/2024. The findings were acknowledged and understood. Chest X-Ray 09/11/24 17:25 IMPRESSION: Nasogastric tube in radiographically appropriate position. Venous Duplex 09/13/24 12:39 IMPRESSION: No DVT. KUB X-Ray 09/14/24 07:06 IMPRESSION: The gastric tube terminates in the upper stomach, side port near the EG junction. Abdomen X-Ray 09/15/24 05:46 IMPRESSION: Redemonstration of findings suggesting small bowel obstruction with possible small amount of contrast in the proximal large bowel. Recommend correlation with cross-sectional imaging as clinically indicated. Laboratory Results WBC 18.17 10^3/uL (3.29-11.43) H 09/14/24 05:49 RBC 3.39 10^6/uL (3.85-5.65) L 09/14/24 05:49 Hgb 10.70 g/dL (11.27-16.99) L 09/14/24 05:49 Hct 33.5 % (36-47) L 09/14/24 05:49 MCV 98.8 fl (85-98) H 09/14/24 05:49 MCH 31.6 pg (27-33) 09/14/24 05:49 MCHC 31.9 g/dL (30-55) 09/14/24 05:49 RDW 13.1 % (12.1-15.1) 09/14/24 05:49 Plt Count 316 10^3/cmm (157-399) 09/14/24 05:49 MPV 10.1 fL (7.4-10.4) 09/14/24 05:49 Neut % (Auto) 83.2 % 09/14/24 05:49 Lymph % (Auto) 8.5 % 09/14/24 05:49 [place] % (Auto) 6.6 % 09/14/24 05:49 Eos % (Auto) 0.8 % 09/14/24 05:49 Baso % (Auto) 0.3 % 09/14/24 05:49 Neut # (Auto) 15.10 10^3/uL (1.8-7.7) H 09/14/24 05:49 Lymph # (Auto) 1.6 10^3/uL (0.8-4.8) 09/14/24 05:49 [place] # (Auto) 1.2 10^3/uL (0.2-0.9) H 09/14/24 05:49 Eos # (Auto) 0.2 10^3/uL (0.0-0.8) 09/14/24 05:49 Baso # (Auto) 0.1 10^3/uL (0.0-0.1) 09/14/24 05:49 Nucleated RBC % (auto) 0 % 09/14/24 05:49 Nucleated RBCs # 0.0 /100WBC 09/14/24 05:49 Sodium 137 mmol/L (136-145) 09/14/24 05:49 Potassium 3.9 mmol/L (3.5-5.1) 09/14/24 05:49 Chloride 97 mmol/L (98-107) L 09/14/24 05:49 Carbon Dioxide 17 mmol/L (22-29) L 09/14/24 05:49 Anion Gap 26.9 (5-19) H 09/14/24 05:49 BUN 12 mg/dL (8-23) 09/14/24 05:49 Creatinine 1.2 mg/dL (0.5-0.9) H 09/14/24 05:49 GFR Calculation Not Reportable 09/14/24 05:49 Glucose 139 mg/dL (65-115) H 09/14/24 05:49 POC Glucose 112 mg/dL (70-110) H 09/11/24 20:01 Calculated Osmolality 286 mOsm/kg (285-295) 09/14/24 05:49 Calcium 8.1 mg/dL (8.5-10.5) L 09/14/24 05:49 Phosphorus 3.4 mg/dL (2.5-4.5) 09/12/24 04:34 Magnesium 1.6 mg/dL (1.7-2.3) L 09/12/24 04:34 Total Bilirubin 0.3 mg/dL (0.15-1.2) 09/14/24 05:49 AST 14 U/L (0-32) 09/14/24 05:49 ALT 6 U/L (0-33) 09/14/24 05:49 Alkaline Phosphatase 104 U/L (35-105) 09/14/24 05:49 Total Protein 5.9 g/dL (6.6-8.7) L 09/14/24 05:49 Albumin 3.3 g/dL (3.5-5.2) L 09/14/24 05:49 Globulin 2.6 g/dL (1.3-4.6) 09/14/24 05:49 Lipase 10 U/L (13-60) L 09/11/24 12:06 Procalcitonin 0.18 ng/mL (0-0.5) 09/12/24 04:34 TSH 7.69 uIU/mL (0.27-4.20) H 09/11/24 12:06 Free T4 1.14 ng/dL (0.82-1.77) 09/11/24 12:06 Free T3 2.0 PG/ML (2.0-4.4) 09/11/24 12:06 Urine Color Dark yellow (Yellow) A 09/11/24 23:20 Urine Appearance Turbid (CLEAR) A 09/11/24 23:20 Urine pH 5.5 (5-7) 09/11/24 23:20 Ur Specific [place] 1.023 (1.005-1.030) 09/11/24 23:20 Urine Protein 1+ (Negative) A 09/11/24 23:20 Urine Glucose (UA) Negative (Normal) 09/11/24 23:20 Urine Ketones 1+ (Negative) H 09/11/24 23:20 Urine Blood Negative (Negative) 09/11/24 23:20 Urine Nitrate Negative (Negative) 09/11/24 23:20 Urine Bilirubin 2+ (Negative) H 09/11/24 23:20 Urine Urobilinogen 1.0 mg/dL (Negative) 09/11/24 23:20 Ur Leukocyte Esterase Trace (Negative) A 09/11/24 23:20 Urine RBC 3-5 /hpf (0-2) 09/11/24 23:20 Urine WBC 6-10 /hpf (0-5) 09/11/24 23:20 Ur Squamous Epith Cells >100 /hpf (0-5) H 09/11/24 23:20 Amorphous Sediment Not Reportable 09/11/24 23:20 Urine Bacteria 4+ /hpf (NONE) H 09/11/24 23:20 Hyaline Casts 53.36 /lpf 09/11/24 23:20 Vitals Last Vital Signs Temp 97.9 F 09/15/24 07:53 Pulse 100 09/15/24 07:53 Resp 17 09/15/24 11:10 BP 159/87 09/15/24 07:53 Pulse Ox 97 09/15/24 11:10 O2 Del Method Room Air 09/15/24 08:57 O2 Flow Rate 2 09/15/24 03:54 Discharge Plan Discharge Patient Disposition: Home Condition: Stable Prescriptions: Continued levothyroxine 25 mcg tablet 25 mcg PO DAILY Rx Instructions: Saturday, Saturday, and Saturday along with 200mcg [id number] on these three days per week. budesonide-formoterol [Breyna] 160-4.5 mcg/actuation HFA aerosol inhaler 2 puff inhalation BID morphine 15 mg tablet extended release 15 mg PO Q8H estradiol cypionate 5 mg/mL oil See Rx Instructions .ROUTE .COMPLEX Rx Instructions: Take 0.1 mL itramuscular twice a week duloxetine 30 mg capsule,delayed release(DR/EC) 30 mg PO BID Qty: 60 5RF montelukast 10 mg tablet 10 mg PO DAILY Qty: 90 0RF liothyronine 5 mcg tablet 5 mcg PO DAILY Qty: 90 0RF trazodone 300 mg tablet 300 mg PO BEDTIME Qty: 90 3RF fentanyl 12 mcg/hr patch 72 hour 1 patch transdermal Q72H 30 Days Qty: 10 0RF alprazolam 0.5 mg tablet 0.5 mg PO DAILY sacubitril-valsartan [Entresto] 24-26 mg tablet 1 tab PO BID naloxone 4 mg/actuation spray,non-aerosol 1 spray INTRANASAL PRN PRN (Reason: opiate overdose) ondansetron 8 mg tablet,disintegrating 8 mg PO TID PRN (Reason: Nausea) pramipexole 0.5 mg tablet 0.5 mg PO DAILY pregabalin 50 mg capsule 50 mg PO TID sennosides-docusate sodium [Stool Softener-Laxative] 8.6-50 mg tablet 2 tab PO BEDTIME lactulose 10 gram/15 mL (15 mL) solution 20 g PO TID PRN (Reason: constipation/diabetic gastroparesis) Rx Instructions: BRAND NAME ONLY ofloxacin 0.3 % drops 1 drp ophthalmic (eye) QID tretinoin 0.05 % cream 1 applic TOPICAL BEDTIME omeprazole 40 mg capsule,delayed release(DR/EC) 40 mg PO DAILY neomycin-polymyxin B-dexameth 3.5mg/mL-10,000 unit/mL-0.1 % drops,suspension 1 drp ophthalmic (eye) QID azelastine 137 mcg (0.1 %) spray,non-aerosol 2 spray INTRANASAL BID cyclosporine [Restasis] 0.05 % dropperette 1 drp ophthalmic (eye) BID Movantik 12.5 mg tablet 12.5 mg PO DAILY Baqsimi 3 mg/actuation spray,non-aerosol 3 mg INTRANASAL PRN PRN (Reason: low blood sugar) dorzolamide 2 % drops 2 drp ophthalmic (eye) DAILY latanoprost 0.005 % drops 1 drp ophthalmic (eye) DAILY baclofen 10 mg tablet 20 mg PO BID insulin aspart U-100 [Novolog U-100 Insulin aspart] 100 unit/mL solution See Rx Instructions .ROUTE .COMPLEX Rx Instructions: 1 sliding scale dose subcutaneously insulin pump brimonidine 0.2 % drops 1 drp ophthalmic (eye) BID levothyroxine 200 mcg tablet 200 mcg PO DAILY Patient Comments: 225mcg mon,Wed,Saturday then 200mcg all other days ipratropium bromide 42 mcg (0.06 %) spray,non-aerosol 2 spray INTRANASAL TID PRN (Reason: allergies) fluticasone propionate 50 mcg/actuation spray,suspension 1 spray INTRANASAL BID PRN (Reason: allergies) progesterone micronized 100 mg capsule 300 mg PO BEDTIME armodafinil 250 mg tablet 250 mg PO DAILY Linzess 290 mcg capsule 290 mcg PO DAILY Rhopressa 0.02 % drops 1 drp ophthalmic (eye) BEDTIME hydralazine 25 mg Tablet 25 mg PO BID Qty: 120 2RF furosemide 40 mg tablet 20 mg PO DAILY PRN (Reason: Weight gain more than 3 pounds) Qty: 90 0RF Rx Instructions: Take potassium only with Lasix Discharge Orders: Discharge Order (Routine); Ordered 09/15/24 Ordered By: Berlin Burks Referrals: Maximiliano Melgar MD [Physician] - (We have notified your physician's clinic of the need for a follow-up appointment to be scheduled. If you have not heard from them within the next 2 business days, please call them directly. ) Discharge Diet: Advance as tolerated and Clear Liquid Discharge Activity: Resume usual activity and Increase activity as tolerated Patient Instructions: Constipation (DC), Acute Wound Care (DC), Bowel Obstruction (DC), Opioid Safety, Post Anesthesia Care Activity Restrictions/Additional Instructions: Continue with clear liquid diet for next 1 week and then advance gradually. Try to take multiple small meals. Please try to reduce your pain medications as possible. Discharge Attestations Time Spent in Discharge Care*: greater than 30 min Specific Discharge Activities: educating patient, educating and/or supporting family/caregiver, discussing with pcp/other providers, discussing with rifle case repairer/social workers/dc planners, documenting/other paperwork and evaluating patient/reviewing data Status at Discharge: Cognitive status at discharge: cognitively intact, Behavioral status at discharge: cooperative, Functional status at discharge: independent ambulation, Overall status at discharge: patient is not back to baseline Quality Metrics Clinical Quality Measures [ No reported AMI, CVA or VTE this stay] Coding Level of Care Code 83088 Total time (in minutes) for Discharge: 60 Diagnoses Small bowel obstruction K56.609 Hypertension I10 Acute on chronic heart failure with preserved ejection fraction I50.33 Heart failure chronicity: acute on chronic Type 1 diabetes mellitus with hypoglycemia and without coma E10.649 Diabetes mellitus complication detail: without coma Postablative hypothyroidism E89.0 Hypothyroidism type: postablative
== END 2024-09-15 12:45 | disposition home or self-care (01) | DRG 389 ==
LOC: ER 15:55 → MEDSURG 17:02 → ER IP 17:23 → MEDSURG 17:31
PROVIDERS: Admitting Provider Student in an Organized Health Care Education/Training Program; Emergency Provider Emergency Medicine; Visit Provider Student in an Organized Health Care Education/Training Program
DX: K56.609 Unspecified intestinal obstruction, unspecified as to partial versus complete obstruction (principal); I13.0 Hypertensive heart and chronic kidney disease with heart failure and stage 1 through stage 4 chronic kidney disease, or unspecified chronic kidney disease; I50.32 Chronic diastolic (congestive) heart failure; G89.29 Other chronic pain; M54.9 Dorsalgia, unspecified; E10.40 Type 1 diabetes mellitus with diabetic neuropathy, unspecified; E10.649 Type 1 diabetes mellitus with hypoglycemia without coma; E10.43 Type 1 diabetes mellitus with diabetic autonomic (poly)neuropathy; K31.84 Gastroparesis; E10.22 Type 1 diabetes mellitus with diabetic chronic kidney disease; N18.30 Chronic kidney disease, stage 3 unspecified; Z96.41 Presence of insulin pump (external) (internal); K59.03 Drug induced constipation; T40.2X5A Adverse effect of other opioids, initial encounter; G47.419 Narcolepsy without cataplexy; F41.9 Anxiety disorder, unspecified; H35.30 Unspecified macular degeneration; N31.9 Neuromuscular dysfunction of bladder, unspecified; E78.5 Hyperlipidemia, unspecified; D63.1 Anemia in chronic kidney disease; G47.33 Obstructive sleep apnea (adult) (pediatric); G25.81 Restless legs syndrome; Z79.890 Hormone replacement therapy; Z87.01 Personal history of pneumonia (recurrent); Z86.16 Personal history of COVID-19; Z98.1 Arthrodesis status; E89.0 Postprocedural hypothyroidism
CPT/HCPCS: 36415; 36416; 71045; 74018; 74176; 80053; 81001; 82962; 83690; 83735; 84100; 84145; 84439; 84443; 84481; 85025; 93971; 94664; 96361; 96372; 96374; 96375; 96376; 99285; J0360; J1171; J1200; J1644; J2060; J2270; J2405; J2470; J2543; J2765; J3475; J3490; J7030